=== PATIENT | female | born 1995 | race Caucasian/White ===

== ENCOUNTER 2022-07-05 09:26 | Outpatient (CLI) | payer MEDICAID, SELFPAY ==
[2022-07-05 11:29] LABS: Alanine Aminotransferase* 16 U/L (4-35); Aspartate Amino Transferase* 19 U/L (12-35); Blood Urea Nitrogen* 7 mg/dL (5-24); Creatinine* 0.5 mg/dL (0.5-1.5); Estimated Glomerular Filt Rate 133 ml/min; Uric Acid* 4.1 mg/dL (2.2-8.4)
[2022-07-05 11:34] LABS: Total Protein Urine 7 mg/dL
[2022-07-05 11:35] LABS: Creatinine Urine 146.3 mg/dL
== END 2022-07-05 09:27 | disposition home or self-care (01) ==
LOC: NFLDREF 09:27
PROVIDERS: Visit Provider Advanced Practice Midwife
DX: Z34.82 Encounter for supervision of other normal pregnancy, second trimester (principal); Z87.59 Personal history of other complications of pregnancy, childbirth and the puerperium; Z3A.20 20 weeks gestation of pregnancy
CPT/HCPCS: 82565; 82570; 84156; 84450; 84460; 84520; 84550

== ENCOUNTER 2022-07-13 08:12 | Outpatient (CLI) | payer MEDICAID, SELFPAY | END 2022-07-13 08:13 | disposition home or self-care (01) | LOC: NFLDREF 07-19 15:22 | PROVIDERS: Visit Provider Advanced Practice Midwife | DX: Z34.93 Encounter for supervision of normal pregnancy, unspecified, third trimester (principal) | CPT/HCPCS: 82951; 82952 ==

== ENCOUNTER 2022-08-26 08:16 | Outpatient (CLI) | payer MEDICAID, SELFPAY ==
[2022-08-26 08:42] LABS: Glucose Fasting Check 88 mg/dl (60-115)
[2022-08-26 12:41] LABS: Glucose 1 Hour Gest 169 mg/dl (70-180)
[2022-08-26 12:41] LABS: Glucose GTT-Gestational 3 Hr 160 mg/dl (70-140)
[2022-08-27 23:08] LABS: Rapid Plasma Reagin (RPR) Non Reactive (Non Reactive)
== END 2022-08-26 08:17 | disposition home or self-care (01) ==
PROVIDERS: Visit Provider Advanced Practice Midwife
DX: Z34.93 Encounter for supervision of normal pregnancy, unspecified, third trimester (principal); Z3A.28 28 weeks gestation of pregnancy
CPT/HCPCS: 82951; 82952; 86592; 86850

== ENCOUNTER 2022-09-07 12:52 | Outpatient (CLI) | payer MEDICAID, SELFPAY ==
--- NOTE | 2022-09-07 13:00 | CRLHL7_ITS ---
For Patients: As a result of the Cures Act, medical imaging exams and procedure reports are released immediately into your electronic medical record. You may view this report before your referring provider. If you have questions, please contact your health care provider. INDICATION: Gestational diabetes; macrosomia COMPARISON: none TECHNIQUE: Real time white scale imaging of the fetus was performed. FINDINGS: Sonographic imaging demonstrates a single living intrauterine gestation. Fetus demonstrates a regular cardiac rate of 173 beats per minute. Fetus has a vertex position. The placenta lies posteriorly. Amniotic fluid volume appears normal and there is a single deepest vertical pocket: 7.9 cm. ANA ROSA 19.0 cm. The estimated weight is 1973gm which lies at the greater than 97th %. BPD greater than 97th percentile. HC 97th percentile. AC greater than 97th percentile. FL 75th percentile. The HC/AC ratio measures 1.05 range (0.96-1.12). IMPRESSION: Sonographic gestational age 32 weeks 4 days and sonographic due date of 10/29/2022. Sonographic age is 18 days ahead of the clinical age. Estimated weight greater than 97th percentile. Abdominal circumference and BPD greater than 97th percentile. heart rate upper limits of normal at 173 beats per minute. Normal ANA ROSA. Dictated by Perry Ramírez MD @ 09/08/2022 12:25:41 PM (Electronically Signed)
== END 2022-09-07 12:53 | disposition home or self-care (01) ==
LOC: US 12:52
PROVIDERS: PCP Advanced Practice Midwife; Visit Provider Physician Assistant
DX: O36.63X0 Maternal care for excessive fetal growth, third trimester, not applicable or unspecified (principal); O24.419 Gestational diabetes mellitus in pregnancy, unspecified control; Z3A.32 32 weeks gestation of pregnancy
CPT/HCPCS: 76816

== ENCOUNTER 2022-09-21 13:08 | Outpatient (CLI) | payer MEDICAID, SELFPAY ==
--- NOTE | 2022-09-21 13:15 | CRLHL7_ITS ---
For Patients: As a result of the Century Cures Act, medical imaging exams and procedure reports are released immediately into your electronic medical record. You may view this report before your referring provider. If you have questions, please contact your health care provider. INDICATION: Gestational diabetes TECHNIQUE: Real time white scale imaging of the fetus was performed. COMPARISON: 09/07/2022 FINDINGS: Sonographic imaging demonstrates a single living intrauterine gestation. Fetus demonstrates a regular cardiac rate of 154 beats per minute. Fetus has a vertex position. The placenta lies posteriorly. Amniotic fluid volume appears normal and there is a single deepest pocket of 5.3 cm. The estimated weight is 2086gm which lies at the 71st %. On the prior OB ultrasound dated 09/07/2022 the estimated weight was at the greater than 97th percentile. BPD 96th percentile. HC 95th percentile. AC 49th percentile. FL 69th percentile. The fetus was active and demonstrated normal breathing movements. There was normal flexion and extension of the trunk and extremities. IMPRESSION: Normal biophysical profile score 8/8. Sonographic gestational age 33 weeks 6 days and sonographic due date 11/03/2022. Sonographic age 13 days ahead of the clinical age. Estimated weight 71st percentile. Abdominal circumference 49th percentile. Dictated by Perry Ramírez MD @ 09/22/2022 9:47:24 AM (Electronically Signed)
== END 2022-09-21 13:09 | disposition home or self-care (01) ==
LOC: US 13:09
PROVIDERS: PCP Advanced Practice Midwife; Visit Provider Advanced Practice Midwife
DX: O24.419 Gestational diabetes mellitus in pregnancy, unspecified control (principal); Z3A.33 33 weeks gestation of pregnancy
CPT/HCPCS: 76816; 76819

== ENCOUNTER 2022-09-21 15:02 | Outpatient (CLI) | payer MEDICAID, SELFPAY ==
[2022-09-21 22:28] LABS: Alanine Aminotransferase* 14 U/L (4-35)
[2022-09-21 22:45] LABS: Aspartate Amino Transferase* 20 U/L (12-35)
[2022-09-24 16:10] LABS: Bile Acids, Total 3 umol/L (0-10)
== END 2022-09-21 15:03 | disposition home or self-care (01) ==
PROVIDERS: PCP Advanced Practice Midwife; Visit Provider Advanced Practice Midwife
DX: O99.713 Diseases of the skin and subcutaneous tissue complicating pregnancy, third trimester (principal); L29.9 Pruritus, unspecified; Z3A.32 32 weeks gestation of pregnancy
CPT/HCPCS: 82239; 84450; 84460

== ENCOUNTER 2022-09-28 14:49 | Outpatient (CLI) | payer MEDICAID, SELFPAY ==
[2022-09-28 17:43] LABS: Alanine Aminotransferase* 14 U/L (4-35); Aspartate Amino Transferase* 18 U/L (12-35)
[2022-09-30 21:03] LABS: Bile Acids, Total 2 umol/L (0-10)
== END 2022-09-28 14:50 | disposition home or self-care (01) ==
PROVIDERS: PCP Advanced Practice Midwife; Visit Provider Advanced Practice Midwife
DX: L29.9 Pruritus, unspecified (principal)
CPT/HCPCS: 82239; 84450; 84460

== ENCOUNTER 2022-10-19 13:03 | Outpatient (CLI) | payer MEDICAID, SELFPAY ==
--- NOTE | 2022-10-19 13:00 | CRLHL7_ITS ---
For Patients: As a result of the Century Cures Act, medical imaging exams and procedure reports are released immediately into your electronic medical record. You may view this report before your referring provider. If you have questions, please contact your health care provider. INDICATION: Third trimester growth, BPP TECHNIQUE: Real time white scale imaging of the fetus was performed. COMPARISON: 09/21/2022 FINDINGS: Sonographic imaging demonstrates a single living intrauterine gestation. Fetus demonstrates a regular cardiac rate of 148 beats per minute. Fetus has a vertex position. The placenta lies left posterior. Amniotic fluid volume appears normal and there is a single deepest pocket of 7.2 cm. ANA ROSA 19.4 cm. The estimated weight is 3221gm which lies at the 87th %. On the prior OB ultrasound dated 09/21/2022 the estimated weight was at the 71st percentile. BPD 97th percentile. HC 89th percentile. AC 91st percentile. FL 57th percentile. The fetus was active. Absent breathing movements. There was normal flexion and extension of the trunk and extremities. IMPRESSION: Biophysical profile 8/8 with absent respiratory activity. Sonographic gestational age 37 weeks 6 days and sonographic due date 11/03/2022. Sonographic age is 13 days ahead of the clinical age. Estimated weight 87th percentile. Abdominal circumference 91st percentile. Dictated by Perry Ramírez MD @ 10/19/2022 2:38:03 PM (Electronically Signed)
== END 2022-10-19 13:04 | disposition home or self-care (01) ==
LOC: US 13:04
PROVIDERS: Visit Provider Advanced Practice Midwife
DX: Z34.93 Encounter for supervision of normal pregnancy, unspecified, third trimester (principal); Z3A.37 37 weeks gestation of pregnancy
CPT/HCPCS: 76816; 76819

== ENCOUNTER 2022-10-19 14:32 | Outpatient (CLI) | payer MEDICAID, SELFPAY ==
[2022-10-20 14:10] LABS: Strep B DNA Probe POSITIVE (Negative)
[2022-10-20 14:11] LABS: Strep B Pen/Amox Allergy No
== END 2022-10-19 14:33 | disposition home or self-care (01) ==
LOC: NFLDREF 14:32
PROVIDERS: Visit Provider Advanced Practice Midwife
DX: Z34.93 Encounter for supervision of normal pregnancy, unspecified, third trimester (principal); Z3A.37 37 weeks gestation of pregnancy
CPT/HCPCS: 87081; 87653

== ENCOUNTER 2022-10-28 13:04 | Outpatient (CLI) | payer MEDICAID, SELFPAY ==
--- NOTE | 2022-10-28 13:00 | CRLHL7_ITS ---
For Patients: As a result of the Century Cures Act, medical imaging exams and procedure reports are released immediately into your electronic medical record. You may view this report before your referring provider. If you have questions, please contact your health care provider. INDICATION: female. Evaluate well-being. Evaluate growth. TECHNIQUE: Transabdominal obstetrical ultrasound. COMPARISON: October 19, 2022. FINDINGS: Single living intrauterine in vertex presentation. heart rate 133 beats per minute. Amniotic fluid volume index 18.67 cm. Single deepest pocket measurement is 6.1 cm. The placenta is located along the left lateral wall both anteriorly and posteriorly. Biophysical profile score 6/8 with 2 points given each for gross body movements, tone, and amniotic fluid. Respiratory activity was not observed during the time course of the study. Biparietal diameter 9.65 cm, 39 weeks 3 days, greater than this 97th percentile. Head circumference 35.2 cm, 41 weeks 0 days, 96th percentile. Abdominal circumference 35.3 cm, 39 weeks 1 day, 97th percentile. Femur length 7.2 cm, 37 weeks 0 days, 42nd percentile. Composite calculated ultrasound age 39 weeks 1 day with a sonographic due date of November 03, 2012. This is advanced by 13 days when compared with the age based on the last menstrual period provided. Estimated weight 3647 g which lies at the 92nd percentile. IMPRESSION: 1. Biophysical profile score 6/8. 2. Composite calculated ultrasound age 39 weeks 1 day with a sonographic due date of November 03, 2022. Dictated by Srikanth Cedlilo MD @ 10/28/2022 4:00:24 PM (Electronically Signed)
== END 2022-10-28 13:05 | disposition home or self-care (01) ==
LOC: US 13:04
PROVIDERS: Visit Provider Advanced Practice Midwife
DX: Z34.93 Encounter for supervision of normal pregnancy, unspecified, third trimester (principal); Z3A.37 37 weeks gestation of pregnancy
CPT/HCPCS: 76816; 76819

== ENCOUNTER 2022-11-04 13:07 | Outpatient (CLI) | payer MEDICAID, SELFPAY ==
--- NOTE | 2022-11-04 13:00 | CRLHL7_ITS ---
For Patients: As a result of the Century Cures Act, medical imaging exams and procedure reports are released immediately into your electronic medical record. You may view this report before your referring provider. If you have questions, please contact your health care provider. INDICATION: GDM, BMI <40 COMPARISON: 10/28/2022 TECHNIQUE: Real time white scale imaging of the fetus was performed. Without non-stress testing. FINDINGS: Sonographic imaging demonstrates a single living intrauterine gestation. Fetus demonstrates a regular cardiac rate of 152 beats per minute. Fetus has a vertex position. The amniotic fluid volume appears normal and there is a single deepest pocket measurement of 3.7 cm. The fetus was active and demonstrated normal breathing movements. There was normal flexion and extension of the trunk and extremities. IMPRESSION: Normal biophysical profile score of 8 out of 8. Dictated by Perry Ramírez MD @ 11/05/2022 10:08:11 AM (Electronically Signed)
== END 2022-11-04 13:08 | disposition home or self-care (01) ==
LOC: US 13:07
PROVIDERS: Visit Provider Advanced Practice Midwife
DX: O24.419 Gestational diabetes mellitus in pregnancy, unspecified control (principal)
CPT/HCPCS: 76819

== ENCOUNTER 2022-11-09 07:20 | Inpatient (IN) | payer MEDICAID, SELFPAY ==
[2022-11-09] VITALS (25 sets, daily range): BP systolic 114–134; BP diastolic 60–80; PULSE 66–99; RESP 16–18; TEMP 36.8–37.3; O2SAT 78–99; BMI 41.5
[2022-11-09] MEDS: miSOPROStoL 25 MCG/0.25 TABLET VAGINAL ×4 (08:30→20:45)
--- NOTE | 2022-11-09 08:33 | P.LDBA_ITS ---
Subjective History of Present Illness Date Seen: 11/09/22 Narrative: Meg is being admitted to Labor and Delivery for induction of labor for gestational diabetes. She is a 27 year old at 39 0/7 weeks gestation. Her full history and physical was dictated by Laurie MOISE with Pablo Jackson CNM on 10/28/22. Please see this for details. OB PROBLEM LIST 1. History of Pre-E w/o severe features - diagnosed at IOL in last . Pt started taking Aspirin @ 12 weeks Baseline labs 07/05, all WNL, PCR 0.00 2. Umbilical hernia - repaired 2020 but came back almost immediately, stated no repair planned until after childbearing - per pt 3. Asthma - mild, persistent - managed by PCP 4. Depression/Anxiety - Lexapro 10mg - does not have a counselor but would like referral History of depression. Desires to increase Lexapro dose after delivery 5. Migraines - with aura in the past, very rare and respond well to ibuprofen (not tylenol) Reglan rx sent 07/05 6. Blood Type A Rh Negative - Rhogam at 28w. Given 08/26/2021 if baby's blood is Rh positive 7. Herpes Hx of labs, never swabbed. Denies any hx genital/oral outbreak, did not take w/ previous -Declines to take with this 8. Rubella: Non-Immune? & Varicella: Non-Immune Needs MMR and Varicella vaccines 9. BMI 39.9 Level II u/s @ 20w: 71% EFW Weekly NST or BPP starting at 32w - scheduled for weekly NSTs and Growth at 36 weeks. Anesthesia consult: Complete 08/26/2022 10. GDM-would like IOL at 39 weeks Failed early 1 hr gct, 167 3 hour ordered: passed 28 week gtt: failed 09/04 Supplies and referral sent 09/01 09/21: fasting elevated: 110, 97, 95, 98, 102, 98.? PP 128, 121. 10/07: fasting all normal 10/28: only one out of range over 1 week Planning IOL: scheduled 11/09, consent signed 11. Anemia, 10.1 at 28 weeks Patient had been taking iron every other day, increase to daily supplementation Vitron-C daily 12. Suspected PUPPP/PEP rash Itching noted at 32 weeks. cholestasis labs ordered; All WNL 3/ repeated cholestasis lab: all WNL Mometasone 0.1% lotion (1-2x/day) & Vistaril 25mg Q6hrs PRN (may take 50mg at night if needed) 13. GBS positive, planning antibiotics in labor OB - Problem Based A/P Additional Plan (1) Encounter for induction of labor: Status: Acute (2) Group B Streptococcus carrier, antepartum: Status: Acute (3) Severe obesity (BMI >= 40): Status: Acute (4) Asthma: Status: Acute (5) Depression: Status: Acute (6) Gestational diabetes: Status: Acute (7) Anemia: Status: Acute Plan ASSESSMENT:? 27 at 39 0/7 weeks gestation? complicated by:? * History of Pre-E w/o severe features - diagnosed at IOL in last . * Umbilical hernia * Asthma * Depression/Anxiety - Lexapro 10mg - * Migraines * Blood Type A Rh Negative * Rubella: Non-Immune? & Varicella: Non-Immune * BMI 39.9 * GDM-would like IOL at 39 weeks * Anemia * Suspected PUPPP/PEP rash Labor type: Induced labor? Category 1 FHR pattern.?? Labor complicated by: GDM, Anemia, GBS +? GBS positive? ? PLAN:? 1. Routine intrapartum cares as ordered. Discussed options for IOL including cytotec and briefly pitocin. Recommended vaginal cytotec based on current cervical exam. Patient agrees with plan. Administer cytotec per protocol every 4 hours. 2. Monitoring per policy, continuous for GDM and Cytotec 3. Planning an epidural. Candidate for analgesia of choice when desired.?? 4. Patient encouraged to reposition and ambulate to promote physiologic labor and .? 5. Monitor blood sugar during labor. Follow protocol for gestational diabetes management in labor. 6. GBS phrophylaxis initiated for GBS positive status. Will treat with antibiotics per protocol. 7. Anticipate ? Delivery/Labor/Induction Plan Plan: induction Induction method: per misoprostol protocol OB Exam Physical Exam Vital signs: Temp Pulse Resp BP 99.1 F 96 16 118/80 11/09/22 07:56 11/09/22 08:00 11/09/22 07:56 11/09/22 08:00 Narrative: Vitals Reviewed Constitutional:? Alert and oriented x3 HEENT:? Normocephalic, atraumatic Neck:? Supple Lungs:? Clear to auscultation bilaterally Heart:? Regular rate and rhythm, no murmur, rub or gallop Abdomen:? Soft, nontender, and gravid. Vertex by Ghassan's, confirmed with cervical exam. Extremities:? 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
[2022-11-09 09:44] LABS: SARS PCR* Negative SARS-CoV-2 (Negative)
[2022-11-09] MEDS: ACETAMINOPHEN 500 MG TABLET 1000 MG PO (14:25)
--- NOTE | 2022-11-09 17:05 | P.OBPN_ITS ---
Subjective Date Seen: 11/09/22 Narrative: Meg is a 27 yo at 39 0/7 weeks for IOL for GDM. Patient is coping well with labor pain/contractions. She reports mostly just feeling mild cramping and contractions. She is currently being supported by . Understands the current plan of care. Questions answered to her satisfaction. She plans epidural for pain management when uncomfortable. 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 Objective Exam: Objective: Constitutional: Alert and oriented x3, no distress, coping well Vital signs stable, see nurse documentation Abdomen: gravid, contractions palpate mild with contractions and soft between. Bedside US confirms cephalic position, appears OP. Cervix: Deferred NST: 145 bpm/moderate variability/positive accelerations/no decelerations/ irregular contractions. [place] used for FHR assessment Vital Signs: Last Vital Signs Temp 98.4 F 11/09/22 16:37 Pulse 74 11/09/22 16:39 Resp 16 11/09/22 16:37 BP 117/66 11/09/22 16:39 Contractions Contraction intensity: Mild Plan Plan: ASSESSMENT:? 27 at 39 0/7 weeks gestation? complicated by:? * History of Pre-E w/o severe features - diagnosed at IOL in last . * Umbilical hernia * Asthma * Depression/Anxiety - Lexapro 10mg - * Migraines * Blood Type A Rh Negative * Rubella: Non-Immune? & Varicella: Non-Immune * BMI 39.9 * GDM-would like IOL at 39 weeks * Anemia * Suspected PUPPP/PEP rash * Labor type: Induced labor? Category 1 FHR pattern.?? Labor complicated by: GDM, Anemia, GBS +? GBS positive? ? PLAN:? 1. Routine intrapartum cares as ordered. Continue cytotec per protocol. Fetus confirmed cephalic via US 2. Monitoring per policy, continuous for GDM and Cytotec 3. Planning an epidural. Candidate for analgesia of choice when desired.?? 4. Patient encouraged to reposition and ambulate to promote physiologic labor and .?Encouraged her to get up and out of bed. 5. Monitor blood sugar during labor. Follow protocol for gestational diabetes management in labor. 6. GBS phrophylaxis initiated for GBS positive status. Will treat with antibiotics per protocol. 7. Anticipate ?
[2022-11-09 17:47] LABS: Basophils Absolute Auto 0.02 K/uL (0.00-0.30); Basophils Percent Auto 0.3 % (0.0-3.0); Eosinophils Absolute Auto 0.02 K/uL (0.00-0.50); Eosinophils Percent Auto 0.3 % (0.0-7.0); Hematocrit 36.1 % (33.0-51.0); Hemoglobin* 11.7 gm/dL (12.0-16.0); Immature Granulocytes Abs Auto 0.03 K/uL (0.00-0.30); Immature Granulocytes Pct Auto 0.5 %; Lymphocytes Absolute Auto 1.27 K/uL (0.90-2.90); Mean Corpuscular HGB Conc 32 gm/dL (32-36); Mean Corpuscular Hemoglobin 29 pg (26-34); Mean Corpuscular Volume 88 fL (80-100); Monocytes Percent Auto 7.9 % (0.0-11.0); Neutrophils Absolute Auto 4.23 K/uL (1.7-7.0); Platelet Count* 156 K/uL (140-440); Red Blood Count 4.09 m/uL (4.00-5.20); White Blood Count* 6.05 K/uL (4.50-11.00)
[2022-11-09 18:04] LABS: Slide Review Reflex No
[2022-11-09] MEDS: LACTATED RINGERS 1000 ML 1,000 ML 1200 ML IV (21:30)
[2022-11-09] MEDS: AMPICILLIN 2 GM in 0.9 % SODIUM CHLORIDE Mini-bag 100 ML IVPB (21:46)
[2022-11-09] MEDS: ROPIVACAINE 0.2% 100 ml 100 ML 12 MG EPIDURAL (22:10)
[2022-11-09] MEDS: LACTATED RINGERS 1000 ML 1,000 ML 125 ML IV (22:27)
[2022-11-10] VITALS (23 sets, daily range): BP systolic 99–129; BP diastolic 53–77; PULSE 72–112; RESP 16–18; TEMP 36.6–36.9; O2SAT 96–97
[2022-11-10] MEDS: ONDANSETRON 2 MG/ML inj 4 MG IV (02:03)
[2022-11-10] MEDS: AMPICILLIN 1 GM in 0.9 % SODIUM CHLORIDE Mini-bag 100 ML IVPB (02:08)
[2022-11-10] MEDS: OXYTOCIN 30 unit/500 ML in NS 30 UNIT/500 ML BAG 300 UNIT IVPB (02:42)
--- NOTE | 2022-11-10 02:54 | W.PM.OBVAGDE ---
Documented by User: Rosendo Fletcher 11/10/22 03:08 OB Procedure Vag Delivery Mother Details Mother Details: Meg is a 27 year-old, 2, Para 1, admitted on 11/09/22 at 39.1weeks gestation induced for GDM. She was positive for GBS and received adequate treatment at time of delivery. : 2 Para: 2 Weeks Gestation: 39.1 Admission Date: 11/09/22 Additional Details Amniotic Membrane Status: SROM Amniotic Membrane Rupture Date: 11/09/22 Amniotic Membrane Rupture Time: 21:09 Amniotic Membrane Fluid Description: Clear Analgesia/Anesthesia Type: Epidural Waterbirth: No Pitcoin: Yes (AMTSL) Intrapartal Events: Labor Induction Induction Method: per misoprostol protocol Labor Onset: 21:00 Complete: 23:04 Pushin:38 Heart: heart tones during second stage were reassuring throughout, variable decels with pushing but good return to baseline of 145, moderate variability. Delivery Details Delivery Date: 11/10/22 Delivery Time: 02:37 Route of delivery: Infant Gender: Male Infant Viability: Alive; Heart Rate Present Position at Delivery: OA Delivery Details: Patient had an uncomplicated labor that progressed normally to complete. Patient pushed well in multiple positions. of a viable male at 0237 in right tilt position. Vertex delivered OA. No nuchal cord or shoulder, there was a loose body cord. Body delivered easily and without incident. passed to mothers abdomen with a vigorous cry. Cord was clamped and cut at > 5 minutes. APGARS were 7 at one minute and 8 at five minutes respectively. Mouth was bulb suctioned. Intact placenta with a 3 vessel cord delivered spontaneously. IV Pitocin was given after delivery of the baby. Fundus firm. No tear identified. QBL 344 cc. Mother and baby stable; mother plans to breastfeed. weight 3710g. 1 Minute Interval Total Score: 7 5 Minute Interval Total Score: 8 Additional Details Shoulder Dystocia: No Placenta Delivery Time: 02:42 Placental Delivery Description: Spontaneous Procedure Done: Global Blood Loss: 344 Laceration: None Blood Loss Measurement Type: QBL Bakri Used: No Sponge/Need Count Correct: Yes Cord Vessel Description: 3 Vessels, Loose, Around Body and Delivered through Event Summary Status: Mother and infant were stable after delivery. Disposition: floor Documented by User: Melody Jackson CNM 11/10/22 03:14 OB Procedure Vag Delivery Mother Details Mother Details: Meg is a 27 year-old, 2, Para 1, admitted on 11/09/22 at 39.1 weeks gestation induced for GDM. She was positive for GBS and received adequate treatment at time of delivery.
[2022-11-10] MEDS: IBUPROFEN 600 MG TABLET PO ×2 (08:52→17:18)
[2022-11-10] MEDS: DOCUSATE SODIUM 100 MG CAPSULE PO (08:53)
[2022-11-10] MEDS: ESCITALOPRAM 10 MG TABLET PO (10:13)
[2022-11-10] MEDS: OMEPRAZOLE 20 MG CAPSULE DR PO (10:13)
[2022-11-10] MEDS: ACETAMINOPHEN 500 MG TABLET 1000 MG PO ×2 (10:58→20:42)
[2022-11-10] MEDS: MEASLES,MUMPS,RUBELLA VACC/PF 1 DOSE INJ 1 EACH SUBCUT (17:28)
[2022-11-10] MEDS: LANOLIN CREAM 1 APPLIC TOPICAL (20:43)
[2022-11-11 01:07] VITALS: BP 114/74; PULSE 74; RESP 16; TEMP 36.6; O2SAT 96
[2022-11-11] MEDS: IBUPROFEN 600 MG TABLET PO ×2 (01:08→08:13)
--- NOTE | 2022-11-11 07:49 | P.DS_ITS ---
DS: Providers Provider Date Seen: 11/11/22 Date of admission: 11/09/22 07:20 Primary care physician: Not a Local Provider Admitting Clinician: Melody Jackson CNM Attending Physician on discharge: Melody Jackson CNM Date of Discharge: 11/11/22 DS: Diagnosis Discharge Diagnosis (1) care and examination immediately after delivery: Status: Acute (2) Lactating mother: Status: Acute Exam Narrative: Exam Narrative: GENERAL APPEARANCE:? normal affect, alert, no distress MOOD:? appropriate CHEST:? clear to auscultation HEART:? regular rate and rhythm ABDOMEN:? soft, non-tender the uterine fundus is At Umbilicus, Midline and is appropriate for the stage of recovery. PERINEUM:? mild edema of the perineum, intact EXTREMITIES:? normal and no edema Const: Vital Signs, click to edit/add: Vital Signs - 24 hr 11/10/22 08:38 11/10/22 08:52 11/10/22 13:12 Temperature 98.1 F 98.1 F 97.8 F Pulse Rate [Pulse Oximeter] 72 Respiratory Rate 18 18 Blood Pressure [Le ft Arm] 115/77 120/73 Pulse Oximetry 96 96 Oxygen Delivery Me thod Room Air Room Air 11/10/22 17:08 11/10/22 17:18 11/10/22 20:21 Temperature 98.4 F 98.4 F 98.2 F Pulse Rate [Pulse Oximeter] 72 76 Respiratory Rate 18 16 Blood Pressure [Le ft Arm] 116/73 114/77 Pulse Oximetry 97 97 Oxygen Delivery Me thod Room Air Room Air 11/11/22 01:07 Temperature 97.9 F Pulse Rate [Pulse Oximeter] 74 Respiratory Rate 16 Blood Pressure [Le ft Arm] 114/74 Pulse Oximetry 96 Oxygen Delivery Me thod Room Air Documenting provider has reviewed patient's vital signs: yes OB - DS: Summary Hospital Course Hospital Course: Meg is a 27 y.o. at 39 1/7 weeks who was admitted to L & D for induction of labor for GDM. ?She had an uncomplicated NVD.?The patient feels well. ?The pain is well controlled with current medications. ?She has no new complaints. ?She is breast feeding and reports things are going well. They are also supplementing with formula.? the patient has done well.? Vitals have been stable.? She has remained afebrile.? Has a good appetite, is tolerating a general diet. ?She is voiding without difficulty.? She is passing gas and has not had a bowel movement.? She is ambulating and denies any dizziness.? Has small amount of rubra lochia. ?She is planning condoms for prevention. Plan for 2 hour gct at 6 week pp visit. Plan to continue Lexapro at 10 mg, if she feels she needs adjustment before 2 weeks, she will call to discuss this with provider. Peripartum Data delivery method: Vaginal Laceration description: Perineal - 2nd Degree complications: none Infant Gender: Male Infant Discharge Plan: Home Status at Discharge Functional status at discharge: independent ambulation Overall status at discharge: patient is progressing back to baseline Time Spent with Patient Time attestation: Total time spent providing and/or coordinating discharge services: Discharge Plan Discharge Disposition: Home, Self-Care Date of Admission: 11/09/22 07:20 Attending Provider on Discharge: Melody Jackson Primary Care Provider: Provider,Not a Local Condition: Stable Anticipated Discharge Date/Time: 11/11/22 12:00 Discharge Medications: New docusate sodium 100 mg Capsule 100 mg PO DAILY Qty: 90 0RF ibuprofen 600 mg Tablet 600 mg PO Q6H PRNQty: 60 0RF Continued omeprazole 20 mg capsule,delayed release(DR/EC) 20 mg PO QDAY escitalopram oxalate [Lexapro] 10 mg tablet 10 mg PO QDAY fluticasone propion-salmeterol [Wixela Inhub] 250-50 mcg/dose blister with device 1 inh inhalation BID albuterol sulfate [Ventolin HFA] 90 mcg/actuation HFA aerosol inhaler 2 puff inhalation Q6H PRN acetaminophen [Tylenol Extra Strength] 500 mg tablet 1,000 mg PO Q6H PRN ascorbate calcium (vitamin C) 500 mg tablet 500 mg PO QDAY diphenhydramine HCl [Benadryl] 25 mg capsule 25 mg PO QHS PRN ferrous sulfate [FeroSul] 325 mg (65 mg iron) tablet See Rx Instructions .ROUTE .COMPLEX Qty: 90 0RF Dose Instruction: TAKE 1 TABLET BY MOUTH EVERY OTHER DAY Rx Instructions: TAKE 1 TABLET BY MOUTH EVERY DAY hydroxyzine pamoate 25 mg capsule 25 mg PO Q6H PRN (Reason: itching) Qty: 60 1RF Rx Instructions: May take one capsule 4 times a day as needed for itching. May take 2 capsules at night if needed. Discontinued aspirin 81 mg tablet,delayed release (DR/EC) 81 mg PO QDAY metoclopramide HCl [Reglan] 10 mg tablet 10 mg PO Q6H PRN (Reason: headache) Qty: 30 2RF Rx Instructions: Take at onset of migraine with Tylenol 1,000 mg. If not resolved in 6 hours, repeat. (DME) blood-glucose meter [Accu-Chek Guide Me Glucose Mtr] Misc MISCELLANEOUS DIRECTED (DME) Accu-Chek Guide test strips Strip MISCELLANEOUS QID (DME) Test Strips Misc See Rx Instructions .MEDSUPPLY Qty: 100 3RF Rx Instructions: Test blood sugar 4 times daily. (DME) lancets Misc See Rx Instructions .MEDSUPPLY Qty: 100 3RF Rx Instructions: Test blood sugar 4 times daily. (DME) Blood Glucose Meter Misc See Rx Instructions .MEDSUPPLY Qty: 1 0RF Rx Instructions: As directed Discharge Orders: Discharge Order (Routine); Ordered 11/11/22 Ordered By: Melody Jackson Patient Education: OB Over the Counter Medication Information, OB Vaginal/Breast Feeding Additional Instructions: Discharge instructions were reviewed with the patient including signs and symptoms of infection and home going medications Nothing vaginally for 6 weeks: no tampons or intercourse Off Work or School for 6 weeks 2-week visit: discuss feeding concerns, review control options and screen for anxiety/depression. 6-week visit for an annual exam. consultation services are available to all mothers and babies for the first year after delivery.? To make an appointment, please call [phone]. Activity Level: Activity as Tolerated Discharge Diet: Regular Follow Up Appointments: [facility] [Provider Group] (2 weeks and 6 weeks) [facility]
[2022-11-11] MEDS: DOCUSATE SODIUM 100 MG CAPSULE PO (08:13)
[2022-11-11] MEDS: OMEPRAZOLE 20 MG CAPSULE DR PO (08:14)
[2022-11-11] MEDS: ESCITALOPRAM 10 MG TABLET PO (08:14)
[2022-11-11 08:45] VITALS: BP 117/78; PULSE 77; RESP 18; TEMP 36.8; O2SAT 96
--- NOTE | 2022-11-16 11:08 | PM.ANBPRC ---
[facility] Medical History Herpes ?B00.9 - Herpesviral infection, unspecified (ICD-10) Migraine with aura ?G43.109 - Migraine with aura, not intractable, without status migrainosus (ICD-10) Multiple cysts of breast ?N60.19 - Diffuse cystic mastopathy of unspecified breast (ICD-10) Surgical History History of hernia surgery ?Z98.890 - Other specified postprocedural states (ICD-10) ?Z87.19 - Personal history of other diseases of the digestive system (ICD-10) [place] teeth extracted ?K08.409 - Partial loss of teeth, unspecified cause, unspecified class (ICD-10) Social History (Updated 10/28/22 @ 21:32 by Melody Jackson CNM) Narrative: SOCIAL Education: Highschool 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 Seat Belt Use: Routinely Smoking: Denies past/present Alcohol/day: Denies while Caffeine: sometimes, but minimal Drug Use: Denies past/present MRSA: Denies Chickenpox: unknown Smoking Status: Never smoker Meds Home Medications and Allergies Home Medications Medication Instructions Recorded Confirmed Type acetaminophen 500 mg tablet 1,000 mg PO Q6H PRN 06/16/22 11/09/22 History (Tylenol Extra Strength) albuterol sulfate 90 mcg/actuation 2 puff inhalation Q6H PRN 06/16/22 11/09/22 History aerosol inhaler (Ventolin HFA) escitalopram oxalate 10 mg tablet 10 mg PO QDAY 06/16/22 11/09/22 History (Lexapro) fluticasone 250 mcg-salmeterol 50 1 inh inhalation BID 06/16/22 11/09/22 History mcg/dose blistr powdr for inhalation (Wixela Inhub) omeprazole 20 mg capsule,delayed 20 mg PO QDAY 06/16/22 11/09/22 History release ascorbate calcium (vitamin C) 500 500 mg PO QDAY 10/07/22 11/09/22 History mg tablet diphenhydramine HCl 25 mg capsule 25 mg PO QHS PRN 10/19/22 11/09/22 History (Benadryl) Allergies Allergy/AdvReac Type Severity Reaction Status Date / Time No Known Drug Allergies Allergy Verified 11/04/22 14:00 Results Vital Signs Vital Signs: Last Vital Signs Temp 98.2 F 11/11/22 08:45 Pulse 77 11/11/22 08:45 Resp 18 11/11/22 08:45 BP 117/78 11/11/22 08:45 Pulse Ox 96 11/11/22 08:45 O2 Del Method Room Air 11/11/22 08:45 Weight: 113.1 kg Height: 165.1 cm Anesthesia Procedures Epidural Insertion Patient Location: OB Start Time: 21:30 Stop Time: 22:30 Start Date: 11/09/22 Stop Date: 11/09/22 Reason for Block: procedure for pain Patient Position: sitting Performed By: Viet Cruz Preanesthetic Checklist: IV checked, risks and benefits discussed, surgical consent, monitors and equipment checked, pre-op evaluation, timeout performed and anesthesia consent Prep: chlorhexidine gluconate Monitoring: blood pressure monitoring, continuous pulse oximetry and heart rate Approach: midline Vertebral Space: lumbar (1-5) Epidural Technique: SHARMAINE saline Needle Type: Tuohy needle Injection Technique: continuous catheter Needle gauge: 17 Needle Length (cm): 10 cm Needle Insertion Depth (cm): 6 Catheter Gauge: 19 Catheter Type: multi-orifice Catheter at skin depth (cm): 12 Test Dose Result: negative and lidocaine 1.5% with epinephrine 1 to 200,000
== END 2022-11-11 11:45 | disposition home or self-care (01) | DRG 807 ==
PROVIDERS: Admitting Provider Advanced Practice Midwife; Visit Provider Advanced Practice Midwife
DX: O24.420 Gestational diabetes mellitus in childbirth, diet controlled (principal); Z37.0 Single live birth; O99.824 Streptococcus B carrier state complicating childbirth; O99.214 Obesity complicating childbirth; E66.01 Morbid (severe) obesity due to excess calories; O99.344 Other mental disorders complicating childbirth; F41.8 Other specified anxiety disorders; J45.909 Unspecified asthma, uncomplicated; O99.02 Anemia complicating childbirth; D64.9 Anemia, unspecified; Z3A.39 39 weeks gestation of pregnancy
CPT/HCPCS: 01967; 36415; 59200; 85025; 85461; 86850; 86900; 86901; 87635; A9270; J0290; J2370; J2405; J2791; J2795; J7120; S0020

== ENCOUNTER 2023-02-11 08:23 | Outpatient (CLI) | payer MEDICAID, SELFPAY | END 2023-02-11 08:24 | disposition home or self-care (01) | LOC: NFLDREF 20:59 | PROVIDERS: Visit Provider Advanced Practice Midwife | DX: Z39.2 Encounter for routine postpartum follow-up (principal); Z86.32 Personal history of gestational diabetes; R73.01 Impaired fasting glucose; E66.01 Morbid (severe) obesity due to excess calories | CPT/HCPCS: 82947; 82950 ==

== ENCOUNTER 2023-08-08 17:38 | Emergency (ER) | payer MEDICAID, SELFPAY ==
[2023-08-08 17:41] VITALS: BP 111/77; PULSE 79; RESP 16; TEMP 36.9; O2SAT 98; BMI 39.9
--- NOTE | 2023-08-08 18:22 | CRLHL7_ITS ---
For Patients: As a result of the Century Cures Act, medical imaging exams and procedure reports are released immediately into your electronic medical record. You may view this report before your referring provider. If you have questions, please contact your health care provider. INDICATION: . Bleeding. Beta HCG 13.2. Last menstrual period 07/05/2023. FINDINGS: Pelvic ultrasound was performed. There is no intrauterine seen. The endometrial stripe thickness measures 0.8 cm. The right ovary measures 3.4 x 2.2 x 2.2 cm. The left ovary measures 3.1 x 1.1 x 2.1 cm. There is no ovarian or adnexal mass. There is no free fluid in the pelvis. IMPRESSION: No intrauterine seen. Recommend follow-up with serial beta HCGs and possible ultrasound. Dictated by Ld Brooks MD @ 08/08/2023 9:10:23 PM (Electronically Signed)
--- OUTSIDE RECORDS SUMMARY | 2023-08-08 18:33 | XMS_ITS | Clinical Summary ---
Author Name Unknown Organization [facility] Address [address] [place] [address] Care Team Providers Care Freight Inspector Name Role Phone No Ref-Primary, Physician Primary Care Provider Allergies Active Allergy Reactions Criticality Noted Date Comments Cats 07/12/2019 Other reaction(s): *Unknown Dog Epithelium Allergy Skin Test 07/12/2019 Other reaction(s): *Unknown Dogs 07/12/2019 Medications Medication Sig Dispensed Refills Start Date End Date Status fluticasone (FLOVENT HFA) 110 MCG/ACT inhalerIndications :Asthma, persistent not controlled Inhale 1 puff into the lungs 2 times daily 1 Inhaler 5 01/23/2020 Active sertraline (ZOLOFT) 100 MG tabletIndications: Depression affecting in third trimester, antepartum Take 1 tablet (100 mg) by mouth daily 90 tablet 4 03/27/2020 Active salmeterol (SEREVENT) 50 MCG/DOSE inhalerIndications :Asthma affecting in first trimester Inhale 1 puff into the lungs 2 times daily 1 Inhaler 3 08/04/2020 Active Additional Information Patient not taking.Reported on 02/24/2021 senna-docusate (SENOKOT-S/PERICOL DWAYNE) 8.6-50 MG tabletIndications: Postoperative pain Take 1-2 tablets by mouth 2 times daily 30 tablet 0 08/25/2020 Active oxyCODONE (ROXICODONE) 5 MG tabletIndications: Postoperative pain Take 1 tablet (5 mg) by mouth every 6 hours as needed for pain 20 tablet 0 08/25/2020 Active Additional Information Patient not taking.Reported on 02/24/2021 acetaminophen (TYLENOL) 500 MG tabletIndications: Postoperative pain Take 1-2 tablets (500-1,000 mg) by mouth every 6 hours as needed for mild pain 30 tablet 1 08/25/2020 Active fluticasone-salmet miranda (WIXELA INHUB) 250-50 MCG/DOSE inhaler Inhale 1 puff into the lungs 0 01/22/2021 Active albuterol (PROAIR HFA/PROVENTIL HFA/VENTOLIN HFA) 108 (90 Base) MCG/ACT inhalerIndications :Asthma, persistent not controlled Inhale 2 puffs into the lungs every 4 hours as needed for shortness of breath / dyspnea or wheezing 8.5 g 2 02/24/2021 Active LORazepam (ATIVAN) 0.5 MG tablet Take 1 tablet (0.5 mg) by mouth every 6 hours as needed for anxiety 5 tablet 0 02/25/2021 Active citalopram (CELEXA) 20 MG tablet Take 20 mg by mouth every morning 0 09/19/2020 Active DULoxetine (CYMBALTA) 30 MG capsule Take 30 mg by mouth 0 11/05/2020 Activ e fluticasone (FLONASE) 50 MCG/ACT nasal spray 0 10/17/2020 Active omeprazole (PRILOSEC) [address] capsuleIndications :Gastroesophageal reflux in in second trimester Take 1 capsule (20 mg) by mouth daily 60 capsule 0 07/07/2021 Active Active Problems Problem Noted Date Diagnosed Date Umbilical hernia without obstruction and without gangrene 04/11/2020 (normal spontaneous vaginal delivery) 01/30 Indication for care in labor and delivery, antep artum 01/30/2020 Positive GBS test 01/17/2020 Encounter for triage in patient 020 BMI 35.0-35.9,adult 08/16/2019 Asthma affecting in first trimester Asthma, persistent not controlled 12/26/2018 Anxiety and depression 08/22/2017 Seasonal allergic rhinitis 11/21/2014 Mild persistent asthma 01/29/2011 Resolved Problems Problem Noted Date Diagnosed Date Resolved Date Supervision of high-risk 07/12/2019 03/27/2020 Overview: EDC 02/05/20 by L=10wk US Innatal/carrier: decl BF [place] Flu:next appt Tdap: 11/05 Asthma. Albuterol, flovent; seravent added 07/19 Depression, no meds/counseling. Consider tx 34wk Rubella NI. Vaccinate PP BMI 35 1Hr GCT/hgb: Passed 131, 10.2 A negative. 11/05 Rhogam 28wk Encounters Date Type Department Care Team Description 07/28/2023 MyC Medical Advice PHYS STANDARD [address] [phone] Mychart, [facility] from Last 3 Months Immunizations Name Administration Dates Next Due HEPATITIS A (PEDS 12M-18Y) 05/06/2011 HPV Quadrivalent 06/14/2012, 1,05/22/2010,04/05/2008, HepB, Unspecified 08/10/1996,02/23/1996,12/13/18 96 Hepatitis A (ADULT 19+) 05/22/2010 Hib, Unspecified 02/11/1997,05/03/1996, 6,1995 Influenza (IIV3) PF 06/14/2012,05/06/2011,2009 MMR 02/01/2020,01/05/2001,12/13/1996 Meningococcal ACWY (Menveo??) 05/06/2011 Polio, Unspecified 02/11/1997,05/03/1996, 996,1995 Poliovirus, inactivated (IPV) 01/05/2001 TDAP Vaccine (Adacel) 11/06/2019,01/30/2008 Family History Medical History Relation Comments No Known Problems Brother Cancer Father Neurologic-head/ spine No Known Problems Maternal Grandfather No Known Problems Maternal Grandmother Anxiety Disorder Mother Depression Mother Hypertension Mother No Known Problems Other No Known Problems Paternal Grandmother No Known Problems Sister Relation Status Comments Brother Father Maternal Grandfather Maternal Grandmother Mother Other Paternal Grandmother Sister Social History Tobacco Use Types Packs/Day Years Used Date Smoking Tobacco: Never Smokeless Tobacco: Never Tobacco Cessation:Counseling Given: No Comments:lives in a smoking environment Alcohol Use Standard Drinks/Week Comments Not Currently 0 (1 standard drink = 0.6 oz pur e alcohol) AUDIT-C Answer Date Recorded Frequency of Alcohol Consumption Never 12/21/2018 Average Number of Drinks Not on file 019 Frequency of Binge Drinking Not on file 11/30 PHQ-2 Answer Date Recorded PHQ-2 Score 0 03/27/2020 [place] Depression Scale Answer Date Recorded [place] Depression Score 6 02/01/2020 Last EPDS Self Harm Result Not on file 01/31 Adolescent Education Answer Date Record ed Getting School Help Needed Not on file 05/10 Sex and Gender Information Value Date Recorded Sex Assigned at Female 11/25/2020 9:34 PM CDT Gender Identity Female 11/25/2020 9:34 PM CDT Sexual Orientation Straight 11/25/2020 9: 34 PM CDT Last Filed Vital Signs Vital Sign Reading Time Taken Comments Blood Pressure 120/80 03/24/2021 9:23 AM CDT Pulse 91 03/24/2021 9:23 AM CDT Temperature 37.1 ??C (98.7 ??F) 02/25/2021 7:37 PM CD T Respiratory Rate 25 02/25/2021 7:37 PM CDT Oxygen Saturation 100% 02/25/2021 7:37 PM CDT Inhaled Oxygen Concentration - - Weight 99.8 kg (220 lb) 02/25/2021 7:37 PM CDT Height 165.1 cm (5' 5) 02/25/2021 7:37 PM CDT Body Mass Index 36.61 02/25/2021 7:37 PM CDT Plan of Treatment Upcoming Encounters Date Type Department Care Team (Late st Contact Info) Description 08/09/2023 10:45 AM MRI MANAGER Office Visit [facility] [place] [address] [place] [phone] Deonte Miramontes MD [address] [place] [address] Health Maintenance Due Date Last Done Comments ADVANCE CARE PLANNING 1995 ANNUAL REVIEW OF HM ORDERS 1995 YEARLY PREVENTIVE VISIT 1995 HEPATITIS C SCREENING 10/20/2013 ASTHMA CONTROL TEST 06/23/2019 12/21/2018 ASTHMA ACTION PLAN 12/22/2019 12/21/2018 Pneumococcal Vaccine: Pediatrics (0 to 5 Years) and At-Risk Patients (6 to 64 Years) (2 of 2 - PCV) 08/31/2022 08/31/2021 COVID-19 Vaccine (4 - season) 2023 08/31/2021, 08/31/2021, 01/07/2021, Additional history exists INFLUENZA VACCINE (#1) 2023 2, 08/31/2021, 06/14/2012, Additional history exists PHQ-2 (once per calendar year) 2023 03/27/2020, 03/27/2020, 07/12/2019, Additional history exists PAP 04/21/2025 04/21/2022, 07/12/2019 DTAP/TDAP/TD IMMUNIZATION (4 - Td or Tdap) 09/07/2032 09/07/2022, 11/06/2019, 01/30/2008, Additional history exists HEPATITIS B IMMUNIZATION Completed 997, 08/10/1996, 02/23/1996, Additional history exists IPV IMMUNIZATION Completed 01/05/2001, , 02/11/1997, Additional history exists MENINGITIS IMMUNIZATION Aged Out 05/06/2011 No l onger eligible based on patient's age to complete this topic HPV IMMUNIZATION Completed 06/14/2012, , 05/06/2011, Additional history exists HIV SCREENING Completed 07/12/2019, 01/26/2014 CHLAMYDIA SCREENING Discontinued 03/24/2022, 07/12/2019, 07/12/2019, Additional history exists RSV MONOCLONAL ANTIBODY Aged Out No l onger eligible based on patient's age to complete this topic Medical Devices Implanted Type Area Head Baker Device Identifier Shelf Expiration Date Model / Serial / Lot Mesh Symbotex Composite Stex Round 12cm Sym12 Implanted:Qty: 1 on 08/25/2020 by Deonte Miramontes MD at [facility] Mesh N/A: Abdomen COVIDIEN [id number] 01/28/2025 [id number] / / [id number] Care Teams Freight Inspector Relationship Specialty Start Date End Date No Ref-Primary, Physician PCP - General 03/04/18
--- OUTSIDE RECORDS SUMMARY | 2023-08-08 18:33 | XMS_ITS | Referral Summary ---
Author Name Unknown Organization [facility] Address [address] [place] [address] Care Team Providers Care Sky Line Yarder Name Role Phone No Ref-Primary, Physician Primary Care Provider Encounters Date Type Department Care Team Description 07/28/2023 MyC Medical Advice SH PHYS STANDARD [address] [facility] [place] [phone] Rodolfo [place] from Last 3 Months Allergies Active Allergy Reactions Criticality Noted Date [...] 131, 10.2 A negative. 11/05 Rhogam 28wk Immunizations Name Administration Dates Next Due HEPATITIS A (PEDS 12M-18Y) 05/06/2011 HPV Quadrivalent 06/14/2012, 1,05/22/2010,04/05/2008, HepB, Unspecified 08/10/1996,02/23/1996,12/13/18 96 Hepatitis A (ADULT 19+) 05/22/2010 Hib, Unspecified 02/11/1997,05/03/1996, 6,1995 Influenza (IIV3) PF 06/14/2012,05/06/2011,2009 MMR 02/01/2020,01/05/2001,12/13/1996 Meningococcal ACWY (Menveo??) 05/06/2011 Polio, Unspecified 02/11/1997,05/03/1996, 996,1995 Poliovirus, inactivated (IPV) 01/05/2001 TDAP Vaccine (Adacel) 11/06/2019,01/30/2008 Social History Tobacco Use Types Packs/Day Years [...] Answer Date Recorded PHQ-2 Score 0 03/27/2020 [place] Depression Scale Answer Date Recorded [place] Depression Score 6 02/01/2020 Last EPDS Self [...] st Contact Info) Description 08/09/2023 10:45 AM COST AND RISK ANALYSIS MANAGER Office Visit [facility] [place] [address] [place] [phone] Deonte Miramontes MD [address] [facility] [address] [place] [address] Medical Devices Implanted Type Area Medical Art Therapist Device Identifier Shelf Expiration Date Model / Serial / Lot Mesh Symbotex Composite Stex Round 12cm Sym12 Implanted:Qty: 1 on 08/25/2020 by Deonte Miramontes MD at [facility] Mesh N/A: Abdomen COVIDIEN [id number] 01/28/2025 [id number] / / [id number] Care Teams Sky Line Yarder Relationship Specialty Start Date End Date No Ref-Primary, Physician PCP - General 03/04/18
--- OUTSIDE RECORDS SUMMARY | 2023-08-08 18:34 | XMS_ITS | Encounter Summary ---
Author Name Unknown Organization [facility] Address [address] [place] [address] Care Team Providers Care Product Management Internship Name Role Phone No Ref-Primary, Physician Primary Care Provider Raghavendra Isaac MD Unavailable Deonte Miramontes MD Unavailable sLinda DO Unavailable [phone] Encounter Details Date Type Department Care Team (Late st Contact Info) Description 03/20/2021 MyC Medical Advice [facility] [address] [place] [address] Beverly Kent MD [facility] [address] [place] [address] Social History Tobacco Use Types Packs/Day Years Used Date Smoking Tobacco: Never Smokeless Tobacco: Never Comments:lives in a smoking environment Alcohol Use Standard Drinks/Week Comments Not Currently 0 (1 standard drink = 0.6 oz pur e alcohol) AUDIT-C Answer Date Recorded Frequency of Alcohol Consumption Never 12/21/2018 Average Number of Drinks Not on file 019 Frequency of Binge Drinking Not on file 11/30 PHQ-2 Answer Date Recorded PHQ-2 Score 0 03/27/2020 [place] Depression Scale Answer Date Recorded [place] Depression Score 6 02/01/2020 Last EPDS Self Harm Result Not on file 01/31 Sex and Gender Information Value Date Recorded Sex Assigned at Female 11/25/2020 9:34 PM CDT Gender Identity Female 11/25/2020 9:34 PM CDT Sexual Orientation Straight 11/25/2020 9: 34 PM CDT COVID-19 Exposure Response Date Recorded In the last month, have you been in contact with someone who was confirmed or suspected to have Coronavirus / COVID-19? No / Unsure 03/05/2021 7:39 AM CDT documented as of this encounter Plan of Treatment Upcoming Encounters Date Type Department Care Team (Late st Contact Info) Description 08/09/2023 10:45 AM CLEANER FURNITURE Office Visit [facility] [place] [address] [place] [phone] Deonte Miramontes MD [address] [place] [address] documented as of this encounter Visit Diagnoses Not on filedocumented in this encounter Additional Health Concerns Assessment Noted Time PHQ-9 Depression Total Score: 0 03/27/20 20 11:40 AM CDT documented as of this encounter Care Teams Product Management Internship Relationship Specialty Start Date End Date No Ref-Primary, Physician PCP - General 03/04/18 Raghavendra Isaac MD [address] [place] [phone] Assigned PCP 11/30/18 12/25/21 Deonte Miramontes MD [address] [place] [address] Assigned Surgical Provider 05/23/20 Linda Hinojosa DO [address] [place] [address] Assigned OBGYN Provider 05/23/20 documented as of this encounter
--- OUTSIDE RECORDS SUMMARY | 2023-08-08 18:34 | XMS_ITS | Clinical Summary ---
Author Name Unknown Organization [facility] Address [address] [place] [address] Care Team Providers Care Tuber Operator Name Role Phone Elsewhere, Pcp Primary Care Provider Unavailabl e Source Comments Patient records contain information from all sites at [facility]. For routine questions regarding patient records, call [phone] during business hours, M-F 8:00 AM - 5:00 PM Central Time. Record requests for emergency care only can be directed to [phone] at any time.[facility] Allergies No known active allergies Medications Medication Sig Dispensed Refills Start Date End Date Status acetaminophen (TYLENOL) 500 mg tablet Take 500-1,000 mg by mouth. 0 08/25/2020 Active LORazepam (ATIVAN) 0.5 mg tablet Take 0.5 mg by mouth 2 (two) times a day as needed. 0 02/25/2021 Active albuterol (Ventolin HFA) 90 mcg/actuation inhaler Inhale. 0 02/24/2021 Active fluticasone propion-salmeteroL (Wixela Inhub) 250-50 mcg/dose diskus inhaler Inhale 1 puff 2 (two) times a day. 0 01/22/2021 Active ibuprofen (ADVIL,MOTRIN) 800 mg tablet Take 800 mg by mouth. 0 02/01/2020 Active omeprazole (PriLOSEC) [address] capsule 0 03/09/2022 Active escitalopram (LEXAPRO) 20 mg tablet Take 1 tablet by mouth every morning. 0 01/29/2022 Active Immunizations Name Administration Dates Next Due 4vHPV (discontinued) 06/14/2012,05/06/20 11,05/22/2010,2007,01/30/2008 DTaP (Infanrix, Tripedia) 01/05/2001,,05/03/1996,1995,1995 DTaP, Unspecified 01/30/2008 HepA Adult 05/22/2010 HepA Pediatric/Adolescent 05/06/2011,05/22/2010 HepB, Unspecified 08/10/1996,02/23/1996,12/13/18 96 Hib, Unspecified 02/11/1997, 6,02/23/1996,1995 IPV 01/05/2001 Influenza TIV (IM) 06/14/2012,05/06/2011, 010 Influenza, Seasonal, Injectable 06/14/2012,05/22 MCV4 (Menveo) 05/06/2011 MMR 02/01/2020,01/05/2001,12/13/1996 PPSV23 08/31/2021 Polio, Unspecified 02/11/1997, 6,02/23/1996,1995 Tdap 11/06/2019,01/30/2008 influenza vaccine quad (FLUZONE/FLUARIX) (6 months and older)(PF) 08/31/2021 Social History Tobacco Use Types Packs/Day Years Used Date Smoking Tobacco: Never Smokeless Tobacco: Never Tobacco Cessation:Counseling Given: Not Answered Nutrition Answer Date Recorded Nutrition: EVOO Fat Source Unknown 03/11 Nutrition: Servings of Fruits/Vegetables per Day Not on file 03/11/2022 Dental Answer Date Recorded Dental: Regular Dentist Unknown 03/11/20 Sex and Gender Information Value Date Recorded Sex Assigned at Not on file Gender Identity Not on file Sexual Orientation Not on file Last Filed Vital Signs Vital Sign Reading Time Taken Comments Blood Pressure 115/79 03/11/2022 2:26 PM CDT Pulse 84 03/11/2022 2:26 PM CDT Temperature 35.9 ??C (96.6 ??F) 03/11/2022 2:26 PM CD T Respiratory Rate 16 03/11/2022 2:26 PM CDT Oxygen Saturation - - Inhaled Oxygen Concentration - - Weight 108 kg (237 lb 10.5 oz) 03/11/2022 2:26 P M CDT Height - - Body Mass Index - - Plan of Treatment Health Maintenance Due Date Last Done Comments Cervical Cancer Screening 1995 HIV Screening 1995 Hepatitis C Screening 1995 Depression Screening (Annual PHQ-2) 08/01/2022 COVID-19 Vaccine ( - 2022- season) 2023 08/31/2021, 01/07/2021, 12/17/2020 Influenza Vaccine (#1) 2023 2, 08/31/2021, 06/14/2012, Additional history exists DTaP,Tdap,and Td Vaccines (10 - Td or Tdap) 09/07/2032 09/07/2022, 11/06/2019, 01/30/2008, Additional history exists Hepatitis B Vaccines Completed 08/10/1996, 02/23/1996, 1995 HPV Vaccines Completed 06/14/2012, 12/2010, 05/22/2010, Additional history exists Pneumococcal vaccine (0-64 years) Aged Out 08/31/2021 No longer eligible based on patient's age to complete this topic Care Teams Tuber Operator Relationship Specialty Start Date End Date Elsewhere, Pcp PCP - General Internal Medicine 03/11/22
--- OUTSIDE RECORDS SUMMARY | 2023-08-08 18:34 | XMS_ITS | Encounter Summary ---
Author Name Unknown Organization [facility] Address [address] [place] [address] Care Team Providers Care Hospice Art Therapist Name Role Phone No Ref-Primary, Physician Primary Care Provider Raghavendra Isaac MD Unavailable Deonte Miramontes MD Unavailable [phone] sLinda DO Unavailable [phone] Reason for Visit * Reason Onset Date Comments Refill Request 02/04/2020 Encounter Details Date Type Department Care Team (Late st Contact Info) Description 02/04/2020 [facility] [address] [address] Raghavendra Isaac MD [address] [place] [address] Refill Request Social History Tobacco Use Types Packs/Day Years [...] PHQ-2 Answer Date Recorded PHQ-2 Score 0 12/21/2018 [place] Depression Scale Answer Date Recorded [place] Depression Score 6 02/01/2020 Last EPDS Self [...] have Coronavirus / COVID-19? No / Unsure 02/04/2020 10:56 AM CDT documented as of this encounter Miscellaneous Notes * Telephone Encounter - Kavitha Caldwell RN - 02/05/2020 11:09 AM CDT Patient scheduled to see you tomorrow. * Telephone Encounter - Fina Moore MA - 02/05/2020 11:06 AM CDT Appointment scheduled for 02/06/2020 * Telephone Encounter - Danisha Angulo RN - 02/05/2020 8:45 AM CDT Please schedule pt for virtual visit and route back to RN. documented in this encounter Plan of Treatment Upcoming Encounters Date Type Department Care Team (Late st Contact Info) Description 08/09/2023 10:45 AM METAL BUILDINGS ASSEMBLER Office Visit [facility] [place] [address] [place] [phone] Deonte Miramontes MD [address] [place] [address] documented as of this encounter Visit Diagnoses Diagnosis Asthma, persistent not controlled Unspecified asthma documented in this encounter Additional Health Concerns Assessment Noted Time PHQ-9 Depression Total Score: 0 07/12/20 19 10:37 AM METAL BUILDINGS ASSEMBLER documented as of this encounter Care Teams Hospice Art Therapist Relationship Specialty Start Date End Date No Ref-Primary, Physician PCP - General 03/04/18 Raghavendra Isaac MD [address] [place] [address] Assigned PCP 11/30/18 12/25/21 Deonte Miramontes MD [address] [place] [address] Assigned Surgical Provider 05/23/20 Linda Hinojosa DO [address] [place] [address] Assigned OBGYN Provider 05/23/20 documented as of this encounter
--- OUTSIDE RECORDS SUMMARY | 2023-08-08 18:34 | XMS_ITS | Encounter Summary ---
Author Name Unknown Organization [place] Address [address] [place] [address] Care Team Providers Care Eligibility Counselor Name Role Phone No Ref-Primary, Physician Primary Care Provider Raghavendra Isaac MD Unavailable [phone] Deonte Miramontes MD Unavailable [phone] sLinda DO Unavailable [phone] Encounter Details Date Type Department Care Team (Late st Contact Info) Description 02/12/2021 [facility] Medical Advice [address] [address] Halina Granados, [facility] Social History Tobacco Use Types Packs/Day Years [...] Answer Date Recorded PHQ-2 Score 0 03/27/2020 [place] Depression Scale Answer Date Recorded [place] Depression Score 6 02/01/2020 Last EPDS Self Harm Result Not on file 01/31 Sex and Gender Information Value Date Recorded Sex Assigned at Female 11/25/2020 9:34 PM CDT Gender Identity Female 11/25/2020 9:34 PM CDT Sexual Orientation Straight 11/25/2020 9: 34 PM CDT documented as of this encounter Plan of Treatment Upcoming Encounters Date Type Department Care Team (Late st Contact Info) Description 08/09/2023 10:45 AM SPONGE CLIPPER Office Visit [facility] [place] [address] [place] [address] Deonte Miramontes MD [address] [place] [address] documented as of this encounter Visit Diagnoses Not on filedocumented in this encounter Additional Health Concerns Assessment Noted Time PHQ-9 Depression Total Score: 0 03/27/20 20 11:40 AM CDT documented as of this encounter Care Teams Eligibility Counselor Relationship Specialty Start Date End Date No Ref-Primary, Physician PCP - General 03/04/18 Raghavendra Isaac MD [address] [place] [address] Assigned PCP 11/30/18 12/25/21 Deonte Miramontes MD [address] [place] [address] Assigned Surgical Provider 05/23/20 sLinda DO [address] [place] [address] Assigned OBGYN Provider 05/23/20 documented as of this encounter
--- OUTSIDE RECORDS SUMMARY | 2023-08-08 18:34 | XMS_ITS | Encounter Summary ---
Author Name Unknown Organization [place] Address [address] [place] [address] Care Team Providers Care Director Of Scientific Research Name Role Phone No Ref-Primary, Physician Primary Care Provider Encounter Details Date Type Department Care Team (Late Contact Info) Description 07/28/2023 [facility] Medical Advice PHYS STANDARD [address] [facility] [address] [place] [phone] [facility] Social History Tobacco Use Types Packs/Day Years [...] Answer Date Recorded PHQ-2 Score 0 03/27/2020 [place] Depression Scale Answer Date Recorded [place] Depression Score 6 02/01/2020 Last EPDS Self [...] Upcoming Encounters Date Type Department Care Team ([facility] Contact Info) Description 08/09/2023 10:45 AM HI RANGER OPERATOR Office Visit [facility] [place] [address] [place] [phone] Deonte Miramontes MD [address] [place] [address] documented as of this encounter Visit Diagnoses Not on filedocumented in this encounter Additional Health Concerns Assessment Noted Time PHQ-9 Depression Total Score: 0 03/27/20 20 11:40 AM CDT documented as of this encounter Care Teams Director Of Scientific Research Relationship Specialty Start Date End Date No Ref-Primary, Physician PCP - General 03/04/18 documented as of this encounter
--- OUTSIDE RECORDS SUMMARY | 2023-08-08 18:34 | XMS_ITS ---
Author Name Unknown Organization [facility] Address [address] [place] [address] Care Team Providers Care Landscape Architect Name Role Phone Unavailable Unavailable Unavailable Surgery Details Not on file Complications Check Surgery Details section. Procedure Estimated Blood Loss Check Surgery Details section. Procedure Findings Check Surgery Details section. Procedure Specimens Taken Check Surgery Details section.
--- OUTSIDE RECORDS SUMMARY | 2023-08-08 18:34 | XMS_ITS | Encounter Summary ---
Author Name Unknown Organization [place] Address [address] [place] [address] Care Team Providers Care Newspaper Editor Name Role Phone No Ref-Primary, Physician Primary Care Provider Deonte Miramontes MD Unavailable [phone] Encounter Details Date Type Department Care Team (Late st Contact Info) Description 05/07/2022 [facility] Medical Advice [facility] [address] [phone] Beverly Garnica, KERI Social History Tobacco Use Types Packs/Day Years [...] Answer Date Recorded PHQ-2 Score 0 03/27/2020 [place] Depression Scale Answer Date Recorded [place] Depression Score 6 02/01/2020 Last EPDS Self [...] st Contact Info) Description 08/09/2023 10:45 AM HORTICULTURE/FLORICULTURE TEACHER Office Visit [facility] [place] [address] [place] [phone] Doente Miramontes MD [address] [place] [address] documented as of this encounter Visit Diagnoses Not on filedocumented in this encounter Additional Health Concerns Assessment Noted Time PHQ-9 Depression Total Score: 0 03/27/20 20 11:40 AM CDT documented as of this encounter Care Teams Newspaper Editor Relationship Specialty Start Date End Date No Ref-Primary, Physician PCP - General 03/04/18 Deonte Miramontes MD [address] [place] [address] Assigned Surgical Provider 05/23/20 documented as of this encounter
--- OUTSIDE RECORDS SUMMARY | 2023-08-08 18:34 | XMS_ITS | Encounter Summary ---
Author Name Unknown Organization [place] Address [address] [place] [address]. [place] [address] Care Team Providers Care It Trainee Name Role Phone No Ref-Primary, Physician Primary Care Provider Raghavendra Isaac MD Unavailable [phone] Deonte Miramontes MD Unavailable [phone] sLinda DO Unavailable Encounter Details Date Type Department Care Team (Late st Contact Info) Description 01/28/2020 [facility] Medical Advice [facility] [address] [place] [address] Linda Hinojosa DO [address] [facility] [address] [place], [place] [address] Social History Tobacco Use Types Packs/Day Years [...] Answer Date Recorded PHQ-2 Score 0 12/21/2018 [place] Depression Scale Answer Date Recorded [place] Depression Score 6 02/01/2020 Last EPDS Self Harm Result Not on file 01/31 Comments Yes Sex and Gender Information Value Date Recorded Sex Assigned at Female 11/25/2020 9:34 PM CDT Gender Identity Female 11/25/2020 9:34 PM CDT Sexual Orientation Straight 11/25/2020 9: 34 PM CDT COVID-19 Exposure Response Date Recorded In the last month, have you been in contact with someone who was confirmed or suspected to have Coronavirus / COVID-19? No / Unsure 01/28/2020 10:46 AM CDT documented as of this encounter Plan of Treatment Upcoming Encounters Date Type Department Care Team (Late st Contact Info) Description 08/09/2023 10:45 AM LAMINATION ASSEMBLER Office Visit [facility] [place] [address] [place] [phone] Deonte Miramontes MD [address] [place] [address] documented as of this encounter Visit Diagnoses Not on filedocumented in this encounter Additional Health Concerns Assessment Noted Time PHQ-9 Depression Total Score: 0 07/12/20 10:37 AM LAMINATION ASSEMBLER documented as of this encounter Care Teams It Trainee Relationship Specialty Start Date End Date No Ref-Primary, Physician PCP - General 03/04/18 Raghavendra Isaac MD [address] [place] [phone] Assigned PCP 11/30/18 12/25/21 Deonte Miramontes MD [address] [place] [address] Assigned Surgical Provider 05/23/20 Linda Hinojosa DO [address] [place] [address] Assigned OBGYN Provider 05/23/20 documented as of this encounter
--- OUTSIDE RECORDS SUMMARY | 2023-08-08 18:34 | XMS_ITS | Encounter Summary ---
Author Name Unknown Organization [place] Address [address] [place] [address] Care Team Providers Care Electric Range Servicer Name Role Phone No Ref-Primary, Physician Primary Care Provider Deonte Miramontes MD Unavailable [phone] Encounter Details Date Type Department Care Team (Latest Contact Info) Description 08/13/2022 Travel Social History Tobacco Use Types Packs/Day Years [...] Answer Date Recorded PHQ-2 Score 0 03/27/2020 [place] Depression Scale Answer Date Recorded [place] Depression Score 6 02/01/2020 Last EPDS Self Harm Result Not on file 01/31 Comments Yes Sex and Gender Information Value Date Recorded Sex Assigned at Female 11/25/2020 9:34 PM CDT Gender Identity Female 11/25/2020 9:34 PM CDT Sexual Orientation Straight 11/25/2020 9: 34 PM CDT COVID-19 Exposure Response Date Recorded In the last 10 days, have yo u been in contact with someone who was confirmed or suspected to have Coronavirus/COVID-19? No / Unsure 08/13/2022 11:02 AM MEDICAL RECORD SPECIALIST documented as of this encounter Plan of Treatment Upcoming Encounters Date Type Department Care Team ( st Contact Info) Description 08/09/2023 10:45 AM MEDICAL RECORD SPECIALIST Office Visit [facility] [place] [address] [place] [phone] Deonte Miramontes MD [address] [place] [address] documented as of this encounter Visit Diagnoses Not on filedocumented in this encounter Additional Health Concerns Assessment Noted Time PHQ-9 Depression Total Score: 0 03/27/20 20 11:40 AM CDT documented as of this encounter Care Teams Electric Range Servicer Relationship Specialty Start Date End Date No Ref-Primary, Physician PCP - General 03/04/18 Deonte Miramontes MD [address] [place] [id number] Assigned Surgical Provider 05/23/20 documented as of this encounter
--- OUTSIDE RECORDS SUMMARY | 2023-08-08 18:34 | XMS_ITS | Encounter Summary ---
Author Name Unknown Organization [place] Address [address] [place] [address] Care Team Providers Care Chinese Instructor Name Role Phone No Ref-Primary, Physician Primary Care Provider Raghavendra Isaac MD Unavailable [phone] Deonte Miramontes MD Unavailable [phone] sLinda DO Unavailable [phone] Encounter Details Date Type Department Care Team (Late st Contact Info) Description 08/16/2019 [facility] [place] Advice [facility] [address] [address] Charito Barbour, KERI Social History Tobacco Use Types Packs/Day [...] Answer Date Recorded PHQ-2 Score 0 12/21/2018 Comments Yes Sex and Gender Information Value Date Recorded Sex Assigned at Female 11/25/2020 9:34 PM CDT Gender Identity Female 11/25/2020 9:34 PM CDT Sexual Orientation Straight 11/25/2020 9: 34 PM CDT documented as of this encounter Plan of Treatment Upcoming Encounters Date Type Department Care Team (Late st Contact Info) Description 08/09/2023 10:45 AM CANE WEIGHER HELPER Office Visit [facility] [place] [address] [place] [phone] Deonte Miramontes MD [address] [place] [address] documented as of this encounter Visit Diagnoses Not on filedocumented in this encounter Additional Health Concerns Assessment Noted Time PHQ-9 Depression Total Score: 0 07/12/20 19 10:37 AM CANE WEIGHER HELPER documented as of this encounter Care Teams Chinese Instructor Relationship Specialty Start Date End Date No Ref-Primary, Physician PCP - General 03/04/18 Raghavendra Isaac MD [address] [place] [address] Assigned PCP 11/30/18 12/25/21 Deonte Miramontes MD [address] [place] [address] Assigned Surgical Provider 05/23/20 Linda Hinojosa DO [address] [place] [address] Assigned OBGYN Provider 05/23/20 documented as of this encounter
--- OUTSIDE RECORDS SUMMARY | 2023-08-08 18:34 | XMS_ITS | Encounter Summary ---
Author Name Unknown Organization [place] Address [address] [place] [address] Care Team Providers Care Allergy Nurse Name Role Phone No Ref-Primary, Physician Primary Care Provider Raghavendra Isaac MD Unavailable [phone] Deonte Miramontes MD Unavailable [phone] Linda Hinojosa DO Unavailable [phone] Reason for Visit * Reason Onset Date Comments Refill Request 06/22/2021 omeprazole (PRIL OSEC) [address] capsule Encounter Details Date Type Department Care Team (Late st Contact Info) Description 06/22/2021 Refill [facility] [address] [address] Linda Hinojosa DO [address] [place] [address] Refill Request (omeprazole (PRILOSEC) [address] capsule) Social History Tobacco Use Types Packs/Day Years [...] Answer Date Recorded PHQ-2 Score 0 03/27/2020 [place] Depression Scale Answer Date Recorded [place] Depression Score 6 02/01/2020 Last EPDS Self [...] Coronavirus/COVID-19? No / Unsure 08/13/2022 11:02 AM ALLIANCES CONSULTANT documented as of this encounter Miscellaneous Notes * Telephone Encounter - Linda Ridley LPN - 06/22/2021 4:28 PM CST Requested Prescriptions Pending Prescriptions Disp Refills ??? omeprazole (PRILOSEC) [address] capsule 60 capsule 0 Sig: Take 1 capsule (20 mg) by mouth daily PPI Protocol Failed - 06/22/2021 4:28 PM Failed - Recent (12 mo) or future (30 days) visit within the authorizing provider's specialty Patient has had an office visit with the authorizing provider or a provider within the authorizing providers department within the previous 12 mos or has a future within next 30 days. See Patient Info tab in inbasket, or Choose Columns in Meds & Orders section of the refill encounter. Passed - Not on Clopidogrel (unless Pantoprazole ordered) Passed - No diagnosis of osteoporosis on record Passed - Medication is active on med list Passed - Patient is age 18 or older Passed - No active pregnacy on record Passed - No positive test in past 12 months Last Written Prescription Date: 04/13/21 Last Fill Quantity: 60, # refills: 0 Last office visit: Visit date not found with prescribing provider: Micaela Future Office Visit: none found rx denied. Previous limited refill given. Has not scheduled appt. Schedulers to contact patient to set up annual appt. Beverly Garnica RN ANCES CONSULTANT documented in this encounter Plan of Treatment Upcoming Encounters Date Type Department Care Team (Late st Contact Info) Description 08/09/2023 10:45 AM ALLIANCES CONSULTANT Office Visit [facility] [place] [address] [place] [phone] Deonte Miramontes MD [address] [place] [address] documented as of this encounter Visit Diagnoses Diagnosis Gastroesophageal reflux in in second trimester documented in this encounter Additional Health Concerns Assessment Noted Time PHQ-9 Depression Total Score: 0 03/27/20 11:40 AM CDT documented as of this encounter Care Teams Allergy Nurse Relationship Specialty Start Date End Date No Ref-Primary, Physician PCP - General 03/04/18 Raghavendra Isaac MD [address] [place] [address] Assigned PCP 11/30/18 12/25/21 Deonte Miramontes MD [address] [place] [address] Assigned Surgical Provider 05/23/20 Linda Hinojosa DO [address] [place] [address] Assigned OBGYN Provider 05/23/20 documented as of this encounter
--- OUTSIDE RECORDS SUMMARY | 2023-08-08 18:34 | XMS_ITS | Encounter Summary ---
Author Name Unknown Organization [place] Address [address] [place] [address] Care Team Providers Care Safety Inspector Name Role Phone No Ref-Primary, Physician Primary Care Provider eDonte Miramontes MD Unavailable [phone] Encounter Details Date Type Department Care Team (Late st Contact Info) Description 04/28/2022 [facility] Medical Advice [facility] [address] [phone] Vanna Carroll, RN Social History Tobacco Use Types Packs/Day Years [...] Answer Date Recorded PHQ-2 Score 0 03/27/2020 [place] Depression Scale Answer Date Recorded [place] Depression Score 6 02/01/2020 Last EPDS Self [...] st Contact Info) Description 08/09/2023 10:45 AM ELECTRICIAN RECTIFIER MAINTENANCE Office Visit [facility] [place] [address] [place] [phone] Deonte Miramontes MD [address] [place] [address] documented as of this encounter Visit Diagnoses Not on filedocumented in this encounter Additional Health Concerns Assessment Noted Time PHQ-9 Depression Total Score: 0 03/27/20 20 11:40 AM CDT documented as of this encounter Care Teams Safety Inspector Relationship Specialty Start Date End Date No Ref-Primary, Physician PCP - General 03/04/18 Deonte Miramontes MD [address] [place] [address] Assigned Surgical Provider 05/23/20 documented as of this encounter
--- OUTSIDE RECORDS SUMMARY | 2023-08-08 18:34 | XMS_ITS | Encounter Summary ---
Author Name Unknown Organization [place] Address [address] [place] [address] Care Team Providers Care Training Instructor Name Role Phone No Ref-Primary, Physician Primary Care Provider Deonte Miramontes MD Unavailable [phone] Reason for Visit * Reason Comments Ultrasound [id number] Encounter Details Date Type Department Care Team (Late st Contact Info) Description 08/13/2022 11:30 AM SALES TRAINING REPRESENTATIVE Office Visit [facility] [place] [address] [facility] [address] [place] [address] Angely Sahni MD [address] [place] [address] Pita Maria MD [facility] [address] [facility] [place] [address] Encounter for follow-up ultrasound of anatomy (Primary Dx) Social History Tobacco Use Types Packs/Day Years [...] Answer Date Recorded PHQ-2 Score 0 03/27/2020 [place] Depression Scale Answer Date Recorded [place] Depression Score 6 02/01/2020 Last EPDS Self [...] Coronavirus/COVID-19? No / Unsure 08/13/2022 11:02 AM SALES TRAINING REPRESENTATIVE documented as of this encounter Progress Notes * Pita Maria DO - 08/13/2022 11:30 AM CST Please see Imaging tab under Chart Review for details of today's US. Pita Maria DO S TRAINING REPRESENTATIVE documented in this encounter Nursing Notes * Brigida Joesph RN - 08/13/2022 11:30 AM CST Patient reports + movement, no pain, no contractions, leaking of fluid, or bleeding. SBAR given to MIAH FERRERA, see their note in Epic. Brigida Joseph RN on 08/13/2022 at 11:32 AM S TRAINING REPRESENTATIVE * Brigida Joseph RN - 08/13/2022 11:30 AM CST Note opened in error. Brigida Joseph RN on 08/17/2022 at 10:01 AM S TRAINING REPRESENTATIVE documented in this encounter Plan of Treatment Upcoming Encounters Date Type Department Care Team (Late st Contact Info) Description 08/09/2023 10:45 AM SALES TRAINING REPRESENTATIVE [facility] Visit [facility] [address] [place] [address] Deonte Miramontes MD [address] [place] [address] documented as of this encounter Visit Diagnoses Diagnosis Encounter for follow-up ultrasound of anatomy- Primary documented in this encounter Additional Health Concerns Assessment Noted Time PHQ-9 Depression Total Score: 0 03/27/20 20 11:40 AM CDT documented as of this encounter Care Teams Training Instructor Relationship Specialty Start Date End Date No Ref-Primary, Physician PCP - General 03/04/18 Deonte Miramontes MD [address] [place] [address] Assigned Surgical Provider 05/23/20 documented as of this encounter
--- OUTSIDE RECORDS SUMMARY | 2023-08-08 18:34 | XMS_ITS | Encounter Summary ---
Author Name Unknown Organization [place] Address [address] [place] [address]. [place] [address] Care Team Providers Care Golf Course Designer Name Role Phone No Ref-Primary, Physician Primary Care Provider Raghavendra Isaac MD Unavailable [phone] Deonte Miramontes MD Unavailable [phone] MastersLinda DO Unavailable [phone] Encounter Details Date Type Department Care Team (Late st Contact Info) Description 04/09/2021 MyC Medical Advice [facility] [place] [address] [place] [address] Deonte Miramontes MD [address] [place] [id number] Social History Tobacco Use Types Packs/Day Years [...] Answer Date Recorded PHQ-2 Score 0 03/27/2020 [place] Depression Scale Answer Date Recorded [place] Depression Score 6 02/01/2020 Last EPDS Self [...] have Coronavirus / COVID-19? No / Unsure 03/24/2021 5:39 PM CDT documented as of this encounter Plan of Treatment Upcoming Encounters Date Type Department Care Team (Late st Contact Info) Description 08/09/2023 10:45 AM REHEATER Office Visit [facility] [place] [address] [place] [phone] Deonte Miramontes MD [address] [place] [address] documented as of this encounter Visit Diagnoses Not on filedocumented in this encounter Additional Health Concerns Assessment Noted Time PHQ-9 Depression Total Score: 0 03/27/20 20 11:40 AM CDT documented as of this encounter Care Teams Golf Course Designer Relationship Specialty Start Date End Date No Ref-Primary, Physician PCP - General 03/04/18 Raghavendra Isaac MD [address] [place] [phone] Assigned PCP 11/30/18 12/25/21 Deonte Miramontes MD [address] [place] [address] Assigned Surgical Provider 05/23/20 Linda Hinojosa DO [address] [place] [address] Assigned OBGYN Provider 05/23/20 documented as of this encounter
--- OUTSIDE RECORDS SUMMARY | 2023-08-08 18:34 | XMS_ITS | Encounter Summary ---
Author Name Unknown Organization [place] Address [address] [place] [address] Care Team Providers Care Portrait Studio Photographer Name Role Phone No Ref-Primary, Physician Primary Care Provider Raghavendra Isaac MD Unavailable [phone] Deonte Miramontes MD Unavailable [phone] sLinda DO Unavailable [phone] Encounter Details Date Type Department Care Team (Late st Contact Info) Description 12/04/2019 [facility] [address] [address] [facility] Social History Tobacco Use Types Packs/Day Years [...] have Coronavirus / COVID-19? No / Unsure 12/07/2019 8:46 AM CDT documented as of this encounter Plan of Treatment Upcoming Encounters Date Type Department Care Team (Late st Contact Info) Description 08/09/2023 10:45 AM BROADCAST OPERATIONS ENGINEER Office Visit [facility] [place] [address] [place] [address] Deonte Miramontes MD [address] [place] [address] documented as of this encounter Visit Diagnoses Not on filedocumented in this encounter Additional Health Concerns Assessment Noted Time PHQ-9 Depression Total Score: 0 07/12/20 10:37 AM BROADCAST OPERATIONS ENGINEER documented as of this encounter Care Teams Portrait Studio Photographer Relationship Specialty Start Date End Date No Ref-Primary, Physician PCP - General 03/04/18 Raghavendra Isaac MD [address] [place] [address] Assigned PCP 11/30/18 12/25/21 Deonte Miramontes MD [address] [place] [address] Assigned Surgical Provider 05/23/20 sLinda DO [address] [place] [address] Assigned OBGYN Provider 05/23/20 documented as of this encounter
--- OUTSIDE RECORDS SUMMARY | 2023-08-08 18:34 | XMS_ITS | Encounter Summary ---
Author Name Unknown Organization [place] Address [address] [place] [id number] Care Team Providers Care Gold Leaf Layer Name Role Phone No Ref-Primary, Physician Primary Care Provider Deonte Miramontes MD Unavailable [phone] Reason for Referral * Diagnostic Imaging Ultrasound (Routine) - Closed Specialty Diagnoses / Procedures Referred By Contac t Referred To Contact Diagnoses Suspected anomaly, antepartum, single or unspecified fetus Procedures [facility] Comprehensive Single F/U Angely Sahni MD [address] [address] Referral ID Status Reason Start Date Expiration Date Visits Re quested Visits Authorized [id number] Closed 07/12/2022 07/12/2023 1 1 ERIES DIVER Reason for Visit * Diagnostic Imaging Ultrasound (Routine) - Closed Specialty Diagnoses / Procedures Referred By Contac t Referred To Contact Diagnoses Suspected anomaly, antepartum, single or unspecified fetus Procedures [facility] Comprehensive Single F/U Angely Sahni MD [address] [place] [id number] Referral ID Status Reason Start Date Expiration Date Visits Re quested Visits Authorized [id number] Closed 07/12/2022 07/12/2023 1 1 Encounter Details Date Type Department Care Team ([facility] st Contact Info) Description 08/13/2022 11:00 AM FISHERIES DIVER - 08/13/2022 11:59 PM FISHERIES DIVER Hospital Encounter [facility] [place] [address] [facility] [address] [place] [address] Angely Sahni MD [address] [place] [address] Pita Maria MD [facility] [address] [place], [place] [id number] Suspected anomaly, antepartum, single or unspecified fetus Discharge Disposition: Home or Self Care Social History Tobacco Use Types Packs/Day Years [...] Answer Date Recorded PHQ-2 Score 0 03/27/2020 Robinson Depression Scale Answer Date Recorded Robinson Depression Score 6 02/01/2020 Last EPDS Self [...] Coronavirus/COVID-19? No / Unsure 08/13/2022 11:02 AM FISHERIES DIVER documented as of this encounter Medications at Time of Discharge Medication Sig Dispensed Refills Start Date End Date acetaminophen (TYLENOL) 500 MG tabletIndications:Posto perative pain Take 1-2 tablets (500-1,000 mg) by mouth every 6 hours as needed for mild pain 30 tablet 1 08/25/2020 albuterol (PROAIR HFA/PROVENTIL HFA/VENTOLIN HFA) 108 (90 Base) MCG/ACT inhalerIndications:Asth ma, persistent not controlled Inhale 2 puffs into the lungs every 4 hours as needed for shortness of breath / dyspnea or wheezing 8.5 g 2 02/24/2021 citalopram (CELEXA) 20 MG tablet Take 20 mg by mouth every morning 0 09/19/2020 DULoxetine (CYMBALTA) 30 MG capsule Take 30 mg by mouth 0 11/05/2020 fluticasone (FLONASE) 50 MCG/ACT nasal spray 0 10/17/2020 fluticasone (FLOVENT HFA) 110 MCG/ACT inhalerIndications:Asth ma, persistent not controlled Inhale 1 puff into the lungs 2 times daily 1 Inhaler 5 01/23/2020 fluticasone-salmeterol (WIXELA INHUB) 250-50 MCG/DOSE inhaler Inhale 1 puff into the lungs 0 01/22/2021 LORazepam (ATIVAN) 0.5 MG tablet Take 1 tablet (0.5 mg) by mouth every 6 hours as needed for anxiety 5 tablet 0 02/25/2021 omeprazole (PRILOSEC) [address] capsuleIndications:[place] roesophageal reflux in in second trimester Take 1 capsule (20 mg) by mouth daily 60 capsule 0 07/07/2021 oxyCODONE (ROXICODONE) 5 MG tabletIndications:Posto perative pain Take 1 tablet (5 mg) by mouth every 6 hours as needed for pain 20 tablet 0 08/25/2020 salmeterol (SEREVENT) 50 MCG/DOSE inhalerIndications:Asth ma affecting in first trimester Inhale 1 puff into the lungs 2 times daily 1 Inhaler 3 08/04/2020 senna-docusate (SENOKOT-S/PERICOLACE) 8.6-50 MG tabletIndications:Posto perative pain Take 1-2 tablets by mouth 2 times daily 30 tablet 0 08/25/2020 sertraline (ZOLOFT) 100 MG tabletIndications:Depre ssion affecting in third trimester, antepartum Take 1 tablet (100 mg) by mouth daily 90 tablet 4 03/27/2020 documented as of this encounter Plan of Treatment Upcoming Encounters Date Type Department Care Team ([place] Contact Info) Description 08/09/2023 10:45 AM FISHERIES DIVER Office Visit [facility] [place] [address] [place] [phone] Deonte Miramontes MD [address] [place] [address] documented as of this encounter Procedures Procedure Name Priority Date/Time Associated Diagnosis Comments [facility] COMPREHENSIVE SINGLE F/U Routine 08/13/2022 11:36 AM FISHERIES DIVER Suspected anomaly, antepartum, single or unspecified fetus documented in this encounter Results * [facility] Comprehensive Single F/U (08/13/2022 11:36 AM FISHERIES DIVER) Anatomical Region Laterality Modality Ultrasound 08/13/2022 11:0 5 AM FISHERIES DIVER Impressions 08/13/2022 11:48 AM FISHERIES DIVER IMPRESSION ----- 1) Intrauterine at 26 3/7 weeks gestational age. 2) The anatomy not previously seen is visualized today and appears normal. The remainder of the visualized anatomy appears normal. 3) Growth parameters and estimated weight were consistent with LARGE FOR GESTATIONAL AGE. 4) The amniotic fluid volume appeared high/normal. Narrative 08/13/2022 11:48 AM FISHERIES DIVER Comp Follow Up ----- Pat. Name: MAURO MOLINA Study Date: 08/13/2022 11:05am Pat. NO: [id number] Referring ??MD: MARY ANNE MONREAL Site: [facility] Freight Caller: Kristel Blackwell RDMS : 1995 Age: 26 ----- INDICATION ----- BMI 40. Suboptimal anatomy on previous u/s. METHOD ----- Transabdominal ultrasound examination. View: Sufficient ----- Restrepo . Number of fetuses: 1 DATING ----- ? Date ?Details ?Gest. age ?SOUMYA LMP ?02/09/2022 ? 26 w + 3 d ? 11/16/2022 Prior assessment ? 03/28/2022 ? GA: 6 w + 2 d ?26 w + 0 d ? 11/19/2022 U/S ? 08/13/2022 ? based upon AC, BPD, Femur, HC ?28 w + 2 d ? 11/03/2022 Assigned dating ?Dating performed on 08/13/2022, based on the LMP ?26 w + 3 d ? 11/16/2022 GENERAL EVALUATION ----- Cardiac activity present. FHR 158 bpm. movements present. Presentation cephalic. Placenta Posterior. Umbilical cord 3 vessel cord. Amniotic fluid Amount of AF: normal. MVP 9.9 cm. ANA ROSA 23.8 cm. Q1 5.3 cm, Q2 9.9 cm, Q3 4.5 cm, Q4 4.1 cm. BIOMETRY ----- Main Biometry: BPD ?66.9 ?mm ? 27w 0d ?aBn OFDuong ?96.1 ?mm ? 28w 3d ?Nicolaides ?261.5 ?mm ?28w 3d ?Hadlock Cerebellum tr ?29.6 ? mm ?26w 2d ?Nicolaides AC ?239.5 ?mm ?28w 2d ?89% ?Hadlock Femur ?55.9 ? mm ?29w 3d ?Hadlock Humerus ?48.7 ?mm ? 28w 4d ?Douglas Weight Calculation: EFW ? 1,248 ?g ? 98% ?Hadlock EFW (lb,oz) ? 2 lb 12 ?oz EFW by ?Hadlock ([id number]) Head / Face / Neck Biometry: Chief Supply Chain Officer ? 4.6 ? mm CM ?9.3 ? mm ANATOMY ----- The following structures appear normal: Head / Neck ? Cranium. Head size. Head shape. Lateral ventricles. Midline falx. Cavum septi pellucidi. Cerebellum. Cisterna magna. Thalami. Face ? Lips. Profile. Nose. Heart / Thorax ?4-chamber view. RVOT view. LVOT view. 6-iczira-qgsrvja view. ? Diaphragm. Abdomen ? Stomach. Kidneys. Bladder. Spine ?Cervical spine. Thoracic spine. Lumbar spine. Sacral spine. Extremities / Skeleton ?Right hand. Gender: male. MATERNAL STRUCTURES ----- Cervix ?Visualized ? Appearance: Appears Closed ? Approach - Transabdominal: Cervical length 52.7 mm Right Ovary ?Not examined Left Ovary ?Not examined RECOMMENDATION ----- We discussed the findings on today's ultrasound with the patient. Recommend repeat 3 hr GTT soon given the accelerated growth pattern. If patient is not diagnosed with GDM and needing q 4 week growth US, I would advise a repeat growth US at 30 and 34 weeks along with weekly surveillance at 34 weeks due to class III obesity. Hx of preE in prior and she is on a baby ASA. Return to primary provider for continued care. Thank you for the opportunity to participate in the care of this patient. If you have questions regarding today's evaluation or if we can be of further service, please contact the [facility]. anomalies may be present but not detected Procedure Note Pita Maria, - 08/13/2022 Comp Follow Up ----- Pat. Name:Yoel MOLINA Date:08/13/2022 11:05am Pat. NO: [id number] :MARY ANNE MONREAL [facility]Kristel BlackwellCAROL :1995Age:26 ----- INDICATION ----- BMI 40. Suboptimal anatomy on previous u/s. METHOD ----- Transabdominal ultrasound examination. View: Sufficient ----- Restrepo . Number of fetuses: 1 DATING ----- DateDetailsGest. age SOUMYA LMP w + 3 d 11/16/2022 Prior assessment 03/28/2022 GA: 6 w +2 d26 w + 0 d 11/19/2022 U/S 08/13/2022ased upon AC, BPD, Femur, HC28 w + 2 d 11/03/2022 Assigned dating Dating performed on 08/13/2022, based onthe LMP 26 w +3 d 11/16/2022 GENERAL EVALUATION ----- Cardiac activity present. FHR 158 bpm. movements present. Presentation cephalic. Placenta Posterior. Umbilical cord 3 vessel cord. Amniotic fluid Amount of AF: normal. MVP 9.9 cm. ANA ROSA 23.8 cm. Q1 5.3 cm,Q2 9.9 cm, Q3 4.5 cm, Q4 4.1 cm. BIOMETRY ----- Main Biometry: BPD 66.9 mm27w 0d Hadlock OFD 96.1 mm28w 3d Nicolaides HC 261.5 mm28w 3d Hadlock Cerebellum tr 29.6 mm26w 2d Nicolaides AC 239.5 mm28w 2d 89% Hadlock Femur 55.9 mm29w 3d Hadlock Humerus 48.7 mm28w 4d Douglas Weight Calculation: EFW 1,248 g98% Hadlock EFW (lb,oz) 2 lb 12 oz EFW by Hadlock ([id number]) Head / Face / Neck Biometry: Chief Supply Chain Officer 4.6 mm CM 9.3 mm ANATOMY ----- The following structures appear normal: Head / Neck Cranium. Head size. Head shape.Lateral ventricles. Midline falx. Cavum septi pellucidi. Cerebellum.Cisterna magna. Thalami. Face Lips. Profile. Nose. Heart / Thorax 4-chamber view. RVOT view. LVOT view.5-llekmv-vkqtetv view. Diaphragm. Abdomen Stomach. Kidneys. Bladder. Spine Cervical spine. Thoracic spine.Lumbar spine. Sacral spine. Extremities / Skeleton Right hand. Gender: male. MATERNAL STRUCTURES ----- Cervix Visualized Appearance: Appears Closed Approach - Transabdominal:Cervical length 52.7 mm Right Ovary Not examined Left Ovary Not examined RECOMMENDATION ----- We discussed the findings on today's ultrasound with the patient. Recommend repeat 3 hr GTT soon given the accelerated growth pattern. Ifpatient is not diagnosed with GDM and needing q 4 week growth US, I wouldadvise a repeat growth US at 30 and 34 weeks along with weekly surveillance at 34 weeksdue to class III obesity. Hx of preE in prior and she is on ababy ASA. Return to primary provider for continued care. Thank you for the opportunity to participate in the care of this patient.If you have questions regarding today's evaluation or if we can be [facility], please contact the [facility]. anomalies may be present but not detected IMPRESSION ----- 1) Intrauterine at 26 3/7 weeks gestational age. 2) The anatomy not previously seen is visualized today and appears normal.The remainder of the visualized anatomy appears normal. 3) Growth parameters and estimated weight were consistent with LARGEFOR GESTATIONAL AGE. 4) The amniotic fluid volume appeared high/normal. Angely Sahni MD [facility] US ORDERAB LES documented in this encounter Visit Diagnoses Diagnosis Suspected anomaly, antepartum, single or unspecified fetus documented in this encounter Additional Health Concerns Assessment Noted Time PHQ-9 Depression Total Score: 0 03/27/20 20 11:40 AM CDT documented as of this encounter Care Teams Gold Leaf Layer Relationship Specialty Start Date End Date No Ref-Primary, Physician PCP - General 03/04/18 Deonte Miramontes MD [address] [place] [address] Assigned Surgical Provider 05/23/20 documented as of this encounter
--- OUTSIDE RECORDS SUMMARY | 2023-08-08 18:34 | XMS_ITS | Referral Summary ---
Author Name Unknown Organization [facility] Address [address] [place] [address] Care Team Providers Care Loss Prevention Consultant Name Role Phone Elsewhere, Pcp Primary Care Provider Unavailabl e Source Comments Patient records contain information from all sites at [facility]. For routine questions regarding patient records, call [phone] during business hours, M-F 8:00 AM - 5:00 PM Central Time. Record requests for emergency care only can be directed to [phone] at any time.[facility] Allergies No known active allergies Medications Medication [...] Mass Index - - Plan of Treatment Not on file Care Teams Loss Prevention Consultant Relationship Specialty Start Date End Date Elsewhere, Pcp PCP - General Internal Medicine 03/11/22
[2023-08-08 18:49] LABS: Basophils Absolute Auto 0.03 K/uL (0.00-0.30); Basophils Percent Auto 0.5 % (0.0-3.0); Eosinophils Absolute Auto 0.07 K/uL (0.00-0.50); Eosinophils Percent Auto 1.3 % (0.0-7.0); Hematocrit 37.2 % (33.0-51.0); Hemoglobin* 11.9 gm/dL (12.0-16.0); Immature Granulocytes Abs Auto 0.01 K/uL (0.00-0.30); Immature Granulocytes Pct Auto 0.2 %; Lymphocytes Absolute Auto 1.42 K/uL (0.90-2.90); Lymphocytes Percent Auto 25.8 % (20-44); Mean Corpuscular HGB Conc 32 gm/dL (32-36); Mean Corpuscular Hemoglobin 27 pg (26-34); Mean Corpuscular Volume 83 fL (80-100); Monocytes Percent Auto 10.7 % (0.0-11.0); Neutrophils Absolute Auto 3.38 K/uL (1.7-7.0); Neutrophils Percent Auto 61.5 % (42.0-72.0); Platelet Count* 223 K/uL (140-440); RDW Coefficient of Variation % 13.7 % (11.5-15.5); Red Blood Count 4.49 m/uL (4.00-5.20)
[2023-08-08 18:51] LABS: Slide Review Reflex No
[2023-08-08 19:25] LABS: HCG Quantitative* 13.21 mIU/mL
--- NOTE | 2023-08-08 20:19 | ED_ITS ---
HPI - General Adult General Chief complaint: Vaginal Bleeding Stated complaint: Possible miscarriage Time Seen by Provider: 08/08/23 18:20 Source: patient Mode of arrival: ambulatory Limitations: no limitations History of Present Illness HPI narrative: 27-year-old female at just about 5 weeks gestation presenting today with vaginal bleeding. Patient took test at home last week which is positive. She is actively trying to get . She is a . She denies cramping, nausea, fevers or chills. Has never had a miscarriage before. She describes the bleeding as a light menses. Related Data Home Medications Medication Instructions Recorded Confirmed acetaminophen 500 mg tablet 1,000 mg PO Q6H PRN 06/16/22 02/11/23 (Tylenol Extra Strength) albuterol sulfate 90 mcg/actuation 2 puff inhalation Q6H PRN 06/16/22 08/08/23 aerosol inhaler (Ventolin HFA) [id number] 1 mg tab PO 08/08/23 tablet Previous Rx's Medication Instructions Recorded ibuprofen 600 mg tablet 600 mg PO Q6H PRN #60 tabs 11/11/22 escitalopram oxalate 20 mg tablet 20 mg PO QDAY #90 tabs 02/11/23 (Lexapro) fluticasone 250 mcg-salmeterol 50 1 inh inhalation BID #60 ea 02/11/23 mcg/dose blistr powdr for inhalation (Wixela Inhub) omeprazole 20 mg capsule,delayed 20 mg PO QDAY #90 caps 04/06/23 release Allergies Allergy/AdvReac Type Severity Reaction Status Date / Time No Known Drug Allergies Allergy Verified 08/08/23 17:46 Review of Systems Status of ROS: Reports: 10 or more systems reviewed and unremarkable except as noted in History and below [facility] Medical History Normal vaginal delivery ?O80 - Encounter for full-term uncomplicated delivery (ICD-10) Gestational diabetes ?O24.419 - Gestational diabetes mellitus in , unspecified control (ICD-10) Multiple cysts of breast ?N60.19 - Diffuse cystic mastopathy of unspecified breast (ICD-10) Migraine with aura ?G43.109 - Migraine with aura, not intractable, without status migrainosus (ICD-10) Herpes ?B00.9 - Herpesviral infection, unspecified (ICD-10) Surgical History [place] teeth extracted ?K08.409 - Partial loss of teeth, unspecified cause, unspecified class (ICD- 10) History of hernia surgery ?Z98.890 - Other specified postprocedural states (ICD-10) ?Z87.19 - Personal history of other diseases of the digestive system (ICD-10) Social History Narrative: SOCIAL Education: [employer] 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 Seat Belt Use: Routinely Smoking: Denies past/present Alcohol/day: Denies while Caffeine: sometimes, but minimal Drug Use: Denies past/present MRSA: Denies Chickenpox: unknown Smoking Status: Never smoker Little interest or pleasure in doing things: not at all Feeling down, depressed, or hopeless: not at all Exam Narrative: Exam Narrative: Well-nourished well-developed patient in no acute distress. Alert and oriented. Answers questions appropriately. Mood and affect are appropriate. Thoughts are goal oriented and rational. No tangential or magical thinking noted. Patient speaks in full sentences without needing to catch her breath. HEENT: Normocephalic atraumatic. Pupils are equally round reactive to light. Extraocular muscles are intact. Conjunctivae are moist without any icterus noted. Moist mucous membranes. No pallor noted. Cardiovascular: Heart is regular rate and rhythm. Abdomen: Soft and nontender nondistended with normal bowel sounds. Skin: Well perfused without any obvious rashes. Const: Vital Signs, click to edit/add: Vital Signs - 24 hr 08/08/23 17:41 Temperature 98.4 F Pulse Rate [Right Pulse Oximeter] 79 Respiratory Rate 16 Blood Pressure [Ri ght Upper Arm] 111/77 Pulse Oximetry 98 Oxygen Delivery Me thod Room Air Course Course ED Course: CBC unremarkable. Blood type is A-negative. HCG at 13. Ultrasound not showing an intrauterine . RhoGAM given. Vital Signs Vital signs: Initial Vital Signs Temperature 98.4 F 08/08/23 17:41 Temperature Source Temporal Artery Scan 08/08/23 17:41 Pulse Rate 79 08/08/23 17:41 Respiratory Rate 16 08/08/23 17:41 Blood Pressure 111/77 08/08/23 17:41 Blood Pressure Mean 88 08/08/23 17:41 Blood Pressure Position Sitting 08/08/23 17:41 Pulse Oximetry 98 08/08/23 17:41 Oxygen Delivery Method Room Air 08/08/23 17:41 Vital Signs Temperature 98.4 F 08/08/23 17:41 Pulse Rate 79 08/08/23 17:41 Respiratory Rate 16 08/08/23 17:41 Blood Pressure 111/77 08/08/23 17:41 Pulse Oximetry 98 08/08/23 17:41 Oxygen Delivery Method Room Air 08/08/23 17:41 Temperature 98.4 F 08/08/23 17:41 Pulse Rate 79 08/08/23 17:41 Respiratory Rate 16 08/08/23 17:41 Blood Pressure 111/77 08/08/23 17:41 Pulse Oximetry 98 08/08/23 17:41 Oxygen Delivery Method Room Air 08/08/23 17:41 Medical Decision Making MDM Narrative Medical decision making narrative: 27-year-old female with a probable spontaneous . Treated per above. Lab Data Labs: Lab Results 08/08/23 Range/Units 18:38 WBC 5.50 (4.50-11.00) K/uL RBC 4.49 (4.00-5.20) m/uL Hgb 11.9 L (12.0-16.0) gm/dL Hct 37.2 (33.0-51.0) % MCV 83 (80-100) fL MCH 27 (26-34) pg MCHC 32 (32-36) gm/dL RDW Coeff of Radha 13.7 (11.5-15.5) % Plt Count 223 (140-440) K/uL Neut % (Auto) 61.5 (42.0-72.0) % Lymph % (Auto) 25.8 (20-44) % Sauk % (Auto) 10.7 (0.0-11.0) % Eos % (Auto) 1.3 (0.0-7.0) % Baso % (Auto) 0.5 (0.0-3.0) % Neut # (Auto) 3.38 (1.7-7.0) K/uL Lymph # (Auto) 1.42 (0.90-2.90) K/uL Sauk # (Auto) 0.60 (0.00-0.90) K/UL Eos # (Auto) 0.07 (0.00-0.50) K/uL Baso # (Auto) 0.03 (0.00-0.30) K/uL Abs Immat Gran (auto) 0.01 (0.00-0.30) K/uL Imm/Tot Granulo (auto) 0.2 % HCG, Quant 13.21 mIU/mL Blood Type A Negative Discharge Plan Discharge Clinical Impression: Spontaneous Patient Disposition: Home, Self-Care Condition: Stable Instructions: Miscarriage (ED) Additional Instructions: Expect a normal or slightly heavier than normal period. Activity Level: No Restrictions Discharge Diet: Regular Prescriptions: No Action albuterol sulfate [Ventolin HFA] 90 mcg/actuation HFA aerosol inhaler 2 puff inhalation Q6H PRN acetaminophen [Tylenol Extra Strength] 500 mg tablet 1,000 mg PO Q6H PRN fluticasone propion-salmeterol [Wixela Inhub] 250-50 mcg/dose blister with device 1 inh inhalation BID Qty: 60 0RF escitalopram oxalate [Lexapro] 20 mg tablet 20 mg PO QDAY Qty: 90 4RF ibuprofen 600 mg Tablet 600 mg PO Q6H PRNQty: 60 0RF [id number]-FA 1 mg tablet PO omeprazole 20 mg capsule,delayed release(DR/EC) 20 mg PO QDAY Qty: 90 4RF Follow Up/Referrals: Provider,Not a Local [Primary Care Provider] - Stand Alone Forms: allGreenupth Info Instructions
== END 2023-08-08 21:10 | disposition home or self-care (01) ==
PROVIDERS: Emergency Provider Family Medicine
DX: O03.9 Complete or unspecified spontaneous abortion without complication (principal)
CPT/HCPCS: 36415; 36430; 76817; 84702; 85025; 86900; 86901; 99284; J2791

== ENCOUNTER 2023-12-16 16:34 | Emergency (ER) | payer MEDICAID, SELFPAY ==
[2023-12-16 16:47] VITALS: BP 135/85; PULSE 82; RESP 18; TEMP 36.9; O2SAT 97; BMI 39.9
--- NOTE | 2023-12-16 17:00 | ED_ITS ---
HPI - General Adult General Chief complaint: Vaginal Bleeding Stated complaint: 6 wks -vag bleeding, cramping Time Seen by Provider: 12/16/23 16:45 History of Present Illness HPI narrative: Pt approximately 6 wks . At about 1615, pt was walking around [employer] when she felt a sudden gush. Pt noted bright red blood in underwear. Has not had previous bleeding. States she now notes lower abdominal cramping as well. 28-year-old woman presenting to the emergency department concern of vaginal bleeding in the setting of early . She is accompanied here by 2 small children and her partner. About a 1/2 hour prior to presentation in the emergency department was walking around [employer] when felt sudden gush thinking that it was potentially urine. When she was able to assess the situation noticed that it was indeed blood and a good amount. She is not feeling lightheaded or short of breath. Prior to this today has been in usual state of health. She would estimate herself to be 6 weeks by LMP which I would calculate out to a due date of June 28. She has not had any fever. She is having some cramping in the low abdomen. She is still experiencing morning sickness. She has not yet noted any breast tenderness. No trauma noted. Notes that had a miscarriage this August at about for 5 weeks. She has scheduled a follow-up, first-time OB appointment for 2-[facility] Related Data Home Medications ?Medication ?Instructions ?Recorded ?Confirmed [id number]-FA 1 mg 1 tab PO DAILY 08/08/23 12/30/23 tablet Previous Rx's ?Medication ?Instructions ?Recorded escitalopram oxalate 20 mg tablet 20 mg PO QDAY #90 tabs 02/11/23 (Lexapro) omeprazole 20 mg capsule,delayed 20 mg PO QDAY #90 caps 04/06/23 release Allergies Allergy/AdvReac Type Severity Reaction Status Date / Time No Known Drug Allergies Allergy Verified 12/30/23 14:27 Review of Systems Status of ROS: Reports: 6 or more systems reviewed and unremarkable except as noted in History and below [facility] Medical History Normal vaginal delivery ?O80 - Encounter for full-term uncomplicated delivery (ICD-10) Gestational diabetes ?O24.419 - Gestational diabetes mellitus in , unspecified control (ICD-10) Multiple cysts of breast ?N60.19 - Diffuse cystic mastopathy of unspecified breast (ICD-10) Migraine with aura ?G43.109 - Migraine with aura, not intractable, without status migrainosus (ICD-10) Herpes ?B00.9 - Herpesviral infection, unspecified (ICD-10) Surgical History Salvo teeth extracted ?K08.409 - Partial loss of teeth, unspecified cause, unspecified class (ICD- 10) History of hernia surgery ?Z98.890 - Other specified postprocedural states (ICD-10) ?Z87.19 - Personal history of other diseases of the digestive system (ICD-10) Social History Narrative: SOCIAL Education: [employer] 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 Seat Belt Use: Routinely Smoking: Denies past/present Alcohol/day: Denies while Caffeine: sometimes, but minimal Drug Use: Denies past/present MRSA: Denies Chickenpox: unknown Smoking Status: Never smoker Little interest or pleasure in doing things: not at all Feeling down, depressed, or hopeless: not at all Exam Narrative: Exam Narrative: Pleasant. NAD. Skin is warm and dry. She is breathing easily. Cranial nerves 2-12 intact. Heart in regular rate and rhythm without murmur rub or gallop. Lungs are clear. Abdomen is overweight soft and mildly tender to palpation in the low abdomen. There is fullness consistent with as she notes pre-existing hernia for, abdominal wall. Const: Vital Signs, click to edit/add: Vital Signs - 24 hr 12/16/23 16:47 Temperature 98.5 F Pulse Rate [Pulse Oximeter] 82 Respiratory Rate 18 Blood Pressure [Le ft Upper Arm] 135/85 Pulse Oximetry 97 Oxygen Delivery Me thod Room Air Documenting provider has reviewed patient's vital signs: yes Course Vital Signs Vital signs: Initial Vital Signs Temperature 98.5 F 12/16/23 16:47 Temperature Source Temporal Artery Scan 12/16/23 16:47 Pulse Rate 82 12/16/23 16:47 Pulse Rhythm Regular 12/16/23 16:47 Pulse Strength 3+ Normal 12/16/23 16:47 Respiratory Rate 18 12/16/23 16:47 Blood Pressure 135/85 12/16/23 16:47 Blood Pressure Mean 101 12/16/23 16:47 Blood Pressure Position Semi-Fowlers 12/16/23 16:47 Pulse Oximetry 97 12/16/23 16:47 Oxygen Delivery Method Room Air 12/16/23 16:47 Vital Signs Temperature 98.5 F 12/16/23 16:47 Pulse Rate 82 12/16/23 16:47 Respiratory Rate 18 12/16/23 16:47 Blood Pressure 135/85 12/16/23 16:47 Pulse Oximetry 97 12/16/23 16:47 Oxygen Delivery Method Room Air 12/16/23 16:47 Temperature 98.5 F 12/16/23 16:47 Pulse Rate 78 12/16/23 18:50 Respiratory Rate 16 12/16/23 18:50 Blood Pressure 129/86 12/16/23 18:50 Pulse Oximetry 98 12/16/23 18:50 Oxygen Delivery Method Room Air 12/16/23 16:47 Medical Decision Making MDM Narrative Medical decision making narrative: She does nose herself to be ?Rh negative; a negative?. I would anticipate transvaginal ultrasound for further elucidation of what has occurred here. I suppose could be cervical bleeding. More likely subchorionic bleed. Possibly pending miscarriage. Will also check hemoglobin and type and cross. May need RhoGAM. Urinalysis. Discussed findings with boat assembler of well-appearing at approximately 6 weeks corresponding with LMP. Noted subchorionic hemorrhage. Discussed findings with OB on-call Considering small subchorionic hemorrhage and LMP confirmed with ultrasound of less than 7 weeks, also in light of RhoGAM sorted nationwide, should be quite low risk for isoimmunization. Did confirm blood type is A negative See patient discharge plan for further discussion/plan Lab Data Lab results reviewed: Yes I reviewed the patient's lab results Labs: Lab Results 12/16/23 12/16/23 Range/Units 17:24 17:30 Hgb 11.6 L (12.0-16.0) gm/dL HCG, Quant 74228.00 mIU/mL Urine Color Fannie A (Yellow) Urine Appearance Slightly Cloudy A (Clear) Urine pH 6.5 (5.0-8.5) Ur Specific [place] 1.025 (1.000-1.030) Urine Protein Negative (Negative) Urine Glucose (UA) Negative (Negative) Urine Ketones Negative (Negative) Urine Blood 3+ A (Negative) Urine Nitrite Negative (Negative) Urine Bilirubin Negative (Negative) Urine Urobilinogen 0.2 (0.2-1.0) Ur Leukocyte Esterase Negative (Negative) Urine RBC 50-100 A (0-2) Urine WBC 0-2 (0-5) Ur Squamous Epith Cells Moderate A (None-Few) Urine Bacteria Few A (None) Blood Type A Negative Antibody Screen NEGATIVE Discharge Plan Discharge Clinical Impression: Subchorionic bleed, Vaginal bleeding Patient Disposition: Home w/ Parent or Adult Condition: Stable Additional Instructions: Stay well-hydrated. Return for marked increase in pain, fever, bleeding where you are soaking through 1 heavy pad an hour for 2 consecutive hours. Otherwise follow-up with OB as scheduled. Prescriptions: No Action escitalopram oxalate [Lexapro] 20 mg tablet 20 mg PO QDAY Qty: 90 4RF zcmtzrqs-iqk-Ss-FA 1 mg tablet 1 tab PO DAILY omeprazole 20 mg capsule,delayed release(DR/EC) 20 mg PO QDAY Qty: 90 4RF Follow Up/Referrals: Provider,Not a Local [Primary Care Provider] - Stand Alone Forms: [employer] Info Instructions
--- NOTE | 2023-12-16 17:05 | US_ITS ---
Patient: MAURO MOLINA Facility:?[facility] Patient ID:?[id number] Site Patient ID:?[id number]. Site :?1995 Study:?US-OB Pelvis OB TV-12/16/2023 5:54:18 PM Ordering Physician:?SERGO NAVARRETE MD Final Report: INDICATION: Bleeding in early . TECHNIQUE: Ultrasound OB pelvis transvaginal. Real-time white-scale imaging of the pelvis was performed. COMPARISON: None. FINDINGS: There is a single intrauterine gestation. The embryo demonstrates a regular cardiac rate measuring 125 beats per minute. The embryo`s crown rump length measurement of 0.4 cm corresponds to a gestational age of 6 weeks, 0 days. There is a normal appearing yolk sac. There are no gross abnormalities noted within the embryo at this early state of development. The placenta has not yet developed. Subchorionic hemorrhage in the posterior left uterine body measures 2.6 x 1.4 x 2.1 cm. Corpus luteum cyst is noted within the right ovary. Left ovary was not identified. IMPRESSION: 1. Single viable intrauterine with crown-rump length of 0.4 cm corresponding to a gestational age of 6 weeks, 0 days. 2. Subchorionic hemorrhage in the posterior left uterine body measuring 2.6 x 1.4 x 2.1 cm. Dictated by Imani Collins MD @ 12/16/2023 6:31:50 PM Signed by:?Imani Collins MD @12/16/2023 6:31:50 PM (Electronic Signature)
[2023-12-16 17:34] LABS: Hemoglobin* 11.6 gm/dL (12.0-16.0)
--- OUTSIDE RECORDS SUMMARY | 2023-12-16 17:41 | XMS_ITS | Clinical Summary ---
Author Name Unknown Organization [place] Address [address] [place] [address] Care Team Providers Care Express Clerk Name Role Phone No Ref-Primary, Physician Primary Care Provider Allergies Active Allergy Reactions Criticality Noted Date Comments Cats 07/12/2019 Other reaction(s): *Unknown Dog Epithelium (Canis Lupus Familiaris) 07/12/2019 Other reaction(s): *Unknown Dogs 07/12/2019 Medications [...] by mouth 2 times daily 30 tablet 08/25/2020 Active oxyCODONE (ROXICODONE) 5 MG tabletIndications: Postoperative pain Take 1 tablet (5 mg) by mouth every 6 hours as needed for pain 20 tablet 08/25/2020 Active Additional Information Patient not taking.Reported on 02/24/2021 acetaminophen (TYLENOL) 500 MG tabletIndications: Postoperative pain Take 1-2 tablets (500-1,000 mg) by mouth every 6 hours as needed for mild pain 30 tablet 1 08/25/2020 Active fluticasone-salmet miranda (WIXELA INHUB) 250-50 MCG/DOSE inhaler Inhale 1 puff into the lungs 01/22/2021 Active albuterol (PROAIR HFA/PROVENTIL HFA/VENTOLIN HFA) 108 (90 Base) MCG/ACT inhalerIndications :Asthma, persistent not controlled Inhale 2 puffs into the lungs every 4 hours as needed for shortness of breath / dyspnea or wheezing 8.5 g 2 02/24/2021 Active LORazepam (ATIVAN) 0.5 MG tablet Take 1 tablet (0.5 mg) by mouth every 6 hours as needed for anxiety 5 tablet 02/25/2021 Active citalopram (CELEXA) 20 MG tablet Take 20 mg by mouth every morning 09/19/2020 Active DULoxetine (CYMBALTA) 30 MG capsule Take 30 mg by mouth 11/05/2020 Activ e fluticasone (FLONASE) 50 MCG/ACT nasal spray 10/17/2020 Active omeprazole (PRILOSEC) [address] capsuleIndications :Gastroesophageal reflux in in second trimester Take 1 capsule (20 mg) by mouth daily 60 capsule 07/07/2021 Active Active Problems Problem Noted Date [...] Next Due HEPATITIS A (PEDS 12M-18Y) 05/06/2011 HIB, Unspecified 02/11/1997,05/03/1996, 6,1995 HPV Quadrivalent 06/14/2012, 1,05/22/2010,04/05/2008, HepB, Unspecified 08/10/1996,02/23/1996,12/13/18 96 Hepatitis A (ADULT 19+) 05/22/2010 Influenza (IIV3) PF 06/14/2012,05/06/2011,2009 MMR 02/01/2020,01/05/2001,12/13/1996 Meningococcal [...] Answer Date Recorded PHQ-2 Score 0 03/27/2020 Park Depression Scale Answer Date Recorded [place] Depression Score 6 02/01/2020 Last EPDS [...] 02/25/2021 7:37 PM CDT Plan of Treatment Health Maintenance Due Date Last Done Comments ADVANCE CARE PLANNING 1995 ANNUAL REVIEW OF HM ORDERS 1995 YEARLY PREVENTIVE VISIT 1995 HEPATITIS C SCREENING 10/20/2013 ASTHMA CONTROL TEST 06/23/2019 12/21/2018 ASTHMA ACTION PLAN 12/22/2019 12/21/2018 Pneumococcal Vaccine: Pediatrics (0 to 5 Years) and At-Risk Patients (6 to 64 Years) (2 of 2 - PCV) 08/31/2022 08/31/2021 COVID-19 Vaccine ( season) 2023 08/31/2021, 08/31/2021, 01/07/2021, Additional history exists PHQ-2 (once per calendar year) 2023 03/27/2020, 03/27/2020, 07/12/2019, Additional history exists INFLUENZA VACCINE (Season Ended) 2024 05/19/2022, 08/31/2021, 06/14/2012, Additional history exists PAP 04/21/2025 04/21/2022, 07/12/2019 [...] this topic Medical Devices Implanted Type Area Steel Pan Form Placing Supervisor Device Identifier Shelf Expiration Date Model / Serial / Lot Mesh Symbotex Composite Stex Round 12cm Sym12 Implanted:Qty: 1 on 08/25/2020 by Deonte Miramontes MD at [facility] Mesh N/A: Abdomen COVIDIEN [id number] 01/28/2025 [id number] / / [id number] Procedures Procedure Name Priority Date/Time Associated Diagnosis Comments HIV ANTIGEN ANTIBODY COMBO Routine 07/12/2019 12:12 PM VOLUNTEER SERVICES SUPERVISOR Supervision of high risk in first trimester PAP IMAGED THIN LAYER SCREEN Routine 07/12/2019 12:11 PM VOLUNTEER SERVICES SUPERVISOR Screening for malignant neoplasm of cervix CHLAMYDIA TRACHOMATIS PCR Routine 07/12/2019 10:00 AM VOLUNTEER SERVICES SUPERVISOR Supervision of high risk in first trimester from Last 3 Months or Most Recently Relevant to Health Maintenance Results * HIV Antigen Antibody Combo (07/12/2019 12:12 PM VOLUNTEER SERVICES SUPERVISOR) HIV Antigen Antibody Combo Nonreactive NR^Nonrea ctive 07/13/2019 9:52 AM VOLUNTEER SERVICES SUPERVISOR [facility] Comment:HIV-1 p24 Ag & HIV-1 /HIV-2 Ab Not Detected Blood specimen (specimen) 07/12/2019 12:12 PM VOLUNTEER SERVICES SUPERVISOR 07/12/2019 12:13 PM VOLUNTEER SERVICES SUPERVISOR Linda Hinojosa DO LAB - BLOOD ORD ERABLES [facility] [address] [place] [address] * Pap imaged thin layer screen only - recommended age 21 - 24 years (07/12/2019 12:11 PM VOLUNTEER SERVICES SUPERVISOR) PAP NIL BABITA [place] Report Patient Name: MEG MOLINA MR#: [id number] Specimen #: [id number] Collected: 07/12/2019 Received: 07/13/2019 Reported: 07/16/2019 13:34 Ordering Phy(s): LINDA HINOJOSA For improved result formatting, select 'View Enhanced Report Format' under Linked Documents section. SPECIMEN/STAIN PROCESS: Pap imaged thin layer prep screening (Surepath, FocalPoint with guided screening) ? Pap-Cyto x 1 SOURCE: Cervical, endocervical Pap imaged thin layer prep screening (Surepath, FocalPoint with guided screening) SPECIMEN ADEQUACY: Satisfactory for evaluation. -Transformation zone component absent. CYTOLOGIC INTERPRETATION: Negative for intraepithelial lesion or malignancy Electronically signed out by: MARINA Gillette (ASCP) CLINICAL HISTORY: LMP: 05/01/2019 , Papanicolaou Test Limitations: ??Cervical cytology is a screening test with limited sensitivity; regular screening is critical for cancer prevention; Pap tests are primarily effective for the diagnosis/preventi on of squamous cell carcinoma, not adenocarcinomas or other cancers. COLLECTION SITE: Client: ??[facility] Location: [facility] (S) The technical component of this testing was completed at the [facility], with the professional component performed at the [facility], [address], [place] [address] ([phone]) COPATH Cytologic material (specimen) 07/12/2019 12:11 PM VOLUNTEER SERVICES SUPERVISOR 07/13/2019 9:42 AM VOLUNTEER SERVICES SUPERVISOR Linda Holm Masters DO LAB - OPTIME CL INICAL SPECIMEN COPATH * Chlamydia trachomatis PCR (07/12/2019 10:00 AM VOLUNTEER SERVICES SUPERVISOR) Specimen Description Vagina 07/12/2019 12:48 PM VOLUNTEER SERVICES SUPERVISOR [facility] Chlamydia Trachomatis PCR Negative NEG^Negat mega 07/13/2019 3:07 PM VOLUNTEER SERVICES SUPERVISOR [facility] Comment: Negative for C. trachomatis rRNA by cuffer mediated amplification. A negative result by cuffer mediated amplification does not preclude the presence of C. trachomatis infection because results are dependent on proper and adequate collection, absence of inhibitors, and sufficient rRNA to be detected. Specimen from vagina (specimen) 07/12/2019 10:00 AM VOLUNTEER SERVICES SUPERVISOR 07/12/2019 12:47 PM VOLUNTEER SERVICES SUPERVISOR Linda Dardens DO LAB - MICRO GEN ERAL ORDERABLES Performing Organization Address City/[facility] Co de Phone Number [facility] [address] [place] [address], [facility] [address] [address] from Last 3 Months or Most Recently Relevant to Health Maintenance Care Teams Express Clerk Relationship Specialty Start Date End Date No Ref-Primary, Physician PCP - General 03/04/18
--- OUTSIDE RECORDS SUMMARY | 2023-12-16 17:42 | XMS_ITS | Encounter Summary ---
Author Name Unknown Organization [facility] Address [address] [place] [address] Care Team Providers Care V Belt Mold Assembler And Curer Name Role Phone No Ref-Primary, Physician Primary Care Provider Raghavendra Isaac MD Unavailable [phone] Deonte Miramontes MD Unavailable [phone] sLinda DO Unavailable [phone] Encounter Details Date Type Department Care Team (Late st Contact Info) Description 08[place]16/2019 [facility] [place] [facility] [address] [address] Charito Barbour, KERI Social History [...] as of this encounter Plan of Treatment Not on file documented as of this encounter Visit Diagnoses Not on filedocumented in this encounter Additional Health Concerns Assessment Noted Time PHQ-9 Depression Total Score: 0 07/12/20 10:37 AM FLUX TUBE ATTENDANT documented as of this encounter Care Teams V Belt Mold Assembler And Curer Relationship Specialty Start Date End Date No Ref-Primary, Physician PCP - General 03/04/18 Raghavendra Isaac MD [address] [place] [address] Assigned PCP 11/30/18 12/25/21 Deonte Miramontes MD [address] [place] [address] Assigned Surgical Provider 05/23/20 Linda Hinojosa DO [address] [place] [address] Assigned OBGYN Provider 05/23/20 documented as of this encounter
--- OUTSIDE RECORDS SUMMARY | 2023-12-16 17:42 | XMS_ITS | Encounter Summary ---
Author Name Unknown Organization [place] Address [address] [place] [address] Care Team Providers Care Frame Trimmer Name Role Phone No Ref-Primary, Physician Primary Care Provider Raghavendra Isaac MD Unavailable [phone] Deonte Miramontes MD Unavailable [phone] sLinda DO Unavailable [phone] Encounter Details Date Type Department Care Team (Late st Contact Info) Description 02/12/2021 [facility] [place] [address] [address] Halina Granados, [facility] Social History Tobacco Use Types Packs/Day [...] Answer Date Recorded PHQ-2 Score 0 03/27/2020 [place] Depression Scale Answer Date Recorded Bivins Depression Score 6 02/01/2020 Last EPDS Self [...] documented as of this encounter Care Teams Frame Trimmer Relationship Specialty Start Date End Date No Ref-Primary, Physician PCP - General 03/04/18 Raghavendra Isaac MD [address] [place] [address] Assigned PCP 11/30/18 12/25/21 Deonte Miramontes MD [address] [place] [address] Assigned Surgical Provider 05/23/20 sLinda DO [address] [place] [address] Assigned OBGYN Provider 05/23/20 documented as of this encounter
--- OUTSIDE RECORDS SUMMARY | 2023-12-16 17:42 | XMS_ITS | Encounter Summary ---
Author Name Unknown Organization [place] Address [address] [place] [address] Care Team Providers Care Cable Inspector Name Role Phone No Ref-Primary, Physician Primary Care Provider Raghavendra Isaac MD Unavailable [phone] Deonte Miramontes MD Unavailable [phone] sLinda DO Unavailable [phone] Encounter Details Date Type Department Care Team (Late st Contact Info) Description 03/20/[address] [address] [facility] [address] [place] [address] Beverly Kent MD [facility] [address] [place] [address] Social History Tobacco Use Types [...] Answer Date Recorded PHQ-2 Score 0 03/27/2020 [place] Depression Scale Answer Date Recorded [place] Depression Score 6 02/01/2020 Last EPDS Self [...] documented as of this encounter Care Teams Cable Inspector Relationship Specialty Start Date End Date No Ref-Primary, Physician PCP - General 03/04/18 Raghavendra Isaac MD [address] [place] [address] Assigned PCP 11/30/18 12/25/21 Deonte Miramontes MD [address] [place] [address] Assigned Surgical Provider 05/23/20 Linda Hinojosa DO [address] [place] [address] Assigned OBGYN Provider 05/23/20 documented as of this encounter
--- OUTSIDE RECORDS SUMMARY | 2023-12-16 17:42 | XMS_ITS | Encounter Summary ---
Author Name Unknown Organization [place] Address [address] [place] [address] Care Team Providers Care Dental Scheduler Name Role Phone No Ref-Primary, Physician Primary Care Provider Deonte Miramontes MD Unavailable [phone] Encounter Details Date Type Department Care Team (Late st Contact Info) Description 05/07/2022 [facility] [place] Advice [facility] [address] [id number] Beverly Garnica, KERI Social History Tobacco Use [...] Answer Date Recorded PHQ-2 Score 0 03/27/2020 [employer] Depression Scale Answer Date Recorded [employer] Depression Score 6 02/01/2020 Last EPDS Self [...] documented as of this encounter Care Teams Dental Scheduler Relationship Specialty Start Date End Date No Ref-Primary, Physician PCP - General 03/04/18 Deonte Miramontes MD [address] [place] [address] Assigned Surgical Provider 05/23/20 documented as of this encounter
--- OUTSIDE RECORDS SUMMARY | 2023-12-16 17:42 | XMS_ITS | Referral Summary ---
Author Name Unknown Organization [facility] Address [address] [place] [address] Care Team Providers Care Child Support Agent Name Role Phone Elsewhere, Pcp Primary Care Provider Unavailabl e Source Comments Patient records contain information from all sites at [facility]. For routine questions regarding patient records, call [phone] during business hours, M-F 8:00 AM - 5:00 PM Central Time. Record requests for emergency care only can be directed to [phone] at any time.[facility] Allergies No known active allergies Medications Medication Sig Dispensed Refills Start Date End Date Status acetaminophen (TYLENOL) 500 mg tablet Take 500-1,000 mg by mouth. 08/25/2020 Active LORazepam (ATIVAN) 0.5 mg tablet Take 0.5 mg by mouth 2 (two) times a day as needed. 02/25/2021 Active albuterol (Ventolin HFA) 90 mcg/actuation inhaler Inhale. 02/24/2021 Active fluticasone propion-salmeteroL (Wixela Inhub) 250-50 mcg/dose diskus inhaler Inhale 1 puff 2 (two) times a day. 01/22/2021 Active ibuprofen (ADVIL,MOTRIN) 800 mg tablet Take 800 mg by mouth. 02/01/2020 Active omeprazole (PriLOSEC) [address] capsule 03/09/2022 Active escitalopram (LEXAPRO) 20 mg tablet Take 1 tablet by mouth every morning. 01/29/2022 Active Immunizations Name Administration Dates Next [...] of Treatment Not on file Care Teams Child Support Agent Relationship Specialty Start Date End Date Elsewhere, Pcp PCP - General Internal Medicine 03/11/22
--- OUTSIDE RECORDS SUMMARY | 2023-12-16 17:42 | XMS_ITS | Encounter Summary ---
Author Name Unknown Organization [facility] Address [address] [place] [address] Care Team Providers Care Web Consultant Name Role Phone No Ref-Primary, Physician Primary Care Provider Deonte Miramontes MD Unavailable [phone] Encounter Details Date Type Department Care Team (Late st Contact Info) Description 04/28/2022 [facility] Medical Advice [facility] [address] [phone] Vanna Carroll RN Social History Tobacco Use Types Packs/Day [...] Answer Date Recorded PHQ-2 Score 0 03/27/2020 [place] Depression Scale Answer Date Recorded [place] Depression Score 6 02/01/2020 Last EPDS Self [...] documented as of this encounter Care Teams Web Consultant Relationship Specialty Start Date End Date No Ref-Primary, Physician PCP - General 03/04/18 Deonte Miramontes MD [address] [place] [address] Assigned Surgical Provider 05/23/20 documented as of this encounter
--- OUTSIDE RECORDS SUMMARY | 2023-12-16 17:42 | XMS_ITS | Clinical Summary ---
Author Name Unknown Organization [facility] Address [address] [place] [address] Care Team Providers Care Fuel Testing Technician Name Role Phone Elsewhere, Pcp Primary Care Provider Unavailabl e Source Comments Patient records contain information from all sites at [facility]. For routine questions regarding patient records, call [phone] during business hours, M-F 8:00 AM - 5:00 PM Central Time. Record requests for emergency care only can be directed to [phone] at any time.[facility] Allergies No known active allergies Medications Medication [...] HIV Screening 1995 Hepatitis C Screening 1995 COVID-19 Vaccine (2022-24 season) 2023 08/31/2021, 01/07/2021, 12/17/2020 Influenza Vaccine (#1) 2023 2, 08/31/2021, 06/14/2012, Additional history exists Depression Screening (Annual PHQ-2) 08/01/2023 DTaP,Tdap,and Td Vaccines (10 - Td or Tdap) 09/07/2032 09/07/2022, 11/06/2019, 01/30/2008, Additional history exists Hepatitis B Vaccines Completed 08/10/1996, 02/23/1996, 1995 HPV Vaccines Completed 06/14/2012, 12/2010, 05/22/2010, Additional history exists Pneumococcal vaccine (0-64 years) Aged Out 08/31/2021 No longer eligible based on patient's age to complete this topic Care Teams Fuel Testing Technician Relationship Specialty Start Date End Date Elsewhere, Pcp PCP - General Internal Medicine 03/11/22
--- OUTSIDE RECORDS SUMMARY | 2023-12-16 17:42 | XMS_ITS | Encounter Summary ---
Author Name Unknown Organization [facility] Address [address] [place] [address]. [place] [address] Care Team Providers Care Surg Tech Name Role Phone No Ref-Primary, Physician Primary Care Provider Raghavendra Isaac MD Unavailable [phone] Deonte Miramontes MD Unavailable [phone] sLinda DO Unavailable [phone] Encounter Details Date Type Department Care Team (Late st Contact Info) Description 01/28/2020 MyC Medical Advice [facility] [address] [place] [address] Linda Hinojosa DO 65[address] [facility] 100 [place], [place] [phone] Social History Tobacco Use Types Packs/Day Years [...] Answer Date Recorded PHQ-2 Score 0 12/21/2018 [place] Depression Scale Answer Date Recorded [place] Depression Score 6 02/01/2020 Last EPDS Self [...] Depression Total Score: 0 07/12/20 10:37 AM GROUP EXERCISE CLASS INSTRUCTOR documented as of this encounter Care Teams Surg Tech Relationship Specialty Start Date End Date No Ref-Primary, Physician PCP - General 03/04/18 Raghavendra Isaac MD [address] [place] [address] Assigned PCP 11/30/18 12/25/21 eDonte Miramontes MD [address] [place] [address] Assigned Surgical Provider 05/23/20 Linda Hinojosa DO [address] [place] [address] Assigned OBGYN Provider 05/23/20 documented as of this encounter
--- OUTSIDE RECORDS SUMMARY | 2023-12-16 17:42 | XMS_ITS | Encounter Summary ---
Author Name Unknown Organization [facility] Address [address] [place] [address] Care Team Providers Care Border Guard Name Role Phone No Ref-Primary, Physician Primary Care Provider Raghavendra Isaac MD Unavailable [phone] Deonte Miramontes MD Unavailable [phone] sLinda DO Unavailable [phone] Reason for Visit * Reason Onset Date Comments Refill Request 02/04/2020 Encounter Details Date Type Department Care Team (Late st Contact Info) Description 02/04/2020 [facility] [address] [address] Raghavendra Isaac MD [address] [place] [address] Refill Request Social History Tobacco [...] Answer Date Recorded PHQ-2 Score 0 12/21/2018 [place] Depression Scale Answer Date Recorded [place] Depression Score 6 02/01/2020 Last EPDS [...] documented in this encounter Plan of Treatment Not on file documented as of this encounter Visit Diagnoses Diagnosis Asthma, persistent not controlled Unspecified asthma documented in this encounter Additional Health Concerns Assessment Noted Time PHQ-9 Depression Total Score: 0 07/12/20 19 10:37 AM PATROL DRIVER documented as of this encounter Care Teams Border Guard Relationship Specialty Start Date End Date No Ref-Primary, Physician PCP - General 03/04/18 Raghavendra Isaac MD [address] [place] [address] [address] [place] [address] Assigned PCP 11/30/18 12/25/21 Deonte Miramontes MD [address] [place] [address] Assigned Surgical Provider 05/23/20 Linda Hinojosa DO [address] [place] [address] Assigned OBGYN Provider 05/23/20 documented as of this encounter
--- OUTSIDE RECORDS SUMMARY | 2023-12-16 17:42 | XMS_ITS | Encounter Summary ---
Author Name Unknown Organization [facility] Address [address] [place] [address] Care Team Providers Care Social Research Assistant Name Role Phone No Ref-Primary, Physician Primary Care Provider Raghavendra Isaac MD Unavailable [phone] Deonte Miramontes MD Unavailable [phone] sLinda DO Unavailable [phone] Encounter Details Date Type Department Care Team (Late st Contact Info) Description 12/04/2019 [facility] [address] [address] [facility] Social History Tobacco Use Types [...] Depression Total Score: 0 07/12/20 10:37 AM BRIDGE GANG WORKER documented as of this encounter Care Teams Social Research Assistant Relationship Specialty Start Date End Date No Ref-Primary, Physician PCP - General 03/04/18 Raghavendra Isaac MD [address] [place] [address] Assigned PCP 11/30/18 12/25/21 Deonte Miramontes MD [address] [place] [address] Assigned Surgical Provider 05/23/20 Linda Hinojosa DO [address] [place] [address] Assigned OBGYN Provider 05/23/20 documented as of this encounter
--- OUTSIDE RECORDS SUMMARY | 2023-12-16 17:42 | XMS_ITS | Encounter Summary ---
Author Name Unknown Organization [facility] Address [address] [place] [address]. [place] [address] Care Team Providers Care Solids Control Technician Name Role Phone No Ref-Primary, Physician Primary Care Provider Raghavendra Isaac MD Unavailable [phone] Deonte Miramontes MD Unavailable [phone] MastersLinda DO Unavailable [phone] Encounter Details Date Type Department Care Team (Late st Contact Info) Description 04/09/2021 MyC Medical Advice [facility] [address] [place] [address] Deonte Miramontes MD [address] [place] [address] Social History Tobacco Use Types Packs/Day Years [...] Answer Date Recorded PHQ-2 Score 0 03/27/2020 [place] Depression Scale Answer Date Recorded [place] Depression Score 6 02/01/2020 Last EPDS Self [...] documented as of this encounter Care Teams Solids Control Technician Relationship Specialty Start Date End Date No Ref-Primary, Physician PCP - General 03/04/18 Raghavendra Isaac MD [address] [place] [address] Assigned PCP 11/30/18 12/25/21 Deonte Miramontes MD [address] [place] [address] Assigned Surgical Provider 05/23/20 Linda Hinojosa DO [address] [place] [address] Assigned OBGYN Provider 05/23/20 documented as of this encounter
--- OUTSIDE RECORDS SUMMARY | 2023-12-16 17:42 | XMS_ITS | Encounter Summary ---
Author Name Unknown Organization [facility] Address [address] [place] [address] Care Team Providers Care Search Developer Name Role Phone No Ref-Primary, Physician Primary Care Provider Encounter Details Date Type Department Care Team (Late st Contact Info) Description 07/28/2023 MyC Medical Advice [facility] [address] [place] [phone] [facility] Social History Tobacco Use Types Packs/Day [...] Answer Date Recorded PHQ-2 Score 0 03/27/2020 [place] Depression Scale Answer Date Recorded [place] Depression Score 6 02/01/2020 Last EPDS Self [...] documented as of this encounter Care Teams Search Developer Relationship Specialty Start Date End Date No Ref-Primary, Physician PCP - General 03/04/18 documented as of this encounter
--- OUTSIDE RECORDS SUMMARY | 2023-12-16 17:42 | XMS_ITS ---
Author Name Unknown Organization [facility] Address [address] [place] [address] Care Team Providers Care Hand Scraper Name Role Phone Unavailable Unavailable Unavailable Surgery Details Not on file Complications Check Surgery Details section. Procedure Estimated Blood Loss Check Surgery Details section. Procedure Findings Check Surgery Details section. Procedure Specimens Taken Check Surgery Details section.
--- OUTSIDE RECORDS SUMMARY | 2023-12-16 17:42 | XMS_ITS | Referral Summary ---
Author Name Unknown Organization [facility] Address [address] [place] [address] Care Team Providers Care Simulation Developer Name Role Phone No Ref-Primary, Physician [...] Answer Date Recorded PHQ-2 Score 0 03/27/2020 [place] Depression Scale Answer Date Recorded [place] Depression Score 6 02/01/2020 Last EPDS Self [...] 02/25/2021 7:37 PM CDT Plan of Treatment Not on file Medical Devices Implanted Type Area Chief Informatics Officer Device Identifier Shelf Expiration Date Model / Serial / Lot Mesh Symbotex Composite Stex Round 12cm Sym12 Implanted:Qty: 1 on 08/25/2020 by Deonte Miramontes MD at [facility] Mesh N/A: Abdomen COVIDIEN [id number] 01/28/2025 SYM12 / / [id number] Procedures Procedure Name Priority Date/Time Associated Diagnosis Comments HIV ANTIGEN ANTIBODY COMBO Routine 07/12/2019 12:12 PM PLASTICS FACTORY WORKER Supervision of high risk in first trimester PAP IMAGED THIN LAYER SCREEN Routine 07/12/2019 12:11 PM PLASTICS FACTORY WORKER Screening for malignant neoplasm of cervix CHLAMYDIA TRACHOMATIS PCR Routine 07/12/2019 10:00 AM PLASTICS FACTORY WORKER Supervision of high risk in first trimester from Last 3 Months or Most Recently Relevant to Health Maintenance Results * HIV Antigen Antibody Combo (07/12/2019 12:12 PM PLASTICS FACTORY WORKER) HIV Antigen Antibody Combo Nonreactive NR^Nonrea ctive 07/13/2019 9:52 AM PLASTICS FACTORY WORKER [facility] Comment:HIV-1 p24 Ag & HIV-1 /HIV-2 Ab Not Detected Blood specimen (specimen) 07/12/2019 12:12 PM PLASTICS FACTORY WORKER 07/12/2019 12:13 PM PLASTICS FACTORY WORKER Linda Hinojosa DO LAB - BLOOD ORD ERABLES [address] [address] * Pap imaged thin layer screen only - recommended age 21 - 24 years (07/12/2019 12:11 PM PLASTICS FACTORY WORKER) PAP NIL OSVADLOATH [facility] Report Patient Name: MEG MOLINA MR#: [id number] Specimen #: [id number] Collected: 07/12/2019 Received: 07/13/2019 Reported: 07/16/2019 13:34 [...] adenocarcinomas or other cancers. COLLECTION SITE: Client: ??[facility] Location: [facility] (S) The technical component of this testing was completed at the [facility], with the professional component performed at the [facility], [address], [place] [address] ([phone]) COPATH Cytologic material (specimen) 07/12/2019 12:11 PM PLASTICS FACTORY WORKER 07/13/2019 9:42 AM PLASTICS FACTORY WORKER Linda Dardens DO LAB - OPTIME CL INICAL SPECIMEN COPATH * Chlamydia trachomatis PCR (07/12/2019 10:00 AM PLASTICS FACTORY WORKER) Specimen Description Vagina 07/12/2019 12:48 PM PLASTICS FACTORY WORKER [facility] Chlamydia Trachomatis PCR Negative NEG^Negat mega 07/13/2019 3:07 PM PLASTICS FACTORY WORKER [facility] Comment: Negative for C. trachomatis rRNA by registered respiratory technician mediated amplification. A negative result by registered respiratory technician mediated amplification does not preclude the presence of C. trachomatis infection because results are dependent on proper and adequate collection, absence of inhibitors, and sufficient rRNA to be detected. Specimen from vagina (specimen) 07/12/2019 10:00 AM PLASTICS FACTORY WORKER 07/12/2019 12:47 PM PLASTICS FACTORY WORKER Linda Hinojosa DO LAB - MICRO GEN ERAL ORDERABLES Performing Organization Address City/[facility] Co de Phone Number [facility] [address] [place], [place] [address] [address] [place] [address] from Last 3 Months or Most Recently Relevant to Health Maintenance Care Teams Simulation Developer Relationship Specialty Start Date End Date No Ref-Primary, Physician PCP - General 03/04/18
[2023-12-16 17:52] LABS: Appearance Urine Slightly Cloudy (Clear); Bilirubin Urine Negative (Negative); Blood Urine 3+ (Negative); Color Urine Amber (Yellow); Glucose Urine Negative (Negative); Ketones Urine Negative (Negative); Leukocyte Esterase Urine Negative (Negative); Nitrite Urine Negative (Negative); Protein Urine Negative (Negative); Specific Gravity Urine 1.025 (1.000-1.030); Urobilinogen Urine 0.2 (0.2-1.0); pH Urine 6.5 (5.0-8.5)
[2023-12-16 18:00] LABS: Bacteria Urine Few; RBC Urine 50-100 (0-2); Squamous Epithelial Cell Urine Moderate (None-Few); WBC Urine 0-2 (0-5)
[2023-12-16 18:50] VITALS: BP 129/86; PULSE 78; RESP 16; O2SAT 98
== END 2023-12-16 19:14 | disposition home or self-care (01) ==
PROVIDERS: Emergency Provider Family Medicine
DX: O46.8X1 Other antepartum hemorrhage, first trimester (principal); Z3A.01 Less than 8 weeks gestation of pregnancy
CPT/HCPCS: 36415; 76817; 81001; 84702; 85018; 86850; 86900; 86901; 87086; 99284

== ENCOUNTER 2023-12-30 13:48 | Outpatient (CLI) | payer MEDICAID, SELFPAY ==
--- OUTSIDE RECORDS SUMMARY | 2023-12-30 13:51 | XMS_ITS | Encounter Summary ---
Author Organization [facility] Address [address] [place] [address] Care Team Providers Care Global Account Director Name Role Phone No Ref-Primary, Physician Primary Care Provider Raghavendra Isaac MD Unavailable [phone] Deonte Miramontes MD Unavailable [phone] sLinda DO Unavailable [phone] Encounter Details Date Type Department Care Team (Late st Contact Info) Description 02/12/2021 [facility] [place] [address] [address] Halina Granados, [facility] Social History Tobacco Use Types Packs/Day Years [...] Answer Date Recorded PHQ-2 Score 0 03/27/2020 [place] Depression Scale Answer Date Recorded [place] Depression Score 6 02/01/2020 Last EPDS Self [...] documented as of this encounter Care Teams Global Account Director Relationship Specialty Start Date End Date No Ref-Primary, Physician PCP - General 03/04/18 Raghavendra Isaac MD [address] [place] [address] Assigned PCP 11/30/18 12/25/21 Deonte Miramontes MD [address] [place] [address] Assigned Surgical Provider 05/23/20 sLinda DO [address] [place] [address] Assigned OBGYN Provider 05/23/20 documented as of this encounter
--- OUTSIDE RECORDS SUMMARY | 2023-12-30 13:51 | XMS_ITS | Encounter Summary ---
Author Organization [facility] Address [address] [place] [address] Care Team Providers Care Shop Coordinator Name Role Phone No Ref-Primary, Physician Primary Care Provider Raghavendra Isaac MD Unavailable Deonte Miramontes MD Unavailable [phone] sLinda DO Unavailable [phone] Reason for Visit * Reason Onset Date Comments Refill Request 02/04/2020 Encounter Details Date Type Department Care Team (Late st Contact Info) Description 02/04/2020 [facility] Refill [facility] [address] [address] Raghavendra Isaac MD [address] [place] [address] Refill Request Social History Tobacco [...] Answer Date Recorded PHQ-2 Score 0 12/21/2018 [place] Depression Scale Answer Date Recorded [place] Depression Score 6 02/01/2020 Last EPDS Self [...] Total Score: 0 07/12/20 19 10:37 AM TALENT ASSOCIATE documented as of this encounter Care Teams Shop Coordinator Relationship Specialty Start Date End Date No Ref-Primary, Physician PCP - General 03/04/18 Raghavendra Isaac MD [address] [place] [address] [address] [place] [address] Assigned PCP 11/30/18 12/25/21 Deonte Miramontes MD [address] [place] [address] Assigned Surgical Provider 05/23/20 Linda Hinojosa DO [address] [place] [address] Assigned OBGYN Provider 05/23/20 documented as of this encounter
--- OUTSIDE RECORDS SUMMARY | 2023-12-30 13:51 | XMS_ITS | Referral Summary ---
Author Organization [facility] Address [address] [place] [address] Care Team Providers Care Gis Technician Name Role Phone No Ref-Primary, Physician [...] Answer Date Recorded PHQ-2 Score 0 03/27/2020 [place] Depression Scale Answer Date Recorded [place] Depression Score 6 02/01/2020 Last EPDS Self [...] on file Medical Devices Implanted Type Area Umbrella Tipper Machine Device Identifier Shelf Expiration Date Model / Serial / Lot Mesh Symbotex Composite Stex Round 12cm Sym12 Implanted:Qty: 1 on 08/25/2020 by Deonte Miramontes MD at [facility] Mesh N/A: Abdomen COVIDIEN [id number] 01/28/2025 SYM12 / / [id number] Procedures Procedure Name Priority Date/Time Associated Diagnosis Comments HIV ANTIGEN ANTIBODY COMBO Routine 07/12/2019 12:12 PM OPTICAL GOODS DRILLING MACHINE OPERATOR Supervision of high risk in first trimester PAP IMAGED THIN LAYER SCREEN Routine 07/12/2019 12:11 PM OPTICAL GOODS DRILLING MACHINE OPERATOR Screening for malignant neoplasm of cervix CHLAMYDIA TRACHOMATIS PCR Routine 07/12/2019 10:00 AM OPTICAL GOODS DRILLING MACHINE OPERATOR Supervision of high risk in first trimester from Last 3 Months or Most Recently Relevant to Health Maintenance Results * HIV Antigen Antibody Combo (07/12/2019 12:12 PM OPTICAL GOODS DRILLING MACHINE OPERATOR) HIV Antigen Antibody Combo Nonreactive NR^Nonrea ctive 07/13/2019 9:52 AM OPTICAL GOODS DRILLING MACHINE OPERATOR [facility] Comment:HIV-1 p24 Ag & HIV-1 /HIV-2 Ab Not Detected Blood specimen (specimen) 07/12/2019 12:12 PM OPTICAL GOODS DRILLING MACHINE OPERATOR 07/12/2019 12:13 PM OPTICAL GOODS DRILLING MACHINE OPERATOR Linda Holm Masters DO LAB - BLOOD ORD ERABLES [address] [address] * Pap imaged thin layer screen only - recommended age 21 - 24 years (07/12/2019 12:11 PM OPTICAL GOODS DRILLING MACHINE OPERATOR) PAP NIL COPATH [facility] Report Patient Name: MEG MOLINA MR#: [id number] Specimen #: [id number] Collected: 07/12/2019 Received: 07/13/2019 Reported: 07/16/2019 13:34 [...] adenocarcinomas or other cancers. COLLECTION SITE: Client: ??[facility] Location: [facility] (S) The technical component of this testing was completed at the [facility], with the professional component performed at the [facility], [address] [facility], [place] [phone] ([phone]) COPATH Cytologic material (specimen) 07/12/2019 12:11 PM OPTICAL GOODS DRILLING MACHINE OPERATOR 07/13/2019 9:42 AM OPTICAL GOODS DRILLING MACHINE OPERATOR Linda Dardens DO LAB - OPTIME CL INICAL SPECIMEN COPATH * Chlamydia trachomatis PCR (07/12/2019 10:00 AM OPTICAL GOODS DRILLING MACHINE OPERATOR) Specimen Description Vagina 07/12/2019 12:48 PM OPTICAL GOODS DRILLING MACHINE OPERATOR [facility] [place] Chlamydia Trachomatis PCR Negative NEG^Negat mega 07/13/2019 3:07 PM OPTICAL GOODS DRILLING MACHINE OPERATOR [facility] Comment: Negative for C. trachomatis rRNA by budget report clerk mediated amplification. A negative result by budget report clerk mediated amplification does not preclude the presence of C. trachomatis infection because results are dependent on proper and adequate collection, absence of inhibitors, and sufficient rRNA to be detected. Specimen from vagina (specimen) 07/12/2019 10:00 AM OPTICAL GOODS DRILLING MACHINE OPERATOR 07/12/2019 12:47 PM OPTICAL GOODS DRILLING MACHINE OPERATOR Linda Hinojosa DO LAB - MICRO GEN ERAL ORDERABLES Performing Organization Address City/[facility]/ZIP Co de Phone Number [facility] [address] [place] [address], [facility] [address] [place] [address] from Last 3 Months or Most Recently Relevant to Health Maintenance Care Teams Gis Technician Relationship Specialty Start Date End Date No Ref-Primary, Physician PCP - General 03/04/18
--- OUTSIDE RECORDS SUMMARY | 2023-12-30 13:51 | XMS_ITS | Encounter Summary ---
Author Organization [facility] Address [address] [place] [address]. [place] [address] Care Team Providers Care It Investment/Portfolio Manager Name Role Phone No Ref-Primary, Physician Primary Care Provider Raghavendra Isaac MD Unavailable [phone] Deonte Miramontes MD Unavailable [phone] sLinda DO Unavailable [phone] Encounter Details Date Type Department Care Team (Late st Contact Info) Description 01/28/2020 MyC Medical Advice [facility] [address] [place] [address] sLinda DO [address] [facility] 100 [place], [place] [address] Social History Tobacco Use Types Packs/Day Years [...] Answer Date Recorded PHQ-2 Score 0 12/21/2018 [place] Depression Scale Answer Date Recorded [place] Depression Score 6 02/01/2020 Last EPDS Self [...] Depression Total Score: 0 07/12/20 10:37 AM COAT HANGER SHAPER MACHINE OPERATOR documented as of this encounter Care Teams It Investment/Portfolio Manager Relationship Specialty Start Date End Date No Ref-Primary, Physician PCP - General 03/04/18 Raghavendra Isaac MD [address] [place] [address] Assigned PCP 11/30/18 12/25/21 Deonte Miramontes MD [address] [place] [address] Assigned Surgical Provider 05/23/20 Linda Hinojosa DO [address] [place] [address] Assigned OBGYN Provider 05/23/20 documented as of this encounter
--- OUTSIDE RECORDS SUMMARY | 2023-12-30 13:51 | XMS_ITS | Encounter Summary ---
Author Organization [facility] Address [address] [place] [address] Care Team Providers Care Computational Chemist Name Role Phone No Ref-Primary, Physician Primary Care Provider Raghavendra Isaac MD Unavailable [phone] Deonte Miramontes MD Unavailable [phone] sLinda DO Unavailable [phone] Encounter Details Date Type Department Care Team (Late st Contact Info) Description 03/20/2021 MyC Medical Advice [facility] [address] [place] [address] Beverly Kent MD [facility] [address] [facility] [address] [place] [address] Social History Tobacco Use Types [...] Answer Date Recorded PHQ-2 Score 0 03/27/2020 [place] Depression Scale Answer Date Recorded [place] Depression Score 6 02/01/2020 Last EPDS Self [...] documented as of this encounter Care Teams Computational Chemist Relationship Specialty Start Date End Date No Ref-Primary, Physician PCP - General 03/04/18 Raghavendra Isaac MD [address] [place] [address] Assigned PCP 11/30/18 12/25/21 Deonte Miramontes MD [address] [place] [address] Assigned Surgical Provider 05/23/20 Linda Hinojosa DO [address] [place] [address] Assigned OBGYN Provider 05/23/20 documented as of this encounter
--- OUTSIDE RECORDS SUMMARY | 2023-12-30 13:51 | XMS_ITS | Encounter Summary ---
Author Organization [facility] Address [address] [place] [address] Care Team Providers Care Parts Counter Associate Name Role Phone No Ref-Primary, Physician Primary Care Provider Raghavendra Isaac MD Unavailable [phone] Deonte Miramontes MD Unavailable [phone] sLinda DO Unavailable [phone] Encounter Details Date Type Department Care Team (Late st Contact Info) Description 08/16/2019 [facility] [place] [facility] [address] [place] [phone] Charito Barbour, KERI Social History Tobacco [...] Depression Total Score: 0 07/12/20 10:37 AM INSPECTOR FINAL ASSEMBLY CONVEYOR LINE documented as of this encounter Care Teams Parts Counter Associate Relationship Specialty Start Date End Date No Ref-Primary, Physician PCP - General 03/04/18 Raghavendra Isaac MD [address] [place] [address] Assigned PCP 11/30/18 12/25/21 Deonte Miramontes MD [address] [place] [address] Assigned Surgical Provider 05/23/20 Linda Hinojosa DO [address] [place] [address] Assigned OBGYN Provider 05/23/20 documented as of this encounter
--- OUTSIDE RECORDS SUMMARY | 2023-12-30 13:51 | XMS_ITS | Encounter Summary ---
Author Organization [facility] Address [address] [place] [address] Care Team Providers Care Chemical Manager Name Role Phone No Ref-Primary, Physician Primary Care Provider Raghavendra Isaac MD Unavailable [phone] Deonte Miramontes MD Unavailable [phone] sLinda DO Unavailable [phone] Encounter Details Date Type Department Care Team (Late st Contact Info) Description 12/04/2019 [facility] [address] [place] [phone] [facility] Social History Tobacco Use Types Packs/Day [...] Depression Total Score: 0 07/12/20 10:37 AM OVERHEAD IRRIGATOR documented as of this encounter Care Teams Chemical Manager Relationship Specialty Start Date End Date No Ref-Primary, Physician PCP - General 03/04/18 Raghavendra Isaac MD [address] [place] [address] Assigned PCP 11/30/18 12/25/21 Deonte Miramontes MD [address] [place] [address] Assigned Surgical Provider 05/23/20 Linda Hinojosa DO [address] [place] [address] Assigned OBGYN Provider 05/23/20 documented as of this encounter
--- OUTSIDE RECORDS SUMMARY | 2023-12-30 13:51 | XMS_ITS | Encounter Summary ---
Author Organization [facility] Address [address] [place] [address] Care Team Providers Care Veneer Cutter Name Role Phone No Ref-Primary, Physician Primary Care Provider Deonte Miramontes MD Unavailable Encounter Details Date Type Department Care Team (Late st Contact Info) Description 04/28/2022 [facility] [place] [facility] for [address] [phone] Vanna Carroll RN Social History Tobacco Use [...] Answer Date Recorded PHQ-2 Score 0 03/27/2020 [place] Depression Scale Answer Date Recorded [place] Depression Score 6 02/01/2020 Last EPDS Self [...] documented as of this encounter Care Teams Veneer Cutter Relationship Specialty Start Date End Date No Ref-Primary, Physician PCP - General 03/04/18 Deonte Miramontes MD [address] [place] [address] Assigned Surgical Provider 05/23/20 documented as of this encounter
--- OUTSIDE RECORDS SUMMARY | 2023-12-30 13:51 | XMS_ITS | Encounter Summary ---
Author Organization [facility] Address [address] [place] [address] Care Team Providers Care Boilermaker Loftsman Name Role Phone No Ref-Primary, Physician Primary Care Provider Deonte Miramontes MD Unavailable [phone] Encounter Details Date Type Department Care Team (Late st Contact Info) Description 05/07/2022 [facility] [place] [facility] [address] [phone] Beverly Garnica, KERI Social History Tobacco Use [...] Answer Date Recorded PHQ-2 Score 0 03/27/2020 [place] Depression Scale Answer Date Recorded [place] Depression Score 6 02/01/2020 Last EPDS Self [...] documented as of this encounter Care Teams Boilermaker Loftsman Relationship Specialty Start Date End Date No Ref-Primary, Physician PCP - General 03/04/18 Deonte Miramontes MD [address] [place] [address] Assigned Surgical Provider 05/23/20 documented as of this encounter
--- OUTSIDE RECORDS SUMMARY | 2023-12-30 13:51 | XMS_ITS | Encounter Summary ---
Author Organization [facility] Address [address] [place] [address]. [place] [address] Care Team Providers Care Proced Tech Name Role Phone No Ref-Primary, Physician Primary Care Provider Raghavendra Isaac MD Unavailable [phone] Deonte Miramontes MD Unavailable [phone] MastersLinda DO Unavailable [phone] Encounter Details Date Type Department Care Team (Late st Contact Info) Description 04/09/2021 [facility] Medical Advice [facility] [place] [address] [place] [address] Deonte Miramontes MD [address] [facility] [address] [place] [id number] Social History Tobacco Use Types Packs/Day Years [...] Answer Date Recorded PHQ-2 Score 0 03/27/2020 [place] Depression Scale Answer Date Recorded [place] Depression Score 6 02/01/2020 Last EPDS Self [...] documented as of this encounter Care Teams Proced Tech Relationship Specialty Start Date End Date No Ref-Primary, Physician PCP - General 03/04/18 Raghavendra Isaac MD [address] [place] [address] Assigned PCP 11/30/18 12/25/21 Deonte Miramontes MD [address] [place] [address] Assigned Surgical Provider 05/23/20 Linda Hinojosa DO [address] [place] [address] Assigned OBGYN Provider 05/23/20 documented as of this encounter
--- OUTSIDE RECORDS SUMMARY | 2023-12-30 13:51 | XMS_ITS | Encounter Summary ---
Author Organization [facility] Address [address] [place] [address]. [place] [address] Care Team Providers Care Chief Passenger Ship Steward/Stewardess Name Role Phone No Ref-Primary, Physician Primary Care Provider Encounter Details Date Type Department Care Team (Late st Contact Info) Description 07/28/2023 [facility] Medical Advice PHYS STANDARD [address] [place] [phone] [facility] Social History Tobacco Use Types Packs/Day Years [...] Answer Date Recorded PHQ-2 Score 0 03/27/2020 [place] Depression Scale Answer Date Recorded [place] Depression Score 6 02/01/2020 Last EPDS [...] documented as of this encounter Care Teams Chief Passenger Ship Steward/Stewardess Relationship Specialty Start Date End Date No Ref-Primary, Physician PCP - General 03/04/18 documented as of this encounter
--- OUTSIDE RECORDS SUMMARY | 2023-12-30 13:51 | XMS_ITS | Clinical Summary ---
Author Organization [facility] Address [address] [place] [address] Care Team Providers Care Interlocking Machine Operator Name Role Phone No Ref-Primary, Physician Primary [...] Answer Date Recorded PHQ-2 Score 0 03/27/2020 [place] Depression Scale Answer Date Recorded [place] Depression Score 6 02/01/2020 Last EPDS Self [...] this topic Medical Devices Implanted Type Area Tile Trimmer Device Identifier Shelf Expiration Date Model / Serial / Lot Mesh Symbotex Composite Stex Round 12cm Sym12 Implanted:Qty: 1 on 08/25/2020 by Deonte Miramontes MD at [facility] Mesh N/A: Abdomen COVIDIEN [id number] 01/28/2025 [id number] / / [id number] Procedures Procedure Name Priority Date/Time Associated Diagnosis Comments HIV ANTIGEN ANTIBODY COMBO Routine 07/12/2019 12:12 PM APPLIANCE REPAIRER Supervision of high risk in first trimester PAP IMAGED THIN LAYER SCREEN Routine 07/12/2019 12:11 PM APPLIANCE REPAIRER Screening for malignant neoplasm of cervix CHLAMYDIA TRACHOMATIS PCR Routine 07/12/2019 10:00 AM APPLIANCE REPAIRER Supervision of high risk in first trimester from Last 3 Months or Most Recently Relevant to Health Maintenance Results * HIV Antigen Antibody Combo (07/12/2019 12:12 PM APPLIANCE REPAIRER) HIV Antigen Antibody Combo Nonreactive NR^Nonrea ctive 07/13/2019 9:52 AM APPLIANCE REPAIRER [facility] Comment:HIV-1 p24 Ag & HIV-1 /HIV-2 Ab Not Detected Blood specimen (specimen) 07/12/2019 12:12 PM APPLIANCE REPAIRER 07/12/2019 12:13 PM APPLIANCE REPAIRER Linda Hinojosa DO LAB - BLOOD ORD ERABLES [facility] [address] [place] [address] * Pap imaged thin layer screen only - recommended age 21 - 24 years (07/12/2019 12:11 PM APPLIANCE REPAIRER) PAP NIL BABITA [place] Report Patient Name: MEG MOLINA MR#: [id number] Specimen #: [id number] Collected: 07/12/2019 Received: 07/13/2019 Reported: 07/16/2019 13:34 [...] adenocarcinomas or other cancers. COLLECTION SITE: Client: ??[facility] Location: [facility] (S) The technical component of this testing was completed at the [facility], with the professional component performed at the [facility], [address] [facility], [place] [address] ([phone]) COPATH Cytologic material (specimen) 07/12/2019 12:11 PM APPLIANCE REPAIRER 07/13/2019 9:42 AM APPLIANCE REPAIRER Linda Holm Masters DO LAB - OPTIME CL INICAL SPECIMEN COPATH * Chlamydia trachomatis PCR (07/12/2019 10:00 AM APPLIANCE REPAIRER) Specimen Description Vagina 07/12/2019 12:48 PM APPLIANCE REPAIRER [facility] [place] Chlamydia Trachomatis PCR Negative NEG^Negat mega 07/13/2019 3:07 PM APPLIANCE REPAIRER [facility] Comment: Negative for C. trachomatis rRNA by director of flight operations mediated amplification. A negative result by director of flight operations mediated amplification does not preclude the presence of C. trachomatis infection because results are dependent on proper and adequate collection, absence of inhibitors, and sufficient rRNA to be detected. Specimen from vagina (specimen) 07/12/2019 10:00 AM APPLIANCE REPAIRER 07/12/2019 12:47 PM APPLIANCE REPAIRER Linda Holm Masters DO LAB - MICRO GEN ERAL ORDERABLES Performing Organization Address City/[facility]/ZIP Co de Phone Number [facility] [address] [place] [address], [facility] [address] [address] from Last 3 Months or Most Recently Relevant to Health Maintenance Care Teams Interlocking Machine Operator Relationship Specialty Start Date End Date No Ref-Primary, Physician PCP - General 03/04/18
--- OUTSIDE RECORDS SUMMARY | 2023-12-30 13:52 | XMS_ITS ---
Author Organization [facility] Address [address] [place] [address] Care Team Providers Care Agency Manager Name Role Phone Unavailable Unavailable Unavailable Surgery Details Not on file Complications Check Surgery Details section. Procedure Estimated Blood Loss Check Surgery Details section. Procedure Findings Check Surgery Details section. Procedure Specimens Taken Check Surgery Details section.
--- OUTSIDE RECORDS SUMMARY | 2023-12-30 13:52 | XMS_ITS | Clinical Summary ---
Author Organization [facility] Address [address] [place] [address] Care Team Providers Care Collateral Analyst Name Role Phone Elsewhere, Pcp Primary Care Provider Unavailabl e Source Comments Patient records contain information from all sites at [facility]. For routine questions regarding patient records, call [phone] during business hours, M-F 8:00 AM - 5:00 PM Central Time. Record requests for emergency care only can be directed to [phone] at any time.[facility] Allergies No known active allergies Medications Medication [...] 1995 Hepatitis C Screening 1995 COVID-19 Vaccine (2022- season) 2023 08/31/2021, 01/07/2021, 12/17/2020 Influenza Vaccine (#1) 2023 , 08/31/2021, 06/14/2012, Additional history exists Depression Screening (Annual PHQ-2) 08/01/2023 DTaP,Tdap,and Td Vaccines (10 - Td or Tdap) 09/07/2032 09/07/2022, 11/06/2019, 01/30/2008, Additional history exists Hepatitis B Vaccines Completed 08/10/1996, 02/23/1996, 1995 HPV Vaccines Completed 06/14/2012, 12/2010, 05/22/2010, Additional history exists Pneumococcal vaccine (0-64 years) Aged Out 08/31/2021 No longer eligible based on patient's age to complete this topic Care Teams Collateral Analyst Relationship Specialty Start Date End Date Elsewhere, Pcp PCP - General Internal Medicine 03/11/22
--- OUTSIDE RECORDS SUMMARY | 2023-12-30 13:52 | XMS_ITS | Referral Summary ---
Author Organization [facility] Address [address] [place] [address] Care Team Providers Care Acetylene Gas Compressor Name Role Phone Elsewhere, Pcp Primary Care Provider Unavailabl e Source Comments Patient records contain information from all sites at [facility]. For routine questions regarding patient records, call [phone] during business hours, M-F 8:00 AM - 5:00 PM Central Time. Record requests for emergency care only can be directed to [phone] at any time.[facility] Allergies No known active allergies Medications Medication [...] of Treatment Not on file Care Teams Acetylene Gas Compressor Relationship Specialty Start Date End Date Elsewhere, Pcp PCP - General Internal Medicine 03/11/22
--- NOTE | 2023-12-30 14:00 | CRLHL7_ITS ---
For Patients: As a result of the Century Cures Act, medical imaging exams and procedure reports are released immediately into your electronic medical record. You may view this report before your referring provider. If you have questions, please contact your health care provider. HISTORY: Bleeding in early . COMPARISON: 12/16/2023 TECHNIQUE: Transvaginal ultrasound examination of the early was performed. FINDINGS: A single intrauterine gestational sac is seen with a pole. The crown-rump length measurement of 2.0 cm gives an estimated gestational age of 8 weeks 4 days with an estimated date of delivery of 08/06/2024. This correlates well with the LMP of 11/02/2023 which gives a clinical age of 8 weeks 2 days and with the previous ultrasound. Regular cardiac activity is seen at 176 BPM. The hypoechoic fluid collection located to the left of the gestational sac has increased in size, consistent with increasing size of a subchorionic hemorrhage. It measures 4.3 x 2.8 x 1.7 centimeters, previously 2.6 x 1.4 x 2.1 centimeters There is no sign of free fluid in the pelvis. The right ovary has a complex thick walled cyst with increased peripheral color Doppler flow measuring 2.4 x 1.6 x 1.9 centimeters, a corpus luteum cyst of , similar in appearance to the previous study. The left ovary can not be identified. IMPRESSION: 1. Single intrauterine gestation with estimated age of 8 weeks 4 days. 2. Regular cardiac activity is seen. 3. Increase in size of left-sided subchorionic hemorrhage, now measuring 4.3 x 2.8 x 1.7 centimeters. Dictated by Mykel Hunter MD @ 01/01/2024 4:10:01 PM (Electronically Signed)
== END 2023-12-30 13:49 | disposition home or self-care (01) ==
LOC: US 13:49
PROVIDERS: Visit Provider Advanced Practice Midwife
DX: O20.9 Hemorrhage in early pregnancy, unspecified (principal); Z3A.08 8 weeks gestation of pregnancy
CPT/HCPCS: 76817; 87086; J2791

== ENCOUNTER 2024-01-10 15:54 | Outpatient (CLI) | payer MEDICAID, SELFPAY ==
--- NOTE | 2024-01-10 15:54 | CRLHL7_ITS ---
For Patients: As a result of the Cures Act, medical imaging exams and procedure reports are released immediately into your electronic medical record. You may view this report before your referring provider. If you have questions, please contact your health care provider. OBSTETRICAL ULTRASOUND INDICATION: Hemorrhage in early . COMPARISON: 12/30/2023. LMP: 11/02/2023. SOUMYA by LMP: 08/08/2024. Previous US: Yes, 12/30/2023. SOUMYA by US: 08/06/2024. Gestational age: 8w 4d. TECHNIQUE: Transabdominal pelvic ultrasound. FINDINGS: CRL: 3.2 cm, 10 weeks 1 day. SOUMYA: 08/06/2024. heart rate: 163 bpm. Gestational sac: 3.7 cm, appears within normal limits. Yolk sac: 4.4 mm, appears within normal limits. Right ovary: N/V. Left ovary: N/V. IMPRESSION: 1. Viable IUP. Good interval growth since the prior exam. 2. Subchorionic hemorrhage measures 3.3 x 3.0 x 1.6 cm versus 4.3 x 2.8 x 1.7 cm previously. Dylan Lan M.D. Body/Diagnostic Radiologist [email or web address] SP/Dictated by: Dylan Lan MD @ 01/11/2024 3:46:00 PM (Electronically Signed)
== END 2024-01-10 15:55 | disposition home or self-care (01) ==
LOC: US 15:54
PROVIDERS: Visit Provider Advanced Practice Midwife
DX: O20.9 Hemorrhage in early pregnancy, unspecified; Z3A.10 10 weeks gestation of pregnancy
CPT/HCPCS: 76817; 84443; 86592; 86703; 86704; 86706; 86762; 86787; 86803; 86850; 86870; 86880; 86900; 86901; 87086; 87340

== ENCOUNTER 2024-01-10 16:48 | Outpatient (CLI) | payer MEDICAID, SELFPAY ==
--- OUTSIDE RECORDS SUMMARY | 2024-01-10 16:51 | XMS_ITS | Encounter Summary ---
Author Organization [facility] Address [address] [place] [address] Care Team Providers Care Fire Lieutenant Name Role Phone No Ref-Primary, Physician Primary Care Provider Deonte Miramontes MD Unavailable [phone] Encounter Details Date Type Department Care Team (Late st Contact Info) Description 05/07/2022 [facility] [place] [facility] [address] [phone] Beverly Garnica, KERI Social History Tobacco Use [...] Answer Date Recorded PHQ-2 Score 0 03/27/2020 [place] Depression Scale Answer Date Recorded [place] Depression Score 6 02/01/2020 Last EPDS Self [...] documented as of this encounter Care Teams Fire Lieutenant Relationship Specialty Start Date End Date No Ref-Primary, Physician PCP - General 03/04/18 Deonte Miramontes MD [address] [place] [address] Assigned Surgical Provider 05/23/20 documented as of this encounter
--- OUTSIDE RECORDS SUMMARY | 2024-01-10 16:51 | XMS_ITS | Encounter Summary ---
Author Organization [facility] Address [address] [place] [address]. [place] [address] Care Team Providers Care Documentation Writer Name Role Phone No Ref-Primary, Physician Primary Care Provider Encounter Details Date Type Department Care Team (Late st Contact Info) Description 07/28/2023 My[facility] Medical Advice PHYS STANDARD [address] [place] [phone] [facility] Social History Tobacco Use Types Packs/Day Years [...] Answer Date Recorded PHQ-2 Score 0 03/27/2020 [place] Depression Scale Answer Date Recorded [place] Depression Score 6 02/01/2020 Last EPDS Self [...] documented as of this encounter Care Teams Documentation Writer Relationship Specialty Start Date End Date No Ref-Primary, Physician PCP - General 03/04/18 documented as of this encounter
--- OUTSIDE RECORDS SUMMARY | 2024-01-10 16:51 | XMS_ITS | Referral Summary ---
Author Organization [facility] Address [address] [place] [address] Care Team Providers Care Polystyrene Molding Machine Tender Name Role Phone No Ref-Primary, Physician Primary [...] Answer Date Recorded PHQ-2 Score 0 03/27/2020 [place] Depression Scale Answer Date Recorded [place] Depression Score 6 02/01/2020 Last EPDS Self [...] on file Medical Devices Implanted Type Area Geospatial Information Scientist Device Identifier Shelf Expiration Date Model / Serial / Lot Mesh Symbotex Composite Stex Round 12cm Sym12 Implanted:Qty: 1 on 08/25/2020 by Deonte Miramontes MD at [facility] Mesh N/A: Abdomen COVIDIEN [id number] 01/28/2025 [id number] / / [id number] Procedures Procedure Name Priority Date/Time Associated Diagnosis Comments HIV ANTIGEN ANTIBODY COMBO Routine 07/12/2019 12:12 PM PASSENGER REPRESENTATIVE Supervision of high risk in first trimester PAP IMAGED THIN LAYER SCREEN Routine 07/12/2019 12:11 PM PASSENGER REPRESENTATIVE Screening for malignant neoplasm of cervix CHLAMYDIA TRACHOMATIS PCR Routine 07/12/2019 10:00 AM PASSENGER REPRESENTATIVE Supervision of high risk in first trimester from Last 3 Months or Most Recently Relevant to Health Maintenance Results * HIV Antigen Antibody Combo (07/12/2019 12:12 PM PASSENGER REPRESENTATIVE) HIV Antigen Antibody Combo Nonreactive NR^Nonrea ctive 07/13/2019 9:52 AM PASSENGER REPRESENTATIVE [facility] Comment:HIV-1 p24 Ag & HIV-1 /HIV-2 Ab Not Detected Blood specimen (specimen) 07/12/2019 12:12 PM PASSENGER REPRESENTATIVE 07/12/2019 12:13 PM PASSENGER REPRESENTATIVE Linda Holm Masters DO LAB - BLOOD ORD ERABLES [address] [address] * Pap imaged thin layer screen only - recommended age 21 - 24 years (07/12/2019 12:11 PM PASSENGER REPRESENTATIVE) PAP NIL COPATH [place] Report Patient Name: MEG MOLINA MR#: [id number] Specimen #: [id number] Collected: 07/12/2019 Received: 07/13/2019 Reported: 07/16/2019 13:34 [...] adenocarcinomas or other cancers. COLLECTION SITE: Client: ??[facility] Location: [facility] (S) The technical component of this testing was completed at the [facility] [employer] [facility], with the professional component performed at the [facility], [address] [facility], [place] [phone] ([phone]) COPATH Cytologic material (specimen) 07/12/2019 12:11 PM PASSENGER REPRESENTATIVE 07/13/2019 9:42 AM PASSENGER REPRESENTATIVE Linda Dardens DO LAB - OPTIME CL INICAL SPECIMEN COPATH * Chlamydia trachomatis PCR (07/12/2019 10:00 AM PASSENGER REPRESENTATIVE) Specimen Description Vagina 07/12/2019 12:48 PM PASSENGER REPRESENTATIVE [facility] [place] Chlamydia Trachomatis PCR Negative NEG^Negat mega 07/13/2019 3:07 PM PASSENGER REPRESENTATIVE [facility] Comment: Negative for C. trachomatis rRNA by statistical consultant mediated amplification. A negative result by statistical consultant mediated amplification does not preclude the presence of C. trachomatis infection because results are dependent on proper and adequate collection, absence of inhibitors, and sufficient rRNA to be detected. Specimen from vagina (specimen) 07/12/2019 10:00 AM PASSENGER REPRESENTATIVE 07/12/2019 12:47 PM PASSENGER REPRESENTATIVE Linda Hinojosa DO LAB - MICRO GEN ERAL ORDERABLES Performing Organization Address City/[facility]/ZIP Co de Phone Number [facility] [address] [place] [address], [facility] [place] [address] [place] [address] from Last 3 Months or Most Recently Relevant to Health Maintenance Care Teams Polystyrene Molding Machine Tender Relationship Specialty Start Date End Date No Ref-Primary, Physician PCP - General 03/04/18
--- OUTSIDE RECORDS SUMMARY | 2024-01-10 16:51 | XMS_ITS | Clinical Summary ---
Author Organization [facility] Address [address] [place] [address] Care Team Providers Care Title Insurance Examiner Name Role Phone No Ref-Primary, Physician Primary [...] Answer Date Recorded PHQ-2 Score 0 03/27/2020 [place]comb Depression Scale Answer Date Recorded [place]comb Depression Score 6 02/01/2020 Last EPDS Self [...] this topic Medical Devices Implanted Type Area Marketing Analytics Lead Device Identifier Shelf Expiration Date Model / Serial / Lot Mesh Symbotex Composite Stex Round 12cm Sym12 Implanted:Qty: 1 on 08/25/2020 by Deonte Miramontes MD at [facility] Mesh N/A: Abdomen COVIDIEN [id number] 01/28/2025 [id number] / / [id number] Procedures Procedure Name Priority Date/Time Associated Diagnosis Comments HIV ANTIGEN ANTIBODY COMBO Routine 07/12/2019 12:12 PM [employer] Supervision of high risk in first trimester PAP IMAGED THIN LAYER SCREEN Routine 07/12/2019 12:11 PM [employer] Screening for malignant neoplasm of cervix CHLAMYDIA TRACHOMATIS PCR Routine 07/12/2019 10:00 AM [employer] Supervision of high risk in first trimester from Last 3 Months or Most Recently Relevant to Health Maintenance Results * HIV Antigen Antibody Combo (07/12/2019 12:12 PM [employer]) HIV Antigen Antibody Combo Nonreactive NR^Nonrea ctive 07/13/2019 9:52 AM [employer] [facility] Comment:HIV-1 p24 Ag & HIV-1 /HIV-2 Ab Not Detected Blood specimen (specimen) 07/12/2019 12:12 PM [employer] 07/12/2019 12:13 PM [employer] Linda Hinojosa DO LAB - BLOOD ORD ERABLES [facility] [address] [place] [address] * Pap imaged thin layer screen only - recommended age 21 - 24 years (07/12/2019 12:11 PM [employer]) PAP NIL BABITA [place] Report Patient Name: MEG MOLINA MR#: [id number] Specimen #: [id number] Collected: 07/12/2019 Received: 07/13/2019 Reported: 07/16/2019 13:34 [...] adenocarcinomas or other cancers. COLLECTION SITE: Client: ??[facility] Location: [facility] (S) The technical component of this testing was completed at the [facility], with the professional component performed at the [facility], [address], [place] [address] ([phone]) COPATH Cytologic material (specimen) 07/12/2019 12:11 PM [employer] 07/13/2019 9:42 AM [employer] Linda Holm Masters DO LAB - OPTIME CL INICAL SPECIMEN COPATH * Chlamydia trachomatis PCR (07/12/2019 10:00 AM [employer]) Specimen Description Vagina 07/12/2019 12:48 PM [employer] [facility] [place] Chlamydia Trachomatis PCR Negative NEG^Negat mega 07/13/2019 3:07 PM [employer] [facility] Comment: Negative for C. trachomatis rRNA by oil paint shader mediated amplification. A negative result by oil paint shader mediated amplification does not preclude the presence of C. trachomatis infection because results are dependent on proper and adequate collection, absence of inhibitors, and sufficient rRNA to be detected. Specimen from vagina (specimen) 07/12/2019 10:00 AM [employer] 07/12/2019 12:47 PM [employer] Linda Holm Masters DO LAB - MICRO GEN ERAL ORDERABLES Performing Organization Address City/[facility]/ZIP Co de Phone Number [facility] [address] [place] [address], [facility] [address] [address] from Last 3 Months or Most Recently Relevant to Health Maintenance Care Teams Title Insurance Examiner Relationship Specialty Start Date End Date No Ref-Primary, Physician PCP - General 03/04/18
--- OUTSIDE RECORDS SUMMARY | 2024-01-10 16:52 | XMS_ITS | Referral Summary ---
Author Organization [facility] Address [address] [place] [address] Care Team Providers Care Lockstitch Waistline Joiner Name Role Phone Elsewhere, Pcp Primary Care Provider Unavailabl e Source Comments Patient records contain information from all sites at [facility]. For routine questions regarding patient records, call [phone] during business hours, M-F 8:00 AM - 5:00 PM Central Time. Record requests for emergency care only can be directed to [phone] at any time.[facility] Allergies No known active allergies [...] of Treatment Not on file Care Teams Lockstitch Waistline Joiner Relationship Specialty Start Date End Date Elsewhere, Pcp PCP - General Internal Medicine 03/11/22
--- OUTSIDE RECORDS SUMMARY | 2024-01-10 16:52 | XMS_ITS ---
Author Organization [facility] Address [address] [place] [address] Care Team Providers Care Plug Drill Operator Name Role Phone Unavailable Unavailable Unavailable Surgery Details Not on file Complications Check Surgery Details section. Procedure Estimated Blood Loss Check Surgery Details section. Procedure Findings Check Surgery Details section. Procedure Specimens Taken Check Surgery Details section.
--- OUTSIDE RECORDS SUMMARY | 2024-01-10 16:52 | XMS_ITS | Encounter Summary ---
Author Organization [facility] Address [address] [place] [address] Care Team Providers Care Television Repairer Name Role Phone No Ref-Primary, Physician Primary Care Provider Raghavendra Isaac MD Unavailable [phone] Deonte Miramontes MD Unavailable [phone] sLinda DO Unavailable [phone] Encounter Details Date Type Department Care Team (Late st Contact Info) Description 08/16/2019 [facility] Medical Advice [facility] [address] [place] [address] Charito Barbour, KERI Social History Tobacco [...] Depression Total Score: 0 07/12/20 10:37 AM FREIGHT BRAKEMAN documented as of this encounter Care Teams Television Repairer Relationship Specialty Start Date End Date No Ref-Primary, Physician PCP - General 03/04/18 Raghavendra Isaac MD [address] [place] [address] Assigned PCP 11/30/18 12/25/21 Deonte Miramontes MD [address] [place] [address] Assigned Surgical Provider 05/23/20 Linda Hinojosa DO [address] [place] [address] Assigned OBGYN Provider 05/23/20 documented as of this encounter
--- OUTSIDE RECORDS SUMMARY | 2024-01-10 16:52 | XMS_ITS | Encounter Summary ---
Author Organization [facility] Address [address] [place] [address] Care Team Providers Care Help Desk Supervisor Name Role Phone No Ref-Primary, Physician Primary Care Provider Raghavendra Isaac MD Unavailable Deonte Miramontes MD Unavailable [phone] sLinda DO Unavailable [phone] Reason for Visit * Reason Onset Date Comments Refill Request 02/04/2020 Encounter Details Date Type Department Care Team (Late st Contact Info) Description 02/04/2020 [facility] Refill [facility] [address] [address] Raghavnedra Isaac MD [address] [place] [address] Refill Request Social History Tobacco [...] Answer Date Recorded PHQ-2 Score 0 12/21/2018 [place] Depression Scale Answer Date Recorded [place] Depression Score 6 02/01/2020 Last EPDS Self [...] Total Score: 0 07/12/20 19 10:37 AM IMPLANT POLISHER documented as of this encounter Care Teams Help Desk Supervisor Relationship Specialty Start Date End Date No Ref-Primary, Physician PCP - General 03/04/18 Raghavendra Isaac MD [address] [place] [address] [address] [place] [address] Assigned PCP 11/30/18 12/25/21 Deonte Miramontes MD [address] [place] [address] Assigned Surgical Provider 05/23/20 Linda Hinojosa DO [address] [place] [address] Assigned OBGYN Provider 05/23/20 documented as of this encounter
--- OUTSIDE RECORDS SUMMARY | 2024-01-10 16:52 | XMS_ITS | Encounter Summary ---
Author Organization [facility] Address [address] [place] [address]. [place] [address] Care Team Providers Care Director Of Music Therapy Name Role Phone No Ref-Primary, Physician Primary Care Provider Raghavendra Isaac MD Unavailable [phone] Deonte Miramontes MD Unavailable [phone] sLinda DO Unavailable [phone] Encounter Details Date Type Department Care Team (Late st Contact Info) Description 01/28/2020 [facility] Medical Advice [facility] [address] [place] [address] sLinda DO [address] [facility] [address] [place], [place] [address] Social History Tobacco Use Types Packs/Day Years [...] Answer Date Recorded PHQ-2 Score 0 12/21/2018 [place] Depression Scale Answer Date Recorded [place] Depression Score 6 02/01/2020 Last EPDS Self [...] Depression Total Score: 0 07/12/20 10:37 AM CLIENT SOLUTIONS DIRECTOR documented as of this encounter Care Teams Director Of Music Therapy Relationship Specialty Start Date End Date No Ref-Primary, Physician PCP - General 03/04/18 Raghavendra Isaac MD [address] [place] [address] Assigned PCP 11/30/18 12/25/21 Deonte Miramontes MD [address] [place] [address] Assigned Surgical Provider 05/23/20 Linda Hinojosa DO [address] [place] [address] Assigned OBGYN Provider 05/23/20 documented as of this encounter
--- OUTSIDE RECORDS SUMMARY | 2024-01-10 16:52 | XMS_ITS | Encounter Summary ---
Author Organization [facility] Address [address] [place] [address] Care Team Providers Care Imitation Marble Mechanic Name Role Phone No Ref-Primary, Physician Primary Care Provider Deonte Miramontes MD Unavailable [phone] Encounter Details Date Type Department Care Team (Late st Contact Info) Description 04/28/2022 [facility] [place] [facility] for [address] [phone] Vanna Carroll RN Social History Tobacco Use [...] Answer Date Recorded PHQ-2 Score 0 03/27/2020 [place] Depression Scale Answer Date Recorded [place] Depression Score 6 02/01/2020 Last EPDS Self [...] documented as of this encounter Care Teams Imitation Marble Mechanic Relationship Specialty Start Date End Date No Ref-Primary, Physician PCP - General 03/04/18 Deonte Miramontes MD [address] [place] [address] Assigned Surgical Provider 05/23/20 documented as of this encounter
--- OUTSIDE RECORDS SUMMARY | 2024-01-10 16:52 | XMS_ITS | Encounter Summary ---
Author Organization [facility] Address [address] [place] [address] Care Team Providers Care Dental Equipment Installer And Servicer Name Role Phone No Ref-Primary, Physician Primary Care Provider Raghavendra Isaac MD Unavailable [phone] Deonte Miramontes MD Unavailable [phone] sLinda DO Unavailable [phone] Encounter Details Date Type Department Care Team (Late st Contact Info) Description 02/12/2021 [facility] Medical Advice [address] [address] Halina Granados, [facility] Social History Tobacco Use Types Packs/Day Years [...] Answer Date Recorded PHQ-2 Score 0 03/27/2020 [place] Depression Scale Answer Date Recorded [place] Depression Score 6 02/01/2020 Last EPDS Self [...] as of this encounter Care Teams Dental Equipment Installer And Servicer Relationship Specialty Start Date End Date No Ref-Primary, Physician PCP - General 03/04/18 Raghavendra Isaac MD [address] [place] [address] Assigned PCP 11/30/18 12/25/21 Deonte Miramontes MD [address] [place] [address] Assigned Surgical Provider 05/23/20 sLinda DO [address] [place] [address] Assigned OBGYN Provider 05/23/20 documented as of this encounter
--- OUTSIDE RECORDS SUMMARY | 2024-01-10 16:52 | XMS_ITS | Encounter Summary ---
Author Organization [facility] Address [address] [place] [address]. [place] [address] Care Team Providers Care Hand Meat Salter Name Role Phone No Ref-Primary, Physician Primary Care Provider Raghavendra Isaac MD Unavailable [phone] Deonte Miramontes MD Unavailable [phone] MastersLinda DO Unavailable [phone] Encounter Details Date Type Department Care Team (Late st Contact Info) Description 04/09/2021 [facility] Medical Advice [facility] [place] [address] [place] [address] Deonte Miramontes MD [address] [place] [address] Social History Tobacco Use Types Packs/Day Years [...] Answer Date Recorded PHQ-2 Score 0 03/27/2020 [place] Depression Scale Answer Date Recorded [place] Depression Score 6 02/01/2020 Last EPDS Self [...] documented as of this encounter Care Teams Hand Meat Salter Relationship Specialty Start Date End Date No Ref-Primary, Physician PCP - General 03/04/18 Raghavendra Isaac MD [address] [place] [address] Assigned PCP 11/30/18 12/25/21 Deonte Miramontes MD [address] [place] [address] Assigned Surgical Provider 05/23/20 Linda Hinojosa DO [address] [place] [address] Assigned OBGYN Provider 05/23/20 documented as of this encounter
--- OUTSIDE RECORDS SUMMARY | 2024-01-10 16:52 | XMS_ITS | Encounter Summary ---
Author Organization [facility] Address [address] [place] [address] Care Team Providers Care Inspector Final Assembly Conveyor Line Name Role Phone No Ref-Primary, Physician Primary Care Provider Raghavendra Isaac MD Unavailable [phone] Deonte Miramontes MD Unavailable [phone] sLinda DO Unavailable [phone] Encounter Details Date Type Department Care Team (Late st Contact Info) Description 03/20/2021 [facility] Medical Advice [facility] [address] [place] [address] Beverly Kent MD [facility] [address] [facility] [address] [place] [address] Social History Tobacco Use Types [...] Answer Date Recorded PHQ-2 Score 0 03/27/2020 [place] Depression Scale Answer Date Recorded [place] Depression Score 6 02/01/2020 Last EPDS Self [...] documented as of this encounter Care Teams Inspector Final Assembly Conveyor Line Relationship Specialty Start Date End Date No Ref-Primary, Physician PCP - General 03/04/18 Raghavendra Isaac MD [address] [place] [address] Assigned PCP 11/30/18 12/25/21 Deonte Miramontes MD [address] [place] [address] Assigned Surgical Provider 05/23/20 Linda Hinojosa DO [address] [place] [address] Assigned OBGYN Provider 05/23/20 documented as of this encounter
--- OUTSIDE RECORDS SUMMARY | 2024-01-10 16:52 | XMS_ITS | Encounter Summary ---
Author Organization [facility] Address [address] [place] [address] Care Team Providers Care Refueling Ramp Supervisor Name Role Phone No Ref-Primary, Physician Primary Care Provider Raghavendra Isaac MD Unavailable [phone] Deonte Miramontes MD Unavailable [phone] sLinda DO Unavailable [phone] Encounter Details Date Type Department Care Team (Late st Contact Info) Description 12/04/2019 [facility] [address] [address] [facility] Social History Tobacco Use Types [...] Depression Total Score: 0 07/12/20 10:37 AM TEMPERATURE REGULATOR documented as of this encounter Care Teams Refueling Ramp Supervisor Relationship Specialty Start Date End Date No Ref-Primary, Physician PCP - General 03/04/18 Raghavendra Isaac MD [address] [place] [address] Assigned PCP 11/30/18 12/25/21 Deonte Miramontes MD [address] [place] [address] Assigned Surgical Provider 05/23/20 Linda Hinojosa DO [address] [place] [address] Assigned OBGYN Provider 05/23/20 documented as of this encounter
--- OUTSIDE RECORDS SUMMARY | 2024-01-10 16:52 | XMS_ITS | Clinical Summary ---
Author Organization [facility] Address [address] [place] [address] Care Team Providers Care Sound Assistant Name Role Phone Elsewhere, Pcp Primary Care Provider Unavailabl e Source Comments Patient records contain information from all sites at [facility]. For routine questions regarding patient records, call [phone] during business hours, M-F 8:00 AM - 5:00 PM Central Time. Record requests for emergency care only can be directed to [phone] at any time.[facility] Allergies No known active allergies Medications Medication [...] age to complete this topic Care Teams Sound Assistant Relationship Specialty Start Date End Date Elsewhere, Pcp PCP - General Internal Medicine 03/11/22
== END 2024-01-10 16:49 | disposition home or self-care (01) ==
PROVIDERS: Visit Provider Advanced Practice Midwife
DX: Z34.91 Encounter for supervision of normal pregnancy, unspecified, first trimester (principal); Z3A.09 9 weeks gestation of pregnancy
CPT/HCPCS: 84443; 86592; 86703; 86704; 86706; 86762; 86787; 86803; 86850; 86870; 86880; 86900; 86901; 87086; 87340; 87491; 87591

== ENCOUNTER 2024-02-06 12:00 | Outpatient (CLI) | payer MEDICAID, SELFPAY ==
--- OUTSIDE RECORDS SUMMARY | 2024-02-06 15:19 | XMS_ITS | Encounter Summary ---
Author Organization [facility] Address [address] [place] [address] Care Team Providers Care Lmft Name Role Phone No Ref-Primary, Physician Primary Care Provider Deonte Miramontes MD Unavailable [phone] Encounter Details Date Type Department Care Team (Late st Contact Info) Description 04/28/2022 [facility] Medical Advice [facility] for [address] [phone] Vanna Carroll RN Social History Tobacco Use [...] Answer Date Recorded PHQ-2 Score 0 03/27/2020 [place] Depression Scale Answer Date Recorded [place] Depression Score 6 02/01/2020 Last EPDS Self [...] documented as of this encounter Care Teams Lmft Relationship Specialty Start Date End Date No Ref-Primary, Physician PCP - General 03/04/18 Deonte Miramontes MD [address] [place] [address] Assigned Surgical Provider 05/23/20 documented as of this encounter
--- OUTSIDE RECORDS SUMMARY | 2024-02-06 15:19 | XMS_ITS | Encounter Summary ---
Author Organization [facility] Address [address] [place] [address] Care Team Providers Care Bow Maker Custom Name Role Phone No Ref-Primary, Physician Primary Care Provider Raghavendra Isaac MD Unavailable Deonte Miramontes MD Unavailable [phone] sLinda DO Unavailable [phone] Reason for Visit * Reason Onset Date Comments Refill Request 02/04/2020 Encounter Details Date Type Department Care Team (Late st Contact Info) Description 02/04/2020 [facility] [place] [address] [address] Raghavendra Isaac MD [address] [place] [address] Refill Request Social History Tobacco [...] Answer Date Recorded PHQ-2 Score 0 12/21/2018 [place] Depression Scale Answer Date Recorded [place] Depression Score 6 02/01/2020 Last EPDS Self [...] Total Score: 0 07/12/20 19 10:37 AM MACHINE TOOL REBUILDER documented as of this encounter Care Teams Bow Maker Custom Relationship Specialty Start Date End Date No Ref-Primary, Physician PCP - General 03/04/18 Raghavendra Isaac MD [address] [place] [address] [address] [place] [address] Assigned PCP 11/30/18 12/25/21 Deonte Miramontes MD [address] [place] [address] Assigned Surgical Provider 05/23/20 Linda Hinojosa DO [address] [place] [address] Assigned OBGYN Provider 05/23/20 documented as of this encounter
--- OUTSIDE RECORDS SUMMARY | 2024-02-06 15:19 | XMS_ITS | Clinical Summary ---
Author Organization [facility] Address [address] [place] [address] Care Team Providers Care Foreign Food Cook Specialty Name Role Phone Elsewhere, Pcp Primary Care Provider Unavailabl e Source Comments Patient records contain information from all sites at [facility]. For routine questions regarding patient records, call [phone] during business hours, M-F 8:00 AM - 5:00 PM Central Time. Record requests for emergency care only can be directed to [phone] at any time.[facility] Allergies No known active allergies Medications Medication [...] Vaccine (2022- season) 2023 08/31/2021, 01/07/2021, 12/17/2020 Depression Screening (Annual PHQ-2) 08/01/2023 Influenza Vaccine (#1) 2024 , 08/31/2021, 06/14/2012, Additional history exists DTaP,Tdap,and Td Vaccines (10 - Td or Tdap) 09/07/2032 09/07/2022, 11/06/2019, 01/30/2008, Additional history exists Hepatitis B Vaccines Completed 08/10/1996, 02/23/1996, 1995 HPV Vaccines Completed 06/14/2012, 1012/2010, 05/22/2010, Additional history exists Pneumococcal vaccine (0-64 years) Aged Out 08/31/2021 No longer eligible based on patient's age to complete this topic Care Teams Foreign Food Cook Specialty Relationship Specialty Start Date End Date Elsewhere, Pcp PCP - General Internal Medicine 03/11/22
--- OUTSIDE RECORDS SUMMARY | 2024-02-06 15:19 | XMS_ITS | Encounter Summary ---
Author Organization [facility] Address [address] [place] [address] Care Team Providers Care Horticulturalist Name Role Phone No Ref-Primary, Physician Primary Care Provider Raghavendra Isaac MD Unavailable [phone] Deonte Miramontes MD Unavailable [phone] sLinda DO Unavailable [phone] Encounter Details Date Type Department Care Team (Late st Contact Info) Description 03/20/2021 My[facility] Medical Advice [facility] [address] [place] [address] Beverly Kent MD [facility] [address] [facility] [address] [place] [address] Social History Tobacco Use Types [...] Answer Date Recorded PHQ-2 Score 0 03/27/2020 [place] Depression Scale Answer Date Recorded [place] Depression Score 6 02/01/2020 Last EPDS Self [...] documented as of this encounter Care Teams Horticulturalist Relationship Specialty Start Date End Date No Ref-Primary, Physician PCP - General 03/04/18 Raghavendra Isaac MD [address] [place] [address] Assigned PCP 11/30/18 12/25/21 Deonte Miramontes MD [address] [place] [address] Assigned Surgical Provider 05/23/20 Linda Hinojosa DO [address] [place] [address] Assigned OBGYN Provider 05/23/20 documented as of this encounter
--- OUTSIDE RECORDS SUMMARY | 2024-02-06 15:19 | XMS_ITS | Encounter Summary ---
Author Organization [facility] Address [address] [place] [address]. [place] [address] Care Team Providers Care Ruby Engineer Name Role Phone No Ref-Primary, Physician Primary Care Provider Raghavendra Isaac MD Unavailable [phone] Deonte Miramontes MD Unavailable [phone] MastersLinda DO Unavailable [phone] Encounter Details Date Type Department Care Team (Late st Contact Info) Description 04/09/2021 MyC Medical Advice [facility] [place] [address] [place] [address] Deonte Miramontes MD [address] [facility] [address] [place] [id number] Social History Tobacco Use Types Packs/Day Years [...] Answer Date Recorded PHQ-2 Score 0 03/27/2020 [place] Depression Scale Answer Date Recorded [place] Depression Score 6 02/01/2020 Last EPDS Self [...] documented as of this encounter Care Teams Ruby Engineer Relationship Specialty Start Date End Date No Ref-Primary, Physician PCP - General 03/04/18 Raghavendra Isaac MD [address] [place] [address] Assigned PCP 11/30/18 12/25/21 Deonte Miramontes MD [address] [place] [address] Assigned Surgical Provider 05/23/20 Linda Hinojosa DO [address] [place] [address] Assigned OBGYN Provider 05/23/20 documented as of this encounter
--- OUTSIDE RECORDS SUMMARY | 2024-02-06 15:19 | XMS_ITS | Referral Summary ---
Author Organization [place] Address [address] [place] [address] Care Team Providers Care Catering Server Name Role Phone No Ref-Primary, Physician Primary [...] Answer Date Recorded PHQ-2 Score 0 03/27/2020 [place] Depression Scale Answer Date Recorded [place] Depression Score 6 02/01/2020 Last EPDS Self [...] on file Medical Devices Implanted Type Area Thread Drawer Device Identifier Shelf Expiration Date Model / Serial / Lot Mesh Symbotex Composite Stex Round 12cm Sym12 Implanted:Qty: 1 on 08/25/2020 by Deonte Miramontes MD at [facility] Mesh N/A: Abdomen COVIDIEN [id number] 01/28/2025 SYM12 / / [id number] Procedures Procedure Name Priority Date/Time Associated Diagnosis Comments HIV ANTIGEN ANTIBODY COMBO Routine 07/12/2019 12:12 PM PAPER BAGS SEWING MACHINE OPERATOR Supervision of high risk in first trimester PAP IMAGED THIN LAYER SCREEN Routine 07/12/2019 12:11 PM PAPER BAGS SEWING MACHINE OPERATOR Screening for malignant neoplasm of cervix CHLAMYDIA TRACHOMATIS PCR Routine 07/12/2019 10:00 AM PAPER BAGS SEWING MACHINE OPERATOR Supervision of high risk in first trimester from Last 3 Months or Most Recently Relevant to Health Maintenance Results * HIV Antigen Antibody Combo (07/12/2019 12:12 PM PAPER BAGS SEWING MACHINE OPERATOR) HIV Antigen Antibody Combo Nonreactive NR^Nonrea ctive 07/13/2019 9:52 AM PAPER BAGS SEWING MACHINE OPERATOR [facility] Comment:HIV-1 p24 Ag & HIV-1 /HIV-2 Ab Not Detected Blood specimen (specimen) 07/12/2019 12:12 PM PAPER BAGS SEWING MACHINE OPERATOR 07/12/2019 12:13 PM PAPER BAGS SEWING MACHINE OPERATOR Linda Holm Masters DO LAB - BLOOD ORD ERABLES [address] [address] * Pap imaged thin layer screen only - recommended age 21 - 24 years (07/12/2019 12:11 PM PAPER BAGS SEWING MACHINE OPERATOR) PAP NIL COPATH [place] Report Patient Name: MEG MOLINA MR#: [id number] Specimen #: [id number] Collected: 07/12/2019 Received: 07/13/2019 Reported: 07/16/2019 13:34 [...] adenocarcinomas or other cancers. COLLECTION SITE: Client: ??[facility] Location: WEOB (S) The technical component of this testing was completed at the [facility] [employer] [facility], with the professional component performed at the [facility], [address] [facility], [place] [phone] ([phone]) COPATH Cytologic material (specimen) 07/12/2019 12:11 PM PAPER BAGS SEWING MACHINE OPERATOR 07/13/2019 9:42 AM PAPER BAGS SEWING MACHINE OPERATOR Linda Dardens DO LAB - OPTIME CL INICAL SPECIMEN COPATH * Chlamydia trachomatis PCR (07/12/2019 10:00 AM PAPER BAGS SEWING MACHINE OPERATOR) Specimen Description Vagina 07/12/2019 12:48 PM PAPER BAGS SEWING MACHINE OPERATOR [facility] Chlamydia Trachomatis PCR Negative NEG^Negat mega 07/13/2019 3:07 PM PAPER BAGS SEWING MACHINE OPERATOR [facility] Comment: Negative for C. trachomatis rRNA by yarn conditioner mediated amplification. A negative result by yarn conditioner mediated amplification does not preclude the presence of C. trachomatis infection because results are dependent on proper and adequate collection, absence of inhibitors, and sufficient rRNA to be detected. Specimen from vagina (specimen) 07/12/2019 10:00 AM PAPER BAGS SEWING MACHINE OPERATOR 07/12/2019 12:47 PM PAPER BAGS SEWING MACHINE OPERATOR Linda Hinojosa DO LAB - MICRO GEN ERAL ORDERABLES Performing Organization Address City/[facility]/ZIP Co de Phone Number [facility] [address] [place] [address], [facility] [place] [address] [place] [address] from Last 3 Months or Most Recently Relevant to Health Maintenance Care Teams Catering Server Relationship Specialty Start Date End Date No Ref-Primary, Physician PCP - General 03/04/18
--- OUTSIDE RECORDS SUMMARY | 2024-02-06 15:19 | XMS_ITS | Encounter Summary ---
Author Organization [place] Address [address] [place] [address]. [place] [address] Care Team Providers Care Boiler Blower Name Role Phone No Ref-Primary, Physician Primary Care Provider Raghavendra Isaac MD Unavailable [phone] Deonte Miramontes MD Unavailable [phone] sLinda DO Unavailable [phone] Encounter Details Date Type Department Care Team (Late st Contact Info) Description 01/28/2020 MyC Medical Advice [facility] [address] [place] [address] sLinda DO [address] [facility] [address] [place], [place] [address] Social History Tobacco Use Types Packs/Day Years [...] Answer Date Recorded PHQ-2 Score 0 12/21/2018 [place] Depression Scale Answer Date Recorded [place] Depression Score 6 02/01/2020 Last EPDS Self [...] Depression Total Score: 0 07/12/20 10:37 AM SPORTS BROADCASTER documented as of this encounter Care Teams Boiler Blower Relationship Specialty Start Date End Date No Ref-Primary, Physician PCP - General 03/04/18 Raghavendra Isaac MD [address] [place] [address] Assigned PCP 11/30/18 12/25/21 Deonte Miramontes MD [address] [place] [address] Assigned Surgical Provider 05/23/20 Linda Hinojosa DO [address] [place] [address] Assigned OBGYN Provider 05/23/20 documented as of this encounter
--- OUTSIDE RECORDS SUMMARY | 2024-02-06 15:19 | XMS_ITS | Clinical Summary ---
Author Organization [place] Address [address] [place] [address] Care Team Providers Care Cigar Inspector Name Role Phone No Ref-Primary, Physician [...] Answer Date Recorded PHQ-2 Score 0 03/27/2020 [place] Depression Scale Answer Date Recorded [place] Depression Score 6 02/01/2020 Last EPDS Self [...] this topic Medical Devices Implanted Type Area Recovery Operator Helper Device Identifier Shelf Expiration Date Model / Serial / Lot Mesh Symbotex Composite Stex Round 12cm Sym12 Implanted:Qty: 1 on 08/25/2020 by Deonte Miramontes MD at [facility] Mesh N/A: Abdomen COVIDIEN [id number] 01/28/2025 SYM12 / / [id number] Procedures Procedure Name Priority Date/Time Associated Diagnosis Comments HIV ANTIGEN ANTIBODY COMBO Routine 07/12/2019 12:12 PM DENTURE WAXER Supervision of high risk in first trimester PAP IMAGED THIN LAYER SCREEN Routine 07/12/2019 12:11 PM DENTURE WAXER Screening for malignant neoplasm of cervix CHLAMYDIA TRACHOMATIS PCR Routine 07/12/2019 10:00 AM DENTURE WAXER Supervision of high risk in first trimester from Last 3 Months or Most Recently Relevant to Health Maintenance Results * HIV Antigen Antibody Combo (07/12/2019 12:12 PM DENTURE WAXER) HIV Antigen Antibody Combo Nonreactive NR^Nonrea ctive 07/13/2019 9:52 AM DENTURE WAXER [facility] Comment:HIV-1 p24 Ag & HIV-1 /HIV-2 Ab Not Detected Blood specimen (specimen) 07/12/2019 12:12 PM DENTURE WAXER 07/12/2019 12:13 PM DENTURE WAXER Linda Hinojosa DO LAB - BLOOD ORD ERABLES [facility] [address] [place] [address] * Pap imaged thin layer screen only - recommended age 21 - 24 years (07/12/2019 12:11 PM DENTURE WAXER) PAP NIL BABITA [place] Report Patient Name: MEG MOLINA MR#: [id number] Specimen #: [id number] Collected: 07/12/2019 Received: 07/13/2019 Reported: 07/16/2019 13:34 [...] adenocarcinomas or other cancers. COLLECTION SITE: Client: ??[facility] Location: WEOB (S) The technical component of this testing was completed at the [facility], with the professional component performed at the [facility], [address] [facility], [place] [address] ([phone]) COPATH Cytologic material (specimen) 07/12/2019 12:11 PM DENTURE WAXER 07/13/2019 9:42 AM DENTURE WAXER Linda Holm Masters DO LAB - OPTIME CL INICAL SPECIMEN COPATH * Chlamydia trachomatis PCR (07/12/2019 10:00 AM DENTURE WAXER) Specimen Description Vagina 07/12/2019 12:48 PM DENTURE WAXER [facility] Chlamydia Trachomatis PCR Negative NEG^Negat mega 07/13/2019 3:07 PM DENTURE WAXER [facility] Comment: Negative for C. trachomatis rRNA by arc welding machine operator mediated amplification. A negative result by arc welding machine operator mediated amplification does not preclude the presence of C. trachomatis infection because results are dependent on proper and adequate collection, absence of inhibitors, and sufficient rRNA to be detected. Specimen from vagina (specimen) 07/12/2019 10:00 AM DENTURE WAXER 07/12/2019 12:47 PM DENTURE WAXER Linda Holm Masters DO LAB - MICRO GEN ERAL ORDERABLES Performing Organization Address City/[facility]/ZIP Co de Phone Number [facility] [address] [place] [address], [facility] [address] [address] from Last 3 Months or Most Recently Relevant to Health Maintenance Care Teams Cigar Inspector Relationship Specialty Start Date End Date No Ref-Primary, Physician PCP - General 03/04/18
--- OUTSIDE RECORDS SUMMARY | 2024-02-06 15:19 | XMS_ITS | Encounter Summary ---
Author Organization [facility] [place] Address [address] [place] [address]. [place] [address] Care Team Providers Care Rotor Assembler Name Role Phone No Ref-Primary, Physician Primary Care Provider Encounter Details Date Type Department Care Team (Late st Contact Info) Description 07/28/2023 MyC Medical Advice PHYS STANDARD [address] [place] [phone] [facility] Social History Tobacco Use Types Packs/Day Years [...] Answer Date Recorded PHQ-2 Score 0 03/27/2020 [place] Depression Scale Answer Date Recorded [place] Depression Score 6 02/01/2020 Last EPDS Self [...] documented as of this encounter Care Teams Rotor Assembler Relationship Specialty Start Date End Date No Ref-Primary, Physician PCP - General 03/04/18 documented as of this encounter
--- OUTSIDE RECORDS SUMMARY | 2024-02-06 15:19 | XMS_ITS | Encounter Summary ---
Author Organization [place] Address [address] [place] [address] Care Team Providers Care Heat Seal Operator Name Role Phone No Ref-Primary, Physician Primary Care Provider Raghavendra Isaac MD Unavailable [phone] Deonte Miramontes MD Unavailable [phone] sLinda DO Unavailable [phone] Encounter Details Date Type Department Care Team (Late st Contact Info) Description 08/16/2019 [facility] Medical Advice [facility] [address] [place] [phone] Charito Barbour, KERI Social History Tobacco [...] Depression Total Score: 0 07/12/20 10:37 AM HOUSE DETECTIVE documented as of this encounter Care Teams Heat Seal Operator Relationship Specialty Start Date End Date No Ref-Primary, Physician PCP - General 03/04/18 Raghavendra Isaac MD [address] [place] [address] Assigned PCP 11/30/18 12/25/21 Deonte Miramontes MD [address] [place] [address] Assigned Surgical Provider 05/23/20 Linda Hinojosa DO [address] [place] [address] Assigned OBGYN Provider 05/23/20 documented as of this encounter
--- OUTSIDE RECORDS SUMMARY | 2024-02-06 15:19 | XMS_ITS | Encounter Summary ---
Author Organization [place] Address [address] [place] [address] Care Team Providers Care Commercial Sales Specialist Name Role Phone No Ref-Primary, Physician Primary Care Provider Deonte Miramontes MD Unavailable [phone] Encounter Details Date Type Department Care Team (Late st Contact Info) Description 05/07/2022 [facility] Medical Advice [facility] [address] [phone] Beverly Garnica, KERI Social History Tobacco Use [...] Answer Date Recorded PHQ-2 Score 0 03/27/2020 [place] Depression Scale Answer Date Recorded [place] Depression Score 6 02/01/2020 Last EPDS Self [...] documented as of this encounter Care Teams Commercial Sales Specialist Relationship Specialty Start Date End Date No Ref-Primary, Physician PCP - General 03/04/18 Deonte Miramontes MD [address] [place] [address] Assigned Surgical Provider 05/23/20 documented as of this encounter
--- OUTSIDE RECORDS SUMMARY | 2024-02-06 15:19 | XMS_ITS | Encounter Summary ---
Author Organization [place] Address [address] [place] [address] Care Team Providers Care Accounts Payables Clerk Name Role Phone No Ref-Primary, Physician Primary Care Provider Raghavendra Isaac MD Unavailable [phone] Deonte Miramontes MD Unavailable [phone] sLinda DO Unavailable [phone] Encounter Details Date Type Department Care Team (Late st Contact Info) Description 02/12/2021 [facility] Medical Advice [address] [address] Halina Granados, [facility] Social History Tobacco Use Types Packs/Day Years [...] Answer Date Recorded PHQ-2 Score 0 03/27/2020 [place] Depression Scale Answer Date Recorded [place] Depression Score 6 02/01/2020 Last EPDS Self [...] documented as of this encounter Care Teams Accounts Payables Clerk Relationship Specialty Start Date End Date No Ref-Primary, Physician PCP - General 03/04/18 Raghavendra Isaac MD [address] [place] [address] Assigned PCP 11/30/18 12/25/21 Deonte Miramontes MD [address] [place] [address] Assigned Surgical Provider 05/23/20 sLinda DO [address] [place] [address] Assigned OBGYN Provider 05/23/20 documented as of this encounter
--- OUTSIDE RECORDS SUMMARY | 2024-02-06 15:19 | XMS_ITS | Encounter Summary ---
Author Organization [place] Address [address] [place] [address] Care Team Providers Care Engineering Group Leader Name Role Phone No Ref-Primary, Physician Primary Care Provider Raghavendra Isaac MD Unavailable [phone] Deonte Miramontes MD Unavailable [phone] sLinda DO Unavailable [phone] Encounter Details Date Type Department Care Team (Late st Contact Info) Description 12/04/2019 [facility] [address] [place] [phone] [facility] Social History Tobacco Use Types [...] Depression Total Score: 0 07/12/20 10:37 AM STEAM BLOCKER documented as of this encounter Care Teams Engineering Group Leader Relationship Specialty Start Date End Date No Ref-Primary, Physician PCP - General 03/04/18 Raghavendra Isaac MD [address] [place] [address] Assigned PCP 11/30/18 12/25/21 Deonte Miramontes MD [address] [place] [address] Assigned Surgical Provider 05/23/20 Linda Hinojosa DO [address] [place] [address] Assigned OBGYN Provider 05/23/20 documented as of this encounter
--- OUTSIDE RECORDS SUMMARY | 2024-02-06 15:19 | XMS_ITS ---
Author Organization [facility] Address [address] [place] [address] Care Team Providers Care Milk Inspector Name Role Phone Unavailable Unavailable Unavailable Surgery Details Not on file Complications Check Surgery Details section. Procedure Estimated Blood Loss Check Surgery Details section. Procedure Findings Check Surgery Details section. Procedure Specimens Taken Check Surgery Details section.
--- OUTSIDE RECORDS SUMMARY | 2024-02-06 15:19 | XMS_ITS | Referral Summary ---
Author Organization [facility] Address [address] [place] [address] Care Team Providers Care Auto Technician Mechanic Name Role Phone Elsewhere, Pcp Primary Care Provider Unavailabl e Source Comments Patient records contain information from all sites at [facility]. For routine questions regarding patient records, call [phone] during business hours, M-F 8:00 AM - 5:00 PM Central Time. Record requests for emergency care only can be directed to [phone] at any time.[facility] Allergies No known active allergies Medications [...] of Treatment Not on file Care Teams Auto Technician Mechanic Relationship Specialty Start Date End Date Elsewhere, Pcp PCP - General Internal Medicine 03/11/22
== END 2024-02-06 12:01 | disposition home or self-care (01) ==
LOC: NFLDREF 15:13
PROVIDERS: Visit Provider Advanced Practice Midwife
DX: Z34.82 Encounter for supervision of other normal pregnancy, second trimester (principal)
CPT/HCPCS: 82565; 82570; 84156; 84450; 84460; 84520; 84550

== ENCOUNTER 2024-02-27 13:00 | Outpatient (RCR) | payer MEDICAID, SELFPAY ==
--- NOTE | 2024-04-11 16:18 | ONC.NURNOTE ---
Diagnosis: RANDEE in
== END 2024-05-09 08:53 | disposition home or self-care (01) ==
PROVIDERS: Visit Provider Advanced Practice Midwife
DX: Z34.90 Encounter for supervision of normal pregnancy, unspecified, unspecified trimester (principal); K42.9 Umbilical hernia without obstruction or gangrene; M62.08 Separation of muscle (nontraumatic), other site; R35.0 Frequency of micturition; Z51.89 Encounter for other specified aftercare
CPT/HCPCS: 97110; 97161; 97535

== ENCOUNTER 2024-04-10 08:32 | Outpatient (CLI) | payer MEDICAID, SELFPAY ==
--- OUTSIDE RECORDS SUMMARY | 2024-04-10 09:29 | XMS_ITS | Clinical Summary ---
Author Organization [place] Address [address] [place] [address] Care Team Providers Care Entertainment Usher Name Role Phone No Ref-Primary, Physician Primary [...] Answer Date Recorded PHQ-2 Score 0 03/27/2020 [place] Depression Scale Answer Date Recorded [place] Depression Score 6 02/01/2020 Last EPDS Self [...] (2 of 2 - PCV) 08/31/2022 08/31/2021 PHQ-2 (once per calendar year) 2023 03/27/2020, 03/27/2020, 07/12/2019, Additional history exists COVID-19 Vaccine ( season) 2024 08/31/2021, 01/07/2021, 12/17/2020 INFLUENZA VACCINE (#1) 2024 2, 08/31/2021, 06/14/2012, Additional history exists PAP 04/21/2025 04/21/2022, 07/12/2019 DTAP/TDAP/TD IMMUNIZATION (9 - Td or Tdap) 09/07/2032 09/07/2022, 11/06/2019, 01/30/2008, Additional history exists HEPATITIS B IMMUNIZATION Completed 997, 02/23/1996, 1995 MENINGITIS IMMUNIZATION Aged Out 05/06/2011 No l onger eligible based on patient's age to complete this topic HPV IMMUNIZATION Completed 06/14/2012, 12/2010, 05/22/2010, Additional history exists HIV SCREENING Completed 07/12/2019, 01/26/2014 CHLAMYDIA SCREENING Discontinued 03/24/2022, 07/12/2019, 07/12/2019, Additional history exists RSV MONOCLONAL ANTIBODY Aged Out No l onger eligible based on patient's age to complete this topic Medical Devices Implanted Type Area Planting Material Carrier Device Identifier Shelf Expiration Date Model / Serial / Lot Mesh Symbotex Composite Stex Round 12cm Sym12 Implanted:Qty: 1 on 08/25/2020 by Deonte Miramontes MD at [facility] Mesh N/A: Abdomen COVIDIEN [id number] 01/28/2025 SYM12 / / [id number] Procedures Procedure Name Priority Date/Time Associated Diagnosis Comments HIV ANTIGEN ANTIBODY COMBO Routine 07/12/2019 12:12 PM DIRECTOR ECONOMIC Supervision of high risk in first trimester PAP IMAGED THIN LAYER SCREEN Routine 07/12/2019 12:11 PM DIRECTOR ECONOMIC Screening for malignant neoplasm of cervix NEISSERIA GONORRHOEAE PCR Routine 07/12/2019 10:00 AM DIRECTOR ECONOMIC Supervision of high risk in first trimester from Last 3 Months or Most Recently Relevant to Health Maintenance Results * HIV Antigen Antibody Combo (07/12/2019 12:12 PM DIRECTOR ECONOMIC) HIV Antigen Antibody Combo Nonreactive NR^Nonrea ctive 07/13/2019 9:[address]CONOMIC [facility] Comment:HIV-1 p24 Ag & HIV-1 /HIV-2 Ab Not Detected Blood specimen (specimen) 07/12/2019 12:12 PM DIRECTOR ECONOMIC 07/12/2019 12:13 PM DIRECTOR ECONOMIC Linda Hinojosa DO LAB - BLOOD ORD ERABLES [address] [address] * Pap imaged thin layer screen only - recommended age 21 - 24 years (07/12/2019 12:11 PM DIRECTOR ECONOMIC) PAP NIL BABITA [place] Report Patient Name: MEG MOLINA MR#: [id number] Specimen #: [id number] Collected: 07/12/2019 Received: 07/13/2019 Reported: 07/16/2019 13:34 [...] adenocarcinomas or other cancers. COLLECTION SITE: Client: ??[facility] Location: WEOB (S) The technical component of this testing was completed at the [facility] [employer] [facility], with the professional component performed at the [facility], [address] [place] [phone] ([phone]) COPATH Cytologic material (specimen) 07/12/2019 12:11 PM DIRECTOR ECONOMIC 07/13/2019 9:42 AM DIRECTOR ECONOMIC Linda Dardens DO LAB - OPTIME CL INICAL SPECIMEN Performing Organization Address City/[facility]/ZIP Co de Phone Number COPATH * Neisseria gonorrhoeae PCR (07/12/2019 10:00 AM DIRECTOR ECONOMIC) Specimen Descrip Vagina 07/12/20 12:48 PM DIRECTOR ECONOMIC [facility] N Gonorrhea PCR Negative NEG^Negat mega 07/13/2019 3:07 PM DIRECTOR ECONOMIC [facility] Comment: Negative for N. gonorrhoeae rRNA by electrician shop mediated amplification. A negative result by electrician shop mediated amplification does not preclude the presence of N. gonorrhoeae infection because results are dependent on proper and adequate collection, absence of inhibitors, and sufficient rRNA to be detected. Specimen from vagina (specimen) 07/12/2019 10:00 AM DIRECTOR ECONOMIC 07/12/2019 12:47 PM DIRECTOR ECONOMIC Linda Hinojosa DO LAB - MICRO GEN ERAL ORDERABLES Performing Organization Address City/[facility]/ZIP Co de Phone Number [facility] [address] [place], [place] [address] [place] [place] [address] [address] from Last 3 Months or Most Recently Relevant to Health Maintenance Care Teams Entertainment Usher Relationship Specialty Start Date End Date No Ref-Primary, Physician PCP - General 03/04/18
--- OUTSIDE RECORDS SUMMARY | 2024-04-10 09:29 | XMS_ITS | Encounter Summary ---
Author Organization [place] Address [address] [place] [address] Care Team Providers Care Unionmelt Operator Name Role Phone No Ref-Primary, Physician Primary Care Provider Deonte Miramontes MD Unavailable Encounter Details Date Type Department Care Team (Late st Contact Info) Description 05/07/2022 [facility] Medical Advice [facility] [address] [phone] Beverly Garnica, KERI Social History Tobacco Use [...] Answer Date Recorded PHQ-2 Score 0 03/27/2020 [place] Depression Scale Answer Date Recorded [place] Depression Score 6 02/01/2020 Last EPDS Self [...] documented as of this encounter Care Teams Unionmelt Operator Relationship Specialty Start Date End Date No Ref-Primary, Physician PCP - General 03/04/18 Deonte Miramontes MD [address] [place] [address] Assigned Surgical Provider 05/23/20 documented as of this encounter
--- OUTSIDE RECORDS SUMMARY | 2024-04-10 09:29 | XMS_ITS | Encounter Summary ---
Author Organization [place] Address [address] [place] [address] Care Team Providers Care Web Portal Developer Name Role Phone No Ref-Primary, Physician Primary Care Provider Deonte Miramontes MD Unavailable [phone] Encounter Details Date Type Department Care Team (Late st Contact Info) Description 04/28/2022 [facility] Medical Advice [facility] for [address] [phone] Vanna Carroll RN Social History Tobacco Use [...] Date Recorded PHQ-2 Score 0 03/27/2020 [place] Depression Scale Answer Date Recorded [place] Depression Score 6 02/01/2020 Last EPDS Self [...] as of this encounter Care Teams Web Portal Developer Relationship Specialty Start Date End Date No Ref-Primary, Physician PCP - General 03/04/18 Deonte Miramontes MD [address] [place] [address] Assigned Surgical Provider 05/23/20 documented as of this encounter
--- OUTSIDE RECORDS SUMMARY | 2024-04-10 09:29 | XMS_ITS | Encounter Summary ---
Author Organization [place] Address [address] [place] [address]. [place] [address] Care Team Providers Care Airport Operations Officer Name Role Phone No Ref-Primary, Physician Primary Care Provider Encounter Details Date Type Department Care Team (Late st Contact Info) Description 07/28/2023 MyC Medical Advice PHYS STANDARD [address] [place] [phone] [facility] Social History Tobacco Use Types Packs/Day Years [...] Answer Date Recorded PHQ-2 Score 0 03/27/2020 [place] Depression Scale Answer Date Recorded [place] Depression Score 6 02/01/2020 Last EPDS Self [...] documented as of this encounter Care Teams Airport Operations Officer Relationship Specialty Start Date End Date No Ref-Primary, Physician PCP - General 03/04/18 documented as of this encounter
--- OUTSIDE RECORDS SUMMARY | 2024-04-10 09:29 | XMS_ITS | Referral Summary ---
Author Organization [place] Address [address] [place] [address] Care Team Providers Care Management Advisor Name Role Phone No Ref-Primary, Physician Primary [...] Answer Date Recorded PHQ-2 Score 0 03/27/2020 [place] Depression Scale Answer Date Recorded [place] Depression Score 6 02/01/2020 Last EPDS Self [...] on file Medical Devices Implanted Type Area Child Care Supervisor Device Identifier Shelf Expiration Date Model / Serial / Lot Mesh Symbotex Composite Stex Round 12cm Sym12 Implanted:Qty: 1 on 08/25/2020 by Deonte Miramontes MD at Mesh N/A: Abdomen COVIDIEN [id number] 01/28/2025 SYM12 / / [id number] Procedures Procedure Name Priority Date/Time Associated Diagnosis Comments HIV ANTIGEN ANTIBODY COMBO Routine 07/12/2019 12:12 PM COMPUTER SYSTEMS DESIGNER Supervision of high risk in first trimester PAP IMAGED THIN LAYER SCREEN Routine 07/12/2019 12:11 PM COMPUTER SYSTEMS DESIGNER Screening for malignant neoplasm of cervix NEISSERIA GONORRHOEAE PCR Routine 07/12/2019 10:00 AM COMPUTER SYSTEMS DESIGNER Supervision of high risk in first trimester from Last 3 Months or Most Recently Relevant to Health Maintenance Results * HIV Antigen Antibody Combo (07/12/2019 12:12 PM COMPUTER SYSTEMS DESIGNER) HIV Antigen Antibody Combo Nonreactive NR^Nonrea ctive 07/13/2019 9:52 AM COMPUTER SYSTEMS DESIGNER [facility] Comment:HIV-1 p24 Ag & HIV-1 /HIV-2 Ab Not Detected Blood specimen (specimen) 07/12/2019 12:12 PM COMPUTER SYSTEMS DESIGNER 07/12/2019 12:13 PM COMPUTER SYSTEMS DESIGNER Linda Hinojosa DO LAB - BLOOD ORD ERABLES [address] [address] * Pap imaged thin layer screen only - recommended age 21 - 24 years (07/12/2019 12:11 PM COMPUTER SYSTEMS DESIGNER) PAP NIL COPATH Copath Report Patient Name: MEG MOLINA MR#: [id number] Specimen #: [id number] Collected: 07/12/2019 Received: 07/13/2019 Reported: 07/16/2019 13:34 [...] adenocarcinomas or other cancers. COLLECTION SITE: Client: ??[facility] Location: [facility] (S) The technical component of this testing was completed at the [facility], with the professional component performed at the [facility], [address], [place] [address] ([phone]) COPATH Cytologic material (specimen) 07/12/2019 12:11 PM COMPUTER SYSTEMS DESIGNER 07/13/2019 9:42 AM COMPUTER SYSTEMS DESIGNER Linda Dardens DO LAB - OPTIME CL INICAL SPECIMEN Performing Organization Address City/[facility]/ZIP Co de Phone Number COPATH * Neisseria gonorrhoeae PCR (07/12/2019 10:00 AM COMPUTER SYSTEMS DESIGNER) Specimen Descrip Vagina 07/12/20 12:48 PM COMPUTER SYSTEMS DESIGNER [facility] N Gonorrhea PCR Negative NEG^Negat mega 07/13/2019 3:07 PM COMPUTER SYSTEMS DESIGNER [facility] Comment: Negative for N. gonorrhoeae rRNA by embroidery operator mediated amplification. A negative result by embroidery operator mediated amplification does not preclude the presence of N. gonorrhoeae infection because results are dependent on proper and adequate collection, absence of inhibitors, and sufficient rRNA to be detected. Specimen from vagina (specimen) 07/12/2019 10:00 AM COMPUTER SYSTEMS DESIGNER 07/12/2019 12:47 PM COMPUTER SYSTEMS DESIGNER Linda Hinojosa DO LAB - MICRO GEN ERAL ORDERABLES Performing Organization Address City/[facility] Co de Phone Number [facility] [address] [place], [place] [address] [address] from Last 3 Months or Most Recently Relevant to Health Maintenance Care Teams Management Advisor Relationship Specialty Start Date End Date No Ref-Primary, Physician PCP - General 03/04/18
--- OUTSIDE RECORDS SUMMARY | 2024-04-10 09:30 | XMS_ITS | Encounter Summary ---
Author Organization [place] Address [address] [place] [address]. [place] [address] Care Team Providers Care Deputy Sheriff Generalist/Bailiff Name Role Phone No Ref-Primary, Physician Primary Care Provider Raghavendra Isaac MD Unavailable [phone] Deonte Miramontes MD Unavailable [phone] MastersLinda DO Unavailable [phone] Encounter Details Date Type Department Care Team (Late st Contact Info) Description 04/09/2021 MyC Medical Advice [facility] [place] [address] [place] [address] Deonte Miramontes MD [address] [place] [id number] Social History Tobacco Use Types Packs/Day Years [...] Answer Date Recorded PHQ-2 Score 0 03/27/2020 [place] Depression Scale Answer Date Recorded [place] Depression Score 6 02/01/2020 Last EPDS Self [...] documented as of this encounter Care Teams Deputy Sheriff Generalist/Bailiff Relationship Specialty Start Date End Date No Ref-Primary, Physician PCP - General 03/04/18 Raghavendra Isaac MD [address] [place] [address] Assigned PCP 11/30/18 12/25/21 Deonte Miramontes MD [address] [place] [address] Assigned Surgical Provider 05/23/20 Linda Hinojosa DO [address] [place] [address] Assigned OBGYN Provider 05/23/20 documented as of this encounter
--- OUTSIDE RECORDS SUMMARY | 2024-04-10 09:30 | XMS_ITS | Encounter Summary ---
Author Organization [place] Address [address] [place] [address] Care Team Providers Care Corrugated Sheet Material Sheeter Name Role Phone No Ref-Primary, Physician Primary Care Provider Raghavendra Isaac MD Unavailable [phone] Deonte Miramontes MD Unavailable [phone] sLinda DO Unavailable [phone] Encounter Details Date Type Department Care Team (Late st Contact Info) Description 12/04/2019 [facility] [address] [place] [address] [facility] Social History Tobacco Use Types Packs/Day [...] Depression Total Score: 0 07/12/20 10:37 AM PAGE MAKEUP SYSTEM OPERATOR documented as of this encounter Care Teams Corrugated Sheet Material Sheeter Relationship Specialty Start Date End Date No Ref-Primary, Physician PCP - General 03/04/18 Raghavendra Isaac MD [address] [place] [address] Assigned PCP 11/30/18 12/25/21 Deonte Miramontes MD [address] [place] [address] Assigned Surgical Provider 05/23/20 Linda Hinojosa DO [address] [place] [address] Assigned OBGYN Provider 05/23/20 documented as of this encounter
--- OUTSIDE RECORDS SUMMARY | 2024-04-10 09:30 | XMS_ITS | Encounter Summary ---
Author Organization [place] Address [address] [place] [address] Care Team Providers Care Airplane Navigator Name Role Phone No Ref-Primary, Physician Primary Care Provider Raghavendra Isaac MD Unavailable [phone] Deonte Miramontes MD Unavailable [phone] sLinda DO Unavailable [phone] Encounter Details Date Type Department Care Team (Late st Contact Info) Description 03/20/[address] [facility] [address] [place] [address] Beverly Kent MD [facility] [address] [facility] [address] [place] [address] Social History Tobacco Use Types [...] Answer Date Recorded PHQ-2 Score 0 03/27/2020 [place] Depression Scale Answer Date Recorded [place] Depression Score 6 02/01/2020 Last EPDS Self [...] documented as of this encounter Care Teams Airplane Navigator Relationship Specialty Start Date End Date No Ref-Primary, Physician PCP - General 03/04/18 Raghavendra Isaac MD [address] [place] [address] Assigned PCP 11/30/18 12/25/21 Deonte Miramontes MD [address] [place] [address] Assigned Surgical Provider 05/23/20 Linda Hinojosa DO [address] [place] [address] Assigned OBGYN Provider 05/23/20 documented as of this encounter
--- OUTSIDE RECORDS SUMMARY | 2024-04-10 09:30 | XMS_ITS | Encounter Summary ---
Author Organization [place] Address [address] [place] [address] Care Team Providers Care Children Librarian Name Role Phone No Ref-Primary, Physician Primary Care Provider Raghavendra Isaac MD Unavailable [phone] Deonte Miramontes MD Unavailable [phone] sLinda DO Unavailable [phone] Reason for Visit * Reason Onset Date Comments Refill Request 02/04/2020 Encounter Details Date Type Department Care Team (Late st Contact Info) Description 02/04/2020 [facility] [address] [address] Raghavendra Isaac MD [address] [place] [address] Refill Request Social History Tobacco [...] Answer Date Recorded PHQ-2 Score 0 12/21/2018 [place] Depression Scale Answer Date Recorded [place] Depression Score 6 02/01/2020 Last EPDS [...] Total Score: 0 07/12/20 19 10:37 AM OIL SPRAYING MACHINE OPERATOR documented as of this encounter Care Teams Children Librarian Relationship Specialty Start Date End Date No Ref-Primary, Physician PCP - General 03/04/18 Raghavendra Isaac MD [address] [place] [address] [address] [place] [address] Assigned PCP 11/30/18 12/25/21 Deonte Miramontes MD [address] [place] [address] Assigned Surgical Provider 05/23/20 Linda Hinojosa DO [address] [place] [address] Assigned OBGYN Provider 05/23/20 documented as of this encounter
--- OUTSIDE RECORDS SUMMARY | 2024-04-10 09:30 | XMS_ITS | Encounter Summary ---
Author Organization [place] Address [address] [place] [address] Care Team Providers Care Critical Care Clinical Nurse Specialist Name Role Phone No Ref-Primary, Physician Primary Care Provider Raghavendra Isaac MD Unavailable [phone] Deonte Miramontes MD Unavailable [phone] sLinda DO Unavailable [phone] Encounter Details Date Type Department Care Team (Late st Contact Info) Description 08/16/2019 [facility] Medical Advice [facility] [address] [place] [address] Charito Barbour, KERI Social History Tobacco [...] Depression Total Score: 0 07/12/20 10:37 AM SOCIAL SCIENCE PROFESSOR documented as of this encounter Care Teams Critical Care Clinical Nurse Specialist Relationship Specialty Start Date End Date No Ref-Primary, Physician PCP - General 03/04/18 Raghavendra Isaac MD [address] [place] [address] Assigned PCP 11/30/18 12/25/21 Deonte Miramontes MD [address] [place] [address] Assigned Surgical Provider 05/23/20 Linda Hinojosa DO [address] [place] [address] Assigned OBGYN Provider 05/23/20 documented as of this encounter
--- OUTSIDE RECORDS SUMMARY | 2024-04-10 09:30 | XMS_ITS | Encounter Summary ---
Author Organization [place] Address [address] [place] [address] Care Team Providers Care Public Health Director Name Role Phone No Ref-Primary, Physician Primary Care Provider Raghavendra Isaac MD Unavailable [phone] Deonte Miramontes MD Unavailable [phone] sLinda DO Unavailable Encounter Details Date Type Department Care Team (Late st Contact Info) Description 02/12/2021 [facility] [place] [facility] [place] [address] [address] Halina Granados, [facility] Social History Tobacco Use Types Packs/Day [...] Answer Date Recorded PHQ-2 Score 0 03/27/2020 [place] Depression Scale Answer Date Recorded [place] Depression Score 6 02/01/2020 Last EPDS Self [...] documented as of this encounter Care Teams Public Health Director Relationship Specialty Start Date End Date No Ref-Primary, Physician PCP - General 03/04/18 Raghavendra Isaac MD [address] [place] [address] Assigned PCP 11/30/18 12/25/21 Deonte Miramontes MD [address] [place] [address] Assigned Surgical Provider 05/23/20 sLinda DO [address] [place] [address] Assigned OBGYN Provider 05/23/20 documented as of this encounter
--- OUTSIDE RECORDS SUMMARY | 2024-04-10 09:30 | XMS_ITS | Encounter Summary ---
Author Organization [place] Address [address] [place] [address]. [place] [address] Care Team Providers Care Deboner Name Role Phone No Ref-Primary, Physician Primary Care Provider Raghavendra Isaac MD Unavailable [phone] Deonte Miramontes MD Unavailable [phone] sLinda DO Unavailable [phone] Encounter Details Date Type Department Care Team (Late st Contact Info) Description 01/28/2020 MyC Medical Advice [facility] [address] [place] [address] sLinda DO [address] [facility] 100 [place], [place] [id number] Social History Tobacco Use Types Packs/Day Years [...] Answer Date Recorded PHQ-2 Score 0 12/21/2018 [place] Depression Scale Answer Date Recorded [place] Depression Score 6 02/01/2020 Last EPDS Self [...] Depression Total Score: 0 07/12/20 10:37 AM 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
== END 2024-04-10 08:33 | disposition home or self-care (01) ==
PROVIDERS: Advanced Practice Midwife; Visit Provider Obstetrics & Gynecology
DX: O99.012 Anemia complicating pregnancy, second trimester (principal); D64.9 Anemia, unspecified; Z86.32 Personal history of gestational diabetes; Z3A.22 22 weeks gestation of pregnancy; Z36.89 Encounter for other specified antenatal screening
CPT/HCPCS: 81511; 82105; 82728; 82951; 82952

== ENCOUNTER 2024-04-11 09:32 | Outpatient (CLI) | payer MEDICAID, SELFPAY ==
--- OUTSIDE RECORDS SUMMARY | 2024-04-11 09:36 | XMS_ITS | Referral Summary ---
Author Organization [place] Address [address] [place] [address] Care Team Providers Care Web Production Manager Name Role Phone No Ref-Primary, Physician [...] Answer Date Recorded PHQ-2 Score 0 03/27/2020 [place] Depression Scale Answer Date Recorded [place] Depression Score 6 02/01/2020 Last EPDS Self [...] on file Medical Devices Implanted Type Area Inventory Manager Device Identifier Shelf Expiration Date Model / Serial / Lot Mesh Symbotex Composite Stex Round 12cm Sym12 Implanted:Qty: 1 on 08/25/2020 by Deonte Miramontes MD at [facility] Mesh N/A: Abdomen COVIDIEN [id number] 01/28/2025 SYM12 / / [id number] Procedures Procedure Name Priority Date/Time Associated Diagnosis Comments HIV ANTIGEN ANTIBODY COMBO Routine 07/12/2019 12:12 PM WOOD BLOCK ARTIST Supervision of high risk in first trimester PAP IMAGED THIN LAYER SCREEN Routine 07/12/2019 12:11 PM WOOD BLOCK ARTIST Screening for malignant neoplasm of cervix CHLAMYDIA TRACHOMATIS PCR Routine 07/12/2019 10:00 AM WOOD BLOCK ARTIST Supervision of high risk in first trimester from Last 3 Months or Most Recently Relevant to Health Maintenance Results * HIV Antigen Antibody Combo (07/12/2019 12:12 PM WOOD BLOCK ARTIST) HIV Antigen Antibody Combo Nonreactive NR^Nonrea ctive 07/13/2019 9:52 AM WOOD BLOCK ARTIST [facility] Comment:HIV-1 p24 Ag & HIV-1 /HIV-2 Ab Not Detected Blood specimen (specimen) 07/12/2019 12:12 PM WOOD BLOCK ARTIST 07/12/2019 12:13 PM WOOD BLOCK ARTIST Linda Holm Masters DO LAB - BLOOD ORD ERABLES [address] [address] * Pap imaged thin layer screen only - recommended age 21 - 24 years (07/12/2019 12:11 PM WOOD BLOCK ARTIST) PAP NIL COPATH [place] Report Patient Name: MEG MOLINA MR#: [id number] Specimen #: [id number] Collected: 07/12/2019 Received: 07/13/2019 Reported: 07/16/2019 13:34 [...] adenocarcinomas or other cancers. COLLECTION SITE: Client: ??[facility] Location: [facility] (S) The technical component of this testing was completed at the [facility], with the professional component performed at the [facility], [address], [place] [address] ([phone]) COPATH Cytologic material (specimen) 07/12/2019 12:11 PM WOOD BLOCK ARTIST 07/13/2019 9:42 AM WOOD BLOCK ARTIST Linda Dardens DO LAB - OPTIME CL INICAL SPECIMEN Performing Organization Address City/[facility]/ZIP Co de Phone Number COPATH * Chlamydia trachomatis PCR (07/12/2019 10:00 AM WOOD BLOCK ARTIST) Specimen Description Vagina 07/12/2019 12:48 PM WOOD BLOCK ARTIST [facility] Chlamydia Trachomatis PCR Negative NEG^Negat mega 07/13/2019 3:07 PM WOOD BLOCK ARTIST [facility] Comment: Negative for C. trachomatis rRNA by open hearth helper mediated amplification. A negative result by open hearth helper mediated amplification does not preclude the presence of C. trachomatis infection because results are dependent on proper and adequate collection, absence of inhibitors, and sufficient rRNA to be detected. Specimen from vagina (specimen) 07/12/2019 10:00 AM WOOD BLOCK ARTIST 07/12/2019 12:47 PM WOOD BLOCK ARTIST Linda Hinojosa DO LAB - MICRO GEN ERAL ORDERABLES Performing Organization Address City/[facility] Co de Phone Number [facility] [address] [place] [address], [facility] [place] [address] [place] [address] from Last 3 Months or Most Recently Relevant to Health Maintenance Care Teams Web Production Manager Relationship Specialty Start Date End Date No Ref-Primary, Physician PCP - General 03/04/18
--- OUTSIDE RECORDS SUMMARY | 2024-04-11 09:36 | XMS_ITS | Encounter Summary ---
Author Organization [place] Address [address] [place] [address] Care Team Providers Care Mink Farmer Name Role Phone No Ref-Primary, Physician Primary Care Provider Raghavendra Isaac MD Unavailable [phone] Deonte Miramontes MD Unavailable [phone] sLinda DO Unavailable [phone] Encounter Details Date Type Department Care Team (Late st Contact Info) Description 12/04/2019 [facility] [address] [place] [address] [facility] Social History Tobacco Use Types Packs/Day [...] Depression Total Score: 0 07/12/20 10:37 AM MOTION PICTURE 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
--- OUTSIDE RECORDS SUMMARY | 2024-04-11 09:36 | XMS_ITS | Encounter Summary ---
Author Organization [place] Address [address] [place] [address] Care Team Providers Care Womens Health Nurse Practitioner Name Role Phone No Ref-Primary, Physician Primary Care Provider Raghavendra Isaac MD Unavailable [phone] Deonte Miramontes MD Unavailable [phone] sLinda DO Unavailable [phone] Encounter Details Date Type Department Care Team (Late st Contact Info) Description 03/20/2021 MyC Medical Advice [facility] [address] [place] [address] Beverly Kent MD [facility] [address] [facility] [address] [place] [address] Social History Tobacco Use Types [...] Answer Date Recorded PHQ-2 Score 0 03/27/2020 [place] Depression Scale Answer Date Recorded [place] Depression Score 6 02/01/2020 Last EPDS Self [...] documented as of this encounter Care Teams Womens Health Nurse Practitioner Relationship Specialty Start Date End Date No Ref-Primary, Physician PCP - General 03/04/18 Raghavendra Isaac MD [address] [place] [address] Assigned PCP 11/30/18 12/25/21 Deonte Miramontes MD [address] [place] [address] Assigned Surgical Provider 05/23/20 Linda Hinojosa DO [address] [place] [address] Assigned OBGYN Provider 05/23/20 documented as of this encounter
--- OUTSIDE RECORDS SUMMARY | 2024-04-11 09:36 | XMS_ITS | Encounter Summary ---
Author Organization [place] Address [address] [place] [address] Care Team Providers Care Precision Lens Technician Name Role Phone No Ref-Primary, Physician Primary Care Provider Raghavendra Isaac MD Unavailable [phone] Deonte Miramontes MD Unavailable [phone] sLinda DO Unavailable Encounter Details Date Type Department Care Team (Late st Contact Info) Description 08/16/2019 [facility] Medical Advice [facility] [address] [place] [address] Charito Barbour, KERI Social History Tobacco [...] Depression Total Score: 0 07/12/20 10:37 AM CROP SCOUT documented as of this encounter Care Teams Precision Lens Technician Relationship Specialty Start Date End Date No Ref-Primary, Physician PCP - General 03/04/18 Rahgavendra Isaac MD [address] [place] [address] Assigned PCP 11/30/18 12/25/21 Deonte Miramontes MD [address] [place] [address] Assigned Surgical Provider 05/23/20 Linda Hinojosa DO [address] [place] [address] Assigned OBGYN Provider 05/23/20 documented as of this encounter
--- OUTSIDE RECORDS SUMMARY | 2024-04-11 09:36 | XMS_ITS | Encounter Summary ---
Author Organization [facility] Address [address] [place] [address] Care Team Providers Care Customer Marketing Manager Name Role Phone No Ref-Primary, Physician Primary Care Provider Raghavendra Isaac MD Unavailable [phone] Deonte Miramontes MD Unavailable [phone] sLinda DO Unavailable [phone] Reason for Visit * Reason Onset Date Comments Refill Request 02/04/2020 Encounter Details Date Type Department Care Team (Late st Contact Info) Description 02/04/2020 [facility] [address] [address] Raghavendra Isaac MD [address] [place] [address] Refill Request Social History Tobacco [...] Answer Date Recorded PHQ-2 Score 0 12/21/2018 [place] Depression Scale Answer Date Recorded [place] Depression Score 6 02/01/2020 Last EPDS Self [...] Total Score: 0 07/12/20 19 10:37 AM ELECTRONICS MECHANIC documented as of this encounter Care Teams Customer Marketing Manager Relationship Specialty Start Date End Date No Ref-Primary, Physician PCP - General 03/04/18 Raghavendra Isaac MD [address] [place] [address] 220 [place] [address] Assigned PCP 11/30/18 12/25/21 Deonte Miramontes MD [address] [place] [address] Assigned Surgical Provider 05/23/20 Linda Hinojosa DO [address] [place] [address] Assigned OBGYN Provider 05/23/20 documented as of this encounter
--- OUTSIDE RECORDS SUMMARY | 2024-04-11 09:36 | XMS_ITS | Encounter Summary ---
Author Organization [facility] Address [address] [place] [address]. [place] [address] Care Team Providers Care Associate Buyer Name Role Phone No Ref-Primary, Physician Primary Care Provider Raghavendra Isaac MD Unavailable [phone] Deonte Miramontes MD Unavailable [phone] sLinda DO Unavailable [phone] Encounter Details Date Type Department Care Team (Late st Contact Info) Description 01/28/2020 MyC Medical Advice [facility] [address] [place] [address] sLinda DO [address] [facility] 100 [place], [place] [address] Social History Tobacco Use Types Packs/Day Years [...] Answer Date Recorded PHQ-2 Score 0 12/21/2018 [place] Depression Scale Answer Date Recorded [place] Depression Score 6 02/01/2020 Last EPDS Self [...] Depression Total Score: 0 07/12/20 10:37 AM GLASS BENDER documented as of this encounter Care Teams Associate Buyer Relationship Specialty Start Date End Date No Ref-Primary, Physician PCP - General 03/04/18 Raghavendra Isaac MD [address] [place] [address] Assigned PCP 11/30/18 12/25/21 Deonte Miramontes MD [address] [place] [address] Assigned Surgical Provider 05/23/20 Linda Hinojosa DO [address] [place] [address] Assigned OBGYN Provider 05/23/20 documented as of this encounter
--- OUTSIDE RECORDS SUMMARY | 2024-04-11 09:36 | XMS_ITS | Clinical Summary ---
Author Organization [place] Address [address] [place] [address] Care Team Providers Care Behavioral Geneticist Name Role Phone No Ref-Primary, Physician Primary [...] Answer Date Recorded PHQ-2 Score 0 03/27/2020 [place] Depression Scale Answer Date Recorded [place] Depression Score 6 02/01/2020 Last EPDS Self [...] 07/12/2019, 01/26/2014 CHLAMYDIA SCREENING Discontinued 03/24/2022, 07/12/2019, 06/18/2019, Additional history exists RSV MONOCLONAL ANTIBODY Aged Out No l onger eligible based on patient's age to complete this topic Medical Devices Implanted Type Area Belt Cutter Device Identifier Shelf Expiration Date Model / Serial / Lot Mesh Symbotex Composite Stex Round 12cm Sym12 Implanted:Qty: 1 on 08/25/2020 by Deonte Miramontes MD at [facility] Mesh N/A: Abdomen COVIDIEN [id number] 01/28/2025 SYM12 / / [id number] Procedures Procedure Name Priority Date/Time Associated Diagnosis Comments HIV ANTIGEN ANTIBODY COMBO Routine 07/12/2019 12:12 PM MEDICAL PLANNER Supervision of high risk in first trimester PAP IMAGED THIN LAYER SCREEN Routine 07/12/2019 12:11 PM MEDICAL PLANNER Screening for malignant neoplasm of cervix CHLAMYDIA TRACHOMATIS PCR Routine 07/12/2019 10:00 AM MEDICAL PLANNER Supervision of high risk in first trimester from Last 3 Months or Most Recently Relevant to Health Maintenance Results * HIV Antigen Antibody Combo (07/12/2019 12:12 PM MEDICAL PLANNER) HIV Antigen Antibody Combo Nonreactive NR^Nonrea ctive 07/13/2019 9:52 AM MEDICAL PLANNER [facility] Comment:HIV-1 p24 Ag & HIV-1 /HIV-2 Ab Not Detected Blood specimen (specimen) 07/12/2019 12:12 PM MEDICAL PLANNER 07/12/2019 12:13 PM MEDICAL PLANNER Jordan Hinojosa DO LAB - BLOOD ORD ERABLES [address] [address] * Pap imaged thin layer screen only - recommended age 21 - 24 years (07/12/2019 12:11 PM MEDICAL PLANNER) PAP NIL BABITA [place] Report Patient Name: MAURO MOLINA MR#: [id number] Specimen #: [id number] Collected: 07/12/2019 Received: 07/13/2019 Reported: 07/16/2019 13:34 Ordering Phy(s): JORDAN HINOJOSA For improved result formatting, select 'View [...] adenocarcinomas or other cancers. COLLECTION SITE: Client: ??[facility] Location: [place] (S) The technical component of this testing was completed at the [facility], with the professional component performed at the [facility], [address] [place] [phone] ([phone]) COPATH Cytologic material (specimen) 07/12/2019 12:11 PM MEDICAL PLANNER 07/13/2019 9:42 AM MEDICAL PLANNER Jordan Dardens DO LAB - OPTIME CL INICAL SPECIMEN COPATH * Chlamydia trachomatis PCR (07/12/2019 10:00 AM MEDICAL PLANNER) Specimen Description Vagina 07/12/2019 12:48 PM MEDICAL PLANNER [facility] Chlamydia Trachomatis PCR Negative NEG^Negat mega 07/13/2019 3:07 PM MEDICAL PLANNER [facility] Comment: Negative for C. trachomatis rRNA by head of housekeeping mediated amplification. A negative result by head of housekeeping mediated amplification does not preclude the presence of C. trachomatis infection because results are dependent on proper and adequate collection, absence of inhibitors, and sufficient rRNA to be detected. Specimen from vagina (specimen) 07/12/2019 10:00 AM MEDICAL PLANNER 07/12/2019 12:47 PM MEDICAL PLANNER Jordan Dardens DO LAB - MICRO GEN ERAL ORDERABLES Performing Organization Address City/[facility]/ZIP Co de Phone Number [facility] [address] [place] [address], [facility] [address] [facility] 100 [place] [address] from Last 3 Months or Most Recently Relevant to Health Maintenance Care Teams Behavioral Geneticist Relationship Specialty Start Date End Date No Ref-Primary, Physician PCP - General 03/04/18
--- OUTSIDE RECORDS SUMMARY | 2024-04-11 09:36 | XMS_ITS | Encounter Summary ---
Author Organization [facility] Address [address] [place] [address] Care Team Providers Care Public Records Researcher Name Role Phone No Ref-Primary, Physician Primary Care Provider Deonte Miramontes MD Unavailable [phone] Encounter Details Date Type Department Care Team (Late st Contact Info) Description 05/07/2022 [facility] Medical Advice [facility] [address] [phone] Beverly Garnica, KERI Social History Tobacco Use [...] Answer Date Recorded PHQ-2 Score 0 03/27/2020 [place] Depression Scale Answer Date Recorded [place] Depression Score 6 02/01/2020 Last EPDS Self [...] as of this encounter Care Teams Public Records Researcher Relationship Specialty Start Date End Date No Ref-Primary, Physician PCP - General 03/04/18 Deonte Miramontes MD [address] [place] [address] Assigned Surgical Provider 05/23/20 documented as of this encounter
--- OUTSIDE RECORDS SUMMARY | 2024-04-11 09:36 | XMS_ITS | Encounter Summary ---
Author Organization [facility] Address [address] [place] [address]. [place] [address] Care Team Providers Care Rn Transition Name Role Phone No Ref-Primary, Physician Primary Care Provider Raghavendra Isaac MD Unavailable [phone] Deonte Miramontes MD Unavailable [phone] MastersLinda DO Unavailable [phone] Encounter Details Date Type Department Care Team (Late st Contact Info) Description 04/09/2021 MyC Medical Advice [facility] [place] [address] [place] [address] Deonte Miramontes MD [address] [place] [id number] Social History Tobacco Use Types Packs/Day Years [...] Answer Date Recorded PHQ-2 Score 0 03/27/2020 [place] Depression Scale Answer Date Recorded [place] Depression Score 6 02/01/2020 Last EPDS Self [...] documented as of this encounter Care Teams Rn Transition Relationship Specialty Start Date End Date No Ref-Primary, Physician PCP - General 03/04/18 Raghavendra Isaac MD [address] [place] [address] Assigned PCP 11/30/18 12/25/21 Deonte Miramontes MD [address] [place] [address] Assigned Surgical Provider 05/23/20 Linda Hinojosa DO [address] [place] [address] Assigned OBGYN Provider 05/23/20 documented as of this encounter
--- OUTSIDE RECORDS SUMMARY | 2024-04-11 09:36 | XMS_ITS | Encounter Summary ---
Author Organization [facility] Address [address] [place] [address] Care Team Providers Care Stone Setter Metal Optical Frames Name Role Phone No Ref-Primary, Physician Primary Care Provider Deonte Miramontes MD Unavailable [phone] Encounter Details Date Type Department Care Team (Late st Contact Info) Description 04/28/2022 [facility] Medical Advice [facility] for [address] [phone] Vanna Carroll RN Social History Tobacco Use [...] Answer Date Recorded PHQ-2 Score 0 03/27/2020 [place] Depression Scale Answer Date Recorded [place] Depression Score 6 02/01/2020 Last EPDS Self [...] documented as of this encounter Care Teams Stone Setter Metal Optical Frames Relationship Specialty Start Date End Date No Ref-Primary, Physician PCP - General 03/04/18 Deonte Miramontes MD [address] [place] [address] Assigned Surgical Provider 05/23/20 documented as of this encounter
--- OUTSIDE RECORDS SUMMARY | 2024-04-11 09:36 | XMS_ITS | Encounter Summary ---
Author Organization [facility] Address [address] [place] [address]. [place] [address] Care Team Providers Care Wool Hanker Name Role Phone No Ref-Primary, Physician Primary Care Provider Encounter Details Date Type Department Care Team (Late st Contact Info) Description 07/28/2023 MyC Medical Advice PHYS STANDARD [address] [place] [phone] [facility] Social History Tobacco Use Types Packs/Day Years [...] Answer Date Recorded PHQ-2 Score 0 03/27/2020 [place] Depression Scale Answer Date Recorded [place] Depression Score 6 02/01/2020 Last EPDS Self [...] documented as of this encounter Care Teams Wool Hanker Relationship Specialty Start Date End Date No Ref-Primary, Physician PCP - General 03/04/18 documented as of this encounter
--- OUTSIDE RECORDS SUMMARY | 2024-04-11 09:36 | XMS_ITS | Encounter Summary ---
Author Organization [facility] Address [address] [place] [address] Care Team Providers Care Yarn Winder Name Role Phone No Ref-Primary, Physician Primary Care Provider Raghavendra Isaac MD Unavailable [phone] Deonte Miramontes MD Unavailable [phone] sLinda DO Unavailable [phone] Encounter Details Date Type Department Care Team (Late st Contact Info) Description 02/12/2021 [facility] Medical Advice [address] [address] [place] Granados, [facility] Social History Tobacco Use Types Packs/Day [...] Answer Date Recorded PHQ-2 Score 0 03/27/2020 [place] Depression Scale Answer Date Recorded [place] Depression Score 6 02/01/2020 Last EPDS Self [...] documented as of this encounter Care Teams Yarn Winder Relationship Specialty Start Date End Date No Ref-Primary, Physician PCP - General 03/04/18 Raghavendra Isaac MD [address] [place] [address] Assigned PCP 11/30/18 12/25/21 Deonte Miramontes MD [address] [place] [address] Assigned Surgical Provider 05/23/20 sLinda DO [address] [place] [address] Assigned OBGYN Provider 05/23/20 documented as of this encounter
== END 2024-04-11 09:33 | disposition home or self-care (01) ==
LOC: US 09:32
PROVIDERS: Visit Provider Midwife
DX: O99.012 Anemia complicating pregnancy, second trimester (principal); E66.01 Morbid (severe) obesity due to excess calories; Z3A.23 23 weeks gestation of pregnancy
CPT/HCPCS: 76811

== ENCOUNTER 2024-04-18 10:37 | Outpatient (RCR) | payer MEDICAID, SELFPAY ==
--- NOTE | 2024-04-12 11:38 | URNOTE ---
Prior auth is not required for Uma ([id number]) per [facility] INjectable Drug Auth list
[2024-04-18 10:51] VITALS: BP 117/80; PULSE 85; RESP 16; TEMP 36.8; O2SAT 96
[2024-04-18] MEDS: IRON SUCROSE COMPLEX 200 MG in 0.9 % SODIUM CHLORIDE 100 ml 100 ML 440 MG IVPB (11:27)
[2024-04-18] MEDS: 0.9 % SODIUM CHLORIDE 250 ml IV (11:29)
[2024-04-18] MEDS: SODIUM CHLORIDE 0.9 % (FLUSH) 10 ML SYRINGE IVF (11:30)
[2024-04-18 12:25] VITALS: BP 108/70; PULSE 78; RESP 16; TEMP 36.8; O2SAT 98
== END 2024-10-15 23:59 | disposition home or self-care (01) ==
LOC: CCIC 10:37
PROVIDERS: Visit Provider Clinical Nurse Specialist
DX: O99.019 Anemia complicating pregnancy, unspecified trimester (principal); D50.9 Iron deficiency anemia, unspecified
CPT/HCPCS: 96374; J1756; J7050

== ENCOUNTER 2024-05-18 13:03 | Outpatient (CLI) | payer MEDICAID, SELFPAY ==
--- NOTE | 2024-05-18 13:00 | CRLHL7_ITS ---
For Patients: As a result of the Century Cures Act, medical imaging exams and procedure reports are released immediately into your electronic medical record. You may view this report before your referring provider. If you have questions, please contact your health care provider. OB ULTRASOUND, 05/18/2024 CLINICAL HISTORY: Morbid obesity. COMPARISON: 04/11/2024. FINDINGS: SOUMYA by LMP: 08/08/2024. Gestation: Single. CERVIX: Visualized. Measurement: 5.3 cm. POSITIONIN: Breech. AMNIOTIC FLUID: 4.7 cm. PLACENTA: Technique: Transabdominal. Placenta position: Anterior. BIOMETRY: BPD: 7.6 cm, 30 weeks 4 days. 94.3% HC: 28.1 cm, 30 weeks 6 days. 88.9% AC: 27.3 cm, 31 weeks 3 days. 79.7% FL: 5.7 cm, 29 weeks 5 days. 75.0% EFW: 1627 grams, 3 lb 9 oz. age by this US: 30 weeks 5 days. SOUMYA by this US: 07/22/2024. Percentile by SOUMYA: 79.7% IMPRESSION: 1. Estimated weight is greater than 97th percentile. 2. Abdominal circumference greater than 97th percentile. Dylan Lan M.D. Body/Diagnostic Radiologist [email or web address] Transcribed: 10:49 am DW/Dictated by: Dylan Lan MD @ 05/22/2024 9:20:00 AM (Electronically Signed)
--- OUTSIDE RECORDS SUMMARY | 2024-05-18 13:08 | XMS_ITS | Encounter Summary ---
Author Organization [facility] Address [address] [place] [address] Care Team Providers Care Naphtha Washing System Operator Name Role Phone No Ref-Primary, Physician Primary Care Provider Deonte Miramontes MD Unavailable [phone] Encounter Details Date Type Department Care Team (Late st Contact Info) Description 04/28/2022 [facility] [place] [facility] for [address] [phone] Vanna Carroll RN Social History Tobacco Use [...] Answer Date Recorded PHQ-2 Score 0 03/27/2020 [place] Depression Scale Answer Date Recorded [place] Depression Score 6 02/01/2020 Last EPDS Self [...] documented as of this encounter Care Teams Naphtha Washing System Operator Relationship Specialty Start Date End Date No Ref-Primary, Physician PCP - General 03/04/18 Deonte Miramontes MD [address] [place] [address] Assigned Surgical Provider 05/23/20 documented as of this encounter
--- OUTSIDE RECORDS SUMMARY | 2024-05-18 13:08 | XMS_ITS | Encounter Summary ---
Author Organization [facility] Address [address] [place] [address]. [place] [address] Care Team Providers Care Hospitality Housekeeper Name Role Phone No Ref-Primary, Physician Primary Care Provider Raghavendra Isaac MD Unavailable [phone] Deonte Miramontes MD Unavailable [phone] MastersLinda DO Unavailable [phone] Encounter Details Date Type Department Care Team (Late st Contact Info) Description 04/09/2021 MyC Medical Advice [facility] [place] [address] [place] [address] Deonte Miramontes MD [address] [place] [id number] Social History Tobacco Use Types Packs/Day Years [...] Answer Date Recorded PHQ-2 Score 0 03/27/2020 [place] Depression Scale Answer Date Recorded [place] Depression Score 6 02/01/2020 Last EPDS Self [...] documented as of this encounter Care Teams Hospitality Housekeeper Relationship Specialty Start Date End Date No Ref-Primary, Physician PCP - General 03/04/18 Raghavendra Isaac MD [address] [place] [address] Assigned PCP 11/30/18 12/25/21 Deonte Miramontes MD [address] [place] [address] Assigned Surgical Provider 05/23/20 Linda Hinojosa DO [address] [place] [address] Assigned OBGYN Provider 05/23/20 documented as of this encounter
--- OUTSIDE RECORDS SUMMARY | 2024-05-18 13:08 | XMS_ITS | Encounter Summary ---
Author Organization [facility] Address [address] [place] [address]. [place] [address] Care Team Providers Care Pillow Agent Name Role Phone No Ref-Primary, Physician Primary Care Provider Encounter Details Date Type Department Care Team (Late st Contact Info) Description 07/28/2023 MyC Medical Advice PHYS STANDARD [address] [place] [phone] [facility] Social History Tobacco Use Types Packs/Day Years [...] Answer Date Recorded PHQ-2 Score 0 03/27/2020 [place] Depression Scale Answer Date Recorded [place] Depression Score 6 02/01/2020 Last EPDS Self [...] documented as of this encounter Care Teams Pillow Agent Relationship Specialty Start Date End Date No Ref-Primary, Physician PCP - General 03/04/18 documented as of this encounter
--- OUTSIDE RECORDS SUMMARY | 2024-05-18 13:08 | XMS_ITS | Encounter Summary ---
Author Organization [facility] Address [address] [place] [address] Care Team Providers Care Head Wrestling Coach Name Role Phone No Ref-Primary, Physician Primary Care Provider Raghavendra Isaac MD Unavailable [phone] Deonte Miramontes MD Unavailable [phone] sLinda DO Unavailable [phone] Reason for Visit * Reason Onset Date Comments Refill Request 02/04/2020 Encounter Details Date Type Department Care Team (Late st Contact Info) Description 02/04/2020 [facility] [place] [place] Refill [facility] [address] [address] Raghavendra Isaac MD [address] [place] [address] Refill Request Social History Tobacco [...] Answer Date Recorded PHQ-2 Score 0 12/21/2018 [place] Depression Scale Answer Date Recorded [place] Depression Score 6 02/01/2020 Last EPDS Self [...] Total Score: 0 07/12/20 19 10:37 AM PAPER SEALER documented as of this encounter Care Teams Head Wrestling Coach Relationship Specialty Start Date End Date No Ref-Primary, Physician PCP - General 03/04/18 Raghavendra Isaac MD [address] [place] [address] 220 [place] [phone] Assigned PCP 11/30/18 12/25/21 Deonte Miramontes MD [address] [place] [address] Assigned Surgical Provider 05/23/20 Linda Hinojosa DO [address] [place] [address] Assigned OBGYN Provider 05/23/20 documented as of this encounter
--- OUTSIDE RECORDS SUMMARY | 2024-05-18 13:08 | XMS_ITS | Encounter Summary ---
Author Organization [place] Address [address] [place] [address] Care Team Providers Care Thaw Shed Heater Tender Name Role Phone No Ref-Primary, Physician Primary Care Provider Raghavendra Isaac MD Unavailable [phone] Deonte Miramontes MD Unavailable [phone] sLinda DO Unavailable [phone] Encounter Details Date Type Department Care Team (Late st Contact Info) Description 12/04/2019 [facility] [address] [place] [address] [facility] Social History Tobacco Use Types Packs/Day Years [...] Depression Total Score: 0 07/12/20 10:37 AM CALL OUT OPERATOR documented as of this encounter Care Teams Thaw Shed Heater Tender Relationship Specialty Start Date End Date No Ref-Primary, Physician PCP - General 03/04/18 Raghavendra Isaac MD [address] [place] [address] Assigned PCP 11/30/18 12/25/21 Deonte Miramontes MD [address] [place] [address] Assigned Surgical Provider 05/23/20 Linda Hinojosa DO [address] [place] [address] Assigned OBGYN Provider 05/23/20 documented as of this encounter
--- OUTSIDE RECORDS SUMMARY | 2024-05-18 13:08 | XMS_ITS | Encounter Summary ---
Author Organization [place] Address [address] [place] [address] Care Team Providers Care Equipment Oiler Name Role Phone No Ref-Primary, Physician Primary Care Provider Raghavendra Isaac MD Unavailable [phone] Deonte Miramontes MD Unavailable sLinda DO Unavailable [phone] Encounter Details Date Type Department Care Team (Late st Contact Info) Description 02/12/2021 [facility] [place] [address] [address] Halina Granados, [facility] Social History Tobacco Use Types Packs/Day [...] Answer Date Recorded PHQ-2 Score 0 03/27/2020 [place] Depression Scale Answer Date Recorded [place] Depression Score 6 02/01/2020 Last EPDS Self [...] documented as of this encounter Care Teams Equipment Oiler Relationship Specialty Start Date End Date No Ref-Primary, Physician PCP - General 03/04/18 Raghavendra Isaac MD [address] [place] [address] Assigned PCP 11/30/18 12/25/21 Deonte Miramontes MD [address] [place] [address] Assigned Surgical Provider 05/23/20 sLinda DO [address] [place] [address] Assigned OBGYN Provider 05/23/20 documented as of this encounter
--- OUTSIDE RECORDS SUMMARY | 2024-05-18 13:08 | XMS_ITS | Referral Summary ---
Author Organization [facility] Address [address] [place] [address] Care Team Providers Care Hand Cigar Making Supervisor Name Role Phone No Ref-Primary, Physician [...] Answer Date Recorded PHQ-2 Score 0 03/27/2020 [place] Depression Scale Answer Date Recorded [place] Depression Score 6 02/01/2020 Last EPDS Self [...] on file Medical Devices Implanted Type Area Assistant Front Office Manager Device Identifier Shelf Expiration Date Model / Serial / Lot Mesh Symbotex Composite Stex Round 12cm Sym12 Implanted:Qty: 1 on 08/25/2020 by Deonte Miramontes MD at [facility] Mesh N/A: Abdomen COVIDIEN [id number] 01/28/2025 SYM12 / / [id number] Procedures Procedure Name Priority Date/Time Associated Diagnosis Comments HIV ANTIGEN ANTIBODY COMBO Routine 07/12/2019 12:12 PM SALAD BAR CLERK Supervision of high risk in first trimester PAP IMAGED THIN LAYER SCREEN Routine 07/12/2019 12:11 PM SALAD BAR CLERK Screening for malignant neoplasm of cervix CHLAMYDIA TRACHOMATIS PCR Routine 07/12/2019 10:00 AM SALAD BAR CLERK Supervision of high risk in first trimester from Last 3 Months or Most Recently Relevant to Health Maintenance Results * HIV Antigen Antibody Combo (07/12/2019 12:12 PM SALAD BAR CLERK) HIV Antigen Antibody Combo Nonreactive NR^Nonrea ctive 07/13/2019 9:52 AM SALAD BAR CLERK [facility] Comment:HIV-1 p24 Ag & HIV-1 /HIV-2 Ab Not Detected Blood specimen (specimen) 07/12/2019 12:12 PM SALAD BAR CLERK 07/12/2019 12:13 PM SALAD BAR CLERK Linda Holm Masters DO LAB - BLOOD ORD ERABLES [address] [address] * Pap imaged thin layer screen only - recommended age 21 - 24 years (07/12/2019 12:11 PM SALAD BAR CLERK) PAP NIL COPATH [place] Report Patient Name: MEG MOLINA MR#: [id number] Specimen #: [id number] Collected: 07/12/2019 Received: 07/13/2019 Reported: 07/16/2019 13:34 [...] adenocarcinomas or other cancers. COLLECTION SITE: Client: ??[facility] Location: [place] (S) The technical component of this testing was completed at the [email or web address], with the professional component performed at the [facility], [address] [facility], [place] [phone] ([phone]) COPATH Cytologic material (specimen) 07/12/2019 12:11 PM SALAD BAR CLERK 07/13/2019 9:42 AM SALAD BAR CLERK Linda Dardens DO LAB - OPTIME CL INICAL SPECIMEN Performing Organization Address City/[facility]/ZIP Co de Phone Number COPATH * Chlamydia trachomatis PCR (07/12/2019 10:00 AM SALAD BAR CLERK) Specimen Description Vagina 07/12/2019 12:48 PM SALAD BAR CLERK [facility] Chlamydia Trachomatis PCR Negative NEG^Negat mega 07/13/2019 3:07 PM SALAD BAR CLERK [facility] Comment: Negative for C. trachomatis rRNA by representative mediated amplification. A negative result by representative mediated amplification does not preclude the presence of C. trachomatis infection because results are dependent on proper and adequate collection, absence of inhibitors, and sufficient rRNA to be detected. Specimen from vagina (specimen) 07/12/2019 10:00 AM SALAD BAR CLERK 07/12/2019 12:47 PM SALAD BAR CLERK Linda Hinojosa DO LAB - MICRO GEN ERAL ORDERABLES Performing Organization Address City/[facility] Co de Phone Number [facility] [address] [place] [address], [facility] [address] [place] [address] from Last 3 Months or Most Recently Relevant to Health Maintenance Care Teams Hand Cigar Making Supervisor Relationship Specialty Start Date End Date No Ref-Primary, Physician PCP - General 03/04/18
--- OUTSIDE RECORDS SUMMARY | 2024-05-18 13:08 | XMS_ITS | Encounter Summary ---
Author Organization [place] Address [address] [place] [address] Care Team Providers Care Correction Officer Supervisor Name Role Phone No Ref-Primary, Physician Primary Care Provider Raghavendra Isaac MD Unavailable [phone] Deonte Miramontes MD Unavailable [phone] sLinda DO Unavailable [phone] Encounter Details Date Type Department Care Team (Late st Contact Info) Description 03/20/2021 MyC Medical Advice [facility] [address] [place] [address] Beverly Kent MD [facility] [address] [facility] [address] [place] [address] Social History Tobacco Use Types [...] Answer Date Recorded PHQ-2 Score 0 03/27/2020 [place] Depression Scale Answer Date Recorded [place] Depression Score 6 02/01/2020 Last EPDS Self [...] documented as of this encounter Care Teams Correction Officer Supervisor Relationship Specialty Start Date End Date No Ref-Primary, Physician PCP - General 03/04/18 Raghavendra Isaac MD [address] [place] [address] Assigned PCP 11/30/18 12/25/21 Deonte Miramontes MD [address] [place] [address] Assigned Surgical Provider 05/23/20 Linda Hinojosa DO [address] [place] [address] Assigned OBGYN Provider 05/23/20 documented as of this encounter
--- OUTSIDE RECORDS SUMMARY | 2024-05-18 13:08 | XMS_ITS | Encounter Summary ---
Author Organization [place] Address [address] [place] [address] Care Team Providers Care Fiber Picker Name Role Phone No Ref-Primary, Physician Primary Care Provider Deonte Miramontes MD Unavailable [phone] Encounter Details Date Type Department Care Team (Late st Contact Info) Description 05/07/2022 [facility] Medical Advice [facility] [address] [phone] Beverly Garnica, KERI Social History Tobacco Use [...] Answer Date Recorded PHQ-2 Score 0 03/27/2020 [place] Depression Scale Answer Date Recorded [place] Depression Score 6 02/01/2020 Last EPDS Self [...] documented as of this encounter Care Teams Fiber Picker Relationship Specialty Start Date End Date No Ref-Primary, Physician PCP - General 03/04/18 Deonte Miramontes MD [address] [place] [address] Assigned Surgical Provider 05/23/20 documented as of this encounter
--- OUTSIDE RECORDS SUMMARY | 2024-05-18 13:08 | XMS_ITS | Encounter Summary ---
Author Organization [place] Address [address] [place] [address] Care Team Providers Care Electric Refrigerator Preparer Name Role Phone No Ref-Primary, Physician Primary Care Provider Raghavendra Isaac MD Unavailable [phone] Deonte Miramontes MD Unavailable [phone] sLinda DO Unavailable [phone] Encounter Details Date Type Department Care Team (Late st Contact Info) Description 08/16/2019 [facility] Medical Advice [facility] [address] [place] [address] Charito Barbour, KERI Social History Tobacco [...] Depression Total Score: 0 07/12/20 10:37 AM SPIRITS MODEL documented as of this encounter Care Teams Electric Refrigerator Preparer Relationship Specialty Start Date End Date No Ref-Primary, Physician PCP - General 03/04/18 Raghavendra Isaac MD [address] [place] [address] Assigned PCP 11/30/18 12/25/21 Deonte Miramontes MD [address] [place] [address] Assigned Surgical Provider 05/23/20 Linda Hinojosa DO [address] [place] [address] Assigned OBGYN Provider 05/23/20 documented as of this encounter
--- OUTSIDE RECORDS SUMMARY | 2024-05-18 13:08 | XMS_ITS | Clinical Summary ---
Author Organization [place] Address [address] [place] [address] Care Team Providers Care Jig Builder Helper Name Role Phone No Ref-Primary, Physician Primary [...] Answer Date Recorded PHQ-2 Score 0 03/27/2020 [place] Depression Scale Answer Date Recorded [place] Depression Score 6 02/01/2020 Last EPDS Self [...] 09/07/2032 09/07/2022, 11/06/2019, 01/30/2008, Additional history exists RSV VACCINE (1 - 1-dose 75+ series) 10/20/2070 HEPATITIS B IMMUNIZATION Completed 997, 02/23/1996, 1995 [...] this topic Medical Devices Implanted Type Area Bill Peddler Device Identifier Shelf Expiration Date Model / Serial / Lot Mesh Symbotex Composite Stex Round 12cm Sym12 Implanted:Qty: 1 on 08/25/2020 by Deonte Miramontes MD at [facility] Mesh N/A: Abdomen COVIDIEN [id number] 01/28/2025 [id number] / / [id number] Procedures Procedure Name Priority Date/Time Associated Diagnosis Comments HIV ANTIGEN ANTIBODY COMBO Routine 07/12/2019 12:12 PM COLLET DRILLER Supervision of high risk in first trimester PAP IMAGED THIN LAYER SCREEN Routine 07/12/2019 12:11 PM COLLET DRILLER Screening for malignant neoplasm of cervix CHLAMYDIA TRACHOMATIS PCR Routine 07/12/2019 10:00 AM COLLET DRILLER Supervision of high risk in first trimester from Last 3 Months or Most Recently Relevant to Health Maintenance Results * HIV Antigen Antibody Combo (07/12/2019 12:12 PM COLLET DRILLER) HIV Antigen Antibody Combo Nonreactive NR^Nonrea ctive 07/13/2019 9:52 AM COLLET DRILLER [facility] Comment:HIV-1 p24 Ag & HIV-1 /HIV-2 Ab Not Detected Blood specimen (specimen) 07/12/2019 12:12 PM COLLET DRILLER 07/12/2019 12:13 PM COLLET DRILLER Linda Hinojosa DO LAB - BLOOD ORD ERABLES [address] [address] * Pap imaged thin layer screen only - recommended age 21 - 24 years (07/12/2019 12:11 PM COLLET DRILLER) PAP NIL OSVALDOATH [place] Report Patient Name: MEG MOLINA MR#: [id number] Specimen #: [id number] Collected: 07/12/2019 Received: 07/13/2019 Reported: 07/16/2019 13:34 [...] of this testing was completed at the [facility] [employer] [facility], with the professional component performed at the [facility], [address] [facility], [place] [address] ([phone]) COPATH Cytologic material (specimen) 07/12/2019 12:11 PM COLLET DRILLER 07/13/2019 9:42 AM COLLET DRILLER Linda Dardens DO LAB - OPTIME CL INICAL SPECIMEN Performing Organization Address City/[facility]/ZIP Co de Phone Number COPATH * Chlamydia trachomatis PCR (07/12/2019 10:00 AM COLLET DRILLER) Specimen Description Vagina 07/12/2019 12:48 PM COLLET DRILLER [facility] Chlamydia Trachomatis PCR Negative NEG^Negat mega 07/13/2019 3:07 PM COLLET DRILLER [facility] Comment: Negative for C. trachomatis rRNA by ladle repairman mediated amplification. A negative result by ladle repairman mediated amplification does not preclude the presence of C. trachomatis infection because results are dependent on proper and adequate collection, absence of inhibitors, and sufficient rRNA to be detected. Specimen from vagina (specimen) 07/12/2019 10:00 AM COLLET DRILLER 07/12/2019 12:47 PM COLLET DRILLER Linda Hinojosa DO LAB - MICRO GEN ERAL ORDERABLES Performing Organization Address City/[facility] Co de Phone Number [facility] [address] [place] [address], [facility] [address] [address] from Last 3 Months or Most Recently Relevant to Health Maintenance Care Teams Jig Builder Helper Relationship Specialty Start Date End Date No Ref-Primary, Physician PCP - General 03/04/18
--- OUTSIDE RECORDS SUMMARY | 2024-05-18 13:08 | XMS_ITS | Encounter Summary ---
Author Organization [place] Address [address] [place] [address]. [place] [address] Care Team Providers Care Trash Collector Truck Driver Name Role Phone No Ref-Primary, Physician Primary Care Provider Raghavendra Isaac MD Unavailable [phone] Deonte Miramontes MD Unavailable [phone] sLinda DO Unavailable [phone] Encounter Details Date Type Department Care Team (Late st Contact Info) Description 01/28/2020 MyC Medical Advice [facility] [address] [place] [address] sLinda DO [address] [facility] [address] [place], [place] [address] Social History Tobacco Use Types Packs/Day Years [...] Answer Date Recorded PHQ-2 Score 0 12/21/2018 [place] Depression Scale Answer Date Recorded [place] Depression Score 6 02/01/2020 Last EPDS Self [...] Depression Total Score: 0 07/12/20 10:37 AM BONDING SUPERVISOR documented as of this encounter Care Teams Trash Collector Truck Driver Relationship Specialty Start Date End Date No Ref-Primary, Physician PCP - General 03/04/18 Raghavendra Isaac MD [address] [place] [address] Assigned PCP 11/30/18 12/25/21 Deonte Miramontes MD [address] [place] [address] Assigned Surgical Provider 05/23/20 Linda Hinojosa DO [address] [place] [address] Assigned OBGYN Provider 05/23/20 documented as of this encounter
== END 2024-05-18 13:04 | disposition home or self-care (01) ==
LOC: US 13:04
PROVIDERS: Visit Provider Advanced Practice Midwife
DX: O99.213 Obesity complicating pregnancy, third trimester (principal); E66.01 Morbid (severe) obesity due to excess calories; Z3A.30 30 weeks gestation of pregnancy
CPT/HCPCS: 76816; 86592; 86850; J2791

== ENCOUNTER 2024-06-12 16:09 | Outpatient (CLI) | payer MEDICAID, SELFPAY ==
[2024-06-12] VITALS (12 sets, daily range): BP systolic 114–119; BP diastolic 71–74; PULSE 75–90; TEMP 37.2; O2SAT 96–98
--- OUTSIDE RECORDS SUMMARY | 2024-06-12 16:11 | XMS_ITS | Referral Summary ---
Author Organization [facility] Address [address] [place] [address] Care Team Providers Care Casting Machine Operator Helper Name Role Phone No Ref-Primary, Physician Primary Care Provider Allergies Active Allergy Reactions Criticality Noted Date Comments Cats 07/12/2019 Other reaction(s): *Unknown Dog Epithelium (Canis Lupus Familiaris) 07/12/2019 Other reaction(s): *Unknown Dogs 07/12/2019 Medications fluticasone (FLOVENT HFA) 110 MCG/ACT inhalerIndicati ons:Asthma, persistent not controlled Inhale 1 puff into the lungs 2 times daily 1 Inhaler 5 0 Active sertraline (ZOLOFT) 100 MG tabletIndicatio ns:Depression affecting in third trimester, antepartum Take 1 tablet (100 mg) by mouth daily 90 tablet 4 0 Active salmeterol (SEREVENT) 50 MCG/DOSE inhalerIndicati ons:Asthma affecting in first trimester Inhale 1 puff into the lungs 2 times daily 1 Inhaler 3 1 Active Additional Information Patient not taking.Reported on 02/24/2021 senna-docusate (SENOKOT-S/ANKIT COLACE) 8.6-50 MG tabletIndicatio ns:Postoperativ e pain Take 1-2 tablets by mouth 2 times daily 30 tablet 1 Active oxyCODONE (ROXICODONE) 5 MG tabletIndicatio ns:Postoperativ e pain Take 1 tablet (5 mg) by mouth every 6 hours as needed for pain 20 tablet 1 Active Additional Information Patient not taking.Reported on 02/24/2021 acetaminophen (TYLENOL) 500 MG tabletIndicatio ns:Postoperativ e pain Take 1-2 tablets (500-1,000 mg) by mouth every 6 hours as needed for mild pain 30 tablet 1 1 Active fluticasone-doyle meterol (WIXELA INHUB) 250-50 MCG/DOSE inhaler Inhale 1 puff into the lungs 1 Active albuterol (PROAIR HFA/PROVENTIL HFA/VENTOLIN HFA) 108 (90 Base) MCG/ACT inhalerIndicati ons:Asthma, persistent not controlled Inhale 2 puffs into the lungs every 4 hours as needed for shortness of breath / dyspnea or wheezing 8.5 g 2 1 Active LORazepam (ATIVAN) 0.5 MG tablet Take 1 tablet (0.5 mg) by mouth every 6 hours as needed for anxiety 5 tablet 1 Active citalopram (CELEXA) 20 MG tablet Take 20 mg by mouth every morning 1 Active DULoxetine (CYMBALTA) 30 MG capsule Take 30 mg by mouth 1 Active fluticasone (FLONASE) 50 MCG/ACT nasal spray 1 Active omeprazole (PRILOSEC) [address] capsuleIndicati ons:Gastroesoph ageal reflux in in second trimester Take 1 capsule (20 mg) by mouth daily 60 capsule 1 Active Active Problems Problem Noted Date Diagnosed [...] Resolved Date Supervision of high-risk 07/12/2019 03/27/2020 Overview (11/06/2019): EDC 02/05/20 by L=10wk US Innatal/carrier: decl [...] School Help Needed Not on file 05/10 Comments No Sex and Gender Information Value Date Recorded Sex Assigned at Female 11/25/2020 9:34 PM CDT Legal Sex Female 3:20 AM OPERATIONS ADMINISTRATOR Gender Identity Female 11/25/2020 9:34 PM CDT [...] on file Medical Devices Implanted Type Area Refuse Collector Supervisor Device Identifier Shelf Expiration Date Model / Serial / Lot Mesh Symbotex Composite Stex Round 12cm Sym12 Implanted:Qty: 1 on 08/25/2020 by Deonte Miramontes MD at [facility] Mesh N/A: Abdomen COVIDIEN [id number] 01/28/2025 SYM12 / / [id number] Procedures Procedure Name Priority Date/Time Associated Diagnosis Comments HIV ANTIGEN ANTIBODY COMBO Routine 07/12/2019 12:12 PM OPERATIONS ADMINISTRATOR Supervision of high risk in first trimester PAP IMAGED THIN LAYER SCREEN Routine 07/12/2019 12:11 PM OPERATIONS ADMINISTRATOR Screening for malignant neoplasm of cervix CHLAMYDIA TRACHOMATIS PCR Routine 07/12/2019 10:00 AM OPERATIONS ADMINISTRATOR Supervision of high risk in first trimester from Last 3 Months or Most Recently Relevant to Health Maintenance Results * HIV Antigen Antibody Combo (07/12/2019 12:12 PM OPERATIONS ADMINISTRATOR) HIV Antigen Antibody Combo Nonreactive NR^Nonrea ctive 07/13/2019 9:52 AM OPERATIONS ADMINISTRATOR [facility] Comment:HIV-1 p24 Ag & HIV-1 /HIV-2 Ab Not Detected Blood specimen (specimen) 07/12/2019 12:12 PM OPERATIONS ADMINISTRATOR 07/12/2019 12:13 PM OPERATIONS ADMINISTRATOR us Jordan Larsen Masters DO LAB - BLOOD ORDERABLES Final Result [facility] [address] [place] [address] * Pap imaged thin layer screen only - recommended age 21 - 24 years (07/12/2019 12:11 PM OPERATIONS ADMINISTRATOR) PAP NIL BABITA [place] Report Patient Name: MEG MOLINA MR#: [id number] Specimen #: [id number] Collected: 07/12/2019 Received: 07/13/2019 Reported: 07/16/2019 13:34 Ordering Phy(s): JORDAN LARSEN MASTERS For improved result formatting, select 'View Enhanced [...] of this testing was completed at the [facility], with the professional component performed at the [facility], [address] [place] [address] ([phone]) COPATH Cytologic material (specimen) 07/12/2019 12:11 PM OPERATIONS ADMINISTRATOR 07/13/2019 9:42 AM OPERATIONS ADMINISTRATOR us Jordan Larsen Masters DO LAB - OPTIME CLINICAL S PECIMEN Final Result Performing Organization Address City/[facility]/ZIP Co de Phone Number COPATH * Chlamydia trachomatis PCR (07/12/2019 10:00 AM OPERATIONS ADMINISTRATOR) Specimen Description Vagina 07/12/2019 12:48 PM OPERATIONS ADMINISTRATOR [facility] [place] Chlamydia Trachomatis PCR Negative NEG^Negat mega 07/13/2019 3:07 PM OPERATIONS ADMINISTRATOR [facility] Comment: Negative for C. trachomatis rRNA by physician office rep mediated amplification. A negative result by physician office rep mediated amplification does not preclude the presence of C. trachomatis infection because results are dependent on proper and adequate collection, absence of inhibitors, and sufficient rRNA to be detected. Specimen from vagina (specimen) 07/12/2019 10:00 AM OPERATIONS ADMINISTRATOR 07/12/2019 12:47 PM OPERATIONS ADMINISTRATOR us Jordan Larsen Masters DO LAB - MICRO GENERAL ORD ERABLES Final Result [facility] [address] [place] [id number] [place] [address] [facility]OMEN [place] [address] [place] [phone] from Last 3 Months or Most Recently Relevant to Health Maintenance Insurance [facility] Care Teams Casting Machine Operator Helper Relationship Specialty Start Date End Date No Ref-Primary, Physician PCP - General 03/04/18
--- OUTSIDE RECORDS SUMMARY | 2024-06-12 16:11 | XMS_ITS | Encounter Summary ---
Author Organization [facility] Address [address] [place] [address] Care Team Providers Care Special Forces Specialist Name Role Phone No Ref-Primary, Physician Primary Care Provider Raghavendra Isaac MD Unavailable [phone] Deonte Miramontes MD Unavailable [phone] sLinda DO Unavailable [phone] Encounter Details Date Type Department Care Team (Late st Contact Info) Description 03/20/2021 MyC Medical Advice [facility] [address] [place] [address] [place] Kent MD [facility] [address] [facility] [address] [place] [address] Social History Tobacco Use Types [...] Harm Result Not on file 01/31 Comments No Sex and Gender Information Value Date Recorded Sex Assigned at Female 11/25/2020 9:34 PM CDT Legal Sex Female 3:20 AM DOCUMENT IMAGING SPECIALIST Gender Identity Female 11/25/2020 9:34 PM CDT [...] documented as of this encounter Care Teams Special Forces Specialist Relationship Specialty Start Date End Date No Ref-Primary, Physician PCP - General 03/04/18 Raghavendra Isaac MD [address] [place] [address] Assigned PCP 11/30/18 12/25/21 Deonte Miramontes MD [address] [place] [address] Assigned Surgical Provider 05/23/20 sLinda DO [address] [place] [address] Assigned OBGYN Provider 05/23/20 documented as of this encounter
--- OUTSIDE RECORDS SUMMARY | 2024-06-12 16:11 | XMS_ITS | Clinical Summary ---
Author Organization [place] Address [address] [place] [address] Care Team Providers Care Mesmerist Name Role Phone No Ref-Primary, Physician Primary [...] Answer Date Recorded PHQ-2 Score 0 03/27/2020 [place] Depression Scale Answer Date Recorded [place] Depression Score 6 02/01/2020 Last EPDS Self Harm Result Not on file 01/31 Adolescent Education Answer Date Record ed Getting School Help Needed Not on file 05/10 Comments No Sex and Gender Information Value Date Recorded Sex Assigned at Female 11/25/2020 9:34 PM CDT Legal Sex Female 3:20 AM DELIVERY DRIVER Gender Identity Female 11/25/2020 9:34 PM CDT [...] this topic Medical Devices Implanted Type Area Curing Finisher Device Identifier Shelf Expiration Date Model / Serial / Lot Mesh Symbotex Composite Stex Round 12cm Sym12 Implanted:Qty: 1 on 08/25/2020 by Deonte Miramontes MD at [facility] Mesh N/A: Abdomen COVIDIEN [id number] 01/28/2025 SYM12 / / [id number] Procedures Procedure Name Priority Date/Time Associated Diagnosis Comments HIV ANTIGEN ANTIBODY COMBO Routine 07/12/2019 12:12 PM DELIVERY DRIVER Supervision of high risk in first trimester PAP IMAGED THIN LAYER SCREEN Routine 07/12/2019 12:11 PM DELIVERY DRIVER Screening for malignant neoplasm of cervix CHLAMYDIA TRACHOMATIS PCR Routine 07/12/2019 10:00 AM DELIVERY DRIVER Supervision of high risk in first trimester from Last 3 Months or Most Recently Relevant to Health Maintenance Results * HIV Antigen Antibody Combo (07/12/2019 12:12 PM DELIVERY DRIVER) HIV Antigen Antibody Combo Nonreactive NR^Nonrea ctive 07/13/2019 9:[address] DRIVER [facility] Comment:HIV-1 p24 Ag & HIV-1 /HIV-2 Ab Not Detected Blood specimen (specimen) 07/12/2019 12:12 PM DELIVERY DRIVER 07/12/2019 12:13 PM DELIVERY DRIVER us Jordan Larsen Masters DO LAB - BLOOD ORDERABLES Final Result [facility] [address] [place] [address] * Pap imaged thin layer screen only - recommended age 21 - 24 years (07/12/2019 12:11 PM DELIVERY DRIVER) PAP NIL BABITA [place] Report Patient Name: MAURO MOLINA MR#: [id number] Specimen #: [id number] Collected: 07/12/2019 Received: 07/13/2019 Reported: 07/16/2019 13:34 [...] or other cancers. COLLECTION SITE: Client: ??[facility] Location: [facility] (S) The technical component of this testing was completed at the [facility], with the professional component performed at the [facility], [address] [place] [address] ([phone]) COPATH Cytologic material (specimen) 07/12/2019 12:11 PM DELIVERY DRIVER 07/13/2019 9:42 AM DELIVERY DRIVER us Jordan Larsen Masters DO LAB - OPTIME CLINICAL S PECIMEN Final Result Performing Organization Address City/[facility]/ZIP Co de Phone Number COPATH * Chlamydia trachomatis PCR (07/12/2019 10:00 AM DELIVERY DRIVER) Specimen Description Vagina 07/12/2019 12:[address] [facility] [place] Chlamydia Trachomatis PCR Negative NEG^Negat mega 07/13/2019 3:07 PM DELIVERY DRIVER [facility] Comment: Negative for C. trachomatis rRNA by practice professional mediated amplification. A negative result by practice professional mediated amplification does not preclude the presence of C. trachomatis infection because results are dependent on proper and adequate collection, absence of inhibitors, and sufficient rRNA to be detected. Specimen from vagina (specimen) 07/12/2019 10:00 AM DELIVERY DRIVER 07/12/2019 12:47 PM DELIVERY DRIVER us Jordan Larsen Masters DO LAB - MICRO GENERAL ORD ERABLES Final Result [facility] [address] [place], [place] [id number] [place] [address] [facility]OMEN [place] [address] [place] [phone] from Last 3 Months or Most Recently Relevant to Health Maintenance Insurance [facility] Care Teams Mesmerist Relationship Specialty Start Date End Date No Ref-Primary, Physician PCP - General 03/04/18
--- OUTSIDE RECORDS SUMMARY | 2024-06-12 16:11 | XMS_ITS | Encounter Summary ---
Author Organization [place] Address [address] [place] [address] Care Team Providers Care Black Oxide Coating Equipment Tender Name Role Phone No Ref-Primary, Physician Primary Care Provider Raghavendra Isaac MD Unavailable [phone] Deonte Miramontes MD Unavailable sLinda DO Unavailable [phone] Encounter Details Date Type Department Care Team (Late st Contact Info) Description 02/12/2021 [facility] Medical Advice [address] [address] Halina Granados, [facility] Social History Tobacco Use Types Packs/Day Years [...] Answer Date Recorded PHQ-2 Score 0 03/27/2020 [place] Depression Scale Answer Date Recorded [place] Depression Score 6 02/01/2020 Last EPDS Self Harm Result Not on file 01/31 Comments No Sex and Gender Information Value Date Recorded Sex Assigned at Female 11/25/2020 9:34 PM CDT Legal Sex Female 3:20 AM TYPE BAR AND SEGMENT ASSEMBLER Gender Identity Female 11/25/2020 9:34 PM CDT Sexual Orientation Straight 11/25/2020 9: 34 PM CDT documented as of this encounter Plan of Treatment Not on file documented as of this encounter Visit Diagnoses Not on filedocumented in this encounter Additional Health Concerns Assessment Noted Time PHQ-9 Depression Total Score: 0 03/27/20 20 11:40 AM CDT documented as of this encounter Care Teams Black Oxide Coating Equipment Tender Relationship Specialty Start Date End Date No Ref-Primary, Physician PCP - General 03/04/18 Raghavendra Isaac MD [address] [place] [address] Assigned PCP 11/30/18 12/25/21 Deonte Miramontes MD [address] [place] [address] Assigned Surgical Provider 05/23/20 sLinda DO [address] [place] [address] Assigned OBGYN Provider 05/23/20 documented as of this encounter
--- OUTSIDE RECORDS SUMMARY | 2024-06-12 16:11 | XMS_ITS | Encounter Summary ---
Author Organization [place] Address [address] [place] [address]. [place] [address] Care Team Providers Care Ammonia Box Tender Name Role Phone No Ref-Primary, Physician Primary Care Provider Encounter Details Date Type Department Care Team (Late st Contact Info) Description 07/28/2023 MyC Medical Advice PHYS STANDARD [address] [place] [phone] [facility] Social History Tobacco Use Types Packs/Day Years [...] Answer Date Recorded PHQ-2 Score 0 03/27/2020 [place] Depression Scale Answer Date Recorded [place] Depression Score 6 02/01/2020 Last EPDS Self Harm Result Not on file 01/31 Adolescent Education Answer Date Record ed Getting School Help Needed Not on file 05/10 Comments No Sex and Gender Information Value Date Recorded Sex Assigned at Female 11/25/2020 9:34 PM CDT Legal Sex Female 3:20 AM CAREER DEVELOPMENT FACILITATOR Gender Identity Female 11/25/2020 9:34 PM CDT Sexual Orientation Straight 11/25/2020 9: 34 PM CDT documented as of this encounter Plan of Treatment Not on file documented as of this encounter Visit Diagnoses Not on filedocumented in this encounter Additional Health Concerns Assessment Noted Time PHQ-9 Depression Total Score: 0 03/27/20 20 11:40 AM CDT documented as of this encounter Care Teams Ammonia Box Tender Relationship Specialty Start Date End Date No Ref-Primary, Physician PCP - General 03/04/18 documented as of this encounter
--- OUTSIDE RECORDS SUMMARY | 2024-06-12 16:11 | XMS_ITS | Encounter Summary ---
Author Organization [place] Address [address] [place] [address]. [place] [address] Care Team Providers Care Solution Specialist Name Role Phone No Ref-Primary, Physician Primary Care Provider Raghavendra Isaac MD Unavailable [phone] Deonte Miramontes MD Unavailable [phone] sLinda DO Unavailable [phone] Encounter Details Date Type Department Care Team (Late st Contact Info) Description 01/28/2020 MyC Medical Advice [facility] [address] [place] [address] sLinda DO [address] [place] [address] [place], [place] [address] Social History Tobacco Use Types Packs/Day Years [...] Answer Date Recorded PHQ-2 Score 0 12/21/2018 [place] Depression Scale Answer Date Recorded [place] Depression Score 6 02/01/2020 Last EPDS Self Harm Result Not on file 01/31 Comments Yes Sex and Gender Information Value Date Recorded Sex Assigned at Female 11/25/2020 9:34 PM CDT Legal Sex Female 3:20 AM EMPLOYMENT ADVISOR Gender Identity Female 11/25/2020 9:34 PM CDT [...] Depression Total Score: 0 07/12/20 10:37 AM EMPLOYMENT ADVISOR documented as of this encounter Care Teams Solution Specialist Relationship Specialty Start Date End Date No Ref-Primary, Physician PCP - General 03/04/18 Raghavendra Isaac MD [address] [place] [address] Assigned PCP 11/30/18 12/25/21 Deonte Miramontes MD [address] [place] [address] Assigned Surgical Provider 05/23/20 Linda Hinojosa DO [address] [place] [address] Assigned OBGYN Provider 05/23/20 documented as of this encounter
--- OUTSIDE RECORDS SUMMARY | 2024-06-12 16:11 | XMS_ITS | Encounter Summary ---
Author Organization [place] Address [address] [place] [address] Care Team Providers Care Case Operator Name Role Phone No Ref-Primary, Physician Primary Care Provider Deonte Miramontes MD Unavailable [phone] Encounter Details Date Type Department Care Team ([facility] st Contact Info) Description 05/07/2022 [facility] [place] [facility] Medical Advice [facility] [address] [address] Beverly Garnica, KERI Social History Tobacco Use [...] Answer Date Recorded PHQ-2 Score 0 03/27/2020 [place] Depression Scale Answer Date Recorded [place] Depression Score 6 02/01/2020 Last EPDS Self Harm Result Not on file 01/31 Comments Unknown Sex and Gender Information Value Date Recorded Sex Assigned at Female 11/25/2020 9:34 PM CDT Legal Sex Female 3:20 AM GLOBAL SOURCING MANAGER Gender Identity Female 11/25/2020 9:34 PM CDT Sexual Orientation Straight 11/25/2020 9: 34 PM CDT documented as of this encounter Plan of Treatment Not on file documented as of this encounter Visit Diagnoses Not on filedocumented in this encounter Additional Health Concerns Assessment Noted Time PHQ-9 Depression Total Score: 0 03/27/20 20 11:40 AM CDT documented as of this encounter Care Teams Case Operator Relationship Specialty Start Date End Date No Ref-Primary, Physician PCP - General 03/04/18 Deonte Miramontes MD [address] [place] [address] Assigned Surgical Provider 05/23/20 documented as of this encounter
--- OUTSIDE RECORDS SUMMARY | 2024-06-12 16:11 | XMS_ITS | Encounter Summary ---
Author Organization [place] Address [address] [place] [address] Care Team Providers Care Digital Developer Name Role Phone No Ref-Primary, Physician Primary Care Provider Deonte Miramontes MD Unavailable [phone] Encounter Details Date Type Department Care Team ([facility] st Contact Info) Description 04/28/2022 [facility] [address] [phone] Vanna Carroll, KERI Social History Tobacco Use Types Packs/Day [...] Answer Date Recorded PHQ-2 Score 0 03/27/2020 [place] Depression Scale Answer Date Recorded [place] Depression Score 6 02/01/2020 Last EPDS Self Harm Result Not on file 01/31 Comments No Sex and Gender Information Value Date Recorded Sex Assigned at Female 11/25/2020 9:34 PM CDT Legal Sex Female 3:20 AM INVESTMENT SPECIALIST Gender Identity Female 11/25/2020 9:34 PM CDT Sexual Orientation Straight 11/25/2020 9: 34 PM CDT documented as of this encounter Plan of Treatment Not on file documented as of this encounter Visit Diagnoses Not on filedocumented in this encounter Additional Health Concerns Assessment Noted Time PHQ-9 Depression Total Score: 0 03/27/20 20 11:40 AM CDT documented as of this encounter Care Teams Digital Developer Relationship Specialty Start Date End Date No Ref-Primary, Physician PCP - General 03/04/18 Deonte Miramontes MD [address] [place] [address] Assigned Surgical Provider 05/23/20 documented as of this encounter
--- OUTSIDE RECORDS SUMMARY | 2024-06-12 16:11 | XMS_ITS | Encounter Summary ---
Author Organization [place] Address [address] [place] [address]. [place] [address] Care Team Providers Care Center Director Lead Teacher Name Role Phone No Ref-Primary, Physician Primary Care Provider Raghavendra Isaac MD Unavailable [phone] Deonte Miramontes MD Unavailable [phone] MastersLinda DO Unavailable [phone] Encounter Details Date Type Department Care Team (Late st Contact Info) Description 04/09/2021 MyC Medical Advice [facility] [place] [address] [place] [address] Deonte Miramontes MD [address] [facility] [address] [place] [id number] Social History Tobacco Use Types Packs/Day Years [...] Answer Date Recorded PHQ-2 Score 0 03/27/2020 [place] Depression Scale Answer Date Recorded [place] Depression Score 6 02/01/2020 Last EPDS Self Harm Result Not on file 01/31 Comments No Sex and Gender Information Value Date Recorded Sex Assigned at Female 11/25/2020 9:34 PM CDT Legal Sex Female 3:20 AM VACUUM EVAPORATION OPERATOR Gender Identity Female 11/25/2020 9:34 PM CDT [...] documented as of this encounter Care Teams Center Director Lead Teacher Relationship Specialty Start Date End Date No Ref-Primary, Physician PCP - General 03/04/18 Raghavendra Isaac MD [address] [place] [address] [address] [place] [address] Assigned PCP 11/30/18 12/25/21 Deonte Miramontes MD [address] [place] [address] Assigned Surgical Provider 05/23/20 sLinda DO [address] [place] [address] Assigned OBGYN Provider 05/23/20 documented as of this encounter
--- OUTSIDE RECORDS SUMMARY | 2024-06-12 16:11 | XMS_ITS | Encounter Summary ---
Author Organization [place] Address [address] [place] [address] Care Team Providers Care Gas Treater Name Role Phone No Ref-Primary, Physician Primary Care Provider Raghavendra Isaac MD Unavailable Deonte Miramontes MD Unavailable [phone] sLinda DO Unavailable [phone] Reason for Visit * Reason Onset Date Comments Refill Request 02/04/2020 Encounter Details Date Type Department Care Team (Late st Contact Info) Description 02/04/2020 [facility] [place] [place] [facility] [address] [address] Raghavendra Isaac MD [address] [place] [address] [place] [address] Refill Request Social History Tobacco [...] Answer Date Recorded PHQ-2 Score 0 12/21/2018 [place] Depression Scale Answer Date Recorded [place] Depression Score 6 02/01/2020 Last EPDS Self Harm Result Not on file 01/31 Comments No Sex and Gender Information Value Date Recorded Sex Assigned at Female 11/25/2020 9:34 PM CDT Legal Sex Female 3:20 AM STATISTICS INTERN Gender Identity Female 11/25/2020 9:34 PM CDT [...] Total Score: 0 07/12/20 19 10:37 AM STATISTICS INTERN documented as of this encounter Care Teams Gas Treater Relationship Specialty Start Date End Date No Ref-Primary, Physician PCP - General 03/04/18 Raghavendra Isaac MD [address] [place] [address] [address] [place] [address] Assigned PCP 11/30/18 12/25/21 Deonte Miramontes MD [address] [place] [address] Assigned Surgical Provider 05/23/20 Linda Hinojosa DO [address] [place] [address] Assigned OBGYN Provider 05/23/20 documented as of this encounter
--- OUTSIDE RECORDS SUMMARY | 2024-06-12 16:11 | XMS_ITS | Encounter Summary ---
Author Organization [place] Address [address] [place] [address] Care Team Providers Care Director Of Housing Name Role Phone No Ref-Primary, Physician Primary Care Provider Raghavendra Isaac MD Unavailable [phone] Deonte Miramontes MD Unavailable [phone] sLinda DO Unavailable [phone] Encounter Details Date Type Department Care Team (Late st Contact Info) Description 08/16/2019 [facility] [place] [facility] [address] [place] [phone] Charito Barbour, KERI Social History Tobacco [...] PM CDT Legal Sex Female 3:20 AM KRAFT MILL OPERATOR Gender Identity Female 11/25/2020 9:34 PM CDT Sexual Orientation Straight 11/25/2020 9: 34 PM CDT documented as of this encounter Plan of Treatment Not on file documented as of this encounter Visit Diagnoses Not on filedocumented in this encounter Additional Health Concerns Assessment Noted Time PHQ-9 Depression Total Score: 0 07/12/20 10:37 AM KRAFT MILL OPERATOR documented as of this encounter Care Teams Director Of Housing Relationship Specialty Start Date End Date No Ref-Primary, Physician PCP - General 03/04/18 Raghavendra Isaac MD [address] [place] [address] Assigned PCP 11/30/18 12/25/21 Deonte Miramontes MD [address] [place] [address] Assigned Surgical Provider 05/23/20 Linda Hinojosa DO [address] [place] [address] Assigned OBGYN Provider 05/23/20 documented as of this encounter
--- OUTSIDE RECORDS SUMMARY | 2024-06-12 16:11 | XMS_ITS | Encounter Summary ---
Author Organization [place] Address [address] [place] [address] Care Team Providers Care Internal Audit Manager Name Role Phone No Ref-Primary, Physician Primary Care Provider Raghavendra Isaac MD Unavailable [phone] Deonte Miramontes MD Unavailable [phone] sLinda DO Unavailable [phone] Encounter Details Date Type Department Care Team (Late st Contact Info) Description 12/04/2019 [facility] [address] [address] [facility] Social History Tobacco Use Types Packs/Day [...] PM CDT Legal Sex Female 3:20 AM CLIENT TECHNOLOGIES SPECIALIST Gender Identity Female 11/25/2020 9:34 PM [...] Total Score: 0 07/12/20 10:37 AM CLIENT TECHNOLOGIES SPECIALIST documented as of this encounter Care Teams Internal Audit Manager Relationship Specialty Start Date End Date No Ref-Primary, Physician PCP - General 03/04/18 Raghavendra Isaac MD [address] [place] [address] Assigned PCP 11/30/18 12/25/21 Deonte Miramontes MD [address] [place] [address] Assigned Surgical Provider 05/23/20 Linda Hinojosa DO [address] [place] [address] Assigned OBGYN Provider 05/23/20 documented as of this encounter
--- NOTE | 2024-06-12 17:49 | PC.OBNST ---
NST Note NST Note Start: 06/12/24 16:14 Freq: ONCE Status: Active Protocol: Document 06/12/24 17:34 JOSE (Rec: 06/12/24 17:35 JOSE [id number]) NST Note 4 Para (# of births) 2 EDC 08/08/24 Gestational Age In Weeks & Days 31 Weeks & 6 Days Patient Presented with Complaint(s) of Headache Other Complaints Increased BP, seeing floaters Reactive Yes Appropriate for Gestational Age Yes RN Christopher Toure RN Date 06/12/24 Reactive Yes Appropriate for Gestational Age Yes RN Imelda Rudd RN Date 06/12/24 OB NST charge Yes Complete NST Note via Write Note Yes The provider's electronic signature indicates the NST is reactive/appropriate for gestational age. *Note to provider: If an addendum is required, open the patient's chart and click on the note under the Nurse/Allied Health tab.
== END 2024-06-12 17:32 | disposition home or self-care (01) ==
LOC: OB OUT 16:09 → OB 16:09
PROVIDERS: Visit Provider Advanced Practice Midwife
DX: O26.893 Other specified pregnancy related conditions, third trimester (principal); R03.0 Elevated blood-pressure reading, without diagnosis of hypertension; H53.8 Other visual disturbances; Z3A.31 31 weeks gestation of pregnancy
CPT/HCPCS: 59025; 81003; G0463

== ENCOUNTER 2024-06-15 12:58 | Outpatient (CLI) | payer MEDICAID, SELFPAY ==
--- NOTE | 2024-06-15 13:00 | CRLHL7_ITS ---
For Patients: As a result of the Century Cures Act, medical imaging exams and procedure reports are released immediately into your electronic medical record. You may view this report before your referring provider. If you have questions, please contact your health care provider. OBSTETRICAL ULTRASOUND SOUMYA by LMP: 08/08/2024. GA: 32 weeks 2 days. Gestation: Restrepo. COMPARISONS: US 05/18, 04/11. INDICATION: GDM. Cervix: Not Visualized. Position: Vertex. Amniotic Fluid: 7.7 cm SDP (N: ? 2x 1 cm) Placenta Technique: TA. Placenta Position: Anterior. Heart Rate: 124 bpm. BIOMETRY BPD: 8.9 cm, 36 weeks 0 days, > 97th percentile. HC: 32.6 cm, 37 weeks 0 days, >97th percentile. AC: 30.0 cm, 34 weeks 0 days, 91st percentile. FL: 6.2 cm, 32 weeks 1 day, 32nd percentile. FL/AC Ratio: 20.61 percent. HC/AC Ratio: 1.09. EFW: 2315 grams, 5 pounds 2 ounces. Age by this US: 34 weeks 6 days. SOUMYA by this US: 07/21/2024. Percentile by SOUMYA: 88 percent. IMPRESSION: Single live intrauterine gestation at 34 weeks 6 days. SOUMYA of 07/21/2024. Estimated weight 2315 grams which lies at the 88th percentile. Sandra Turcios M.D. Diagnostic/Breast Radiologist [email or web address] ROBERT/latia / DW/Dictated by: Sandra Turcios MD @ 06/17/2024 11:53:00 AM (Electronically Signed)
--- OUTSIDE RECORDS SUMMARY | 2024-06-15 13:00 | XMS_ITS | Encounter Summary ---
Author Organization [place] Address [address] [place] [address] Care Team Providers Care Bank Note Designer Name Role Phone No Ref-Primary, Physician Primary Care Provider Deonte Miramontes MD Unavailable [phone] Encounter Details Date Type Department Care Team ([facility] st Contact Info) Description 04/28/2022 [facility] [place] Medical Advice [facility] [address] [phone] Vanna Carroll, KERI Social History Tobacco Use [...] Answer Date Recorded PHQ-2 Score 0 03/27/2020 [place] Depression Scale Answer Date Recorded [place] Depression Score 6 02/01/2020 Last EPDS Self Harm Result Not on file 01/31 Comments No Sex and Gender Information Value Date Recorded Sex Assigned at Female 11/25/2020 9:34 PM CDT Legal Sex Female 3:20 AM SOCIAL SECRETARY Gender Identity Female 11/25/2020 9:34 PM CDT Sexual Orientation Straight 11/25/2020 9: 34 PM CDT documented as of this encounter Plan of Treatment Not on file documented as of this encounter Visit Diagnoses Not on filedocumented in this encounter Additional Health Concerns Assessment Noted Time PHQ-9 Depression Total Score: 0 03/27/20 20 11:40 AM CDT documented as of this encounter Care Teams Bank Note Designer Relationship Specialty Start Date End Date No Ref-Primary, Physician PCP - General 03/04/18 Deonte Miramontes MD [address] [place] [address] Assigned Surgical Provider 05/23/20 documented as of this encounter
--- OUTSIDE RECORDS SUMMARY | 2024-06-15 13:00 | XMS_ITS | Encounter Summary ---
Author Organization [place] Address [address] [place] [address]. [place] [address] Care Team Providers Care Windlasser Name Role Phone No Ref-Primary, Physician Primary Care Provider Raghavendra Isaac MD Unavailable [phone] Deonte Miramontes MD Unavailable [phone] MastersLinda DO Unavailable [phone] Encounter Details Date Type Department Care Team (Late st Contact Info) Description 04/09/2021 MyC Medical Advice [facility] [place] [address] [place] [address] Deonte Miramontes MD [address] [facility] [address] [place] [id number] Social History Tobacco Use Types Packs/Day Years [...] Answer Date Recorded PHQ-2 Score 0 03/27/2020 [place] Depression Scale Answer Date Recorded [place] Depression Score 6 02/01/2020 Last EPDS Self Harm Result Not on file 01/31 Comments No Sex and Gender Information Value Date Recorded Sex Assigned at Female 11/25/2020 9:34 PM CDT Legal Sex Female 3:20 AM IT SYSTEMS ANALYST CONSULTANT Gender Identity Female 11/25/2020 9:34 PM CDT [...] documented as of this encounter Care Teams Windlasser Relationship Specialty Start Date End Date No Ref-Primary, Physician PCP - General 03/04/18 Raghavendra Isaac MD [address] [place] [address] [address] [place] [address] Assigned PCP 11/30/18 12/25/21 Deonte Miramontes MD [address] [place] [address] Assigned Surgical Provider 05/23/20 sLinda DO [address] [place] [address] Assigned OBGYN Provider 05/23/20 documented as of this encounter
--- OUTSIDE RECORDS SUMMARY | 2024-06-15 13:00 | XMS_ITS | Encounter Summary ---
Author Organization [place] Address [address] [place] [address]. [place] [address] Care Team Providers Care Jewelry Dipper Name Role Phone No Ref-Primary, Physician Primary Care Provider Encounter Details Date Type Department Care Team (Late st Contact Info) Description 07/28/2023 MyC Medical Advice PHYS STANDARD [address] [place] [phone] [facility] Social History Tobacco Use Types Packs/Day [...] Answer Date Recorded PHQ-2 Score 0 03/27/2020 [place] Depression Scale Answer Date Recorded [place] Depression Score 6 02/01/2020 Last EPDS Self Harm Result Not on file 01/31 Adolescent Education Answer Date Record ed Getting School Help Needed Not on file 05/10 Comments No Sex and Gender Information Value Date Recorded Sex Assigned at Female 11/25/2020 9:34 PM CDT Legal Sex Female 3:20 AM PAYROLL TAX ANALYST Gender Identity Female 11/25/2020 9:34 PM CDT Sexual Orientation Straight 11/25/2020 9: 34 PM CDT documented as of this encounter Plan of Treatment Not on file documented as of this encounter Visit Diagnoses Not on filedocumented in this encounter Additional Health Concerns Assessment Noted Time PHQ-9 Depression Total Score: 0 03/27/20 20 11:40 AM CDT documented as of this encounter Care Teams Jewelry Dipper Relationship Specialty Start Date End Date No Ref-Primary, Physician PCP - General 03/04/18 documented as of this encounter
--- OUTSIDE RECORDS SUMMARY | 2024-06-15 13:00 | XMS_ITS | Clinical Summary ---
Author Organization [place] Address [address] [place] [address] Care Team Providers Care Negative Spotter Name Role Phone No Ref-Primary, Physician Primary [...] Answer Date Recorded PHQ-2 Score 0 03/27/2020 [place] Depression Scale Answer Date Recorded [place] Depression Score 6 02/01/2020 Last EPDS Self Harm Result Not on file 01/31 Adolescent Education Answer Date Record ed Getting School Help Needed Not on file 05/10 Comments No Sex and Gender Information Value Date Recorded Sex Assigned at Female 11/25/2020 9:34 PM CDT Legal Sex Female 3:20 AM CHAIN SAW MECHANIC Gender Identity Female 11/25/2020 9:34 PM CDT [...] this topic Medical Devices Implanted Type Area Needle Valve Operator Device Identifier Shelf Expiration Date Model / Serial / Lot Mesh Symbotex Composite Stex Round 12cm Sym12 Implanted:Qty: 1 on 08/25/2020 by Deonte Miramontes MD at [facility] Mesh N/A: Abdomen COVIDIEN [id number] 01/28/2025 [id number] / / [id number] Procedures Procedure Name Priority Date/Time Associated Diagnosis Comments HIV ANTIGEN ANTIBODY COMBO Routine 07/12/2019 12:12 PM CHAIN SAW MECHANIC Supervision of high risk in first trimester PAP IMAGED THIN LAYER SCREEN Routine 07/12/2019 12:11 PM CHAIN SAW MECHANIC Screening for malignant neoplasm of cervix CHLAMYDIA TRACHOMATIS PCR Routine 07/12/2019 10:00 AM CHAIN SAW MECHANIC Supervision of high risk in first trimester from Last 3 Months or Most Recently Relevant to Health Maintenance Results * HIV Antigen Antibody Combo (07/12/2019 12:12 PM CHAIN SAW MECHANIC) HIV Antigen Antibody Combo Nonreactive NR^Nonrea ctive 07/13/2019 9:52 AM CHAIN SAW MECHANIC [facility] Comment:HIV-1 p24 Ag & HIV-1 /HIV-2 Ab Not Detected Blood specimen (specimen) 07/12/2019 12:12 PM CHAIN SAW MECHANIC 07/12/2019 12:13 PM CHAIN SAW MECHANIC us Jordan Larsen Masters DO LAB - BLOOD ORDERABLES Final Result [facility] [address] [place] [address] * Pap imaged thin layer screen only - recommended age 21 - 24 years (07/12/2019 12:11 PM CHAIN SAW MECHANIC) PAP NIL BABITA [place] Report Patient Name: MAURO MOLINA MR#: [id number] Specimen #: [id number] Collected: 07/12/2019 Received: 07/13/2019 Reported: 07/16/2019 13:34 [...] or other cancers. COLLECTION SITE: Client: ??[facility] Location: [facility] (S) The technical component of this testing was completed at the [facility], with the professional component performed at the [facility], [address] [place] [address] ([phone]) COPATH Cytologic material (specimen) 07/12/2019 12:11 PM CHAIN SAW MECHANIC 07/13/2019 9:42 AM CHAIN SAW MECHANIC us Jordan Larsen Masters DO LAB - OPTIME CLINICAL S PECIMEN Final Result Performing Organization Address City/[facility]/ZIP Co de Phone Number COPATH * Chlamydia trachomatis PCR (07/12/2019 10:00 AM CHAIN SAW MECHANIC) Specimen Description Vagina 07/12/2019 12:48 PM CHAIN SAW MECHANIC [facility] [place] Chlamydia Trachomatis PCR Negative NEG^Negat mega 07/13/2019 3:07 PM CHAIN SAW MECHANIC [facility] Comment: Negative for C. trachomatis rRNA by mainframe programmer analyst mediated amplification. A negative result by mainframe programmer analyst mediated amplification does not preclude the presence of C. trachomatis infection because results are dependent on proper and adequate collection, absence of inhibitors, and sufficient rRNA to be detected. Specimen from vagina (specimen) 07/12/2019 10:00 AM CHAIN SAW MECHANIC 07/12/2019 12:47 PM CHAIN SAW MECHANIC us Jordan Larsen Masters DO LAB - MICRO GENERAL ORD ERABLES Final Result [facility] [address] [place], [place] [id number] [place] [address] [facility] [place] [address] [place] [phone] from Last 3 Months or Most Recently Relevant to Health Maintenance Insurance [facility] Care Teams Negative Spotter Relationship Specialty Start Date End Date No Ref-Primary, Physician PCP - General 03/04/18
--- OUTSIDE RECORDS SUMMARY | 2024-06-15 13:00 | XMS_ITS | Referral Summary ---
Author Organization [place] Address [address] [place] [address] Care Team Providers Care Docent Coordinator Name Role Phone No Ref-Primary, Physician [...] Answer Date Recorded PHQ-2 Score 0 03/27/2020 [place] Depression Scale Answer Date Recorded [place] Depression Score 6 02/01/2020 Last EPDS Self Harm Result Not on file 01/31 Adolescent Education Answer Date Record ed Getting School Help Needed Not on file 05/10 Comments No Sex and Gender Information Value Date Recorded Sex Assigned at Female 11/25/2020 9:34 PM CDT Legal Sex Female 3:20 AM DIRECTOR OF COUNSELING Gender Identity Female 11/25/2020 9:34 PM CDT [...] on file Medical Devices Implanted Type Area Entry Engineer Device Identifier Shelf Expiration Date Model / Serial / Lot Mesh Symbotex Composite Stex Round 12cm Sym12 Implanted:Qty: 1 on 08/25/2020 by Deonte Miramontes MD at [facility] Mesh N/A: Abdomen COVIDIEN [id number] 01/28/2025 [id number] / / [id number] Procedures Procedure Name Priority Date/Time Associated Diagnosis Comments HIV ANTIGEN ANTIBODY COMBO Routine 07/12/2019 12:12 PM DIRECTOR OF COUNSELING Supervision of high risk in first trimester PAP IMAGED THIN LAYER SCREEN Routine 07/12/2019 12:11 PM DIRECTOR OF COUNSELING Screening for malignant neoplasm of cervix CHLAMYDIA TRACHOMATIS PCR Routine 07/12/2019 10:00 AM DIRECTOR OF COUNSELING Supervision of high risk in first trimester from Last 3 Months or Most Recently Relevant to Health Maintenance Results * HIV Antigen Antibody Combo (07/12/2019 12:12 PM DIRECTOR OF COUNSELING) HIV Antigen Antibody Combo Nonreactive NR^Nonrea ctive 07/13/2019 9:52 AM DIRECTOR OF COUNSELING [facility] Comment:HIV-1 p24 Ag & HIV-1 /HIV-2 Ab Not Detected Blood specimen (specimen) 07/12/2019 12:12 PM DIRECTOR OF COUNSELING 07/12/2019 12:13 PM DIRECTOR OF COUNSELING us Jordan Larsen Masters DO LAB - BLOOD ORDERABLES Final Result [facility] [address] [place] [address] * Pap imaged thin layer screen only - recommended age 21 - 24 years (07/12/2019 12:11 PM DIRECTOR OF COUNSELING) PAP NIL BABITA [place] Report Patient Name: MEG MOLINA MR#: [id number] Specimen #: [id number] Collected: 07/12/2019 Received: 07/13/2019 Reported: 07/16/2019 13:34 [...] adenocarcinomas or other cancers. COLLECTION SITE: Client: ??[facility] Location: [facility] (S) The technical component of this testing was completed at the [facility], with the professional component performed at the [facility], [address] [place] [address] ([phone]) COPATH Cytologic material (specimen) 07/12/2019 12:11 PM DIRECTOR OF COUNSELING 07/13/2019 9:42 AM DIRECTOR OF COUNSELING us Jordan Larsen Masters DO LAB - OPTIME CLINICAL S PECIMEN Final Result Performing Organization Address City/[facility]/ZIP Co de Phone Number COPATH * Chlamydia trachomatis PCR (07/12/2019 10:00 AM DIRECTOR OF COUNSELING) Specimen Description Vagina 07/12/2019 12:48 PM DIRECTOR OF COUNSELING [facility] Chlamydia Trachomatis PCR Negative NEG^Negat mega 07/13/2019 3:07 PM DIRECTOR OF COUNSELING [facility] Comment: Negative for C. trachomatis rRNA by organ assembler mediated amplification. A negative result by organ assembler mediated amplification does not preclude the presence of C. trachomatis infection because results are dependent on proper and adequate collection, absence of inhibitors, and sufficient rRNA to be detected. Specimen from vagina (specimen) 07/12/2019 10:00 AM DIRECTOR OF COUNSELING 07/12/2019 12:47 PM DIRECTOR OF COUNSELING us Jordan Larsen Masters DO LAB - MICRO GENERAL ORD ERABLES Final Result [facility] [address] [place] [id number] [place] [address] [facility] [address] [phone] from Last 3 Months or Most Recently Relevant to Health Maintenance [facility] Care Teams Docent Coordinator Relationship Specialty Start Date End Date No Ref-Primary, Physician PCP - General 03/04/18
--- OUTSIDE RECORDS SUMMARY | 2024-06-15 13:00 | XMS_ITS | Encounter Summary ---
Author Organization [place] Address [address] [place] [address] Care Team Providers Care Central Sterile Supply Technician Name Role Phone No Ref-Primary, Physician Primary Care Provider Deonte Miramontes MD Unavailable [phone] Encounter Details Date Type Department Care Team ([facility] st Contact Info) Description 05/07/2022 [facility] Medical Advice [facility] [address] [address] Beverly Garnica, KERI Social History [...] Answer Date Recorded PHQ-2 Score 0 03/27/2020 [place] Depression Scale Answer Date Recorded [place] Depression Score 6 02/01/2020 Last EPDS Self Harm Result Not on file 01/31 Comments Unknown Sex and Gender Information Value Date Recorded Sex Assigned at Female 11/25/2020 9:34 PM CDT Legal Sex Female 3:20 AM PROJECT CONTROLS SPECIALIST Gender Identity Female 11/25/2020 9:34 PM CDT Sexual Orientation Straight 11/25/2020 9: 34 PM CDT documented as of this encounter Plan of Treatment Not on file documented as of this encounter Visit Diagnoses Not on filedocumented in this encounter Additional Health Concerns Assessment Noted Time PHQ-9 Depression Total Score: 0 03/27/20 20 11:40 AM CDT documented as of this encounter Care Teams Central Sterile Supply Technician Relationship Specialty Start Date End Date No Ref-Primary, Physician PCP - General 03/04/18 Deonte Miramontes MD [address] [place] [address] Assigned Surgical Provider 05/23/20 documented as of this encounter
--- OUTSIDE RECORDS SUMMARY | 2024-06-15 13:00 | XMS_ITS | Encounter Summary ---
Author Organization [place] Address [address] [place] [address]. [place] [address] Care Team Providers Care Charging Plug Placer Name Role Phone No Ref-Primary, Physician Primary Care Provider Raghavendra Isaac MD Unavailable [phone] Deonte Miramontes MD Unavailable [phone] sLinda DO Unavailable [phone] Encounter Details Date Type Department Care Team (Late st Contact Info) Description 01/28/2020 [facility] Medical Advice [facility] [address] [place] [address] sLinda DO [address] [facility] [address] [place], [place] [id number] Social History Tobacco Use Types Packs/Day Years [...] Answer Date Recorded PHQ-2 Score 0 12/21/2018 [place] Depression Scale Answer Date Recorded [place] Depression Score 6 02/01/2020 Last EPDS Self Harm Result Not on file 01/31 Comments Yes Sex and Gender Information Value Date Recorded Sex Assigned at Female 11/25/2020 9:34 PM CDT Legal Sex Female 3:20 AM CORN DETASSELER MACHINE OPERATOR Gender Identity Female 11/25/2020 9:34 PM [...] Depression Total Score: 0 07/12/20 10:37 AM CORN DETASSELER MACHINE OPERATOR documented as of this encounter Care Teams Charging Plug Placer Relationship Specialty Start Date End Date No Ref-Primary, Physician PCP - General 03/04/18 Raghavendra Isaac MD [address] [place] [address] Assigned PCP 11/30/18 12/25/21 Deonte Miramontes MD [address] [place] [address] Assigned Surgical Provider 05/23/20 Linda Hinojosa DO [address] [place] [address] Assigned OBGYN Provider 05/23/20 documented as of this encounter
--- OUTSIDE RECORDS SUMMARY | 2024-06-15 13:00 | XMS_ITS | Encounter Summary ---
Author Organization [place] Address [address] [place] [address] Care Team Providers Care Sports Equipment Supervisor Name Role Phone No Ref-Primary, Physician Primary Care Provider Raghavendra Isaac MD Unavailable [phone] Deonte Miramontes MD Unavailable [phone] sLinda DO Unavailable [phone] Encounter Details Date Type Department Care Team (Late st Contact Info) Description 03/20/[address] [facility] [address] [place] [address] Beverly Kent MD [facility] [address] [facility] [address] [place] [address] Social History Tobacco Use Types [...] Answer Date Recorded PHQ-2 Score 0 03/27/2020 [place] Depression Scale Answer Date Recorded [place] Depression Score 6 02/01/2020 Last EPDS Self Harm Result Not on file 01/31 Comments No Sex and Gender Information Value Date Recorded Sex Assigned at Female 11/25/2020 9:34 PM CDT Legal Sex Female 3:20 AM GTA Gender Identity Female 11/25/2020 9:34 PM CDT [...] documented as of this encounter Care Teams Sports Equipment Supervisor Relationship Specialty Start Date End Date No Ref-Primary, Physician PCP - General 03/04/18 Raghavendra Isaac MD [address] [place] [address] Assigned PCP 11/30/18 12/25/21 Deonte Miramontes MD [address] [place] [address] Assigned Surgical Provider 05/23/20 sLinda DO [address] [place] [address] Assigned OBGYN Provider 05/23/20 documented as of this encounter
--- OUTSIDE RECORDS SUMMARY | 2024-06-15 13:00 | XMS_ITS | Encounter Summary ---
Author Organization [facility] Address [address] [place] [address] Care Team Providers Care Chilling Hood Operator Name Role Phone No Ref-Primary, Physician Primary Care Provider Raghavendra Isaac MD Unavailable [phone] Deonte Miramontes MD Unavailable [phone] sLinda DO Unavailable [phone] Encounter Details Date Type Department Care Team (Late st Contact Info) Description 08/16/2019 [facility] Medical Advice [facility] [address] [place] [address] Charito Barbour, KERI Social History Tobacco [...] PM CDT Legal Sex Female 3:20 AM APPEALS REFEREE Gender Identity Female 11/25/2020 9:34 PM CDT Sexual Orientation Straight 11/25/2020 9: 34 PM CDT documented as of this encounter Plan of Treatment Not on file documented as of this encounter Visit Diagnoses Not on filedocumented in this encounter Additional Health Concerns Assessment Noted Time PHQ-9 Depression Total Score: 0 07/12/20 10:37 AM APPEALS REFEREE documented as of this encounter Care Teams Chilling Hood Operator Relationship Specialty Start Date End Date No Ref-Primary, Physician PCP - General 03/04/18 Raghavendra Isaac MD [address] [place] [address] Assigned PCP 11/30/18 12/25/21 Deonte Miramontes MD [address] [place] [address] Assigned Surgical Provider 05/23/20 Linda Hinojosa DO [address] [place] [address] Assigned OBGYN Provider 05/23/20 documented as of this encounter
--- OUTSIDE RECORDS SUMMARY | 2024-06-15 13:00 | XMS_ITS | Encounter Summary ---
Author Organization [place] Address [address] [place] [address] Care Team Providers Care Relay Motorman Name Role Phone No Ref-Primary, Physician Primary Care Provider Raghavendra Isaac MD Unavailable [phone] Deonte Miramontes MD Unavailable [phone] sLinda DO Unavailable [phone] Encounter Details Date Type Department Care Team (Late st Contact Info) Description 12/04/2019 [facility] [address] [address] [facility] Social History Tobacco Use Types Packs/Day [...] PM CDT Legal Sex Female 3:20 AM SHADE MATCHER Gender Identity Female 11/25/2020 9:34 PM CDT [...] Depression Total Score: 0 07/12/20 10:37 AM SHADE MATCHER documented as of this encounter Care Teams Relay Motorman Relationship Specialty Start Date End Date No Ref-Primary, Physician PCP - General 03/04/18 Raghavendra Isaac MD [address] [place] [address] Assigned PCP 11/30/18 12/25/21 Deonte Miramontes MD [address] [place] [address] Assigned Surgical Provider 05/23/20 Linda Hinojosa DO [address] [place] [address] Assigned OBGYN Provider 05/23/20 documented as of this encounter
--- OUTSIDE RECORDS SUMMARY | 2024-06-15 13:00 | XMS_ITS | Encounter Summary ---
Author Organization [place] Address [address] [place] [address] Care Team Providers Care Sales And Leasing Agent Name Role Phone No Ref-Primary, Physician Primary Care Provider Raghavendra Isaac MD Unavailable [phone] Deonte Miramontes MD Unavailable [phone] sLinda DO Unavailable [phone] Encounter Details Date Type Department Care Team (Late st Contact Info) Description 02/12/2021 [facility] [place] Medical Advice [address] [address] Halina Granados, [facility] Social History Tobacco Use Types Packs/Day Years [...] Answer Date Recorded PHQ-2 Score 0 03/27/2020 [place] Depression Scale Answer Date Recorded [place] Depression Score 6 02/01/2020 Last EPDS Self Harm Result Not on file 01/31 Comments No Sex and Gender Information Value Date Recorded Sex Assigned at Female 11/25/2020 9:34 PM CDT Legal Sex Female 3:20 AM INSTRUMENT CHECKER Gender Identity Female 11/25/2020 9:34 PM CDT Sexual Orientation Straight 11/25/2020 9: 34 PM CDT documented as of this encounter Plan of Treatment Not on file documented as of this encounter Visit Diagnoses Not on filedocumented in this encounter Additional Health Concerns Assessment Noted Time PHQ-9 Depression Total Score: 0 03/27/20 20 11:40 AM CDT documented as of this encounter Care Teams Sales And Leasing Agent Relationship Specialty Start Date End Date No Ref-Primary, Physician PCP - General 03/04/18 Raghavendra Isaac MD [address] [place] [address] Assigned PCP 11/30/18 12/25/21 Deonte Miramontes MD [address] [place] [address] Assigned Surgical Provider 05/23/20 sLinda DO [address] [place] [address] Assigned OBGYN Provider 05/23/20 documented as of this encounter
--- OUTSIDE RECORDS SUMMARY | 2024-06-15 13:00 | XMS_ITS | Encounter Summary ---
Author Organization [place] Address [address] [place] [address] Care Team Providers Care Pipe Fitter Supervisor Name Role Phone No Ref-Primary, Physician Primary Care Provider Raghavendra Isaac MD Unavailable [phone] Deonte Miramontes MD Unavailable [phone] sLinda DO Unavailable [phone] Reason for Visit * Reason Onset Date Comments Refill Request 02/04/2020 Encounter Details Date Type Department Care Team (Late st Contact Info) Description 02/04/[address] [facility] Refill [facility] [address] [address] Raghavendra Isaac MD [address] [place] [address] Refill Request Social History Tobacco [...] Answer Date Recorded PHQ-2 Score 0 12/21/2018 [place] Depression Scale Answer Date Recorded [place] Depression Score 6 02/01/2020 Last EPDS Self Harm Result Not on file 01/31 Comments No Sex and Gender Information Value Date Recorded Sex Assigned at Female 11/25/2020 9:34 PM CDT Legal Sex Female 3:20 AM NURSING CENTER TUTOR Gender Identity Female 11/25/2020 9:34 PM CDT [...] Total Score: 0 07/12/20 19 10:37 AM NURSING CENTER TUTOR documented as of this encounter Care Teams Pipe Fitter Supervisor Relationship Specialty Start Date End Date No Ref-Primary, Physician PCP - General 03/04/18 Raghavendra Isaac MD [address] [place] [address] [address] [place] [address] Assigned PCP 11/30/18 12/25/21 Deonte Miramontes MD [address] [place] [address] Assigned Surgical Provider 05/23/20 Linda Hinojosa DO [address] [place] [address] Assigned OBGYN Provider 05/23/20 documented as of this encounter
== END 2024-06-15 12:59 | disposition home or self-care (01) ==
LOC: US 12:58
PROVIDERS: Visit Provider Advanced Practice Midwife
DX: O24.410 Gestational diabetes mellitus in pregnancy, diet controlled (principal); Z3A.32 32 weeks gestation of pregnancy
CPT/HCPCS: 76816

== ENCOUNTER 2024-07-13 12:55 | Outpatient (CLI) | payer MEDICAID, SELFPAY ==
--- NOTE | 2024-07-13 13:00 | CRLHL7_ITS ---
For Patients: As a result of the Century Cures Act, medical imaging exams and procedure reports are released immediately into your electronic medical record. You may view this report before your referring provider. If you have questions, please contact your health care provider. INDICATION: Gestational diabetes TECHNIQUE: Limited transabdominal two-dimensional white-scale ultrasound examination. COMPARISON: 06/15/2024 and 05/18/2024 FINDINGS: There is a living fetus in cephalic lie with gestational age of 36 weeks 2 days by LMP and 38 weeks by today`s measurements. EDC based on LMP is 08/08/2024. BPD: 9.4 cm, 38 weeks 1 day Head circumference: 34.0 cm, 39 weeks 1 day Abdominal circumference: 35.8 cm, 39 weeks 5 days Femur length: 6.8 cm, 35 weeks 1 day HC/AC: 0.95 The weight is estimated at 3511 grams, the 96th percentile. The heart rate is measured at 161 beats per minute and the rhythm appears regular. The amniotic fluid volume is within normal limits with single deepest pocket of 2.8 cm. The placenta is anterior and superior to the cervical os. There is no evidence of previa. IMPRESSION: 1. Living fetus in cephalic lie with gestational age of 36 weeks 2 days by LMP and 38 weeks by today`s measurements. EDC based on LMP is 08/08/2024. 2. weight estimated at 3511 grams, the 96th percentile. Dictated by Ld Jack MD @ 07/14/2024 8:05:27 AM (Electronically Signed)
== END 2024-07-13 12:56 | disposition home or self-care (01) ==
LOC: US 12:56
PROVIDERS: Visit Provider Advanced Practice Midwife
DX: O24.410 Gestational diabetes mellitus in pregnancy, diet controlled (principal); Z3A.36 36 weeks gestation of pregnancy
CPT/HCPCS: 76816

== ENCOUNTER 2024-07-13 16:11 | Outpatient (CLI) | payer MEDICAID, SELFPAY ==
[2024-07-14 17:08] LABS: Strep B DNA Probe Negative (Negative)
[2024-07-14 17:40] LABS: Strep B Susceptibility Needed? No
== END 2024-07-13 16:12 | disposition home or self-care (01) ==
LOC: NFLDREF 16:12
PROVIDERS: PCP Advanced Practice Midwife; Visit Provider Advanced Practice Midwife
DX: O24.410 Gestational diabetes mellitus in pregnancy, diet controlled (principal); Z3A.36 36 weeks gestation of pregnancy
CPT/HCPCS: 87081; 87653

== ENCOUNTER 2024-07-26 20:27 | Inpatient (IN) | payer MEDICAID, SELFPAY ==
[2024-07-26] VITALS (16 sets, daily range): BP systolic 98–129; BP diastolic 53–86; PULSE 70–103; RESP 16–18; TEMP 37.1; O2SAT 90–98
[2024-07-26] MEDS: OXYTOCIN 30 unit/500 ML in NS 30 UNIT/500 ML BAG 300 UNIT IVPB (21:25)
[2024-07-26 21:29] LABS: Basophils Percent Auto 0.3 % (0.0-3.0); Eosinophils Percent Auto 0.1 % (0.0-7.0); Hematocrit 34.3 % (33.0-51.0); Immature Granulocytes Pct Auto 0.4 %; Mean Corpuscular HGB Conc 32 gm/dL (32-36); Mean Corpuscular Hemoglobin 26 pg (26-34); Mean Corpuscular Volume 81 fL (80-100); Monocytes Percent Auto 8.2 % (0.0-11.0); Platelet Count* 222 K/uL (140-440); Red Blood Count 4.25 m/uL (4.00-5.20); White Blood Count* 11.38 K/uL (4.50-11.00)
[2024-07-26 21:33] LABS: Slide Review Reflex No
--- NOTE | 2024-07-26 21:43 | P.LDBA_ITS ---
Subjective History of Present Illness Date Seen: 07/26/24 Narrative: Patient is being admitted to Labor and Delivery for active labor. She is a 28 year old at 38.1 weeks gestation. Her full history and physical was dictated by [] on []. Please see this for details. [] Specific Issues/Plans :Manuel #GDM Hx of GDM, desires to accept diagnosis this instead of 3 hour gct HgbA1c: 5.6 at NOB Recommend early gct at 20 weeks: passed 3of 4 3hr at 22.6 wks, fasting 98, 3hr low. Growth US at 32 weeks: 88%ile Growth US at 36 weeks: ordered IOL recommended at 39 0/7-40 6/7 # Pre-eclampsia with 1st w/out SF Recommend baby ASA at 12 weeks Baseline labs: WNL, p/c 0.03 # Umbilical hernia Repaired in 2020, recommended no repair until done childbearing PT referral sent at [facility] # Asthma, mild taking iron #Depression/Anxiety Stable on 20 mg Lexapro Counselor referral sent to [facility] at [facility] #Rh negative, A- blood type Had rhogam prior to NOB Recommend rhogam at 28 weeks: given 05/18/24 # BMI 41 at NOB HgbA1c: 5.6 Level II US w/ [facility] referral-ordered Referral to nutrition: referral placed Referral to Anesthesia: had with previous not indicated OB consult if BMI >45 at any time: GDM screening at 20 weeks Weekly BPP/NST starting at 34 weeks Growth US at 28 weeks: >97%ile Growth US at 34 weeks: recommended switch to 32 weeks due to GDM: 88%ile # Anemia. Hgb 10.4 at NOB. Repeat 10.3 ferritin 5.7 at 22.6 weeks Initiated IV iron infusions. Restart oral iron, hgb 10.7 at 28 weeks 34w:11.1 #Varicella non-immune, recommend vaccine . She thinks that she has been immunized in the past and hasn't maintained immunity. Check immunization records. Ultrasound: [facility] 04/11: Impression: 1. Restrepo at 23w 0d gestational age. 2. No anomalies commonly detected by ultrasound were identified in the detailed anatomic survey within the limits of ultrasound. 3. Growth parameters and estimated weight were consistent with gestational age predicted by assigned SOUMYA. 4. The amniotic fluid volume appeared normal. 5. On transabdominal imaging the cervix appeared long and closed. 06/15, 32 week Growth: EFW 88%ile, borderline SDP 7.7. Verex. 05/18/2024: Growth US >97%ile 07/13: Growth US EFW 96%ile Comments: Assessment:??G[ ] P[ ] at [ ] weeks gestation?? GBS [negative/positive]? Patient is coping [] with challenges of labor.?? Labor type: [Induced/Spontaneous], [Early/Active] labor? Category [1, 2, 3] FHR pattern.? complicated by: [] Plan:?? * ?Admit to L & D? * IV access: * Monitoring per policy: [continuous or intermittent]? * Candidate for analgesia of choice.? Planning [] for pain management * [Desires waterbirth.? Consent signed and Hep C negative] * [Expectant management at this time] [Reviewed risks and benefits of IOL with Cook balloon, Pitocin vs Cytotec/Cervidil. Pt prefers Cytotec. Pitocin to follow if needed.] * [GBS prophylaxis initiated for GBS positive status. Will treat with antibiotics per protocol.] * [Monitor blood pressures. Consider labs if continue to be elevated.]? * Patient encouraged to reposition and ambulate to promote physiologic labor and . * Anticipate ? OB Exam Physical Exam Vital signs: Pulse BP Pulse Ox 86 123/72 98 07/26/24 21:40 07/26/24 21:40 07/26/24 21:15 Detailed Labor and Delivery Exam Patient Gravid: Yes
--- NOTE | 2024-07-26 21:44 | PM.OBHPLI ---
OB - H&P: HPI Labor/Induction History of Present Illness Date Seen: 07/26/24 Chief Complaint: The patient is a 28 year old 4 para 3 at 38.1 weeks gestation by LMP, who presents with active labor. Chief complaint: maternity : 4 Para: 3 Date of last menstrual period: 11/02/23 Estimated date of delivery: 08/08/24 Gestational age based on last menstrual period: 38 Narrative: Meg Lebron is a 28 year old female Patient's care began at 9 and 6/7 weeks gestation.? She is dated by first trimester US consistent with LMP.? EDC is 08/08/24.? She has had routine visits since that time.? IMAGING:??? 1st trimester: 1. Single viable intrauterine with crown-rump length of 0.4 cm corresponding to a gestational age of 6 weeks, 0 days. 2. Subchorionic hemorrhage in the posterior left uterine body measuring 2.6 x 1.4 x 2.1 cm. IMPRESSION: 1. Single intrauterine gestation with estimated age of 8 weeks 4 days. 2. Regular cardiac activity is seen. 3. Increase in size of left-sided subchorionic hemorrhage, now measuring 4.3 x 2.8 x 1.7 centimeters. IMPRESSION: 1. Viable IUP. Good interval growth since the prior exam. 2. Subchorionic hemorrhage measures 3.3 x 3.0 x 1.6 cm versus 4.3 x 2.8 x 1.7 cm previously. ?? Anatomy scan:? [facility] 04/11: Impression: 1. Restrepo at 23w 0d gestational age. 2. No anomalies commonly detected by ultrasound were identified in the detailed anatomic survey within the limits of ultrasound. 3. Growth parameters and estimated weight were consistent with gestational age predicted by assigned SOUMYA. 4. The amniotic fluid volume appeared normal. 5. On transabdominal imaging the cervix appeared long and closed.?? Others: 06/15, 32 week Growth: EFW 88%ile, borderline SDP 7.7. Verex. 05/18/2024: Growth US >97%ile 07/13: Growth US EFW 96%ile Specific Issues/Plans :Manuel #GDM Hx of GDM, desires to accept diagnosis this instead of 3 hour gct HgbA1c: 5.6 at NOB Recommend early gct at 20 weeks: passed 3of 4 3hr at 22.6 wks, fasting 98, 3hr low. Growth US at 32 weeks: 88%ile Growth US at 36 weeks: ordered IOL recommended at 39 0/7-40 6/7 # Pre-eclampsia with 1st w/out SF Recommend baby ASA at 12 weeks Baseline labs: WNL, p/c 0.03 # Umbilical hernia Repaired in 2020, recommended no repair until done childbearing PT referral sent at [facility] # Asthma, mild taking iron #Depression/Anxiety Stable on 20 mg Lexapro Counselor referral sent to [facility] at [facility] #Rh negative, A- blood type Had rhogam prior to [facility] Recommend rhogam at 28 weeks: given 05/18/24 # BMI 41 at [facility] HgbA1c: 5.6 Level II US w/ MFM referral-ordered Referral to nutrition: referral placed Referral to Anesthesia: had with previous not indicated OB consult if BMI >45 at any time: GDM screening at 20 weeks Weekly BPP/NST starting at 34 weeks Growth US at 28 weeks: >97%ile Growth US at 34 weeks: recommended switch to 32 weeks due to GDM: 88%ile # Anemia. Hgb 10.4 at NOB. Repeat 10.3 ferritin 5.7 at 22.6 weeks Initiated IV iron infusions. Restart oral iron, hgb 10.7 at 28 weeks 34w:11.1 #Varicella non-immune, recommend vaccine . She thinks that she has been immunized in the past and hasn't maintained immunity. Check immunization records. Ultrasound: [facility] 04/11: Impression: 1. Restrepo at 23w 0d gestational age. 2. No anomalies commonly detected by ultrasound were identified in the detailed anatomic survey within the limits of ultrasound. 3. Growth parameters and estimated weight were consistent with gestational age predicted by assigned SOUMYA. 4. The amniotic fluid volume appeared normal. 5. On transabdominal imaging the cervix appeared long and closed. 06/15, 32 week Growth: EFW 88%ile, borderline SDP 7.7. Verex. 05/18/2024: Growth US >97%ile 07/13: Growth US EFW 96%ile History of Present Dating criteria: based on LMP care: good care Ultrasounds: normal 1st trimester US and normal mid trimester US complications: gestational diabetes complications comment: GDM A1 Medical complications: none Labs Blood type: A (-) negative Rubella: immune RPR/VDLR: nonreactive GBS status: negative HBsAG: negative Review of Systems Status of ROS: Reports: 10 or more systems reviewed and unremarkable except as noted in History and below Meds Home Medications and Allergies Home Medications ?Medication ?Instructions ?Recorded ?Confirmed ?Type [id number] 1 mg 1 tab PO DAILY 08/08/23 07/13/24 History tablet doxylamine succinate 25 mg tablet 25 mg PO QHS PRN 01/10/24 07/13/24 History (Unisom (doxylamine)) ferrous sulfate 325 mg (65 mg 325 mg PO QDAY 03/02/24 07/13/24 History iron) tablet (Feosol) ascorbate calcium (vitamin C) 500 500 mg PO QDAY 04/10/24 07/13/24 History mg tablet Allergies Allergy/AdvReac Type Severity Reaction Status Date / Time No Known Drug Allergies Allergy Verified 07/20/24 14:42 OB - H&P: Exam Physical Exam: Vital signs: Pulse BP Pulse Ox 86 123/72 98 07/26/24 21:40 07/26/24 21:40 07/26/24 21:15 Narrative: Vitals Reviewed Constitutional:? Alert and oriented x3 HEENT:? Normocephalic, atraumatic Neck:? Supple Lungs:? Clear to auscultation bilaterally Heart:? Regular rate and rhythm, no murmur, rub or gallop Abdomen:? Soft, nontender, and gravid. Vertex by Ghassan's, confirmed with cervical exam. Extremities:? No edema or erythema Cervix: 5 cm/100%/-1 station/vertex per RN NST: unable to obtain, poorly traced. FHR 130's moderate variability but no continuous tracing obtained. Patient progressing quickly Constitutional: Constitutional: moderate distress OB - Results Labs Labs: Short CBC 07/26/24 Range/Units 21:05 WBC 11.38 H (4.50-11.00) K/uL Hgb 11.0 L (12.0-16.0) gm/dL Hct 34.3 (33.0-51.0) % Plt Count 222 (140-440) K/uL OB - Problem Based A/P Additional Plan (1) Distress from pain in labor: Status: Acute (2) Gestational diabetes: Status: Acute (3) Anemia affecting : Status: Acute (4) Obesity affecting , antepartum: Status: Acute Plan Assessment:?? at 38.1 weeks gestation?? GBS negative? Patient is coping with challenges of labor.?? Labor type: Spontaneous, Active labor? Category 2 FHR pattern.? complicated by: #GDM, Hx of Preeclampsia, Umbilical hernia, mild asthma, Depression/Anxiety, Rh negative, Obesity prepregnancy BMI 4, anemia requiring iron infusion in , varicella non-immune. Plan:?? ?Admit to L & D? IV access: SL Monitoring per policy: continuous until NST or delivery? Candidate for analgesia of choice.? Planning epidural for pain management, using Nitrous until able to have placed or delivers Expectant management at this time ? Patient encouraged to reposition and ambulate to promote physiologic labor and . Anticipate ? Delivery/Labor/Induction Plan Plan: expectant management
--- NOTE | 2024-07-26 22:00 | W.PM.OBVAGDE ---
OB Procedure Vag Delivery Mother Details Mother Details: The patient is a 28 year-old, 4, Para 2, admitted on 07/26/24 at 38.1 weeks gestation. : 4 Para: 3 Weeks Gestation: 38.1 Admission Date: 07/26/24 Additional Details Amniotic Membrane Status: SROM Amniotic Membrane Rupture Date: 07/26/24 Amniotic Membrane Rupture Time: 13:30 Amniotic Membrane Fluid Description: Clear Analgesia/Anesthesia Type: Nitrous Oxide Waterbirth: No Pitcoin: Yes (for AMTSL) Intrapartal Events: None Labor Onset: 14:00 Complete: 21:05 Pushin:05 Heart: heart tones during second stage were poorly traced due to maternal discomfort and maternal habitus. FHR 130's no decelerations moderate variability Delivery Details Delivery Date: 07/26/24 Delivery Time: 21:17 Route of delivery: Infant Gender: Male Infant Viability: Alive; Heart Rate Present Position at Delivery: OP Delivery Details: 28?y.o?at 38.1 weeks.? Meg arrived with complaints of regular painful contractions. On initial exam by RN she was 5/100/-1 with bulging bag. She was moved to a labor room and on my arrival was stating she was involuntarily pushing. She did request an epidural but delivered before anesthesia arrived to place. She was offered nitrous and used this with good results. ? ? She became complete at 2104.??She pushed in low fowlers positions effectively.? Spontaneous vaginal delivery at 2116 of?a viable?male infant.??Delivered in vertex OP position.??Shoulders delivered easily.???Infant placed on maternal abdomen.??Cord?was clamped and cut after a 90 second delay and infant moved to warmer for respiratory support. Minimal cry and poor respiratory effort at start.??Nose and mouth were bulb suctioned on maternal chest. ? Shoulder dystocia: no? Nuchal cord: times one was reduced after delivery of the head and one loop around the body noted after delivery? Meconium stained?fluid: no? Water : no? ? ? 6 at 1 minute and 8 at 5 minutes.? Weight is pending. ? Placenta delivered spontaneously and?complete?at 2123 with a?3 vessel?cord.?There was a large blood clot contained within the membrane sac that delivered with the placenta. Placenta sent to pathology for this and calcifications were noted. ? There were trailing membranes at time of placental delivery, placenta was corkscrewed at vaginal opening and membranes appeared to deliver intact. On inspection for tearing a small amount of mucus was noted from the vagina, a ring forceps was used to try tease out any possible membrane left. There was only mucus obtained with this and no further concerns noted. Bleeding was appropriate, did discuss possible retained membranes and signs to watch for with patient. Bleeding controlled with fundal massage and?pitocin?for AMTSL.? ? Lacerations:? small abrasion to bilateral labia, not bleeding no repair needed ? Bleeding?post delivery?was: minimal. ?The fundus was firm to palpation.? Blood loss: 250?mL.? Blood loss measurement type: EBL? ? Sponge,?lap?and needles counts are correct.? Mother and infant were stable after delivery.? 1 Minute Interval Total Score: 6 5 Minute Interval Total Score: 8 Additional Details Shoulder Dystocia: No Placenta Delivery Time: 21:24 Placental Delivery Description: Spontaneous Procedure Done: Global Blood Loss: 250 Laceration: Superficial Blood Loss Measurement Type: EBL Bakri Used: No Sponge/Need Count Correct: Yes Cord Vessel Description: 3 Vessels, Nuchal Cord, Reduced and Around Body Event Summary Status: Mother and were stable after delivery. Disposition: floor
[2024-07-26] MEDS: IBUPROFEN 600 MG TABLET PO (22:09)
[2024-07-27] VITALS: BP 113/82; PULSE 68; RESP 16; TEMP 37; O2SAT 97
[2024-07-27] MEDS: ACETAMINOPHEN 500 MG TABLET 1000 MG PO ×2 (00:10→06:34)
[2024-07-27 04:15] VITALS: BP 109/79; PULSE 79; RESP 18; TEMP 37; O2SAT 98
[2024-07-27] MEDS: IBUPROFEN 600 MG TABLET PO ×3 (04:28→20:14)
[2024-07-27 07:13] LABS: Hemoglobin* 9.4 gm/dL (12.0-16.0)
--- NOTE | 2024-07-27 07:37 | P.OBPN_ITS ---
OB - PN:Subj Subjective Date Seen: 07/27/24 Narrative: Meg is a 28 y.o. G 4 P 3 who was admitted to L & D for spontaneous onset of labor. ?She had a NVD that was uncomplicated. The patient feels well. ?The pain is well controlled with current medications. ?She has no new complaints. ?She is breast feeding and reports things are going well. the patient has done well.? Vitals have been stable.? She has remained afebrile.? Has a good appetite, is tolerating a general diet. ?She is voiding without difficulty.? She is passing gas and has not had a bowel movement.? She is ambulating and denies any dizziness.? Has small amount of rubra lochia. Problems: Anemia OB - PN: Obj Exam Physical Exam: Vital signs: Temp Pulse Resp BP Pulse Ox O2 Del Method 98.6 F 79 18 109/79 98 Room Air 07/27/24 04:15 07/27/24 04:15 07/27/24 04:15 07/27/24 04:15 07/27/24 04:15 07/27/24 04:15 Narrative: GENERAL APPEARANCE:? normal affect, alert, no distress MOOD:? appropriate CHEST:? clear to auscultation HEART:? regular rate and rhythm ABDOMEN:? soft, non-tender the uterine fundus is At Umbilicus, Midline and is appropriate for the stage of recovery. Umbilical hernia palpated. PERINEUM:? mild edema of the perineum. EXTREMITIES:? normal and no edema OB - PN: Obj Data Labs Labs: Laboratory Results - last 24 hr 07/26/24 07/26/24 07/27/24 20:51 21:05 06:23 WBC 11.38 H RBC 4.25 Hgb 11.0 L 9.4 L Hct 34.3 MCV 81 MCH 26 MCHC 32 RDW Coeff of Radha 15.0 Plt Count 222 Neut % (Auto) 71.0 Lymph % (Auto) 20.0 [place] % (Auto) 8.2 Eos % (Auto) 0.1 Baso % (Auto) 0.3 Neut # (Auto) 8.10 H Lymph # (Auto) 2.30 [place] # (Auto) 0.90 Eos # (Auto) 0.00 Baso # (Auto) 0.00 Abs Immat Gran (auto) 0.00 Imm/Tot Granulo (auto) 0.4 Blood Type A Negative Antibody Screen POSITIVE OB - PN: A/P Delivery Assessment and Plan (1) care and examination immediately after delivery: Status: Acute (2) Gestational diabetes: Status: Acute (3) Anemia affecting : Status: Acute (4) Obesity affecting , antepartum: Status: Acute (5) Lactating mother: Status: Acute (6) Umbilical hernia: Status: Acute Plan day: 1 Plan: routine care Comments: plan: Routine , may see if needed Hgb 9.4. Iron supplement ordered orally every other day GDMA1. Offered to do 2 hour gct while in hospital, prior to d/c. She declines and plans to do 2 hour gct at her 6 week visit. Anticipate discharge home tomorrow.
[2024-07-27 08:38] VITALS: BP 116/79; PULSE 74; RESP 18; O2SAT 98
[2024-07-27] MEDS: BENZOCAINE/MENTHOL SPRAY 85 GM AEROSOL 1 APPLIC TOPICAL (09:24)
[2024-07-27] MEDS: FERROUS SULFATE 325 MG TABLET PO (09:24)
[2024-07-27] MEDS: DOCUSATE SODIUM 100 MG CAPSULE PO (09:24)
[2024-07-27 12:45] VITALS: BP 104/61; PULSE 87; RESP 14; TEMP 37.3; O2SAT 95
[2024-07-27 16:35] VITALS: BP 114/76; PULSE 83; RESP 18; TEMP 36.5; O2SAT 95
[2024-07-27 20:17] VITALS: BP 112/78; PULSE 83; RESP 17; TEMP 36.8
[2024-07-28 01:15] VITALS: BP 115/79; PULSE 83; RESP 16; TEMP 36.4; O2SAT 95
[2024-07-28 08:33] VITALS: BP 128/77; PULSE 82; RESP 18; TEMP 36.5
[2024-07-28] MEDS: DOCUSATE SODIUM 100 MG CAPSULE PO (08:43)
[2024-07-28] MEDS: FERROUS SULFATE 325 MG TABLET PO (08:43)
[2024-07-28] MEDS: IBUPROFEN 600 MG TABLET PO (08:43)
--- NOTE | 2024-07-28 11:06 | PM.OBDSVD1 ---
DS: Providers Provider Date Seen: 07/28/24 Date of admission: 07/26/24 20:27 Primary care physician: Not a Local Provider Admitting Clinician: Rosendo Fletcher CNM Attending Physician on discharge: Rosendo Fletcher CNM Date of Discharge: 07/28/24 DS: Diagnosis Discharge Diagnosis (1) care and examination immediately after delivery: Status: Acute (2) Lactating mother: Status: Acute (3) Gestational diabetes: Status: Acute (4) Obesity affecting , antepartum: Status: Acute Exam Narrative: Exam Narrative: GENERAL APPEARANCE:? normal affect, alert, no distress? MOOD:? appropriate? CHEST:? clear to auscultation and percussion? HEART:? regular rate and rhythm? ABDOMEN:? soft, non-tender the uterine fundus is U/2 and is appropriate for the stage of recovery. PERINEUM:? mild edema of the perineum, there is a intact perineum that is healing well.? EXTREMITIES:? normal and no edema? Const: Vital Signs, click to edit/add: Vital Signs - 24 hr 07/27/24 12:45 07/27/24 16:35 07/27/24 20:17 Temperature 99.2 F 97.7 F 98.2 F Pulse Rate [Pulse Oximeter] 87 83 83 Respiratory Rate 14 18 17 Blood Pressure [Ri ght Arm] 104/61 114/76 112/78 Pulse Oximetry 95 95 Oxygen Delivery Me thod Room Air Room Air Room Air 07/28/24 01:15 07/28/24 08:33 Temperature 97.6 F 97.7 F Pulse Rate [Pulse Oximeter] 83 82 Respiratory Rate 16 18 Blood Pressure [Ri ght Arm] 115/79 128/77 Pulse Oximetry 95 Oxygen Delivery Me thod Room Air Room Air Documenting provider has reviewed patient's vital signs: yes OB - DS: Summary Hospital Course Hospital Course: Meg is a 28 year old G 4 P 3 at 38.1 weeks gestation that was admitted to the Center on 07/26/24 for active labor. She had an uncomplicated vaginal delivery. She delivered a viable male . She is bottle feeding. the patient has done well. Her pain is well controlled with current medications.? She has no new complaints.? Urinary output is adequate and she is voiding without difficulty.? Has a good appetite, is tolerating a general diet, is passing flatus, and has not had a bowel movement.? Has scant amount of rubra lochia.? She is ambulating well. she is uncertain what she would like to do for contraception. Briefly reviewed options. She declined GTT in the hospital and would prefer to do it at her 6wk PP visit instead. Peripartum Data Infant delivery method: Vaginal Laceration description: None Episiotomy description: None complications: none [place] Infant Gender: Male Infant Discharge Plan: Home Status at Discharge Functional status at discharge: independent ambulation Overall status at discharge: patient is progressing back to baseline Time Spent with Patient Time attestation: Total time spent providing and/or coordinating discharge services: Discharge Plan Discharge Disposition: Home, Self-Care Date of Admission: 07/26/24 20:27 Attending Provider on Discharge: Suad Goldberg Primary Care Provider: Provider,Not a Local Condition: Stable Anticipated Discharge Date/Time: 07/28/24 12:00 Discharge Medications: New docusate sodium 100 mg Capsule 100 mg PO DAILY Qty: 90 0RF Rx Instructions: Take 1-2 tablets daily as needed for constipation. ferrous sulfate 325 mg (65 mg iron) Tablet 325 mg PO Q OTHER DAY Qty: 30 0RF Rx Instructions: Take every other day. ibuprofen 600 mg Tablet 600 mg PO Q6H PRNQty: 30 0RF Continued Unisom (doxylamine) 25 mg tablet 25 mg PO QHS PRN clotrimazole 1 % cream 1 applic topical BID Qty: 15 0RF albuterol sulfate 90 mcg/actuation HFA aerosol inhaler 1 puff inhalation ONCE Qty: 6.7 0RF ascorbate calcium (vitamin C) 500 mg tablet 500 mg PO QDAY [id number]-FA 1 mg tablet 1 tab PO DAILY escitalopram oxalate 20 mg tablet 20 mg PO DAILY Qty: 90 3RF omeprazole 20 mg capsule,delayed release(DR/EC) 20 mg PO QDAY Qty: 90 4RF fluticasone propion-salmeterol [Wixela Inhub] 250-50 mcg/dose blister with device 1 inh inhalation BID Qty: 60 3RF Discontinued aspirin [Adult Low Dose Aspirin] 81 mg tablet,delayed release (DR/EC) 81 mg PO QDAY Qty: 90 2RF Rx Instructions: Starting at 12 weeks gestation ferrous sulfate [Feosol] 325 mg (65 mg iron) tablet 325 mg PO QDAY (DME) Test Strips Misc See Rx Instructions .MEDSUPPLY Qty: 100 3RF Rx Instructions: Test blood sugar 4 times daily. (DME) lancets Mis See Rx Instructions .MEDSUPPLY Qty: 100 3RF Rx Instructions: Test blood sugar 4 times daily. Discharge Orders: Discharge Order (Routine); Ordered 07/28/24 Ordered By: Suad Goldberg Patient Education: OB Vaginal/Bottle Feeding Additional Instructions: Discharge instructions were reviewed with the patient including signs and symptoms of infection and home going medications.? Lifting Restrictions: 20 pounds for 6? weeks? ?? Do not drive while taking narcotic pain meds.? Off Work or School for 6 weeks.? ?? Symptoms to report to doctor:? -Bleeding that saturates more than one pad per hour? -Passing clots larger than the size of a golf ball? -Pain not relieved by prescribed medication? -Fever above 100.4 degrees Fahrenheit? -A foul vaginal odor? -Difficulty in emotions, mood and functions? -Thoughts of hurting yourself and/or ? -Painful, reddened area in your breast? -Any drainage, redness or tenderness in your IV/epidural site? -Severe headache that doesn't improve after taking medications? -Changes in vision, including temporary loss of vision, blurred vision, and/or light sensitivity? -Upper abdominal pain (usually under ribs on the right side)? -Decrease in urination or painful, frequent urinating? -Chest pain? -Shortness of breath? -Tenderness or pain with redness and/swelling in the calf(s) of your leg? ?? Follow Up in clinic in 2 and 6 weeks.? ?? consultation services are available to all mothers and babies for the first year after delivery.? To make an appointment, please call [phone].? Activity Level: Activity as Tolerated Discharge Diet: Regular Follow Up Appointments: Provider,Not a Local [Primary Care Provider] - [facility] [Provider Group] Forms: MyHealth Info Instructions
[2024-07-29 00:30] LABS: Rapid Plasma Reagin (RPR) Non Reactive (Non Reactive)
== END 2024-07-28 11:32 | disposition home or self-care (01) | DRG 807 ==
LOC: OB OUT 20:27 → OB 20:27
PROVIDERS: Admitting Provider Advanced Practice Midwife; Visit Provider Advanced Practice Midwife
DX: O24.420 Gestational diabetes mellitus in childbirth, diet controlled (principal); Z37.0 Single live birth; O99.214 Obesity complicating childbirth; O99.02 Anemia complicating childbirth; D64.9 Anemia, unspecified; Z3A.38 38 weeks gestation of pregnancy; O99.344 Other mental disorders complicating childbirth; F41.9 Anxiety disorder, unspecified; F32.A Depression, unspecified; O26.893 Other specified pregnancy related conditions, third trimester; Z67.11 Type A blood, Rh negative; Z87.59 Personal history of other complications of pregnancy, childbirth and the puerperium; Z78.9 Other specified health status; K42.9 Umbilical hernia without obstruction or gangrene; O71.89 Other specified obstetric trauma
CPT/HCPCS: 36415; 82962; 85018; 85025; 85461; 86592; 86850; 86870; 86880; 86900; 86901; 88307; A9270; J2371; J2791

== ENCOUNTER 2025-03-17 13:06 | Emergency (ER) | payer MEDICAID, SELFPAY ==
--- OUTSIDE RECORDS SUMMARY | 2025-03-17 13:08 | XMS_ITS | Encounter Summary ---
Author Organization [facility] Address [address] [place] [address] Care Team Providers Care Mammalogy Teacher Name Role Phone No Ref-Primary, Physician Primary Care Provider Raghavendra Isaac MD Unavailable [phone] Deonte Miramontes MD Unavailable [phone] sLinda DO Unavailable [phone] Encounter Details Date Type Department Care Team (Late st Contact Info) Description 02/12/2021 [facility] Medical Advice [address] [address] Halina Granados, 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 Gender Identity Female 11/25/2020 9:34 PM CDT Sexual Orientation Straight 11/25/2020 9: 34 PM CDT documented as of this encounter Plan of Treatment Not on file documented as of this encounter Visit Diagnoses Not on filedocumented in this encounter Additional Health Concerns Assessment Noted Time PHQ-9 Depression Total Score: 0 03/27/20 20 11:40 AM CDT documented as of this encounter Care Teams Mammalogy Teacher Relationship Specialty Start Date End Date No Ref-Primary, Physician PCP - General 03/04/18 Raghavendra Isaac MD [address] [place] [address] Assigned PCP 11/30/18 12/25/21 Deonte Miramontes MD [address] [place] [address] Assigned Surgical Provider 05/23/20 sLinda DO [address] [place] [address] Assigned OBGYN Provider 05/23/20 documented as of this encounter
--- OUTSIDE RECORDS SUMMARY | 2025-03-17 13:08 | XMS_ITS | Encounter Summary ---
Author Organization [place] Address [address] [place] [address]. [place] [address] Care Team Providers Care Corn Cutter Operator Name Role Phone No Ref-Primary, Physician Primary Care Provider Raghavendra Isaac MD Unavailable Deonte Miramontes MD Unavailable [phone] MastersLinda DO Unavailable [phone] Encounter Details Date Type Department Care Team (Late st Contact Info) Description 04/09/2021 [facility] Medical Advice [facility] [address] [place] [phone] Deonte Miramontes MD [address] [facility] [address] [place] [address] Social History Tobacco Use Types Packs/Day Years [...] Answer Date Recorded PHQ-2 Score 0 03/27/2020 [place] Depression Scale Answer Date Recorded [place] Depression Score 6 02/01/2020 Last EPDS Self Harm Result Not on file 01/31 Comments No Sex and Gender Information Value Date Recorded Sex Assigned at Female 11/25/2020 9:34 PM CDT Legal Sex Female 3:20 AM ABA TUTOR Gender Identity Female 11/25/2020 9:34 PM [...] documented as of this encounter Care Teams Corn Cutter Operator Relationship Specialty Start Date End Date No Ref-Primary, Physician PCP - General 03/04/18 Raghavendra Isaac MD [address] [place] [address] Assigned PCP 11/30/18 12/25/21 Deonte Miramontes MD [address] [place] [address] Assigned Surgical Provider 05/23/20 Linda Hinojosa DO [address] [place] [address] Assigned OBGYN Provider 05/23/20 documented as of this encounter
--- OUTSIDE RECORDS SUMMARY | 2025-03-17 13:08 | XMS_ITS | Encounter Summary ---
Author Organization [place] Address [address] [place] [address] Care Team Providers Care Steam Conditioner Filling Name Role Phone No Ref-Primary, Physician Primary Care Provider Deonte Miramontes MD Unavailable [phone] Encounter Details Date Type Department Care Team (Late st Contact Info) Description 04/28/2022 [facility] Medical Advice [facility] [address] [place] [address] Vanna Carroll RN Social History Tobacco Use [...] Date Recorded PHQ-2 Score 0 03/27/2020 [place] Depression Scale Answer Date Recorded [place] Depression Score 6 02/01/2020 Last EPDS Self Harm Result Not on file 01/31 Comments No Sex and Gender Information Value Date Recorded Sex Assigned at Female 11/25/2020 9:34 PM CDT Legal Sex Female 3:20 AM TANKER SERVICE ATTENDANT Gender Identity Female 11/25/2020 9:34 PM CDT Sexual Orientation Straight 11/25/2020 9: 34 PM CDT documented as of this encounter Plan of Treatment Not on file documented as of this encounter Visit Diagnoses Not on filedocumented in this encounter Additional Health Concerns Assessment Noted Time PHQ-9 Depression Total Score: 0 03/27/20 11:40 AM CDT documented as of this encounter Care Teams Steam Conditioner Filling Relationship Specialty Start Date End Date No Ref-Primary, Physician PCP - General 03/04/18 Deonte Miramontes MD [address] [place] [address] Assigned Surgical Provider 05/23/20 documented as of this encounter
--- OUTSIDE RECORDS SUMMARY | 2025-03-17 13:08 | XMS_ITS | Encounter Summary ---
Author Organization [place] Address [address] [place] [address] Care Team Providers Care Insole Filler Name Role Phone No Ref-Primary, Physician Primary Care Provider Raghavendra Isaac MD Unavailable Deonte Miramontes MD Unavailable [phone] sLinda DO Unavailable [phone] Encounter Details Date Type Department Care Team (Late st Contact Info) Description 12/04/2019 [facility] [address] [address] [facility] Social History Tobacco Use Types [...] PM CDT Legal Sex Female 3:20 AM BAND SHOVER Gender Identity Female 11/25/2020 9:34 PM CDT [...] Depression Total Score: 0 07/12/20 10:37 AM BAND SHOVER documented as of this encounter Care Teams Insole Filler Relationship Specialty Start Date End Date No Ref-Primary, Physician PCP - General 03/04/18 Raghavendra Isaac MD [address] [place] [address] Assigned PCP 11/30/18 12/25/21 Deonte Miramontes MD [address] [place] [address] Assigned Surgical Provider 05/23/20 Linda Hinojosa DO [address] [place] [address] Assigned OBGYN Provider 05/23/20 documented as of this encounter
--- OUTSIDE RECORDS SUMMARY | 2025-03-17 13:08 | XMS_ITS | Clinical Summary ---
Author Organization [place] Address [address] [place] [address] Care Team Providers Care Varnishing Unit Operator Name Role Phone No Ref-Primary, Physician [...] 10.2 A negative. 11/05 Rhogam 28wk Immunizations Immunization Administration Dates Next Due HIB, Unspecified 02/11/1997, 6,02/23/1996,12/15 HPV Quadrivalent 06/14/2012, 1,05/22/2010,04/05,01/30/2008 HepB, Unspecified 08/10/1996,02/23/1996,12/13/18 96 Hepatitis A (VAQTA)(ADULT 19+) 05/22/2010 Hepatitis A (Vaqta/Havrix)(P eds 12m-18y) 05/06/2011 Influenza (IIV3) PF 06/14/2012,05/06/2011,2009 MMR (MMRII) 02/01/2020,01/05/2001,12/13/1996 Meningococcal ACWY (Menveo ) 05/06/2011 Polio, Unspecified 02/11/1997, 6,02/23/1996,12/15 Poliovirus, inactivated (IPV) 01/05/2001 TDAP Vaccine (Adacel) [...] Answer Date Recorded PHQ-2 Score 0 03/27/2020 Sebastian Depression Scale Answer Date Recorded [place] Depression Score 6 02/01/2020 Last EPDS Self Harm Result Not on file 01/31 Adolescent Education Answer Date Record ed Getting School Help Needed Not on file 05/10 Comments No Sex and Gender Information Value Date Recorded Sex Assigned at Female 11/25/2020 9:34 PM CDT Legal Sex Female 3:20 AM ASSET PROTECTION DETECTIVE Gender Identity Female 11/25/2020 9:34 PM CDT Sexual Orientation Straight 11/25/2020 9: 34 PM CDT Last Filed Vital Signs Vital Sign Reading Time Taken Comments Blood Pressure 120/80 03/24/2021 9:23 AM CDT Pulse 91 03/24/2021 9:23 AM CDT Temperature 37.1 C (98.7 F) 02/25/2021 7:37 PM CDT Respiratory Rate 25 02/25/2021 7:37 PM CDT [...] OF HM ORDERS 1995 YEARLY PREVENTIVE VISIT 10/20/1998 ASTHMA CONTROL TEST 06/23/2019 12/21/2018 ASTHMA ACTION PLAN 12/22/2019 12/21/2018 PNEUMOCOCCAL VACCINE: PEDIATRICS (0 to 5 YEARS) AND AT-RISK PATIENTS (6 to 49 YEARS) (2 of 2 - PCV) 08/31/2022 08/31/2021 COVID-19 VACCINE ( - season) 2024 08/31/2021, 01/07/2021, 12/17/2020 PHQ-2 (once per calendar year) 2024 03/27/2020, 03/27/2020, 07/12/2019, Additional history exists INFLUENZA VACCINE (#1) 2025 2, 08/31/2021, 06/14/2012, Additional history exists PAP 04/21/2025 04/21/2022, 07/12/2019 DTAP/TDAP/TD VACCINE (9 - Td or Tdap) 09/07/2032 09/07/2022, 11/06/2019, 01/30/2008, Additional history exists ZOSTER VACCINE (1 of 2) 10/20/2045 HEPATITIS B VACCINE Completed 08/10/1996, 02/23/1996, 1995 MENINGITIS VACCINE Aged Out 05/06/2011 No longer eligible based on patient's age to complete this topic HPV VACCINE Completed 06/14/2012, 12/2010, 05/22/2010, Additional history exists HIV SCREENING Completed 07/12/2019, 01/26/2014 CHLAMYDIA SCREENING Discontinued 03/24/2022, 07/12/2019, 06/18/2019, Additional history exists HEPATITIS C SCREENING Completed 03/24/2022 Medical Devices Implanted Type Area Events Assistant Device Identifier Shelf Expiration Date Model / Serial / Lot Mesh Symbotex Composite Stex Round 12cm Sym12 Implanted:Qty: 1 on 08/25/2020 by Deonte Miramnotes MD at [facility] Mesh N/A: Abdomen COVIDIEN [id number] 01/28/2025 [id number] / / [id number] Procedures Procedure Name Priority Date/Time Associated Diagnosis Comments HIV ANTIGEN ANTIBODY COMBO Routine 07/12/2019 12:12 PM ASSET PROTECTION DETECTIVE Supervision of high risk in first trimester PAP IMAGED THIN LAYER SCREEN Routine 07/12/2019 12:11 PM ASSET PROTECTION DETECTIVE Screening for malignant neoplasm of cervix CHLAMYDIA TRACHOMATIS PCR Routine 07/12/2019 10:00 AM ASSET PROTECTION DETECTIVE Supervision of high risk in first trimester from Last 3 Months or Most Recently Relevant to Health Maintenance Results * HIV Antigen Antibody Combo (07/12/2019 12:12 PM ASSET PROTECTION DETECTIVE) HIV Antigen Antibody Combo Nonreactive NR^Nonrea ctive 07/13/2019 9:52 AM ASSET PROTECTION DETECTIVE [facility] Comment:HIV-1 p24 Ag & HIV-1 /HIV-2 Ab Not Detected Blood specimen (specimen) 07/12/2019 12:12 PM ASSET PROTECTION DETECTIVE 07/12/2019 12:13 PM ASSET PROTECTION DETECTIVE us Linda Dardens DO LAB - BLOOD ORDERABLES Final Result [facility] [address] [place] [address] * Pap imaged thin layer screen only - recommended age 21 - 24 years (07/12/2019 12:11 PM ASSET PROTECTION DETECTIVE) PAP NIL BABITA [place] Report Patient Name: MEG MOLINA MR#: [id number] Specimen #: [id number] Collected: 07/12/2019 Received: 07/13/2019 Reported: 07/16/2019 13:34 Ordering Phy(s): LINDA HOLM MASTERS For improved result formatting, select 'View Enhanced Report Format' under Linked Documents section. SPECIMEN/STAIN PROCESS: Pap imaged thin layer prep screening (Surepath, FocalPoint with guided screening) Pap-Cyto x 1 SOURCE: Cervical, endocervical Pap imaged thin layer prep screening (Surepath, FocalPoint with guided screening) SPECIMEN ADEQUACY: Satisfactory for evaluation. -Transformation zone component absent. CYTOLOGIC INTERPRETATION: Negative for intraepithelial lesion or malignancy Electronically signed out by: MARINA Gillette (ASCP) CLINICAL HISTORY: LMP: 05/01/2019 , Papanicolaou Test Limitations: Cervical cytology is a screening test with limited sensitivity; regular screening is critical for cancer prevention; Pap tests are primarily effective for the diagnosis/preventi on of squamous cell carcinoma, not adenocarcinomas or other cancers. COLLECTION SITE: Client: [facility] Location: [facility] (S) The [facility] of [facility], with the professional component performed at [facility] [address] [facility], [place] [address] ([phone]) COP[facility] Cytologic material (specimen) 07/12/2019 12:11 PM ASSET PROTECTION DETECTIVE 07/13/2019 9:42 AM ASSET PROTECTION DETECTIVE us Linda Holm Masters DO LAB - OPTIME CLINICAL S PECIMEN Final Result [facility] * Chlamydia trachomatis PCR (07/12/2019 10:00 AM ASSET PROTECTION DETECTIVE) Specimen Description Vagina 07/12/2019 12:48 PM ASSET PROTECTION DETECTIVE [facility] Chlamydia Trachomatis PCR Negative NEG^Negat mega 07/13/2019 3:07 PM ASSET PROTECTION DETECTIVE [facility] Comment: Negative for C. trachomatis rRNA by admissions officer mediated amplification. A negative result by admissions officer mediated amplification does not preclude the presence of C. trachomatis infection because results are dependent on proper and adequate collection, absence of inhibitors, and sufficient rRNA to be detected. Specimen from vagina (specimen) 07/12/2019 10:00 AM ASSET PROTECTION DETECTIVE 07/12/2019 12:47 PM ASSET PROTECTION DETECTIVE us Linda Holm Masters DO LAB - MICRO GENERAL ORD ERABLES Final Result Performing Organization Address City/[facility] Co de Phone Number [facility] [address] [place], [place] [address]OM[facility] [place] [address] [address] from Last 3 Months or Most Recently Relevant to Health Maintenance Insurance [facility] Care Teams Varnishing Unit Operator Relationship Specialty Start Date End Date No Ref-Primary, Physician PCP - General 03/04/18
--- OUTSIDE RECORDS SUMMARY | 2025-03-17 13:08 | XMS_ITS | Encounter Summary ---
Author Organization [place] Address [address] [place] [address] Care Team Providers Care Home Support Worker Name Role Phone No Ref-Primary, Physician Primary Care Provider Deonte Miramontes MD Unavailable [phone] Encounter Details Date Type Department Care Team (Late st Contact Info) Description 05/07/2022 [facility] Medical Advice [facility] [address] [address] Beverly Garnica, KERI Social History [...] Answer Date Recorded PHQ-2 Score 0 03/27/2020 [place] Depression Scale Answer Date Recorded [place] Depression Score 6 02/01/2020 Last EPDS Self Harm Result Not on file 01/31 Comments Unknown Sex and Gender Information Value Date Recorded Sex Assigned at Female 11/25/2020 9:34 PM CDT Legal Sex Female 3:20 AM PRODUCTION HAND Gender Identity Female 11/25/2020 9:34 PM CDT Sexual Orientation Straight 11/25/2020 9: 34 PM CDT documented as of this encounter Plan of Treatment Not on file documented as of this encounter Visit Diagnoses Not on filedocumented in this encounter Additional Health Concerns Assessment Noted Time PHQ-9 Depression Total Score: 0 08/27/20 20 11:40 AM CDT documented as of this encounter Care Teams Home Support Worker Relationship Specialty Start Date End Date No Ref-Primary, Physician PCP - General 03/04/18 Deonte Miramontes MD [address] [place] [address] Assigned Surgical Provider 05/23/20 documented as of this encounter
--- OUTSIDE RECORDS SUMMARY | 2025-03-17 13:08 | XMS_ITS | Encounter Summary ---
Author Organization [place] Address [address] [place] [address]. [place] [address] Care Team Providers Care Metal Wire Technician Name Role Phone No Ref-Primary, Physician Primary Care Provider Raghavendra Isaac MD Unavailable [phone] Deonte Miramontes MD Unavailable [phone] sLinda DO Unavailable [phone] Encounter Details Date Type Department Care Team (Late st Contact Info) Description 03/20/2021 [facility] [address] [place] [address] Beverly Kent MD [facility] [address] [place] [address] [address] [facility] [address] [place] [address] Social History Tobacco Use Types [...] Answer Date Recorded PHQ-2 Score 0 03/27/2020 [place] Depression Scale Answer Date Recorded [place] Depression Score 6 02/01/2020 Last EPDS Self Harm Result Not on file 01/31 Comments No Sex and Gender Information Value Date Recorded Sex Assigned at Female 11/25/2020 9:34 PM CDT Legal Sex Female 3:20 AM BLISTER RUST ERADICATOR Gender Identity Female 11/25/2020 9:34 PM CDT [...] documented as of this encounter Care Teams Metal Wire Technician Relationship Specialty Start Date End Date No Ref-Primary, Physician PCP - General 03/04/18 Raghavendra Isaac MD [address] [place] [address] Assigned PCP 11/30/18 12/25/21 Deonte Miramontes MD [address] [place] [address] Assigned Surgical Provider 05/23/20 Linda Hinojosa DO [address] [place] [address] Assigned OBGYN Provider 05/23/20 documented as of this encounter
--- OUTSIDE RECORDS SUMMARY | 2025-03-17 13:08 | XMS_ITS | Encounter Summary ---
Author Organization [place] Address [address] [place] [address] Care Team Providers Care Youth Services Specialist Name Role Phone No Ref-Primary, Physician Primary Care Provider Raghavendra Isaac MD Unavailable [phone] Deonte Miramontes MD Unavailable [phone] sLinda DO Unavailable [phone] Reason for Visit * Reason Onset Date Comments Refill Request 02/04/2020 Encounter Details Date Type Department Care Team (Late st Contact Info) Description 02/04/2020 [facility] Refill [facility] [address] [address] Raghavendra Isaac MD [address] [place] [address] Refill Request Social History Tobacco [...] Answer Date Recorded PHQ-2 Score 0 12/21/2018 [place] Depression Scale Answer Date Recorded [place] Depression Score 6 02/01/2020 Last EPDS Self Harm Result Not on file 01/31 Comments No Sex and Gender Information Value Date Recorded Sex Assigned at Female 11/25/2020 9:34 PM CDT Legal Sex Female 3:20 AM RN TRAUMA Gender Identity Female 11/25/2020 9:34 PM CDT [...] Total Score: 0 07/12/20 19 10:37 AM RN TRAUMA documented as of this encounter Care Teams Youth Services Specialist Relationship Specialty Start Date End Date No Ref-Primary, Physician PCP - General 03/04/18 Raghavendra Isaac MD [address] [place] [address] [address] [place] [address] Assigned PCP 11/30/18 12/25/21 Deonte Miramontes MD [address] [place] [address] Assigned Surgical Provider 05/23/20 Linda Hinojosa DO [address] [place] [address] Assigned OBGYN Provider 05/23/20 documented as of this encounter
--- OUTSIDE RECORDS SUMMARY | 2025-03-17 13:08 | XMS_ITS | Encounter Summary ---
Author Organization [place] Address [address] [place] [address]. [place] [address] Care Team Providers Care Cook Frozen Dessert Name Role Phone No Ref-Primary, Physician Primary Care Provider Encounter Details Date Type Department Care Team (Late st Contact Info) Description 07/28/2023 MyC Medical Advice [facility] [address] [address] [place] Social History Tobacco Use Types Packs/Day Years [...] Answer Date Recorded PHQ-2 Score 0 03/27/2020 [place] Depression Scale Answer Date Recorded [place] Depression Score 6 02/01/2020 Last EPDS Self Harm Result Not on file 01/31 Adolescent Education Answer Date Record ed Getting School Help Needed Not on file 05/10 Comments No Sex and Gender Information Value Date Recorded Sex Assigned at Female 11/25/2020 9:34 PM CDT Legal Sex Female 3:20 AM PANTOGRAPH MACHINE 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
--- OUTSIDE RECORDS SUMMARY | 2025-03-17 13:08 | XMS_ITS | Encounter Summary ---
Author Organization [place] Address [address] [place] [address] Care Team Providers Care Seed Yeast Operator Name Role Phone No Ref-Primary, Physician Primary Care Provider Raghavendra Isaac MD Unavailable [phone] Deonte Miramontes MD Unavailable [phone] sLinda DO Unavailable [phone] Encounter Details Date Type Department Care Team (Late st Contact Info) Description 08/16/2019 [facility] Medical Advice [facility] [address] [place] [address] Charito Barbour, KERI Social History Tobacco [...] PM CDT Legal Sex Female 3:20 AM ARMHOLE PRESSER Gender Identity Female 11/25/2020 9:34 PM CDT Sexual Orientation Straight 11/25/2020 9: 34 PM CDT documented as of this encounter Plan of Treatment Not on file documented as of this encounter Visit Diagnoses Not on filedocumented in this encounter Additional Health Concerns Assessment Noted Time PHQ-9 Depression Total Score: 0 07/12/20 10:37 AM ARMHOLE PRESSER documented as of this encounter Care Teams Seed Yeast Operator Relationship Specialty Start Date End Date No Ref-Primary, Physician PCP - General 03/04/18 Raghavendra Isaac MD [address] [place] [address] Assigned PCP 11/30/18 12/25/21 Deonte Miramontes MD [address] [place] [address] Assigned Surgical Provider 05/23/20 Linda Hinojosa DO [address] [place] [address] Assigned OBGYN Provider 05/23/20 documented as of this encounter
--- OUTSIDE RECORDS SUMMARY | 2025-03-17 13:09 | XMS_ITS | Encounter Summary ---
Author Organization [place] Address [address] [place] [address]. [place] [address] Care Team Providers Care Mail Clerks Supervisor Name Role Phone No Ref-Primary, Physician Primary Care Provider Raghavendra Isaac MD Unavailable [phone] Deonte Miramontes MD Unavailable [phone] sLinda DO Unavailable [phone] Encounter Details Date Type Department Care Team (Late st Contact Info) Description 01/28/2020 MyC Medical Advice [facility] [address] [place] [address] sLinda DO [address] [facility] [address] [place], [place] [id number] Social History Tobacco Use Types Packs/Day Years [...] Answer Date Recorded PHQ-2 Score 0 12/21/2018 [place] Depression Scale Answer Date Recorded [place] Depression Score 6 02/01/2020 Last EPDS Self Harm Result Not on file 01/31 Comments Yes Sex and Gender Information Value Date Recorded Sex Assigned at Female 11/25/2020 9:34 PM CDT Legal Sex Female 3:20 AM PIPE STRAIGHTENER Gender Identity Female 11/25/2020 9:34 PM CDT [...] Depression Total Score: 0 07/12/20 10:37 AM PIPE STRAIGHTENER documented as of this encounter Care Teams Mail Clerks Supervisor Relationship Specialty Start Date End Date No Ref-Primary, Physician PCP - General 03/04/18 Raghavendra Isaac MD [address] [place] [address] Assigned PCP 11/30/18 12/25/21 Deonte Miramontes MD [address] [place] [address] Assigned Surgical Provider 05/23/20 Linda Hinojosa DO [address] [place] [address] Assigned OBGYN Provider 05/23/20 documented as of this encounter
--- OUTSIDE RECORDS SUMMARY | 2025-03-17 13:09 | XMS_ITS | Clinical Summary ---
Author Organization [facility] Address [address] [place] [id number] Care Team Providers Care Software Development Advisor Name Role Phone Yenny Faith PA Unavailable [phone] Laura Brooks HOTEL ASSISTANT MANAGER Primary Care Provid er Allergies Active Allergy Reactions Criticality Noted Date Comments Cats (Fur, Dander, Saliva) *Unknown 9 Dog Dander *Unknown 07/12/2019 Medications fluticasone (50 mcg per actuation) nasal solution (FLONASE)Indicati ons:Environmental allergies SHAKE LIQUID AND USE 2 SPRAYS IN EACH NOSTRIL EVERY DAY 48 g 3 1 Active omeprazole (PRILOSEC) 20 mg Delayed-Release capsuleIndication s:Chronic GERD TAKE 1 CAPSULE(20 MG) BY MOUTH EVERY DAY NEEDED FOR UPSET STOMACH 90 Capsule 2 2 Active acetaminophen (TYLENOL EXTRA STRGTH) 500 mg tablet Take 500-1,000 mg by mouth. 1 Active escitalopram oxalate (LEXAPRO) 10 mg tabletIndications :JACOB (generalized anxiety disorder),Mild episode of recurrent major depressive disorder Take 1 Tablet (10 mg) by mouth every morning. 90 Tablet 3 2 Active albuterol HFA (Ventolin HFA) 90 mcg/actuation inhalerIndication s:Mild persistent asthma, unspecified whether complicated (HC) Inhale 1-2 Puffs by mouth every 4 hours if needed for Shortness Of Breath or Wheezing. 18 Each 3 Active fluticasone propion-salmetero L (Wixela Inhub) 250-50 mcg/Dose diskus inhalerIndication s:Mild persistent asthma without complication (HC) INHALE 1 PUFF BY MOUTH TWICE DAILY 60 Each 4 Active aspirin (ECOTRIN) 81 mg enteric coated tablet Take 81 mg by mouth once daily with a meal. 4 Active fluconazole (DIFLUCAN) 150 mg tabletIndications :Yeast vaginitis Take 1 tablet once. If symptoms not improved after about 3 days, can take 2nd pill. 2 Tablet 5 Active Active Problems Problem Noted Date Diagnosed Date Pap smear for cervical cancer screening 05/06/20 22 Overview (05/06/2022): 07/12/2019 NIL (see CE) 04/21/2022 NIL Plan: Pap/HPV in 3 years 04/01/2022 Overview (05/20/2022): Problem List: Hx of pre-eclampsia. ASA to start at 12 weeks Morbid obesity Depression and anxiety. Escitalopram 10 mg GERD. Omeprazole Mild presistent asthma Migraine. Tylenol only Rh Neg Varicella non-immune Estimated Date of Delivery: None noted. Patient's last menstrual period was 02/09/2022. Last Tdap- 11/06/2019 Last Flu vaccine- 05/19/2022 Glucose (GTT) result- too early Allergies Allergen Reactions Cats (Fur, Dander, Saliva) *Unknown Dog Dander *Unknown OB History Para Term AB Living 2 1 1 0 0 1 SAB IAB Ectopic Multiple Live Births 0 0 0 0 1 # Outcome Date GA Lbr Herb/2nd Weight Sex Delivery Anes PTL Lv 2 Current 1 Term 01/30/20 39w1d 09:00 / 01:17 3.7 kg (8 lb 2.5 oz) M Vag-Spont EPI N JAJA Comments: followed and elective indux started by [facility] delivered by Kirstie. small right vag lac that was hemostatic and not repaired pre-e w/o severe features dx'd on day of planned induction Complications: Pre-eclampsia Name: Wade Apgar1: 7 Apgar5: 9 Create lab flowsheet for OB labs- Component Latest Ref Rng & Units 03/24/2022 03/24/2022 03/24/2022 10:54 AM 11:01 AM 11:01 AM ANTIBODY SCREEN Negative Negative SPECIMEN EXPIRATION DATE/TIME 03/27/22 23:59 PROTEIN QUANT,RAND URINE <=14 mg/dL 18 (H) CREAT,RANDOM URINE mg/dL 346.7 PROT/CREAT RATIO,UR <0.2 0.1 HEMOGLOBIN 12.0 - 16.0 g/dL 12.1 MCV 80 - 100 fL 84 RUBELLA IGG ANTIBODY Positive VARICELLA ZOSTER IGG ANTIBODY CHLAMYDIA PROBE Negative N GONORRHOEAE PROBE Negative CREATININE 0.57 - 1.11 mg/dL 0.64 eGFR >90 mL/min/1.73m2 >90 HBSAG Nonreactive Nonreactive HEPATITIS C ANTIBODY Non-Reactive Non-Reactive TREPONEMA PALLIDUM Negative Negative AST (SGOT) 2 - 40 IU/L 16 ALT (SGPT) 8 - 45 IU/L 17 Component Latest Ref Rng & Units 03/24/2022 03/24/2022 03/24/2022 11:01 AM 11:01 AM 11:01 AM ANTIBODY SCREEN Negative SPECIMEN EXPIRATION DATE/TIME PROTEIN QUANT,RAND URINE <=14 mg/dL CREAT,RANDOM URINE mg/dL PROT/CREAT RATIO,UR <0.2 HEMOGLOBIN 12.0 - 16.0 g/dL MCV 80 - 100 fL RUBELLA IGG ANTIBODY 2.19 VARICELLA ZOSTER IGG ANTIBODY Negative 64.2 (L) CHLAMYDIA PROBE N GONORRHOEAE PROBE CREATININE 0.57 - 1.11 mg/dL eGFR >90 mL/min/1.73m2 HBSAG Nonreactive HEPATITIS C ANTIBODY Non-Reactive TREPONEMA PALLIDUM Negative AST (SGOT) 2 - 40 IU/L ALT (SGPT) 8 - 45 IU/L Past Medical History: . Date Anxiety and depression Asthma Blood type, Rh negative Chlamydia trachomatis infection Herpes simplex Migraine headache Multiple cysts of breast (normal spontaneous vaginal delivery) 01/30/2020 M, no GDM or PIH Past Surgical History: . Laterality Date HERNIA REPAIR 08/2020 umbilical WISDOM TEETH EXTRACTION No data on file. ob Problems (from 03/24/22 to present) No problems associated with this episode. Ekaterina Gilmore RN.....04/01/2022 9:35 AM Anxiety and depression 08/22/2017 Seasonal allergic rhinitis 11/21/2014 Mild persistent asthma 01/29/2011 Immunizations Immunization Administration Dates Next Due COVID-19 vaccine (Cuil NTMotor2 30mcg/0.3mL) 12YO+ MARIA DEL ROSARIO-SUCROSE PF, MDV 08/31/2021 DTaP 01/05/2001, 7,05/03/1996,02/22,1995 Dtap Unspecified Formulation 01/30/2008 Hepatitis A (Adult) 05/22/2010 Hepatitis A (Peds) 05/06/2011,05/22/2010 Hepatitis B, Unspecified 08/10/1996,02/23/1996,0 1995 Hib Conjugate, Unspecified 02/11/1997,,02/23/1996,12/15 Human Papilloma Virus Vaccine 06/14/2012 ,05/06/2011,05/22/2010,04/05,01/30/2008 Inactivated Polio Vaccine 01/05/2001 Influenza Virus, Unspecified 06/14/2012,05/06/20 11,05/22/2010 Influenza, IIV3 (Age >=3 years) 06/14/2012,05/06,05/22/2010 Influenza, IIV4 05/19/2022,08/31/2021 MENINGOCOCCAL VACCINE 2 VIAL 2MO-55YO (MENVEO) 05/06/2011 MMR 02/01/2020,01/05/2001,12/13/1996 Pneumococcal Poly,23-Valent (Pneumovax) 08/31/2021 Polio Virus, Unspecified 02/11/1997,10/0 09/1995,02/23/1996,12/15 Tdap 11/06/2019,01/30/2008 Tdap, Unspecified 01/30/2008 Family History Medical History Relation Name Comments Cancer Brother 1 Ld Back Cancer Good Health Brother 1 Ld same mom Obesity Brother 2 Silvino Pulmonary embolism Brother 2 Silvino Alcoholism Father Cancer Father head/back/neck Heart attack Maternal Grandfather Parkinsonism Maternal Grandmother Alcoholism Mother Anxiety disorder Mother Arthritis Mother Cancer Mother Heart attack Mother Unknown Paternal Grandfather Emphysema Paternal Grandmother Alcoholism Sister Corry Depression Sister Corry same mom Good Health Son Wade 20 Relation Name Status Comments Brother 1 Ld Alive Brother 2 Silvino Father Maternal Grandfather Maternal Grandmother Mother Alive Paternal Grandfather Paternal Grandmother Sister Corry Alive Son Wade Batista Alive Social History Tobacco Use Types Packs/Day Years Used Date Smoking Tobacco: Never Smokeless Tobacco: Never Alcohol Use Standard Drinks/Week Comments Not Currently 0 (1 standard drink = 0.6 oz pur e alcohol) PHQ-2 Answer Date Recorded PHQ-2 TOTAL SCORE 0 05/19/2022 Social Connections Answer Date Recorded Do you often feel lonely or isolated from those around you? 0 09/25/2023 Financial Resource Strain Answer Date R ecorded Difficulty of Paying Living Expenses 3 09/01/2024 Difficulty of Paying Living Expenses Not on file 09/01/2024 Food Insecurity Answer Date Recorded Do you worry your food will run out before you are able to buy more? 1 09/25/2023 Transportation Needs Answer Date Record ed Does lack of transportation keep you from medica l appointments? 1 09/25/2023 Does lack of transportation keep you from work, meetings or getting things that you need? 1 09/25/2023 Housing Stability Answer Date Recorded What is your housing situation today? 1 09/25/2023 Utilities Answer Date Recorded Do you have trouble paying f or utilities (for example, heat, electricity, water, phone)? 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 small right vag lac that was hemostatic and not repaired pre-e w/o severe features dx'd on day of planned induction Last Filed Vital Signs Vital Sign Reading Time Taken Comments Blood Pressure 117/68 05/12/2024 4:56 PM CDT Pulse 84 05/12/2024 4:56 PM CDT Temperature 36.4 C (97.5 F) 05/12/2024 4:56 PM CDT Respiratory Rate 18 05/12/2024 4:56 PM CDT Oxygen Saturation 96% 05/12/2024 4:56 PM CDT Inhaled Oxygen Concentration - - Weight 120.2 kg (265 lb 1.6 oz) 05/12/2024 4:56 PM CDT Height 165.1 cm (5' 5) 05/06/2022 9:52 PM CDT Body Mass Index 44.11 05/06/2022 9:52 PM CDT Plan of Treatment Health Maintenance Due Date Last Done Comments HIV for age 15-65 10/20/2010 BMI (ht and wt on same day) for age 18+ 03/24/2023 03/24/2022, 03/24/2022, 03/15/2022, Additional history exists Depression screening for age 12+ 05/19/2023 05/19/2022, 03/27/2022, 03/24/2022, Additional history exists COVID-19 vaccine series ( season) 2024 08/31/2021, 01/07/2021, 12/17/2020 Influenza Vaccine (#1) 2025 , 08/31/2021, 06/14/2012, Additional history exists Pap test for age 21-65 04/21/2025 04/21/2022 Tetanus booster 11/05/2029 11/06/2019, 07/0 08/2007, 01/30/2008 Hepatitis B series for 19+ Completed 08/10, 02/23/1996, 1995 Pneumococcal series for age 6-49 Aged Out 08/31/2021 No longer eligible based on patient's age to complete this topic Hepatitis C screening for age 18-79 Completed 03/24/2022 Procedures Procedure Name Priority Date/Time Associated Diagnosis Comments BOARDING SPECIALIST THIN PREP PAP SCREEN IMAGED Routine 04/21/2022 11:19 AM CDT Pap smear for cervical cancer screening ANTI HCV Routine 03/24/2022 11:01 AM CDT Supervision of normal first , antepartum (HC) from Last 3 Months or Most Recently Relevant to Health Maintenance Results * BOARDING SPECIALIST THIN PREP PAP SCREEN IMAGED (04/21/2022 11:19 AM CDT) Case Report Gynecologic Cytology Report Case: [id number] Authorizing Provider: Vivien Lawrence MD Collected: 04/21/2022 1119 Ordering Location: [facility] Received: 04/21/2022 1253 Clinic First Screen: Denise Reyes Specimen: BOARDING SPECIALIST ThinPrep Vial Screening, Cervical 05/06/2022 12:30 PM CDT [facility] INTERPRETATION/ RESULT NEGATIVE FOR INTRAEPITHELIAL LESION OR MALIGNANCY (NIL) (none) 05/06/2022 12:[address] [facility] at 1230 CDT SPECIMEN ADEQUACY Satisfactory for evaluation No endocervical component seen in a patient 05/06/2022 12:30 PM CDT [facility] HPV REQUEST HPV not requested 2021 12:30 PM CDT [facility] Date of LMP 02/09/2022 05/06/2022 12:[address] [facility] Last Pap Date 07/12/2019 05/06/2022 12:[address] [facility] Last Pap Result NIL 12:[address] [facility] Abnormal Pap or [place] Bx in last 5 years No 05/06/2022 12:30 PM CDT [facility] Menstrual Status 05/06/2022 12:[address] [facility] [place] Bx Done Today No 05/06/2022 12:[address] [facility] Additional Information None given 05/06/2022 12:[address] [facility] Comment: [facility] - [address], [place] [address] and [facility] - [address] [place] [address] and [facility] - [address] [place] [address] [facility] - [address], [place] [address] Automated Review Successful 05/06/2022 12:30 PM CDT [facility] Comment:Specimen processed s uccessfully by automated windows systems architect device, codes[employer]Prep Imaging System, [employer] Note The pap test is a screening technique, not a diagnostic procedure. It is used primarily to screen for squamous cancers and precursor lesions. Published studies have shown that it is subject to both false negative and false positive results. The pap test should not be used as the sole means to diagnose or exclude pre-malignant and malignant lesions. 05/06/2022 12:30 PM CDT [facility] Other (Cervical) Non-Blood / Unknown 04/21/2022 11:19 AM CDT 04/21/2022 12:53 PM CDT Vivien Lawrence MD PATHOLOGY/CYTOLOGY Final Re sult [facility] [address] [place] [address], [place] * ANTI HCV (03/24/2022 11:01 AM CDT) HEPATITIS C ANTIBODY Non-React mega Non-React mega 03/24/2022 7:42 PM CDT [facility] TR[facility] LABORATORY Comment:Antibodies to HCV no t detected; does not exclude the possibility of exposure to HCV. Blood BLOOD SPECIMEN / Unknown Venipuncture / Unknown 03/24/2022 11:01 AM CDT 03/24/2022 11:01 AM CDT Vivien Lawrence MD SEND OUTS Final Resul t [facility] [address] [place] [address]. [address] [place] [address], from Last 3 Months or Most Recently Relevant to Health Maintenance Insurance [facility] Care Teams Software Development Advisor Relationship Specialty Start Date End Date Laura Brooks NP [address] [place], [place] [id number] PCP - General Nurse Practitioner - Family 08/20/20 Yenny Faith PA Family Practice 02/02/11
[2025-03-17 13:35] VITALS: BP 122/89; PULSE 79; RESP 16; O2SAT 100; BMI 36.7
--- NOTE | 2025-03-17 14:08 | ED.PREGNANCY ---
HPI - General Time Seen by Provider: 14:08 Date Seen: 03/17/25 Chief complaint: Vaginal Bleeding Stated complaint: Thinks Miscarrying Time Seen by Provider: 03/17/25 13:38 Source: patient Mode of arrival: ambulatory Limitations: no limitations History of Present Illness HPI Narrative: 29-year-old female who comes in with concern for possible miscarriage, at 7+ 5 weeks by LMP January 22. Patient has had still a couple episodes spotting during this , notably at 4 weeks and 6 weeks, however no having some lower abdominal cramping as well. Current episode started yesterday. Denies is urinary symptoms, does feel like she is little bit vaginal discharge. No nausea, vomiting, diarrhea. Has an OB visit in about 2 weeks. She reports he did have an ultrasound done last week but is unsure of those results and was done at a free-standing clinic. Related Data Home Medications ?Medication ?Instructions ?Recorded ?Confirmed kojyhbjp-[id number] 1 mg 1 tab PO DAILY 08/08/23 03/17/25 tablet Previous Rx's ?Medication ?Instructions ?Recorded escitalopram oxalate 20 mg tablet 20 mg PO DAILY #90 tabs 04/16/24 omeprazole 20 mg capsule,delayed 20 mg PO QDAY #90 caps 05/15/24 release albuterol sulfate 90 mcg/actuation 1 puff inhalation ONCE #6.7 grams 05/18/24 aerosol inhaler fluticasone 250 mcg-salmeterol 50 1 inh inhalation BID #60 ea 06/04/24 mcg/dose blistr powdr for inhalation (Wixela Inhub) ibuprofen 600 mg tablet 600 mg PO Q6H PRN #30 tabs 07/28/24 Allergies Allergy/AdvReac Type Severity Reaction Status Date / Time No Known Drug Allergies Allergy Verified 03/17/25 13:44 [facility] Medical History (Updated 03/17/25 @ 16:13 by Iraj De Paz MD) Gestational diabetes ?O24.419 - Gestational diabetes mellitus in , unspecified control (ICD-10) Normal vaginal delivery ?O80 - Encounter for full-term uncomplicated delivery (ICD-10) Multiple cysts of breast ?N60.19 - Diffuse cystic mastopathy of unspecified breast (ICD-10) Migraine with aura ?G43.109 - Migraine with aura, not intractable, without status migrainosus (ICD-10) Herpes ?B00.9 - Herpesviral infection, unspecified (ICD-10) Surgical History [place] teeth extracted ?K08.409 - Partial loss of teeth, unspecified cause, unspecified class (ICD-10) History of hernia surgery ?Z98.890 - Other specified postprocedural states (ICD-10) ?Z87.19 - Personal history of other diseases of the digestive system (ICD-10) Social History Narrative: SOCIAL Education: Highschool 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 Seat Belt Use: Routinely Smoking: Denies past/present Alcohol/day: Denies while Caffeine: sometimes, but minimal Drug Use: Denies past/present MRSA: Denies Chickenpox: unknown What is your current living situation?: I presently have a place to live Problems where you live: no known problems In the past 12 months, utilities in danger of being shut off: no In past 12 months, lack of transportation kept you from medical appts, meetings, work, or getting things needed for daily living: no In the past 12 mos, have been you worried that your food would run out before you had money to buy more?: never true In the past 12 mos, the food you bought just didn't last and you didn't have money to buy more?: never true Smoking Status: Never smoker Do you use any of these nicotine containing products: None Second hand tobacco smoke exposure: No How often do you have a drink containing alcohol: never AUDIT-C Alcohol total score: 0 Non-prescribed substance use: denies use How often does anyone, including family, friends and others, physically hurt you: never How often does anyone, including family, friends and others, insult or talk down to you: never How often does anyone, including family, friends and others, threaten you with harm: never How often does anyone, including family, friends and others, scream or curse at you: never service: No Exam Narrative: Exam Narrative: General: Well-developed and well-nourished, no acute distress Head: Atraumatic and normocephalic Eyes: Pupils are equal reactive, extraocular motions intact, conjunctiva clear ENT: External nose and ears are normal, posterior pharynx without erythema or exudate Neck: No midline cervical tenderness, full spontaneous range of motion the neck, trachea midline, no adenopathy Heart: Regular rate and rhythm no murmurs or thrills Lungs: Clear to auscultation bilaterally without wheezes or crackles Abdomen: Soft, nontender, nondistended with active bowel sounds Musculoskeletal: No tenderness, deformity, or edema Neurologic: Awake, alert, and oriented x3, no gross focal neurologic deficits, cranial nerves intact as tested Psych: Mood and affect are appropriate Skin: No rashes Const: Vital Signs, click to edit/add: Vital Signs - 24 hr 03/17/25 13:35 03/17/25 15:28 Temperature 98.2 F Pulse Rate [Pulse Oximeter] 79 Respiratory Rate 16 Blood Pressure [Le ft Upper Arm] 122/89 Pulse Oximetry 100 Oxygen Delivery Me thod Room Air Course Course ED Course: Reviewed prior emergency department note from December 16, 2023 when patient was 6 weeks seen for vaginal bleeding. Review of prior chart shows patient is blood type is A-negative, prior positive antibody screen with anti D in December 2023 but no antibodies found July 2024. Patient presents today with vaginal spotting and lower abdominal cramping starting yesterday. She has had spotting at 4 weeks and 6 weeks this but otherwise is feeling well. Denies urinary symptoms. On exam here, patient is vitally stable, minimal lower abdominal tenderness. Ultrasound is ordered as patient did have an ultrasound which she does not know the results this in these are not available, labs ordered. Reevaluation(s) Time of Reevaluation #1: 16:17 Reevaluation #1: Labs and fell interpreted by me with hemoglobin 12. Care discussed with Dr. Zuñiga, roofer gypsum who recommends giving RhoGAM in follow-up in clinic this week. Updated patient and spouse with findings and plan. Vital Signs Vital signs: Initial Vital Signs Pulse Rate 79 03/17/25 13:35 Respiratory Rate 16 03/17/25 13:35 Blood Pressure 122/89 03/17/25 13:35 Blood Pressure Mean 100 03/17/25 13:35 Blood Pressure Position Supine 03/17/25 13:35 Pulse Oximetry 100 03/17/25 13:35 Oxygen Delivery Method Room Air 03/17/25 13:35 Vital Signs Pulse Rate 79 03/17/25 13:35 Respiratory Rate 16 03/17/25 13:35 Blood Pressure 122/89 03/17/25 13:35 Pulse Oximetry 100 03/17/25 13:35 Oxygen Delivery Method Room Air 03/17/25 13:35 Temperature 98.2 F 03/17/25 15:28 Pulse Rate 79 03/17/25 13:35 Respiratory Rate 16 03/17/25 13:35 Blood Pressure 122/89 03/17/25 13:35 Pulse Oximetry 100 03/17/25 13:35 Oxygen Delivery Method Room Air 03/17/25 13:35 Medications Administered Medications: Discontinued Medications Generic Name Dose Route Start Last Admin Trade Name Freq PRN Reason Stop Dose Admin Acetaminophen 1,000 mg 03/17/25 14:21 03/17/25 14:26 Acetaminophen 500 Mg Tablet PO 03/17/25 14:22 1,000 mg ONCE ONE Administration MDM - OB/Uterine Contractions Lab Data Labs: Lab Results 03/17/25 Range/Units 14:19 WBC 7.70 (4.50-11.00) K/uL RBC 4.73 (4.00-5.20) m/uL Hgb 12.0 (12.0-16.0) gm/dL Hct 37.8 (33.0-51.0) % MCV 80 (80-100) fL MCH 25 L (26-34) pg MCHC 32 (32-36) gm/dL RDW Coeff of Radha 15.1 (11.5-15.5) % Plt Count 251 (140-440) K/uL Neut % (Auto) 73.3 H (42.0-72.0) % Lymph % (Auto) 18.4 L (20-44) % [place]idan % (Auto) 7.1 (0.0-11.0) % Eos % (Auto) 0.5 (0.0-7.0) % Baso % (Auto) 0.4 (0.0-3.0) % Neut # (Auto) 5.60 (1.7-7.0) K/uL Lymph # (Auto) 1.40 (0.90-2.90) K/uL [place]idan # (Auto) 0.50 (0.00-0.90) K/UL Eos # (Auto) 0.04 (0.00-0.50) K/uL Baso # (Auto) 0.03 (0.00-0.30) K/uL Abs Immat Gran (auto) 0.02 (0.00-0.30) K/uL Imm/Tot Granulo (auto) 0.3 % Discharge Plan Discharge Clinical Impression: Non-viable Patient Disposition: Home, Self-Care Condition: Stable Instructions: Miscarriage (ED) Additional Instructions: Follow-up with valve seater operator this week. Activity Level: Activity as Tolerated Discharge Diet: Regular Prescriptions: No Action albuterol sulfate 90 mcg/actuation HFA aerosol inhaler 1 puff inhalation ONCE Qty: 6.7 0RF ibuprofen 600 mg Tablet 600 mg PO Q6H PRNQty: 30 0RF [id number]-[id number] 1 mg tablet 1 tab PO DAILY escitalopram oxalate 20 mg tablet 20 mg PO DAILY Qty: 90 3RF omeprazole 20 mg capsule,delayed release(DR/EC) 20 mg PO QDAY Qty: 90 4RF fluticasone propion-salmeterol [Wixela Inhub] 250-50 mcg/dose blister with device 1 inh inhalation BID Qty: 60 3RF Follow Up/Referrals: Provider,Not a Local [Primary Care Provider, Family Practice] Stand Alone Forms: [employer] Info Instructions
--- NOTE | 2025-03-17 14:19 | CRLHL7_ITS ---
For Patients: As a result of the Century Cures Act, medical imaging exams and procedure reports are released immediately into your electronic medical record. You may view this report before your referring provider. If you have questions, please contact your health care provider. INDICATION: First trimester scan, establish dates. COMPARISON: None. TECHNIQUE: Real-time white-scale imaging of the pelvis was performed transvaginal. FINDINGS: Intrauterine gestational sac is present which measures 1.5 cm, 6 weeks 2 days. pole measures 9.4 millimeters, 7 weeks 0 days. No heart tones. Yolk sac measures 8.1 millimeters, enlarged. Gestational sac fluid is somewhat echogenic. Corpus luteal cyst within the right ovary. IMPRESSION: Nonviable intrauterine gestation. Dictated by Perry Ramírez MD @ 03/17/2025 3:56:22 PM (Electronically Signed)
[2025-03-17] MEDS: ACETAMINOPHEN 500 MG TABLET 1000 MG PO (14:26)
[2025-03-17 15:28] VITALS: TEMP 36.8
[2025-03-17 15:45] LABS: Hematocrit* 37.8 % (33.0-51.0); Hemoglobin* 12.0 gm/dL (12.0-16.0); Immature Granulocytes Abs Auto 0.02 K/uL (0.00-0.30); Immature Granulocytes Pct Auto 0.3 %; Mean Corpuscular HGB Conc 32 gm/dL (32-36); Mean Corpuscular Hemoglobin 25 pg (26-34); Mean Corpuscular Volume 80 fL (80-100); RDW Coefficient of Variation % 15.1 % (11.5-15.5); Red Blood Count* 4.73 m/uL (4.00-5.20); White Blood Count* 7.70 K/uL (4.50-11.00)
[2025-03-17 15:47] LABS: Lymphocytes Absolute Auto 1.40 K/uL (0.90-2.90); Slide Review Reflex No
[2025-03-17 16:31] LABS: HCG Quantitative* 11082.00 mIU/mL
[2025-03-17 16:58] VITALS: BP 113/74; PULSE 71; RESP 14; TEMP 36.8; O2SAT 99
[2025-03-17 17:54] VITALS: BP 117/82; PULSE 57; RESP 14; TEMP 36.1; O2SAT 99
== END 2025-03-17 18:12 | disposition home or self-care (01) ==
PROVIDERS: Emergency Provider Family Medicine
DX: O36.80X0 Pregnancy with inconclusive fetal viability, not applicable or unspecified (principal)
CPT/HCPCS: 36415; 76817; 84702; 85025; 86900; 86901; 99284; A9270; J2791

== ENCOUNTER 2025-04-12 09:23 | Outpatient (CLI) | payer MEDICAID, SELFPAY | END 2025-04-12 09:24 | disposition home or self-care (01) | LOC: NFLDREF 04-16 11:12 | PROVIDERS: Visit Provider Obstetrics & Gynecology | DX: O03.9 Complete or unspecified spontaneous abortion without complication (principal) | CPT/HCPCS: 84702 ==